=== PATIENT | male | born 1970 | race Caucasian/White ===

== ENCOUNTER 2019-10-26 16:39 | Emergency (ER) | payer MEDICARE, MEDICAID, SELFPAY ==
--- NOTE | ~2019-10-26 | CT_ITS ---
EXAMINATION: CT abdomen pelvis w con EXAM DATE: 10/26/2019 20:28 INDICATION: Abdominal pain, urinary tract infection. TECHNIQUE: Spiral CT of the abdomen and pelvis was performed following intravenous injection of 100 m L Omnipaque 350. Axial, coronal and sagittal images were reviewed. The dose-length product (DLP) fo r this examination was 497.51 mGy-cm. The exposure was tailored according to patient size (auto mA e xposure control), and iterative reconstruction (ASIR) was used as additional dose reduction technique . Comparison is made to prior examination from 03/03/2019. FINDINGS: The liver, spleen, adrenal glands and pancreas are unremarkable. There are cholecystectomy clips. Portal and splenic veins are patent. Kidneys enhance symmetrically. There is no hydronephr osis. The prostate is unremarkable. There is suprapubic catheter within a collapsed bladder. Ther e is no retroperitoneal or pelvic lymphadenopathy. The appendix is large in caliber but does not appear obstructed and there is no adjacent inflammation . There is small to moderate-sized gastroesophageal hiatal hernia. Probably some edema of the distal esophagus, could be esophagitis. There is PEG, gastrojejunostomy tube. There is expected amount of colonic stool. No free intraperitoneal gas. Borderline heart size. No pleural or pericardial effu sions. The lung bases are unremarkable. There are no osteoblastic or osteolytic lesions identified. IMPRESSION: 1. No acute intra-abdominal findings. 2. Distal esophageal edema, probably esophagitis. 3. Gastrojejunostomy tube, suprapubic catheter in position. 4. Small to moderate gastroesophageal hiatal hernia. Reviewed, dictated and finalized at location A. CTOR OF PSYCHIATRY
--- NOTE | ~2019-10-26 | XR_ITS ---
EXAMINATION: XR chest 2V EXAM DATE: 10/26/2019 17:53 INDICATION: Cough and fever. TECHNIQUE: Frontal and lateral projections of the chest obtained and reviewed. Comparison is made to prior examination from 03/03/2019. FINDINGS: The lungs are clear. There are no pleural effusions. The cardiomediastinal silhouette is within normal limits. There is no pneumothorax suspected. Moderate lower thoracic dextroscoliosis. Bones appear osteopenic for age. IMPRESSION: 1. No acute cardiopulmonary findings. 2. Osteopenic-appearing bones for age. Reviewed, dictated and finalized at location A. OTYPE TECHNICIAN
[2019-10-26 16:46] VITALS: BP 108/73; PULSE 96; RESP 23; TEMP 36.4; O2SAT 97
[2019-10-26 17:09] VITALS: PULSE 98
[2019-10-26 18:28] LABS: Basophils Absolute Auto 0.1 K/mm3 (0.0-0.1); Basophils Percent Auto 0.9 % (0.2-1.2); Eosinophils Absolute Auto 0.4 K/mm3 (0-0.3); Eosinophils Percent Auto 5.7 % (0-4.4); Hematocrit 36.9 % (42.0-52.0); Hemoglobin 11.6 g/dL (14.0-18.0); Immature Granulocyte Absolute 0.09 K/mm3 (0.00-0.031); Immature Granulocyte Percent A 1.2 % (0-0.5); Lymphocytes Absolute Auto 2.21 K/mm3 (0.9-3.2); Lymphocytes Percent Auto 29.9 % (18.3-44.2); Mean Corpuscular HGB Conc 31.4 g/dl (32-36); Mean Corpuscular Hemoglobin 26.3 pg (26-34); Mean Corpuscular Volume 83.7 fl (80-100); Mean Platelet Volume 10.5 fl (7.4-10.4); Monocytes Absolute Auto 0.8 K/mm3 (0.1-0.6); Monocytes Percent Auto 10.8 % (2.6-8.5); Neutrophils Absolute Auto 3.8 K/mm3 (1.3-6.7); Neutrophils Percent Auto 51.5 % (45.5-73.1); Platelet Count Result 336 k/mm3 (150-375); Red Blood Count 4.41 M/mm3 (4.6-6.20); Red Cell Distribution Width 15.1 % (11.5-14.5); White Blood Count 7.4 K/mm3 (4.5-10.0)
--- NOTE | 2019-10-26 18:34 | ED.GENADULT ---
HPI - General Adult General Chief complaint: Unspecified <Rachael Morales PA-C - Last Filed: 10/26/19 21:07> Stated complaint: cough, fever <Rachael Morales PA-C - Last Filed: 10/26/19 21:07> Time Seen by Provider: 10/26/19 17:01 <Rachael Morales PA-C - Last Filed: 10/26/19 21:07> Source: patient and family <Rachael Morales PA-C - Last Filed: 10/26/19 21:07> Mode of arrival: ambulatory <Rachael Morales PA-C - Last Filed: 10/26/19 21:07> Limitations: other (patient with history of mental disability) <Rachael Morales PA-C - Last Filed: 10/26/19 21:07> History of Present Illness HPI narrative: This is a 49 year old male that presents to the ER for cold symptoms x 1 week. Patient with history of mental disability, unable to give history. History given by mother. Mother reports he has had cough, congestion and fever for the last week. Also reports he had some vomiting last night. Reports she saw some sediment in his urine from his suprapubic catheter and that he was acting more agitated today which prompted her to bring him in. <Rachael Morales PA-C - Last Filed: 10/26/19 21:07> Related Data Allergies/adverse reactions: Allergies Allergy/AdvReac Type Severity Reaction Status Date / Time adhesive tape Allergy Unknown SKIN Verified 10/26/19 17:02 BLISTERS <Rachael Morales PA-C - Last Filed: 10/26/19 21:07> Review of Systems Review of Systems: ROS unobtainable: unobtainable due to mental condition <Rachael Morales PA-C - Last Filed: 10/26/19 21:07> [facility] Past Medical History Medical History: Medical History (Updated 10/26/19 @ 21:04 by Rachael Morales PA-C) History of gastroesophageal reflux (GERD) History of gastrostomy tube placement History of Austin de la Tourette's syndrome History of hypertension History of neurogenic bladder <Rachael Morales PA-C - Last Filed: 10/26/19 21:07> Surgical History Surgical History: Surgical History (Updated 10/26/19 @ 20:57 by Rachael Morales PA-C) History of cholecystectomy <Rachael Morales PA-C - Last Filed: 10/26/19 21:07> Family History Family History: Family History (Updated 06/19/14 @ 07:13 by DOCTOR UNKNOWN) Mother Family history of thyroid disease Hypertension Other Family history of arthritis <Rachael Morales PA-C - Last Filed: 10/26/19 21:07> Social History Social History: Social History Smoking status: Never smoker Alcohol intake: never <Rachael Morales PA-C - Last Filed: 10/26/19 21:07> Exam Narrative: Exam Narrative: GENERAL: Well-appearing, well-nourished, and in no acute distress. HEAD: Normocephalic, atraumatic. EYES: EOMI. ENT: Nares clear, no rhinorrhea or epistaxis. Mucous membranes moist. Oropharynx without tonsillar hypertrophy exudate or other lesions. Bilateral TMs pearly beverly non-bulging NECK: Supple. No adenopathy or masses. CHEST: Clear to auscultation. No respiratory distress. No wheezes rales or rhonchi HEART: Regular rate and rhythm. No murmur heard. Normal peripheral pulses. ABDOMEN: Soft, nondistended, normal active bowel sounds. Mild tenderness to palpation of the upper abdomen, without guarding. No CVA tenderness EXTREMITIES: Normal range of motion. No edema. SKIN: Warm, dry, no rash. NEURO: No focal deficits. Alert and oriented x2. PSYCH: Normal mood and affect <Rachael Morales PA-C - Last Filed: 10/26/19 21:07> Course Vital Signs Vital signs: Vital Signs Temperature 36.4 C 10/26/19 16:46 Pulse Rate 96 10/26/19 16:46 Respiratory Rate 23 H 10/26/19 16:46 Blood Pressure 108/73 10/26/19 16:46 Pulse Oximetry 97 10/26/19 16:46 Temperature 36.4 C 10/26/19 16:46 Pulse Rate 88 10/26/19 21:25 Respiratory Rate 18 10/26/19 21:25 Blood Pressure 138/72 10/26/19 21:25 Pulse Oximetry 97 10/26/19 21:25 <Rachael Morales PA-C - Last Filed: 10/26/19 21:07> Vital Signs Temperature 36.4 C
[2019-10-26 18:40] LABS: Lactic Acid Reflex 0.6 mmol/L (0.7-2.1)
[2019-10-26 18:41] LABS: Alanine Aminotransferase 15 U/L (4-50); Albumin Level 4.2 g/dL (3.5-5.1); Alkaline Phosphatase 102 U/L (38-126); Aspartate Amino Transferase 32 U/L (17-59); Bilirubin,Total 0.2 mg/dL (0.2-1.3); Blood Urea Nitrogen 12 mg/dL (9-20); Calcium 9.2 mg/dL (8.4-10.2); Carbon Dioxide 28 mmol/L (22-30); Chloride 98 mmol/L (98-107); Estimated CRCL calculation 106 ml/min; Estimated Glomerular Filt Rate > 60; Glucose 130 mg/dL (75-110); Lipase 49 U/L (23-300); Potassium 3.5 mmol/L (3.4-5.0); Sodium 138 mmol/L (137-145)
[2019-10-26 19:20] LABS: Add Urine Microscopic? YES; Appearance Urine Cloudy (Clear); Bacteria Urine 3+ /hpf; Bilirubin Urine Negative (Negative); Budding Yeast Urine Present /hpf; Color Urine Yellow (Yellow); Glucose Urine UA Negative (Negative); Ketones Urine Negative (Negative); Leukocyte Esterase Ur 3+ LEU/UL (Negative); Mucus Urine Heavy /lpf; Nitrate Urine Positive (Negative); Protein Urine Negative (Negative); RBC Urine 21-50 /hpf (0-2); Specific Grav Ur 1.008 (1.001-1.035); Urobilinogen Urine Negative mg/dL (<2.0); WBC Urine >75 /hpf
[2019-10-26 19:22] LABS: Blood Urine Negative (Negative)
[2019-10-26 21:25] VITALS: BP 138/72; PULSE 88; RESP 18; O2SAT 97
--- NOTE | 2019-11-24 06:08 | PC.NURSE ---
LATE ENTRY This note is being entered to document information to the patient's record. The following information was omitted on [10/25/19], by [fiona]. Antibiotics complete, 50ml infused.
== END 2019-10-26 21:40 | disposition home or self-care (01) ==
PROVIDERS: Physician Assistant; Emergency Provider Emergency Medicine
DX: N30.01 Acute cystitis with hematuria (principal); F79 Unspecified intellectual disabilities; K21.9 Gastro-esophageal reflux disease without esophagitis; I10 Essential (primary) hypertension; N31.9 Neuromuscular dysfunction of bladder, unspecified; F95.2 Tourette's disorder; K46.9 Unspecified abdominal hernia without obstruction or gangrene; Z93.1 Gastrostomy status
CPT/HCPCS: 36415; 71046; 74177; 80053; 81001; 83605; 83690; 85025; 87077; 87086; 87088; 87186; 96360; 99284; J0696; Q9967

== ENCOUNTER 2019-12-03 13:39 | Inpatient (IN) | payer MEDICARE, MEDICAID, SELFPAY ==
[2019-12-03] VITALS (11 sets, daily range): BP systolic 99–125; BP diastolic 57–88; PULSE 85–117; RESP 16–29; TEMP 36.2–36.8; O2SAT 94–96; BMI 24.7
--- NOTE | ~2019-12-03 | XR_ITS ---
EXAMINATION: XR chest 2V EXAM DATE: 12/03/2019 15:27 INDICATION shortness of breath and weakness. Fever. Symptoms 1-2 days. TECHNIQUE: Frontal and lateral projections of the chest obtained and reviewed. Comparison is made to prior examination from 11/11. FINDINGS: There are scattered right upper lobe reticulonodular airspace disease, possible bronchopneu monia. The lungs are otherwise clear. There are no pleural effusions. The cardiomediastinal silhoue tte is within normal limits. There is no pneumothorax suspected. The bones and soft tissues are unr emarkable. Gastrostomy tube. IMPRESSION: Probable nonconfluent scattered right upper lobe airspace disease, could be pneumonia. Reviewed, dictated and finalized at location B. NER INTERN
--- NOTE | 2019-12-03 13:59 | ED.GENADULT ---
HPI - General Adult General Chief complaint: Unspecified Stated complaint: Fever Time Seen by Provider: 12/03/19 13:45 Source: patient and family Mode of arrival: ambulatory Limitations: other (Mental capacity) History of Present Illness HPI narrative: A 49 y/o male presents to the ED with c/o fever. Per patient's family, the patient suddenly had a fever yesterday that was 102.5 degrees Fahrenheit. The family notes that he has been around someone in their family with Influenza. The family reports dark odorous urine with sediment, cough, and N/V. The family adds that the urine symptoms started last week and the patients home health nurse took a sample of the urine, but they have not heard about the results yet. The patient did not vomit today. He has a PMHx of autism and metal disability and currently has a feeding tube and gastric tube placed. A complete HPI is limited due to the patient's mental capacity. complaint: Fever Onset (ago): day(s) (1) Associated symptoms: cough, nausea/vomiting and other (Dark odorous urine with sediment) Treatments prior to arrival: none Related Data Home Medications Medication Instructions Recorded Confirmed Sudafed 1 tablet PO BID 11/26/19 12/03/19 carvedilol [Coreg] 3.125 mg PO DAILY 11/26/19 12/03/19 ergocalciferol (vitamin D2) 50,000 unit PO [id number] 11/26/19 12/03/19 [Vitamin D2] lamotrigine 75 mg PO BID 11/26/19 12/03/19 omeprazole 40 mg PO DAILY 11/26/19 12/03/19 Allergies Allergy/AdvReac Type Severity Reaction Status Date / Time adhesive tape Allergy Unknown SKIN Verified 11/26/19 10:06 BLISTERS Review of Systems Review of Systems: Narrative: A complete ROS is limited due to the patient's mental capacity. All systems reviewed & are unremarkable except as noted in HPI and below Constitutional: Constitutional: Reports fever(s) Respiratory: Respiratory: Reports cough Gastrointestinal: Gastrointestinal: Reports nausea and Reports vomiting Genitourinary: Genitourinary: Reports other (Dark odorous urine with sediment) [facility] Past Medical History Medical History (Updated 12/03/19 @ 19:21 by Ghassan Le MD) Autism Feeding by G-tube Gastrostomy tube in place History of gastroesophageal reflux (GERD) History of gastrostomy tube placement History of Austin de la Tourette's syndrome History of hypertension History of neurogenic bladder Mental disability Suprapubic catheter Surgical History Surgical History History of cholecystectomy Family History Family History Mother Family history of thyroid disease Hypertension Other Family history of arthritis Social History Social History Smoking status: Never smoker Alcohol intake: never Substance use: never Gender identity (if verbalized by the patient): Male Spiritual care concerns: No Agree to blood products: Yes Exam Narrative: Exam Narrative: GENERAL: Chronically ill-appearing, thin, and in no acute distress. HEAD: Normocephalic, atraumatic. ENT: Mucous membranes moist. NECK: Supple. CHEST: Mild rales left upper lung zone posteriorly.. No respiratory distress. HEART: Tachycardic and regular. Normal peripheral pulses. ABDOMEN: Soft, nontender, nondistended. G-tube and suprapubic tube. EXTREMITIES: Normal range of motion. No edema. SKIN: Warm, dry, no rash. NEURO: Awake and alert, follows commands well. Course Course Emergency Course: Admit to hospitalist service. Zosyn ordered. Tamiflu per G-tube. We will continue hydration. Vital Signs Vital signs: Vital Signs Temperature 98.3 F 12/03/19 13:49 Pulse Rate 116 H 12/03/19 13:49 Respiratory Rate 24 H 12/03/19 13:49 Blood Pressure 125/57 L 12/03/19 13:49 Pulse Oximetry 95 12/03/19 13:49 Temperature 98.3 F 12/03/19 13:49 Pulse Rate 117 H 12/03/19 17:00 Respirat
[2019-12-03] MEDS: SODIUM CHLORIDE 0.9% IV 1,000 ML 999 ML IV CONT (14:16)
[2019-12-03 14:17] LABS: Basophils Percent Auto 0.8 % (0.2-1.2); Eosinophils Absolute Auto 0.1 K/mm3 (0-0.3); Eosinophils Percent Auto 2.7 % (0-4.4); Hematocrit 34.6 % (42.0-52.0); Immature Granulocyte Absolute 0.04 K/mm3 (0.00-0.031); Immature Granulocyte Percent A 0.8 % (0-0.5); Lymphocytes Percent Auto 14.6 % (18.3-44.2); Mean Corpuscular HGB Conc 31.8 g/dl (32-36); Mean Corpuscular Hemoglobin 26.6 pg (26-34); Mean Corpuscular Volume 83.6 fl (80-100); Mean Platelet Volume 8.9 fl (7.4-10.4); Monocytes Absolute Auto 0.6 K/mm3 (0.1-0.6); Monocytes Percent Auto 13.1 % (2.6-8.5); Neutrophils Absolute Auto 3.3 K/mm3 (1.3-6.7); Platelet Count Result 258 k/mm3 (150-375); Red Blood Count 4.14 M/mm3 (4.6-6.20); Red Cell Distribution Width 15.5 % (11.5-14.5); White Blood Count 4.8 K/mm3 (4.5-10.0)
--- NOTE | 2019-12-03 14:20 | PC.NURSE ---
Pt and visitors informed of positive flu result. Attempt to place mask on patient, pt begins to become stressed, states no mask, no mask . Visitors informed and given masks for their protection.
[2019-12-03 14:27] LABS: Add Urine Microscopic? YES; Appearance Urine Cloudy (Clear); Bacteria Urine 2+ /hpf; Bilirubin Urine Negative (Negative); Blood Urine 1+ (Negative); Color Urine Yellow (Yellow); Glucose Urine UA Negative (Negative); Ketones Urine Trace mg/dL (Negative); Leukocyte Esterase Ur 2+ LEU/UL (Negative); Mucus Urine Rare /lpf; Nitrate Urine Negative (Negative); Protein Urine 2+ mg/dL (Negative); RBC Urine 21-50 /hpf (0-2); Specific Grav Ur 1.015 (1.001-1.035); Squamous Epithelial Cell Urine Rare /hpf (Few); Urobilinogen Urine Negative mg/dL (<2.0); WBC Urine 21-30 /hpf
[2019-12-03 14:28] LABS: Alanine Aminotransferase 22 U/L (4-50); Albumin Level 4.1 g/dL (3.5-5.1); Alkaline Phosphatase 107 U/L (38-126); Aspartate Amino Transferase 54 U/L (17-59); Bilirubin,Total 0.2 mg/dL (0.2-1.3); Blood Urea Nitrogen 12 mg/dL (9-20); Calcium 8.6 mg/dL (8.4-10.2); Carbon Dioxide 24 mmol/L (22-30); Chloride 101 mmol/L (98-107); Estimated CRCL calculation 92 ml/min; Estimated Glomerular Filt Rate > 60; Glucose 108 mg/dL (75-110); Potassium 3.7 mmol/L (3.4-5.0); Sodium 136 mmol/L (137-145)
[2019-12-03 14:28] LABS: Lactic Acid 0.9 mmol/L (0.7-2.1)
[2019-12-03] MEDS: ALBUTEROL SULFATE NEB 2.5 MG/0.5 ML INH 5 MG INHALATION ×2 (14:38→20:01)
[2019-12-03] MEDS: IPRATROPIUM BR 0.02% INH SOLN 0.5 MG/2.5 ML VIAL INHALATION ×2 (14:39→20:01)
[2019-12-03] MEDS: SODIUM CHLORIDE 0.9% IV 1,000 ML 125 ML IV CONT (16:14)
--- NOTE | 2019-12-03 17:12 | PC.NURSE ---
This patient, Trace Bowser, was admitted to 3 [facility] Surg Room 302-01. Patient/family oriented to hospital policies and general routines including ID bracelet, bed and alarms, visiting hours, pain management, procedures, bathroom and other care routines, personal items, smoking policy, room service/diet, and visiting hours. Valuables list has been completed. Information on how to activate the Rapid Response Team has been discussed. Patient/Family are encouraged to report perceived risks to care and to ask questions if they do not understand what they are told or what they should do.
[2019-12-03] MEDS: OSELTAMIVIR PHOSPHATE ORAL SUSP 75 MG/12.5 ML SYRINGE FEED TUBE (19:07)
[2019-12-03] MEDS: ONDANSETRON INJ 4 MG/2 ML VIAL IV PUSH (21:35)
[2019-12-04] VITALS (12 sets, daily range): BP systolic 86–99; BP diastolic 53–59; PULSE 71–85; RESP 16–20; TEMP 36.6–37.4; O2SAT 94–99; BMI 24.7
[2019-12-04] MEDS: SODIUM CHLORIDE 0.9% IV 1,000 ML 125 ML IV CONT ×2 (01:10→09:59)
[2019-12-04] MEDS: ALBUTEROL SULFATE NEB 2.5 MG/0.5 ML INH 5 MG INHALATION ×4 (02:13→20:11)
[2019-12-04] MEDS: IPRATROPIUM BR 0.02% INH SOLN 0.5 MG/2.5 ML VIAL INHALATION ×4 (02:13→20:11)
--- NOTE | 2019-12-04 02:59 | PM.IMHP ---
H&P: HPI History of Present Illness Chief complaint: influenza A/pneumonia/uti Narrative: Trace Bowser is a 49 year old male who is mentally challenged patient who resides with his mother. According to the ED note the patient's family stated that he started having a fever yesterday of 102.5 the also noted that he had been around someone in the family with influenza. Also has a suprapubic catheter and has had frequent urinary tract infections. The patient had a urine sample taken in about a week ago. Patient had a urine culture from October which shows E coli and Enterococcus species. But I did not see 1 from a week ago. Patient was given Zosyn in the emergency room. He was started on Tamiflu for influenza A. Date of service 12/04/2019 Review of Systems Review of Systems: Narrative: Patient is mentally challenged most information was obtained from old records. Patient stated that he has fever and chills. He also has body aches. All systems reviewed & are unremarkable except as noted in HPI and below Constitutional: Constitutional: Reports as per HPI and Reports no additional constitutional complaints Eyes: Eyes: Reports as per HPI and Reports no additional eye complaints ENT: Reports system reviewed and no additional complaints, except as documented and Reports Normal hearing present Cardiovascular: Cardiovascular: Reports no additional cardiovascular complaints Respiratory: Respiratory: Reports no additional respiratory complaints and Reports no additional respiratory complaints Gastrointestinal: Gastrointestinal: Reports as per HPI and Reports no additional gastrointestinal complaints Musculoskeletal: Musculoskeletal: Reports no additional musculoskeletal complaints Integumentary/Breasts: Skin/Breast: Reports system reviewed and no additional complaints, except as docu and Reports as per HPI Neurologic: Reports system reviewed and no additional complaints, except as documented, Reports as per HPI and Reports Normal hearing present Psychiatric: Psychiatric: Reports no additional psychiatric complaints and Reports as per HPI Endocrine: Endocrine: Reports no additional endocrine complaints Hematologic/Lymphatic: Hematologic/Lymphatic: Reports no additional hematologic/lymphatic complaints Allergic/Immunologic: Allergic/Immunologic: Reports no additional allergic/immunologic complaints [facility] Past Medical History Medical History (Updated 12/04/19 @ 03:06 by Bella Castro NP) Autism Barretts esophagus Chronic ear infection Feeding by G-tube Gastrostomy tube in place History of gastroesophageal reflux (GERD) History of gastrostomy tube placement History of Austin de la Tourette's syndrome History of hypertension History of neurogenic bladder Hypertension Mental disability Seizure disorder Suprapubic catheter Tourette syndrome Surgical History Surgical History (Updated 12/04/19 @ 03:06 by Bella Castro NP) History of cholecystectomy History of ear surgery 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 History of surgical removal of skin lesion Benign lesion to the neck Family History Family History (Updated 12/04/19 @ 03:07 by Bella Castro NP) Mother Family history of thyroid disease Hypertension COPD (chronic obstructive pulmonary disease) HTN (hypertension) with goal to be determined Father Congestive heart failure Other Family history of arthritis Social History Social History Smoking status: Never smoker Alcohol intake: never Substance use: never Gender identity (if verbalized by the patient): Male Spiritual care concerns: No Agree to blood products: Yes Meds Home Medications and Allergies Home Medications Medication Instructions Recorded Confirmed Type Sudafed 1 tablet PO BID 11/26/19 12/03/19 History carvedilol [Coreg] 3.125 mg PO DAILY 11/26/19 12/03/19 History ergocalciferol (kelsie
[2019-12-04] MEDS: OSELTAMIVIR PHOSPHATE ORAL SUSP 75 MG/12.5 ML SYRINGE FEED TUBE ×2 (05:53→18:35)
[2019-12-04 06:34] LABS: Basophils Percent Auto 0.5 % (0.2-1.2); Eosinophils Percent Auto 0.9 % (0-4.4); Hematocrit 32.1 % (42.0-52.0); Immature Granulocyte Absolute 0.03 K/mm3 (0.00-0.031); Immature Granulocyte Percent A 0.7 % (0-0.5); Lymphocytes Absolute Auto 1.12 K/mm3 (0.9-3.2); Lymphocytes Percent Auto 26.4 % (18.3-44.2); Mean Corpuscular HGB Conc 31.2 g/dl (32-36); Mean Corpuscular Hemoglobin 26.9 pg (26-34); Mean Corpuscular Volume 86.3 fl (80-100); Mean Platelet Volume 8.9 fl (7.4-10.4); Monocytes Absolute Auto 0.7 K/mm3 (0.1-0.6); Monocytes Percent Auto 16.5 % (2.6-8.5); Neutrophils Absolute Auto 2.3 K/mm3 (1.3-6.7); Platelet Count Result 219 k/mm3 (150-375); Red Blood Count 3.72 M/mm3 (4.6-6.20); Red Cell Distribution Width 15.8 % (11.5-14.5); White Blood Count 4.3 K/mm3 (4.5-10.0)
[2019-12-04 06:55] LABS: Alanine Aminotransferase 21 U/L (4-50); Albumin Level 3.4 g/dL (3.5-5.1); Alkaline Phosphatase 116 U/L (38-126); Aspartate Amino Transferase 46 U/L (17-59); Bilirubin,Total < 0.1 mg/dL (0.2-1.3); Blood Urea Nitrogen 11 mg/dL (9-20); Calcium 7.8 mg/dL (8.4-10.2); Carbon Dioxide 26 mmol/L (22-30); Chloride 110 mmol/L (98-107); Estimated CRCL calculation 81 ml/min; Estimated Glomerular Filt Rate > 60; Glucose 94 mg/dL (75-110); Magnesium 2.1 mg/dL (1.6-2.3); Potassium 3.6 mmol/L (3.4-5.0); Sodium 146 mmol/L (137-145)
--- NOTE | 2019-12-04 09:12 | PM.IMPN ---
Progress Note: A&P Assessment and Plan (1) Influenza A: Code(s): J10.1 - Influenza due to other identified influenza virus with other respiratory manifestations Status: Acute Assessment and Plan: Continue Tamiflu via G-tube for 5 days. Will complete on 12/08/2019 Supportive care as needed (2) Acute UTI: Code(s): N39.0 - Urinary tract infection, site not specified Status: Acute Assessment and Plan: Patient has had E coli and Enterococcus in the past. Patient may have colonized bacteria in his suprapubic catheter. Suprapubic catheter in place. Continue IV Zosyn - Zosyn was started on 12/03/2019 in ED Cultures pending - will await results. (3) Pneumonia: Qualifiers: Laterality: right Lung location: upper lobe of lung Pneumonia type: due to influenza A virus Qualified Code(s): J11.00 - Influenza due to unidentified influenza virus with unspecified type of pneumonia Code(s): J18.9 - Pneumonia, unspecified organism Status: Acute Assessment and Plan: CXR Radiology report: Probable nonconfluent scattered right upper lobe airspace disease, could be pneumonia. Most likely is viral. He is on Zosyn for UTI. Supportive care as needed. (4) Dehydration: Code(s): E86.0 - Dehydration Status: Acute Assessment and Plan: Reduce IV Normal Saline to 100 ml/hr Continue to monitor sodium - currently at 146 If sodium continues to rise, consider switching to D5W (5) Hypertension: Code(s): I10 - Essential (primary) hypertension Status: Chronic Assessment and Plan: Blood pressure evaluated and low from baseline at 86/59 Hold home Coreg today. Continue IV fluids to boost pressure. Continue to monitor pressures. (6) Seizure disorder: Code(s): G40.909 - Epilepsy, unspecified, not intractable, without status epilepticus Status: Chronic Assessment and Plan: Currently stable Continue with Lamictal. (7) Autism: Code(s): F84.0 - Autistic disorder Status: Chronic Assessment and Plan: Continue with patient's home tube feedings. (8) Tourette syndrome: Code(s): F95.2 - Tourette's disorder Status: Chronic Assessment and Plan: Currently stable Subjective Date/time seen: 12/04/19 09:12 Interval history: Date of service: 12/04/2019 Mr. Bowser is a 49 year old male with a history of autism, HTN, and Tourette syndrome who was admitted to the hospital on 12/04/2019 for urinary tract infection and Influenza. He has had several urinary tract infections in the past. Recent culture from October grew E. coli and Enterococcus. He currently has a suprapubic catheter in place. He is currently on Zosyn. He also has a G-tube in place.He is receiving Tamiflu through his G-tube. Mr. Bowser is well-appearing and appears stable. He is examined alone today. It is difficult to obtain information from the patient. He reports no pain. He states he is sleeping well. Review of Systems Review of Systems: Narrative: It is difficult to obtain information from the patient due to his mental state. All systems reviewed & are unremarkable except as noted in HPI and below Constitutional: Constitutional: Denies chills, Denies difficulty sleeping and Denies weakness ENT: Denies nasal congestion, Denies nasal discharge and Denies sore throat Cardiovascular: Cardiovascular: Denies chest pain Respiratory: Respiratory: Denies cough Gastrointestinal: Gastrointestinal: Denies nausea and Denies vomiting Genitourinary: Genitourinary: Denies flank pain Musculoskeletal: Musculoskeletal: Reports no additional musculoskeletal complaints Integumentary/Breasts: Skin/Breast: Reports system reviewed and no additional complaints, except as docu Neurologic: Reports system reviewed and no additional complaints, except as documented Psychiatric: Psychiatric: Reports no additional psychiatric complaints Exam Narrative:
[2019-12-04] MEDS: carvediloL 3.125 MG TABLET PO (09:48)
[2019-12-04] MEDS: lamoTRIgine 25 MG TABLET 75 MG PO ×2 (09:48→17:40)
[2019-12-04] MEDS: PANTOPRAZOLE 40 MG TABLET PO ×2 (09:48→17:40)
--- NOTE | 2019-12-04 12:13 | PCNSR ---
On 12/04/19, the student, Bre De Santiago, provided care and completed [facility] documentation on this patient. I have reviewed the student's documentation and agree with the findings.
[2019-12-04] MEDS: SODIUM CHLORIDE 0.9% IV 1,000 ML 100 ML IV CONT (21:32)
[2019-12-05] VITALS (8 sets, daily range): BP systolic 104; BP diastolic 56; PULSE 67–84; RESP 16–20; TEMP 36.8; O2SAT 94
[2019-12-05] MEDS: ALBUTEROL SULFATE NEB 2.5 MG/0.5 ML INH 5 MG INHALATION ×3 (04:10→15:40)
[2019-12-05] MEDS: IPRATROPIUM BR 0.02% INH SOLN 0.5 MG/2.5 ML VIAL INHALATION ×3 (04:10→15:40)
[2019-12-05] MEDS: OSELTAMIVIR PHOSPHATE ORAL SUSP 75 MG/12.5 ML SYRINGE FEED TUBE ×2 (05:32→18:24)
[2019-12-05 06:43] LABS: Hematocrit 30.9 % (42.0-52.0); Hemoglobin 9.6 g/dL (14.0-18.0); Mean Corpuscular HGB Conc 31.1 g/dl (32-36); Mean Corpuscular Hemoglobin 26.2 pg (26-34); Mean Corpuscular Volume 84.2 fl (80-100); Mean Platelet Volume 8.5 fl (7.4-10.4); Platelet Count Result 212 k/mm3 (150-375); Red Blood Count 3.67 M/mm3 (4.6-6.20); Red Cell Distribution Width 15.6 % (11.5-14.5); White Blood Count 3.4 K/mm3 (4.5-10.0)
[2019-12-05 07:03] LABS: Blood Urea Nitrogen 9 mg/dL (9-20); Carbon Dioxide 24 mmol/L (22-30); Chloride 109 mmol/L (98-107); Estimated CRCL calculation 106 ml/min; Estimated Glomerular Filt Rate > 60; Glucose 104 mg/dL (75-110); Potassium 3.6 mmol/L (3.4-5.0); Sodium 142 mmol/L (137-145)
[2019-12-05] MEDS: SODIUM CHLORIDE 0.9% IV 1,000 ML 100 ML IV CONT (08:35)
[2019-12-05] MEDS: lamoTRIgine 25 MG TABLET 75 MG PO (08:35)
[2019-12-05] MEDS: PANTOPRAZOLE 40 MG TABLET PO (08:35)
--- NOTE | 2019-12-05 12:42 | PM.IMPN ---
Progress Note: A&P Assessment and Plan (1) Influenza A: Code(s): J10.1 - Influenza due to other identified influenza virus with other respiratory manifestations Status: Acute Assessment and Plan: Continue Tamiflu via G-tube for 5 days. Will complete on 12/08/2019 Supportive care as needed (2) Acute UTI: Code(s): N39.0 - Urinary tract infection, site not specified Status: Acute Assessment and Plan: Patient has had E coli and Enterococcus in the past. Patient may have colonized bacteria in his suprapubic catheter. Patient is afebrile and stable. Final urine culture reports Proteus Mirabilis with susceptibility to Zosyn. Suprapubic catheter in place - urine in catheter bag appears significantly more clear today. Continue IV Zosyn - Zosyn was started on 12/03/2019 in ED Patient is stable and able to take oral antibiotics at home - Begin Cefdinir at discharge for 7 days (3) Pneumonia: Qualifiers: Laterality: right Lung location: upper lobe of lung Pneumonia type: due to influenza A virus Qualified Code(s): J11.00 - Influenza due to unidentified influenza virus with unspecified type of pneumonia Code(s): J18.9 - Pneumonia, unspecified organism Status: Acute Assessment and Plan: CXR Radiology report: Probable nonconfluent scattered right upper lobe airspace disease, could be pneumonia. Most likely is viral. He is on Zosyn for UTI. Supportive care as needed. (4) Dehydration: Code(s): E86.0 - Dehydration Status: Acute Assessment and Plan: Reduce IV Normal Saline to 100 ml/hr Continue to monitor sodium - currently stable at 142 If sodium continues to rise, consider switching to D5W (5) Hypertension: Qualifiers: Hypertension type: essential hypertension Qualified Code(s): I10 - Essential (primary) hypertension Code(s): I10 - Essential (primary) hypertension Status: Chronic Assessment and Plan: Blood pressure evaluated and stable at 104/56. Continue to hold home Coreg today due to previous pressures lower than baseline. Continue to monitor pressures. (6) Seizure disorder: Code(s): G40.909 - Epilepsy, unspecified, not intractable, without status epilepticus Status: Chronic Assessment and Plan: Currently stable Continue with Lamictal. (7) Autism: Code(s): F84.0 - Autistic disorder Status: Chronic Assessment and Plan: Continue with patient's home tube feedings. (8) Tourette syndrome: Code(s): F95.2 - Tourette's disorder Status: Chronic Assessment and Plan: Currently stable Time Spent With Patient Time with patient: 25 - 35 minutes Subjective Date/time seen: 12/05/19 12:42 Interval history: Date of service: 12/05/2019 Mr. Bowser is doing well today. He is lying in bed and eating breakfast. Discussion is limited due to mental state, but he is able to answer questions with yes or no. He reports he is feeling well. He denies any pain. He reports he is sleeping well. He also reports good appetite. Review of Systems Review of Systems: All systems reviewed & are unremarkable except as noted in HPI and below Constitutional: Constitutional: Reports as per HPI, Reports no additional constitutional complaints, Denies chills, Denies difficulty sleeping and Denies weakness Eyes: Eyes: Reports as per HPI and Reports no additional eye complaints ENT: Reports system reviewed and no additional complaints, except as documented, Reports Normal hearing present, Denies nasal congestion, Denies nasal discharge and Denies sore throat Cardiovascular: Cardiovascular: Reports no additional cardiovascular complaints and Denies chest pain Respiratory: Respiratory: Reports no additional respiratory complaints, Reports no additional respiratory complaints and Denies cough Gastrointestinal: Gastrointestinal: Reports as per HPI, Reports no additional gastrointe
--- NOTE | 2019-12-05 16:11 | PM.DS ---
DS: Diagnosis Discharge Diagnosis (1) Influenza A: Code(s): J10.1 - Influenza due to other identified influenza virus with other respiratory manifestations Status: Acute (2) Acute UTI: Code(s): N39.0 - Urinary tract infection, site not specified Status: Acute (3) Pneumonia: Qualifiers: Laterality: right Lung location: upper lobe of lung Pneumonia type: due to influenza A virus Qualified Code(s): J11.00 - Influenza due to unidentified influenza virus with unspecified type of pneumonia Code(s): J18.9 - Pneumonia, unspecified organism Status: Acute (4) Dehydration: Code(s): E86.0 - Dehydration Status: Acute (5) Hypertension: Qualifiers: Hypertension type: essential hypertension Qualified Code(s): I10 - Essential (primary) hypertension Code(s): I10 - Essential (primary) hypertension Status: Chronic (6) Autism: Code(s): F84.0 - Autistic disorder Status: Chronic (7) Seizure disorder: Code(s): G40.909 - Epilepsy, unspecified, not intractable, without status epilepticus Status: Chronic (8) Tourette syndrome: Code(s): F95.2 - Tourette's disorder Status: Chronic DS: Summary Hospital Course Reason for hospitalization: Urinary Tract Infection Influenza Pneumonia Hospital Course: Date of service of admission: 12/03/2019 Date of service at discharge: 12/05/2019 Mr. Bowser is a 49 year old male with a history of autism, seizure disorder, and hypertension who was admitted to the hospital for a urinary tract infection, influenza A, and pneumonia. He was seen in the ED following self reported fever after having contact with someone who also had influenza. Mr. Bowser has decreased mental state and is cared for at home by his mother. He receives a mixed diet of feedings through an intact G tube and oral food intake. He has a patent suprapubic catheter in place, and has a history of UTIs with prior E. coli and Enterococcus infections in the past. He was started on IV Zosyn in the ED and continued to received IV Zosyn on day 1 and 2 in the hospital. He was given IV normal saline. His urine culture grew Proteus Mirabilis with susceptibility to Zosyn. He will continue oral Cefdinir for 7 days following discharge. He was also found to have influenza A while in the ED for which he was treated with Tamiflu via his intact G-tube. He will continue 7 doses of Tamiflu via G-tube upon discharge. His chest X-ray showed pneumonia. This is likely viral in origin and no further treatment was required. He remained asymptomatic. His blood pressure became decreased at 86/59 on day 1 of hospitalization, therefore his home dose of Coreg was held during hospitalization. Blood pressure stable at discharge. During his stay, he continued his tube feedings as a caregiver brought his home tube feeding supplies. In addition, he received a regular diet and ate foods orally. He continued his home lamotrigine for seizure disorder. The patient is to be discharged home with a caregiver, as his mother whom he lives with and is his typical caregiver, is currently hospitalized as well. Mother is aware. Just before discharge, the patient vomited after eating Jello. According to caregiver who arrived to take Mr. Bowser home, it is normal for him to have episodes of vomiting after coughing or eating. They discussed with his mother. He is eager for discharge and it was determined that he is still appropriate for discharge. Mr. Bowser was discharged on the evening of 12/05/2019 in stable condition. Status at Discharge Cognitive/behavioral status at discharge: Back to baseline decreased mental capability Overall status at discharge: patient is back to baseline Time Spent with Patient Time attestation: Total time spent providing and/or coordinating discharge services:45 minutes Time spent: Greater than 30 minutes Exam Narrative: Exam Narrative: The patient is
== END 2019-12-05 18:30 | disposition home health service (06) | DRG 194 ==
LOC: ANHED 13:57 → ANH3MEDSUR 16:49
PROVIDERS: Nurse Practitioner; Admitting Provider Hospitalist; Emergency Provider Emergency Medicine; Visit Provider Physician Assistant
DX: J10.01 Influenza due to other identified influenza virus with the same other identified influenza virus pneumonia (principal); F84.0 Autistic disorder; N39.0 Urinary tract infection, site not specified; T83.510A Infection and inflammatory reaction due to cystostomy catheter, initial encounter; Z93.1 Gastrostomy status; F95.2 Tourette's disorder; I10 Essential (primary) hypertension; N31.9 Neuromuscular dysfunction of bladder, unspecified; Z90.49 Acquired absence of other specified parts of digestive tract; G40.909 Epilepsy, unspecified, not intractable, without status epilepticus; E86.0 Dehydration; B96.4 Proteus (mirabilis) (morganii) as the cause of diseases classified elsewhere
CPT/HCPCS: 36415; 71046; 80048; 80053; 81001; 83605; 83735; 85025; 85027; 87077; 87086; 87088; 87186; 87804; 94640; 96361; 96365; 99285; A9270; J2405; J2543; J7030

== ENCOUNTER 2020-03-30 13:29 | Inpatient (IN) | payer MEDICARE, MEDICAID, SELFPAY ==
--- NOTE | ~2020-03-30 | XR_ITS ---
XR chest 2V 03/30/2020 14:27 Indication: Shortness of breath Procedure: 2 view chest Comparison: Comparison to multiple prior studies sequentially, with oldest reviewed study dated 03/03. Findings: Borderline heart size. Extensive airspace disease of the right mid and lower lung, compatib le with pneumonia. No pleural effusion or pneumothorax. There is scoliosis. There is atherosclerosis. No acute osseous abnormality. Impression: 1: Extensive airspace disease right mid and lower lung, consistent with pneumonia. Reviewed, dictated and finalized at location A. Impression: 1: Extensive airspace disease right mid and lower lung, consistent with pneumon ia.
--- NOTE | ~2020-03-30 | XR_ITS ---
EXAMINATION: XR chest 1V portable DATE: 04/02/2020 06:01 INDICATION: Pneumonia TECHNIQUE: frontal view of the chest was obtained. COMPARISON: Chest radiograph dated 03/30/2020 FINDINGS: Persistent opacities in the right lower lung zone. Tiny bilateral pleural effusions with blunting at the costophrenic and cardiophrenic angles. No pneumothorax. Borderline heart size accounting for AP t echnique. Thoracic dextroscoliosis. Cholecystectomy clips in right upper quadrant. Partially visualiz ed gastrojejunostomy tube projects over the upper abdomen. IMPRESSION: 1. Persistent opacities in the right lower lung consistent with pneumonia. Reviewed, dictated and finalized at location A.
--- NOTE | ~2020-03-30 | XR_ITS ---
EXAMINATION: XR chest 1V portable INDICATION: Pneumonia and shortness of breath TECHNIQUE: Portable AP chest at 0557 hours COMPARISON: 04/02/2020 FINDINGS: Right basilar airspace opacities persist with slight improvement. Tiny pleural effusions ar e unchanged. There is no pneumothorax. The cardiomediastinal silhouette is stable. A gastrojejunostom y projects over the upper abdomen. IMPRESSION: 1. Right basilar airspace opacity with slight improvement, consistent with pneumonia. Reviewed, dictated and finalized at location A. IMPRESSION: 1. Right basilar airspace opacity with slight improvement, consistent with pneu monia.
--- NOTE | 2020-03-30 13:32 | ECG_ITS ---
Measurements Intervals [place] Rate: 145 P: 42 MO: 129 QRS: -40 QRSD: 100 T: 50 QT: 280 QTc: 436 Interpretive Statements SINUS TACHYCARDIA LEFT AXIS DEVIATION RIGHT ATRIAL ENLARGEMENT INCOMPLETE RIGHT BUNDLE BRANCH BLOCK VOLTAGE CRITERIA FOR LVH ABNORMAL ECG Electronically Signed On 03-30-2020 14:05:06 CDT by Ken Clements D.O.
[2020-03-30 13:56] VITALS: BP 136/87; PULSE 140; RESP 18; TEMP 36.9; O2SAT 98
[2020-03-30 13:59] VITALS: PULSE 129
--- NOTE | 2020-03-30 14:16 | ED.GENADULT ---
HPI - General Adult General Chief complaint: Shortness of Breath/Dyspnea Stated complaint: COUGHING, N/V Time Seen by Provider: 03/30/20 13:48 Source: patient and family History of Present Illness HPI narrative: Patient is a 49 y/o male complaining of moderate cough, SOB and N/V for about 3 days. There is no alleviating or exacerbating factor. Patient has slurred speech and is difficult to understand. Mother provided most of history. She states that he has no fever. There is no alleviating or exacerbating factor. Related Data Home Medications Medication Instructions Recorded Confirmed carvedilol [Coreg] 3.125 mg PO DAILY 11/26/19 01/03/20 ergocalciferol (vitamin D2) 50,000 unit PO [id number] 11/26/19 01/03/20 [Vitamin D2] lamotrigine 75 mg PO BID 11/26/19 01/03/20 omeprazole 40 mg PO DAILY 11/26/19 01/03/20 Allergies Allergy/AdvReac Type Severity Reaction Status Date / Time adhesive tape Allergy Unknown SKIN Verified 01/03/20 10:01 BLISTERS Review of Systems Constitutional: Constitutional: Denies chills, Denies fever(s), Denies headache(s) and Denies weakness Eyes: Eyes: Denies blurry vision ENT: Denies headache(s) and Denies neck pain Cardiovascular: Cardiovascular: Denies chest pain and Reports dyspnea Respiratory: Respiratory: Reports cough and Reports dyspnea Gastrointestinal: Gastrointestinal: Denies abdominal pain, Denies diarrhea, Denies nausea and Reports vomiting Genitourinary: Genitourinary: Denies hematuria and Denies dysuria Musculoskeletal: Musculoskeletal: Denies back pain and Denies neck pain Neurologic: Denies headache(s) and Denies weakness FORMERLY [facility], 1928–1983 Past Medical History Medical History Autism Barretts esophagus Chronic ear infection Feeding by G-tube Gastrostomy tube in place History of gastroesophageal reflux (GERD) History of gastrostomy tube placement History of Austin de la Tourette's syndrome History of hypertension History of neurogenic bladder Hypertension Mental disability Seizure disorder Suprapubic catheter Tourette syndrome Surgical History Surgical History History of cholecystectomy History of ear surgery 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 History of surgical removal of skin lesion Benign lesion to the neck Family History Family History Mother Family history of thyroid disease Hypertension COPD (chronic obstructive pulmonary disease) HTN (hypertension) with goal to be determined Father Congestive heart failure Other Family history of arthritis Social History Social History Smoking status: Never smoker Alcohol intake: never Substance use: never Gender identity (if verbalized by the patient): Male Spiritual care concerns: No Agree to blood products: Yes Exam Const: General: no acute distress and well developed Orientation/consciousness: oriented to person and oriented to place HENMT: Head: normocephalic Ears: external ears normal General nose exam: Normal external nose present Eyes: General: appearance normal, both eyes and all related structures Conjunctivae: conjunctivae normal Neck: Neck: normal visual inspection and full ROM Chest: Chest palpation & inspection: normal inspection of the chest and no tenderness Resp: Effort & Inspection: tachypneic Auscultation: clear to auscultation bilaterally Cardio: Rate: tachycardic Rhythm: regular rhythm GI: Inspection: other (feeding tube and suprapubic tube in place) GI Palp: No abdominal tenderness and Yes Soft to palpation Skin: General skin exam: normal color and turgor normal Neuro: General: oriented to person and oriented to place Cognition (Neuro): normal cognition Speech: dysarthria (likely chronic) Extrem: General: normal to ins
[2020-03-30 15:21] VITALS: BP 125/88; PULSE 129; RESP 34; O2SAT 100
[2020-03-30 15:28] LABS: Basophils Absolute Auto 0.1 K/mm3 (0.0-0.1); Basophils Percent Auto 0.4 % (0.2-1.2); Eosinophils Absolute Auto 0.3 K/mm3 (0-0.3); Eosinophils Percent Auto 2.3 % (0-4.4); Hematocrit 37.9 % (42.0-52.0); Hemoglobin 12.2 g/dL (14.0-18.0); Immature Granulocyte Absolute 0.05 K/mm3 (0.00-0.031); Immature Granulocyte Percent A 0.4 % (0-0.5); Lymphocytes Absolute Auto 1.39 K/mm3 (0.9-3.2); Lymphocytes Percent Auto 11.7 % (18.3-44.2); Mean Corpuscular HGB Conc 32.2 g/dl (32-36); Mean Corpuscular Hemoglobin 27.3 pg (26-34); Mean Corpuscular Volume 84.8 fl (80-100); Mean Platelet Volume 8.5 fl (7.4-10.4); Monocytes Absolute Auto 0.8 K/mm3 (0.1-0.6); Monocytes Percent Auto 6.3 % (2.6-8.5); Neutrophils Absolute Auto 9.3 K/mm3 (1.3-6.7); Neutrophils Percent Auto 78.9 % (45.5-73.1); Platelet Count Result 302 k/mm3 (150-375); Red Blood Count 4.47 M/mm3 (4.6-6.20); Red Cell Distribution Width 14.7 % (11.5-14.5); White Blood Count 11.9 K/mm3 (4.5-10.0)
[2020-03-30 15:35] LABS: Add Urine Microscopic? YES; Appearance Urine Cloudy (Clear); Bacteria Urine 2+ /hpf; Bilirubin Urine Negative (Negative); Color Urine Yellow (Yellow); Glucose Urine UA Negative (Negative); Ketones Urine Negative (Negative); Leukocyte Esterase Ur 3+ LEU/UL (Negative); Mucus Urine Rare /lpf; Nitrate Urine Negative (Negative); Protein Urine 1+ mg/dL (Negative); Specific Grav Ur 1.015 (1.001-1.035); Squamous Epithelial Cell Urine Rare /hpf (Few); Urobilinogen Urine Negative mg/dL (<2.0); WBC Clumps Urine Present /HPF; WBC Urine >75 /hpf
[2020-03-30 15:38] LABS: Blood Urine Negative (Negative)
[2020-03-30 15:40] LABS: Alanine Aminotransferase 18 U/L (4-50); Albumin Level 4.4 g/dL (3.5-5.1); Alkaline Phosphatase 98 U/L (38-126); Aspartate Amino Transferase 35 U/L (17-59); Bilirubin,Total 0.2 mg/dL (0.2-1.3); Blood Urea Nitrogen 15 mg/dL (9-20); Calcium 9.3 mg/dL (8.4-10.2); Carbon Dioxide 28 mmol/L (22-30); Chloride 103 mmol/L (98-107); Estimated CRCL calculation 65 ml/min; Estimated Glomerular Filt Rate > 60; Glucose 107 mg/dL (75-110); Potassium 3.8 mmol/L (3.4-5.0); Sodium 140 mmol/L (137-145)
[2020-03-30 15:51] LABS: Troponin I < 0.012 ng/mL (0.000-0.034)
--- NOTE | 2020-03-30 16:00 | PC.NURSE ---
Pt needs to be admitted. Pt mother states he will be unable to be admitted if she can't go with him. Pt has MR and mother is primary caregiver and pt doesn't do well without his mother. This RN speaking with charge nurse about making an expection to allow mother to go with patient.
--- NOTE | 2020-03-30 16:40 | PC.NURSE ---
Charge nurse states she spoke with [employer] house operator and they are going to allow mother to go with patient
[2020-03-30 17:01] VITALS: BP 104/81; PULSE 108; RESP 28; O2SAT 97
[2020-03-30 19:00] VITALS: BMI 30.2
[2020-03-30] MEDS: SODIUM CHLORIDE 0.9% IV 1,000 ML 125 ML IV CONT (19:37)
[2020-03-30 20:00] VITALS: BP 101/65; PULSE 87; PULSE 90; RESP 25; TEMP 36.6; O2SAT 96
[2020-03-30 22:00] VITALS: PULSE 76
[2020-03-31] VITALS (14 sets, daily range): BP systolic 90–123; BP diastolic 49–94; PULSE 66–99; RESP 18–25; TEMP 36.3–36.6; O2SAT 94–98
[2020-03-31] MEDS: SODIUM CHLORIDE 0.9% IV 1,000 ML 125 ML IV CONT ×2 (03:53→15:00)
--- NOTE | 2020-03-31 04:03 | PM.IMHP ---
H&P: HPI History of Present Illness Chief complaint: sepsis/pneumonia Narrative: This is a 49 year old mentally challenged male with Tourette syndrome who is known to have had multiple bouts of pneumonia in the past as well as recent influenza in November of this year who presented to the hospital with his mother who is his caregiver with three days of cough, shortness of breath, nausea and vomiting. The patient himself cannot reliably contribute to his history given his mentation. His mother hasn't noticed any other significant symptoms. She also denies that he has had any fever, chills, or abdominal pain. The patient has a chronic suprapubic urinary catheter and receives his nutrition via a G tube. He was evaluated in the ER yesterday and found to have an abnormal urinalysis, tachycardia, and tachypnea. CXR demonstrated extensive airspace disease right mid and lower lung. The patient has not required any supplemental oxygen. He was started on IV antibiotics and swabbed for COVID-19 virus. He has been admitted to the hospital for further care. 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 History of surgical removal of skin lesion Benign lesion to the neck Family History Family History Mother Family history of thyroid disease Hypertension COPD (chronic obstructive pulmonary disease) HTN (hypertension) with goal to be determined Father Congestive heart failure Other Family history of arthritis Social History Social History Smoking status: Never smoker Alcohol intake: never Substance use: never Gender identity (if verbalized by the patient): Male Spiritual care concerns: No Agree to blood products: Yes Meds Home Medications and Allergies Home Medications Medication Instructions Recorded Confirmed Type carvedilol [Coreg] 3.125 mg PO DAILY 11/26/19 03/30/20 History ergocalciferol (vitamin D2) 50,000 unit PO [id number] 11/26/19 03/30/20 History [Vitamin D2] lamotrigine 75 mg PO BID 11/26/19 03/30/20 History omeprazole 40 mg PO DAILY 11/26/19 03/30/20 History ferrous gluconate 324 mg PO BID 03/30/20 03/30/20 History mometasone 1 applic TOPICAL BID 03/30/20 03/30/20 History polyethylene glycol 3350 [Miralax] 17 g PO EVERY OTHER DAY 03/30/20 03/30/20 History sucralfate 1 g PO BID 03/30/20 03/30/20 History Allergies Allergy/AdvReac Type Severity Reaction Status Date / Time adhesive tape Allergy Unknown SKIN Verified 01/03/20 10:01 BLISTERS Vital Signs Vital Signs - 24 hr 03/30/20 13:56 03/30/20 13:59 03/30/20 15:21 Temperature 36.9 C Pulse Rate 140 H 129 H 129 H Respiratory Rate 18 34 H Blood Pressure 136/87 125/88 Pulse Oximetry 98 100 03/30/20 17:01 03/30/20 20:00 03/30/20 22:00 Temperature 36.6 C Pulse Rate 108 H 87 76 Respiratory Rate 28 H 25 H Blood Pressure 104/81 101/65 Pulse Oximetry 97 96 03/31/20 00:00 03/31/20 01:55 Temperature 36.3 C L Pulse Rate 91 72 Respiratory Rate 25 H Blood Pressure 117/87 Pulse Oximetry 95 Exam Const: General: cooperative, alert, awake and other (coughing during encounter++ ) Nutritional Appearance: well n
[2020-03-31 06:56] LABS: Basophils Percent Auto 0.6 % (0.2-1.2); Eosinophils Absolute Auto 0.3 K/mm3 (0-0.3); Eosinophils Percent Auto 5.2 % (0-4.4); Hematocrit 33.2 % (42.0-52.0); Hemoglobin 10.5 g/dL (14.0-18.0); Immature Granulocyte Absolute 0.04 K/mm3 (0.00-0.031); Immature Granulocyte Percent A 0.6 % (0-0.5); Lymphocytes Absolute Auto 1.93 K/mm3 (0.9-3.2); Lymphocytes Percent Auto 29.2 % (18.3-44.2); Mean Corpuscular HGB Conc 31.6 g/dl (32-36); Mean Corpuscular Volume 85.3 fl (80-100); Mean Platelet Volume 9.5 fl (7.4-10.4); Monocytes Absolute Auto 0.7 K/mm3 (0.1-0.6); Monocytes Percent Auto 10.8 % (2.6-8.5); Neutrophils Absolute Auto 3.5 K/mm3 (1.3-6.7); Neutrophils Percent Auto 53.6 % (45.5-73.1); Platelet Count Result 260 k/mm3 (150-375); Red Blood Count 3.89 M/mm3 (4.6-6.20); White Blood Count 6.6 K/mm3 (4.5-10.0)
[2020-03-31 07:02] LABS: Blood Urea Nitrogen 11 mg/dL (9-20); Calcium 8.6 mg/dL (8.4-10.2); Carbon Dioxide 25 mmol/L (22-30); Chloride 111 mmol/L (98-107); Estimated CRCL calculation 103 ml/min; Estimated Glomerular Filt Rate > 60; Glucose 104 mg/dL (75-110); Potassium 3.7 mmol/L (3.4-5.0); Sodium 141 mmol/L (137-145)
--- NOTE | 2020-03-31 08:56 | PCRCNOTE ---
Mother refused/Pt asleep
[2020-03-31] MEDS: carvediloL 3.125 MG TABLET PO (09:49)
[2020-03-31] MEDS: lamoTRIgine 25 MG TABLET 75 MG PO ×2 (09:49→17:37)
[2020-03-31] MEDS: TRIAMCINOLONE ACET 0.1% CREAM 15 GM TUBE 1 APPLIC TOPICAL ×2 (09:49→17:39)
[2020-03-31] MEDS: ALBUTEROL SULFATE (*SP) AEROSOL 1 PUFF 2 PUFF INHALATION ×3 (11:22→20:03)
[2020-03-31 14:41] LABS: SARS-CoV-2 RNA PCR Negative
--- NOTE | 2020-03-31 17:28 | PC.NURSE ---
Pt transferred to room 241 @ 1515 on 03-31-20. Pt belongings verified and went with pt to room 241. Mother bedside. Report called to
--- NOTE | 2020-03-31 17:30 | PC.NURSE ---
This patient, Trace Bowser, was received from ICU on 03/31/20 at 1730. Personal belongings list checked and signed. Patient/family oriented to unit policies and routines
--- NOTE | 2020-03-31 18:11 | PM.IMPN ---
Progress Note: A&P Assessment and Plan (1) Pneumonia: Qualifiers: Laterality: right Lung location: unspecified part of lung Pneumonia type: due to unspecified organism Qualified Code(s): J18.9 - Pneumonia, unspecified organism Code(s): J18.9 - Pneumonia, unspecified organism Status: Acute Assessment and Plan: Extensive right lower lung disease which may be secondary to aspiration pneumonia. Continue IV antibiotics. Sputum cultures. 03/31/20 18:11 Patient is a 49-year-old male mentally challenged he has history of recurrent pneumonia patient was brought to the emergency department with a complaint of cough shortness of breath his COVID-19 test is negative, patient has G-tube however his mother feeds him by mouth on and off and I suspect the patient may aspirate and may have developed aspiration pneumonia all stop the Rocephin start the patient on Zosyn will continue azithromycin will continue to monitor and further recommendation to follow, fortunately patient is unable to provide any review of symptoms his mother is present in the room states he is doing much better compared to when he arrived. (2) Abnormal urinalysis: Code(s): R82.90 - Unspecified abnormal findings in urine Status: Acute Assessment and Plan: r/o UTI - Continue IV ceftriaxone. Urine culture pending. Now on Zosyn (3) Sepsis: Qualifiers: Sepsis acute organ dysfunction status: unspecified Sepsis type: sepsis due to unspecified organism Qualified Code(s): A41.9 - Sepsis, unspecified organism Code(s): A41.9 - Sepsis, unspecified organism Status: Acute Assessment and Plan: with tachycardia and tachypnea. Source of sepsis appears to be pulmonary. Continue IV antibiotics. sputum culture and blood cultures pending. pneumococcal urine antigen. (4) Suspected 2019 novel coronavirus infection: Code(s): Z20.828 - Contact with and (suspected) exposure to other viral communicable diseases Status: Acute Assessment and Plan: r/o Covid-19 virus. Continue droplet isolation. Continue supportive care. It is negative (5) Tourette syndrome: Code(s): F95.2 - Tourette's disorder Status: Chronic Assessment and Plan: stable. (6) Hypertension: Qualifiers: Hypertension type: essential hypertension Qualified Code(s): I10 - Essential (primary) hypertension Code(s): I10 - Essential (primary) hypertension Status: Chronic Assessment and Plan: stable. Monitor blood pressure. Continue coreg PO. (7) Seizure disorder: Code(s): G40.909 - Epilepsy, unspecified, not intractable, without status epilepticus Status: Chronic Assessment and Plan: Continue lamotrigine. (8) Mental disability: Code(s): F79 - Unspecified intellectual disabilities Status: Chronic Assessment and Plan: Stable. Subjective Date/time seen: 03/31/20 18:11 Patient is a 49-year-old male mentally challenged he has history of recurrent pneumonia patient was brought to the emergency department with a complaint of cough shortness of breath his COVID-19 test is negative, patient has G-tube however his mother feeds him by mouth on and off and I suspect the patient may aspirate and may have developed aspiration pneumonia all stop the Rocephin start the patient on Zosyn will continue azithromycin will continue to monitor and further recommendation to follow, fortunately patient is unable to provide any review of symptoms his mother is present in the room states he is doing much better compared to when he arrived. Review of Systems Review of Systems: ROS unobtainable: Yes unobtainable due to medical condition Exam Const: General: no acute distress HENMT: General nose exam: Normal nares present Mouth: Yes moist mucous membranes Neck: Neck: supple Resp: Other: Bilateral poor air entry with rhonchi Cardio: Rate: regular rate Rhythm: reg
[2020-04-01] VITALS (10 sets, daily range): BP systolic 102–111; BP diastolic 65–70; PULSE 65–90; RESP 16; TEMP 36.2–36.6; O2SAT 97
[2020-04-01] MEDS: SODIUM CHLORIDE 0.9% IV 1,000 ML 125 ML IV CONT ×3 (01:33→19:40)
[2020-04-01 06:02] LABS: Alanine Aminotransferase 19 U/L (4-50); Albumin Level 3.5 g/dL (3.5-5.1); Alkaline Phosphatase 85 U/L (38-126); Aspartate Amino Transferase 40 U/L (17-59); Bilirubin,Total < 0.1 mg/dL (0.2-1.3); Blood Urea Nitrogen 13 mg/dL (9-20); CRP 4.3 mg/dL (<1.0); Calcium 8.6 mg/dL (8.4-10.2); Carbon Dioxide 25 mmol/L (22-30); Chloride 111 mmol/L (98-107); Estimated CRCL calculation 103 ml/min; Estimated Glomerular Filt Rate > 60; Glucose 104 mg/dL (75-110); Sodium 142 mmol/L (137-145)
[2020-04-01 06:03] LABS: Hematocrit 33.2 % (42.0-52.0); Hemoglobin 10.5 g/dL (14.0-18.0); Mean Corpuscular HGB Conc 31.6 g/dl (32-36); Mean Corpuscular Hemoglobin 27.4 pg (26-34); Mean Corpuscular Volume 86.7 fl (80-100); Mean Platelet Volume 8.6 fl (7.4-10.4); Platelet Count Result 266 k/mm3 (150-375); Red Blood Count 3.83 M/mm3 (4.6-6.20); White Blood Count 6.3 K/mm3 (4.5-10.0)
[2020-04-01] MEDS: ALBUTEROL SULFATE (*SP) AEROSOL 1 PUFF 2 PUFF INHALATION ×4 (08:25→20:30)
[2020-04-01] MEDS: carvediloL 3.125 MG TABLET PO (09:35)
[2020-04-01] MEDS: lamoTRIgine 25 MG TABLET 75 MG PO (09:35)
[2020-04-01] MEDS: TRIAMCINOLONE ACET 0.1% CREAM 15 GM TUBE 1 APPLIC TOPICAL ×2 (09:36→16:50)
--- NOTE | 2020-04-01 14:51 | PM.IMPN ---
Progress Note: A&P Assessment and Plan (1) Pneumonia: Qualifiers: Laterality: right Lung location: unspecified part of lung Pneumonia type: due to unspecified organism Qualified Code(s): J18.9 - Pneumonia, unspecified organism Code(s): J18.9 - Pneumonia, unspecified organism Status: Acute Assessment and Plan: Extensive right lower lung disease which may be secondary to aspiration pneumonia. Continue IV antibiotics. Sputum cultures. 04/01/20 14:51 Patient is a 49-year-old male mentally challenged he has history of recurrent pneumonia patient was brought to the emergency department with a complaint of cough shortness of breath his COVID-19 test is negative, patient has G-tube however his mother feeds him by mouth on and off and I suspect the patient may aspirate and may have developed aspiration pneumonia, will stop the Rocephin start the patient on Zosyn will continue azithromycin will continue to monitor and further recommendation to follow, fortunately patient is unable to provide any review of symptoms his mother is present in the room states he is doing much better compared to when he arrived. will chest x-ray tomorrow to further evaluate, again with patient nothing by mouth except some ice chips if mouth gets too dry. (2) Abnormal urinalysis: Code(s): R82.90 - Unspecified abnormal findings in urine Status: Acute Assessment and Plan: r/o UTI -urine culture is growing Klebsiella pneumonia sensitive to Zosyn will continue (3) Sepsis: Qualifiers: Sepsis acute organ dysfunction status: unspecified Sepsis type: sepsis due to unspecified organism Qualified Code(s): A41.9 - Sepsis, unspecified organism Code(s): A41.9 - Sepsis, unspecified organism Status: Acute Assessment and Plan: with tachycardia and tachypnea. Source of sepsis appears to be pulmonary. Continue IV antibiotics. sputum culture and blood cultures pending. pneumococcal urine antigen. (4) Suspected 2019 novel coronavirus infection: Code(s): Z20.828 - Contact with and (suspected) exposure to other viral communicable diseases Status: Acute Assessment and Plan: r/o Covid-19 virus. Continue droplet isolation. Continue supportive care. It is negative (5) Tourette syndrome: Code(s): F95.2 - Tourette's disorder Status: Chronic Assessment and Plan: stable. (6) Hypertension: Qualifiers: Hypertension type: essential hypertension Qualified Code(s): I10 - Essential (primary) hypertension Code(s): I10 - Essential (primary) hypertension Status: Chronic Assessment and Plan: stable. Monitor blood pressure. Continue coreg PO. (7) Seizure disorder: Code(s): G40.909 - Epilepsy, unspecified, not intractable, without status epilepticus Status: Chronic Assessment and Plan: Continue lamotrigine. (8) Mental disability: Code(s): F79 - Unspecified intellectual disabilities Status: Chronic Assessment and Plan: Stable. Subjective Date/time seen: 04/01/20 14:51 Patient is a 49-year-old male mentally challenged he has history of recurrent pneumonia patient was brought to the emergency department with a complaint of cough shortness of breath his COVID-19 test is negative, patient has G-tube however his mother feeds him by mouth on and off and I suspect the patient may aspirate and may have developed aspiration pneumonia, will stop the Rocephin start the patient on Zosyn will continue azithromycin will continue to monitor and further recommendation to follow, fortunately patient is unable to provide any review of symptoms his mother is present in the room states he is doing much better compared to when he arrived. will chest x-ray tomorrow to further evaluate, again with patient nothing by mouth except some ice chips if mouth gets too dry. Review of Systems Review of Systems: ROS unobtainable: Yes un
[2020-04-01] MEDS: lamoTRIgine 25 MG TABLET 75 MG FEED TUBE (16:50)
[2020-04-02] VITALS (10 sets, daily range): BP systolic 107–117; BP diastolic 68–78; PULSE 73–97; RESP 12–22; TEMP 36.6–37.1; O2SAT 95–97
[2020-04-02] MEDS: SODIUM CHLORIDE 0.9% IV 1,000 ML 125 ML IV CONT ×2 (05:10→17:17)
[2020-04-02 05:16] LABS: Hematocrit 33.1 % (42.0-52.0); Hemoglobin 10.4 g/dL (14.0-18.0); Mean Corpuscular HGB Conc 31.4 g/dl (32-36); Mean Corpuscular Hemoglobin 27.2 pg (26-34); Mean Corpuscular Volume 86.6 fl (80-100); Mean Platelet Volume 8.9 fl (7.4-10.4); Platelet Count Result 287 k/mm3 (150-375); Red Blood Count 3.82 M/mm3 (4.6-6.20); Red Cell Distribution Width 15.2 % (11.5-14.5); White Blood Count 6.3 K/mm3 (4.5-10.0)
[2020-04-02 05:32] LABS: Alanine Aminotransferase 46 U/L (4-50); Albumin Level 3.6 g/dL (3.5-5.1); Alkaline Phosphatase 90 U/L (38-126); Aspartate Amino Transferase 90 U/L (17-59); Bilirubin,Total 0.3 mg/dL (0.2-1.3); Blood Urea Nitrogen 13 mg/dL (9-20); Calcium 8.6 mg/dL (8.4-10.2); Carbon Dioxide 25 mmol/L (22-30); Chloride 111 mmol/L (98-107); Estimated CRCL calculation 103 ml/min; Estimated Glomerular Filt Rate > 60; Glucose 106 mg/dL (75-110); Sodium 141 mmol/L (137-145)
[2020-04-02] MEDS: carvediloL 3.125 MG TABLET FEED TUBE (08:20)
[2020-04-02] MEDS: lamoTRIgine 25 MG TABLET 75 MG FEED TUBE ×2 (08:20→17:13)
[2020-04-02] MEDS: TRIAMCINOLONE ACET 0.1% CREAM 15 GM TUBE 1 APPLIC TOPICAL ×2 (08:20→17:18)
[2020-04-02] MEDS: ALBUTEROL SULFATE (*SP) AEROSOL 1 PUFF 2 PUFF INHALATION ×4 (08:36→20:02)
--- NOTE | 2020-04-02 09:20 | WPDCDIQUERY2 ---
CDI Query Clarification Request -UTI due to urinary indwelling catheter -You have documented, r/o UTI- urine culture growing Klebsiella pneumonia sensitive to Zosyn will continue. Please clarify if UTI was ruled in or ruled out. If ruled in, also please clarify if UTI was due to indwelling urinary catheter, not due to indwelling urinary catheter or unable to determine. <Maite Rivera RN - Last Filed: 04/02/20 09:23>
[2020-04-02 13:43] LABS: Pneumococcal Antigen Urine Not Detected (Not Detected)
--- NOTE | 2020-04-02 15:56 | PM.IMPN ---
Progress Note: A&P Assessment and Plan (1) Pneumonia: Qualifiers: Laterality: right Lung location: unspecified part of lung Pneumonia type: due to unspecified organism Qualified Code(s): J18.9 - Pneumonia, unspecified organism Code(s): J18.9 - Pneumonia, unspecified organism Status: Acute Assessment and Plan: 04/02/20 15:56 Extensive right lower lung disease which may be secondary to aspiration pneumonia. Continue IV antibiotics. Sputum cultures. Patient is a 49-year-old male mentally challenged he has history of recurrent pneumonia patient was brought to the emergency department with a complaint of cough shortness of breath his COVID-19 test is negative, patient has G-tube however his mother feeds him by mouth on and off and I suspect the patient may aspirate and may have developed aspiration pneumonia, will stop the Rocephin start the patient on Zosyn will continue azithromycin will continue to monitor and further recommendation to follow, fortunately patient is unable to provide any review of symptoms his mother is present in the room states he is doing much better compared to when he arrived. Repeat chest x-ray today shows persistent pneumonia will continue the present managed repeat x-ray in 2 days, again with patient nothing by mouth except some ice chips if mouth gets too dry. (2) Abnormal urinalysis: Code(s): R82.90 - Unspecified abnormal findings in urine Status: Acute Assessment and Plan: r/o UTI -urine culture is growing Klebsiella pneumonia sensitive to Zosyn will continue, patient with history of recurrent UTI with indwelling catheter most likely secondary to indwelling catheter. (3) Sepsis: Qualifiers: Sepsis acute organ dysfunction status: unspecified Sepsis type: sepsis due to unspecified organism Qualified Code(s): A41.9 - Sepsis, unspecified organism Code(s): A41.9 - Sepsis, unspecified organism Status: Acute Assessment and Plan: with tachycardia and tachypnea. Source of sepsis appears to be pulmonary. Continue IV antibiotics. sputum culture and blood cultures pending. pneumococcal urine antigen. Urine pneumococcal antigen is negative there is no growth on blood culture so far (4) Suspected 2019 novel coronavirus infection: Code(s): Z20.828 - Contact with and (suspected) exposure to other viral communicable diseases Status: Acute Assessment and Plan: r/o Covid-19 virus. Continue droplet isolation. Continue supportive care. It is negative (5) Tourette syndrome: Code(s): F95.2 - Tourette's disorder Status: Chronic Assessment and Plan: stable. (6) Hypertension: Qualifiers: Hypertension type: essential hypertension Qualified Code(s): I10 - Essential (primary) hypertension Code(s): I10 - Essential (primary) hypertension Status: Chronic Assessment and Plan: stable. Monitor blood pressure. Continue coreg PO. (7) Seizure disorder: Code(s): G40.909 - Epilepsy, unspecified, not intractable, without status epilepticus Status: Chronic Assessment and Plan: Continue lamotrigine. (8) Mental disability: Code(s): F79 - Unspecified intellectual disabilities Status: Chronic Assessment and Plan: Stable. Subjective Date/time seen: 04/02/20 15:56 Extensive right lower lung disease which may be secondary to aspiration pneumonia. Continue IV antibiotics. Sputum cultures. Patient is a 49-year-old male mentally challenged he has history of recurrent pneumonia patient was brought to the emergency department with a complaint of cough shortness of breath his COVID-19 test is negative, patient has G-tube however his mother feeds him by mouth on and off and I suspect the patient may aspirate and may have developed aspiration pneumonia, will stop the Rocephin start the patient on Zosyn will continue azithromycin will continue to monitor
[2020-04-03] VITALS (10 sets, daily range): BP systolic 108–135; BP diastolic 66–83; PULSE 59–113; RESP 18–20; TEMP 36.1–36.4; O2SAT 97–98; BMI 29.5
[2020-04-03] MEDS: SODIUM CHLORIDE 0.9% IV 1,000 ML 125 ML IV CONT ×2 (02:09→13:40)
[2020-04-03 05:01] LABS: Hematocrit 33.9 % (42.0-52.0); Hemoglobin 10.9 g/dL (14.0-18.0); Mean Corpuscular HGB Conc 32.2 g/dl (32-36); Mean Corpuscular Hemoglobin 27.5 pg (26-34); Mean Corpuscular Volume 85.6 fl (80-100); Mean Platelet Volume 8.5 fl (7.4-10.4); Platelet Count Result 289 k/mm3 (150-375); Red Blood Count 3.96 M/mm3 (4.6-6.20); Red Cell Distribution Width 14.8 % (11.5-14.5); White Blood Count 6.2 K/mm3 (4.5-10.0)
[2020-04-03 05:13] LABS: Alanine Aminotransferase 54 U/L (4-50); Albumin Level 3.7 g/dL (3.5-5.1); Alkaline Phosphatase 96 U/L (38-126); Aspartate Amino Transferase 76 U/L (17-59); Bilirubin,Total 0.3 mg/dL (0.2-1.3); Blood Urea Nitrogen 14 mg/dL (9-20); Calcium 8.9 mg/dL (8.4-10.2); Carbon Dioxide 27 mmol/L (22-30); Chloride 110 mmol/L (98-107); Estimated CRCL calculation 89 ml/min; Estimated Glomerular Filt Rate > 60; Glucose 114 mg/dL (75-110); Potassium 4.4 mmol/L (3.4-5.0); Sodium 143 mmol/L (137-145)
[2020-04-03] MEDS: ALBUTEROL SULFATE (*SP) AEROSOL 1 PUFF 2 PUFF INHALATION ×4 (08:11→19:49)
[2020-04-03] MEDS: lamoTRIgine 25 MG TABLET 75 MG FEED TUBE ×2 (09:11→15:56)
[2020-04-03] MEDS: carvediloL 3.125 MG TABLET FEED TUBE (09:11)
[2020-04-03] MEDS: TRIAMCINOLONE ACET 0.1% CREAM 15 GM TUBE 1 APPLIC TOPICAL ×2 (09:12→16:13)
--- NOTE | 2020-04-03 12:44 | PM.IMPN ---
Progress Note: A&P Assessment and Plan (1) Pneumonia: Qualifiers: Laterality: right Lung location: unspecified part of lung Pneumonia type: due to unspecified organism Qualified Code(s): J18.9 - Pneumonia, unspecified organism Code(s): J18.9 - Pneumonia, unspecified organism Status: Acute Assessment and Plan: 04/03/20 12:44 Extensive right lower lung disease which may be secondary to aspiration pneumonia. Continue IV antibiotics. Sputum cultures. Patient is a 49-year-old male mentally challenged he has history of recurrent pneumonia patient was brought to the emergency department with a complaint of cough shortness of breath his COVID-19 test is negative, patient has G-tube however his mother feeds him by mouth on and off and I suspect the patient may aspirate and may have developed aspiration pneumonia, will stop the Rocephin start the patient on Zosyn will continue azithromycin will continue to monitor and further recommendation to follow, fortunately patient is unable to provide any review of symptoms his mother is present in the room states he is doing much better compared to when he arrived. Repeat chest x-ray on 04/02 showed persistent pneumonia will continue the present managed repeat x-ray tomorrow, his mother is present and answer all her questiosn, again with patient nothing by mouth except some ice chips if mouth gets too dry. (2) Abnormal urinalysis: Code(s): R82.90 - Unspecified abnormal findings in urine Status: Acute Assessment and Plan: r/o UTI -urine culture is growing Klebsiella pneumonia sensitive to Zosyn will continue, patient with history of recurrent UTI with indwelling catheter most likely secondary to indwelling catheter. (3) Sepsis: Qualifiers: Sepsis acute organ dysfunction status: unspecified Sepsis type: sepsis due to unspecified organism Qualified Code(s): A41.9 - Sepsis, unspecified organism Code(s): A41.9 - Sepsis, unspecified organism Status: Acute Assessment and Plan: with tachycardia and tachypnea. Source of sepsis appears to be pulmonary. Continue IV antibiotics. sputum culture and blood cultures pending. pneumococcal urine antigen. Urine pneumococcal antigen is negative there is no growth on blood culture so far (4) Suspected 2019 novel coronavirus infection: Code(s): Z20.828 - Contact with and (suspected) exposure to other viral communicable diseases Status: Acute Assessment and Plan: r/o Covid-19 virus. Continue droplet isolation. Continue supportive care. It is negative (5) Tourette syndrome: Code(s): F95.2 - Tourette's disorder Status: Chronic Assessment and Plan: stable. (6) Hypertension: Qualifiers: Hypertension type: essential hypertension Qualified Code(s): I10 - Essential (primary) hypertension Code(s): I10 - Essential (primary) hypertension Status: Chronic Assessment and Plan: stable. Monitor blood pressure. Continue coreg PO. (7) Seizure disorder: Code(s): G40.909 - Epilepsy, unspecified, not intractable, without status epilepticus Status: Chronic Assessment and Plan: Continue lamotrigine. (8) Mental disability: Code(s): F79 - Unspecified intellectual disabilities Status: Chronic Assessment and Plan: Stable. Subjective Date/time seen: 04/03/20 12:44 Extensive right lower lung disease which may be secondary to aspiration pneumonia. Continue IV antibiotics. Sputum cultures. Patient is a 49-year-old male mentally challenged he has history of recurrent pneumonia patient was brought to the emergency department with a complaint of cough shortness of breath his COVID-19 test is negative, patient has G-tube however his mother feeds him by mouth on and off and I suspect the patient may aspirate and may have developed aspiration pneumonia, will stop the Rocephin start the patient on Zos
[2020-04-04] VITALS (7 sets, daily range): BP systolic 96–129; BP diastolic 56–81; PULSE 66–89; RESP 12–18; TEMP 36.1–36.8; O2SAT 97–99
[2020-04-04] MEDS: SODIUM CHLORIDE 0.9% IV 1,000 ML 125 ML IV CONT ×2 (01:37→21:09)
[2020-04-04 06:07] LABS: Hematocrit 34.1 % (42.0-52.0); Hemoglobin 11.1 g/dL (14.0-18.0); Mean Corpuscular HGB Conc 32.6 g/dl (32-36); Mean Corpuscular Volume 86.1 fl (80-100); Mean Platelet Volume 8.6 fl (7.4-10.4); Platelet Count Result 285 k/mm3 (150-375); Red Blood Count 3.96 M/mm3 (4.6-6.20); Red Cell Distribution Width 14.8 % (11.5-14.5); White Blood Count 5.6 K/mm3 (4.5-10.0)
[2020-04-04 06:20] LABS: Alanine Aminotransferase 47 U/L (4-50); Albumin Level 3.7 g/dL (3.5-5.1); Alkaline Phosphatase 97 U/L (38-126); Aspartate Amino Transferase 57 U/L (17-59); Bilirubin,Total 0.2 mg/dL (0.2-1.3); Blood Urea Nitrogen 13 mg/dL (9-20); Calcium 8.9 mg/dL (8.4-10.2); Carbon Dioxide 25 mmol/L (22-30); Chloride 109 mmol/L (98-107); Estimated CRCL calculation 103 ml/min; Estimated Glomerular Filt Rate > 60; Glucose 102 mg/dL (75-110); Potassium 3.8 mmol/L (3.4-5.0); Sodium 138 mmol/L (137-145)
[2020-04-04] MEDS: carvediloL 3.125 MG TABLET FEED TUBE (08:26)
[2020-04-04] MEDS: lamoTRIgine 25 MG TABLET 75 MG FEED TUBE ×2 (08:26→16:46)
[2020-04-04] MEDS: TRIAMCINOLONE ACET 0.1% CREAM 15 GM TUBE 1 APPLIC TOPICAL ×2 (08:28→16:46)
[2020-04-04] MEDS: ALBUTEROL SULFATE (*SP) AEROSOL 1 PUFF 2 PUFF INHALATION ×4 (09:16→21:09)
--- NOTE | 2020-04-04 13:13 | PM.IMPN ---
Progress Note: A&P Assessment and Plan (1) Pneumonia: Qualifiers: Laterality: right Lung location: unspecified part of lung Pneumonia type: due to unspecified organism Qualified Code(s): J18.9 - Pneumonia, unspecified organism Code(s): J18.9 - Pneumonia, unspecified organism Status: Acute Assessment and Plan: 04/04/20 13:13 Extensive right lower lung disease which may be secondary to aspiration pneumonia. Continue IV antibiotics. Sputum cultures. Patient is a 49-year-old male mentally challenged he has history of recurrent pneumonia patient was brought to the emergency department with a complaint of cough shortness of breath his COVID-19 test is negative, patient has G-tube however his mother feeds him by mouth on and off and I suspect the patient may aspirate and may have developed aspiration pneumonia, will stop the Rocephin start the patient on Zosyn will continue azithromycin will continue to monitor and further recommendation to follow, fortunately patient is unable to provide any review of symptoms his mother is present in the room states he is doing much better compared to when he arrived. Repeat chest x-ray on 04/02 showed persistent pneumonia continued the present managed, on 04/04 repeat x-ray today shows improvement in pneumonia however patient still coughing but no fever or chills, will continue IV antibiotics for 2 more days and discharge the patient on Monday, his mother is present and answer all her questions, again with patient nothing by mouth except some ice chips if mouth gets too dry. (2) Abnormal urinalysis: Code(s): R82.90 - Unspecified abnormal findings in urine Status: Acute Assessment and Plan: r/o UTI -urine culture is growing Klebsiella pneumonia sensitive to Zosyn will continue, patient with history of recurrent UTI with indwelling catheter most likely secondary to indwelling catheter. (3) Sepsis: Qualifiers: Sepsis acute organ dysfunction status: unspecified Sepsis type: sepsis due to unspecified organism Qualified Code(s): A41.9 - Sepsis, unspecified organism Code(s): A41.9 - Sepsis, unspecified organism Status: Acute Assessment and Plan: with tachycardia and tachypnea. Source of sepsis appears to be pulmonary. Continue IV antibiotics. sputum culture and blood cultures pending. pneumococcal urine antigen. Urine pneumococcal antigen is negative there is no growth on blood culture so far (4) Suspected 2019 novel coronavirus infection: Code(s): Z20.828 - Contact with and (suspected) exposure to other viral communicable diseases Status: Acute Assessment and Plan: r/o Covid-19 virus. Continue droplet isolation. Continue supportive care. It is negative (5) Tourette syndrome: Code(s): F95.2 - Tourette's disorder Status: Chronic Assessment and Plan: stable. (6) Hypertension: Qualifiers: Hypertension type: essential hypertension Qualified Code(s): I10 - Essential (primary) hypertension Code(s): I10 - Essential (primary) hypertension Status: Chronic Assessment and Plan: stable. Monitor blood pressure. Continue coreg PO. (7) Seizure disorder: Code(s): G40.909 - Epilepsy, unspecified, not intractable, without status epilepticus Status: Chronic Assessment and Plan: Continue lamotrigine. (8) Mental disability: Code(s): F79 - Unspecified intellectual disabilities Status: Chronic Assessment and Plan: Stable. Subjective Date/time seen: 04/04/20 13:13 Extensive right lower lung disease which may be secondary to aspiration pneumonia. Continue IV antibiotics. Sputum cultures. Patient is a 49-year-old male mentally challenged he has history of recurrent pneumonia patient was brought to the emergency department with a complaint of cough shortness of breath his COVID-19 test is negative, patient has G-tube however
[2020-04-05 06:00] VITALS: BP 102/57; PULSE 76; RESP 12; TEMP 36.7; O2SAT 97
[2020-04-05] MEDS: SODIUM CHLORIDE 0.9% IV 1,000 ML 125 ML IV CONT ×2 (06:22→19:09)
[2020-04-05 06:52] LABS: Hematocrit 34.7 % (42.0-52.0); Mean Corpuscular HGB Conc 31.7 g/dl (32-36); Mean Corpuscular Hemoglobin 27.6 pg (26-34); Mean Corpuscular Volume 87.2 fl (80-100); Mean Platelet Volume 8.8 fl (7.4-10.4); Platelet Count Result 294 k/mm3 (150-375); Red Blood Count 3.98 M/mm3 (4.6-6.20); Red Cell Distribution Width 14.8 % (11.5-14.5); White Blood Count 5.6 K/mm3 (4.5-10.0)
[2020-04-05 07:03] LABS: Alanine Aminotransferase 38 U/L (4-50); Albumin Level 3.7 g/dL (3.5-5.1); Alkaline Phosphatase 95 U/L (38-126); Aspartate Amino Transferase 48 U/L (17-59); Bilirubin,Total 0.3 mg/dL (0.2-1.3); Blood Urea Nitrogen 13 mg/dL (9-20); Calcium 8.6 mg/dL (8.4-10.2); Carbon Dioxide 25 mmol/L (22-30); Chloride 110 mmol/L (98-107); Estimated CRCL calculation 89 ml/min; Estimated Glomerular Filt Rate > 60; Glucose 106 mg/dL (75-110); Potassium 3.9 mmol/L (3.4-5.0); Sodium 142 mmol/L (137-145)
[2020-04-05 08:39] VITALS: PULSE 68; PULSE 71; RESP 20
[2020-04-05] MEDS: lamoTRIgine 25 MG TABLET 75 MG FEED TUBE ×2 (08:39→16:57)
[2020-04-05] MEDS: carvediloL 3.125 MG TABLET FEED TUBE (08:39)
[2020-04-05] MEDS: ALBUTEROL SULFATE (*SP) AEROSOL 1 PUFF 2 PUFF INHALATION ×4 (08:39→18:54)
[2020-04-05] MEDS: TRIAMCINOLONE ACET 0.1% CREAM 15 GM TUBE 1 APPLIC TOPICAL ×2 (08:40→16:57)
--- NOTE | 2020-04-05 12:52 | PM.IMPN ---
Progress Note: A&P Assessment and Plan (1) Pneumonia: Qualifiers: Laterality: right Lung location: unspecified part of lung Pneumonia type: due to unspecified organism Qualified Code(s): J18.9 - Pneumonia, unspecified organism Code(s): J18.9 - Pneumonia, unspecified organism Status: Acute Assessment and Plan: 04/05/20 12:52 Extensive right lower lung disease which may be secondary to aspiration pneumonia. Continue IV antibiotics. Sputum cultures. Patient is a 49-year-old male mentally challenged he has history of recurrent pneumonia patient was brought to the emergency department with a complaint of cough shortness of breath his COVID-19 test is negative, patient has G-tube however his mother feeds him by mouth on and off and I suspect the patient may aspirate and may have developed aspiration pneumonia, will stop the Rocephin start the patient on Zosyn will continue azithromycin will continue to monitor and further recommendation to follow, fortunately patient is unable to provide any review of symptoms his mother is present in the room states he is doing much better compared to when he arrived. Repeat chest x-ray on 04/02 showed persistent pneumonia continued the present managed, on 04/04 repeat x-ray today shows improvement in pneumonia however patient still coughing but no fever or chills, will continue IV antibiotics for 1 more days and discharge the patient tomorrow, his mother is present room and answer all her questions, again with patient nothing by mouth except some ice chips if mouth gets too dry. (2) Abnormal urinalysis: Code(s): R82.90 - Unspecified abnormal findings in urine Status: Acute Assessment and Plan: r/o UTI -urine culture is growing Klebsiella pneumonia sensitive to Zosyn will continue, patient with history of recurrent UTI with indwelling catheter most likely secondary to indwelling catheter. (3) Sepsis: Qualifiers: Sepsis acute organ dysfunction status: unspecified Sepsis type: sepsis due to unspecified organism Qualified Code(s): A41.9 - Sepsis, unspecified organism Code(s): A41.9 - Sepsis, unspecified organism Status: Acute Assessment and Plan: with tachycardia and tachypnea. Source of sepsis appears to be pulmonary. Continue IV antibiotics. sputum culture and blood cultures pending. pneumococcal urine antigen. Urine pneumococcal antigen is negative there is no growth on blood culture so far (4) Suspected 2019 novel coronavirus infection: Code(s): Z20.828 - Contact with and (suspected) exposure to other viral communicable diseases Status: Acute Assessment and Plan: r/o Covid-19 virus. Continue droplet isolation. Continue supportive care. It is negative (5) Tourette syndrome: Code(s): F95.2 - Tourette's disorder Status: Chronic Assessment and Plan: stable. (6) Hypertension: Qualifiers: Hypertension type: essential hypertension Qualified Code(s): I10 - Essential (primary) hypertension Code(s): I10 - Essential (primary) hypertension Status: Chronic Assessment and Plan: stable. Monitor blood pressure. Continue coreg PO. (7) Seizure disorder: Code(s): G40.909 - Epilepsy, unspecified, not intractable, without status epilepticus Status: Chronic Assessment and Plan: Continue lamotrigine. (8) Mental disability: Code(s): F79 - Unspecified intellectual disabilities Status: Chronic Assessment and Plan: Stable. Subjective Date/time seen: 04/05/20 12:52 Extensive right lower lung disease which may be secondary to aspiration pneumonia. Continue IV antibiotics. Sputum cultures. Patient is a 49-year-old male mentally challenged he has history of recurrent pneumonia patient was brought to the emergency department with a complaint of cough shortness of breath his COVID-19 test is negative, patient has G-tube however
[2020-04-05 14:00] VITALS: BP 115/70; PULSE 78; RESP 18; TEMP 36.1; O2SAT 100
[2020-04-05 21:32] VITALS: BP 105/67; PULSE 77; RESP 20; TEMP 36.1; O2SAT 100
[2020-04-06] MEDS: SODIUM CHLORIDE 0.9% IV 1,000 ML 125 ML IV CONT (04:18)
[2020-04-06 05:24] VITALS: BP 139/69; PULSE 77; RESP 20; TEMP 36.4; O2SAT 100
[2020-04-06 06:19] LABS: Hematocrit 33.7 % (42.0-52.0); Hemoglobin 10.7 g/dL (14.0-18.0); Mean Corpuscular HGB Conc 31.8 g/dl (32-36); Mean Corpuscular Hemoglobin 27.4 pg (26-34); Mean Corpuscular Volume 86.2 fl (80-100); Mean Platelet Volume 8.7 fl (7.4-10.4); Platelet Count Result 292 k/mm3 (150-375); Red Blood Count 3.91 M/mm3 (4.6-6.20); Red Cell Distribution Width 14.7 % (11.5-14.5); White Blood Count 4.8 K/mm3 (4.5-10.0)
[2020-04-06] MEDS: ALBUTEROL SULFATE (*SP) AEROSOL 1 PUFF 2 PUFF INHALATION (06:23)
[2020-04-06 07:10] LABS: Alanine Aminotransferase 35 U/L (4-50); Albumin Level 3.7 g/dL (3.5-5.1); Alkaline Phosphatase 97 U/L (38-126); Aspartate Amino Transferase 44 U/L (17-59); Bilirubin,Total 0.2 mg/dL (0.2-1.3); Blood Urea Nitrogen 14 mg/dL (9-20); Calcium 8.5 mg/dL (8.4-10.2); Carbon Dioxide 25 mmol/L (22-30); Chloride 109 mmol/L (98-107); Estimated CRCL calculation 103 ml/min; Estimated Glomerular Filt Rate > 60; Glucose 113 mg/dL (75-110); Potassium 3.9 mmol/L (3.4-5.0); Sodium 140 mmol/L (137-145)
[2020-04-06 07:51] VITALS: PULSE 70
[2020-04-06] MEDS: lamoTRIgine 25 MG TABLET 75 MG FEED TUBE (07:51)
[2020-04-06] MEDS: carvediloL 3.125 MG TABLET FEED TUBE (07:51)
[2020-04-06] MEDS: TRIAMCINOLONE ACET 0.1% CREAM 15 GM TUBE 1 APPLIC TOPICAL (07:52)
--- NOTE | 2020-04-06 11:31 | PM.DS ---
DS: Admitting Diagnosis Admitting Diagnosis Admitting Diagnosis: Sepsis, unspecified organism DS: Discharge Diagnosis Discharge Diagnosis (1) Pneumonia: Qualifiers: Laterality: right Lung location: unspecified part of lung Pneumonia type: due to unspecified organism Qualified Code(s): J18.9 - Pneumonia, unspecified organism Code(s): J18.9 - Pneumonia, unspecified organism Status: Acute Assessment and Plan: 04/05/20 12:52 Extensive right lower lung disease which may be secondary to aspiration pneumonia. Continue IV antibiotics. Sputum cultures. Patient is a 49-year-old male mentally challenged he has history of recurrent pneumonia patient was brought to the emergency department with a complaint of cough shortness of breath his COVID-19 test is negative, patient has G-tube however his mother feeds him by mouth on and off and I suspect the patient may aspirate and may have developed aspiration pneumonia, will stop the Rocephin start the patient on Zosyn will continue azithromycin will continue to monitor and further recommendation to follow, fortunately patient is unable to provide any review of symptoms his mother is present in the room states he is doing much better compared to when he arrived. Repeat chest x-ray on 04/02 showed persistent pneumonia continued the present managed, on 04/04 repeat x-ray today shows improvement in pneumonia however patient still coughing but no fever or chills, will continue IV antibiotics for 1 more days and discharge the patient tomorrow, his mother is present room and answer all her questions, again with patient nothing by mouth except some ice chips if mouth gets too dry. (2) Abnormal urinalysis: Code(s): R82.90 - Unspecified abnormal findings in urine Status: Acute Assessment and Plan: r/o UTI -urine culture is growing Klebsiella pneumonia sensitive to Zosyn will continue, patient with history of recurrent UTI with indwelling catheter most likely secondary to indwelling catheter. (3) Sepsis: Qualifiers: Sepsis acute organ dysfunction status: unspecified Sepsis type: sepsis due to unspecified organism Qualified Code(s): A41.9 - Sepsis, unspecified organism Code(s): A41.9 - Sepsis, unspecified organism Status: Acute Assessment and Plan: with tachycardia and tachypnea. Source of sepsis appears to be pulmonary. Continue IV antibiotics. sputum culture and blood cultures pending. pneumococcal urine antigen. Urine pneumococcal antigen is negative there is no growth on blood culture so far (4) Suspected 2019 novel coronavirus infection: Code(s): Z20.828 - Contact with and (suspected) exposure to other viral communicable diseases Status: Acute Assessment and Plan: r/o Covid-19 virus. Continue droplet isolation. Continue supportive care. It is negative (5) Tourette syndrome: Code(s): F95.2 - Tourette's disorder Status: Chronic Assessment and Plan: stable. (6) Hypertension: Qualifiers: Hypertension type: essential hypertension Qualified Code(s): I10 - Essential (primary) hypertension Code(s): I10 - Essential (primary) hypertension Status: Chronic Assessment and Plan: stable. Monitor blood pressure. Continue coreg PO. (7) Seizure disorder: Code(s): G40.909 - Epilepsy, unspecified, not intractable, without status epilepticus Status: Chronic Assessment and Plan: Continue lamotrigine. (8) Mental disability: Code(s): F79 - Unspecified intellectual disabilities Status: Chronic Assessment and Plan: Stable. DS: Summary Hospital Course Reason for hospitalization: This is a 49 year old mentally challenged male with Tourette syndrome who is known to have had multiple bouts of pneumonia in the past as well as recent influenza in November of this year who presented to the hospital with his mother who is his care
--- NOTE | 2020-04-06 11:48 | PCCCNOTE ---
On 04/06/20, the student, Tatiana Mcdonnell, provided care and completed [facility] documentation on this patient. I have reviewed the student's documentation and agree with the findings.
== END 2020-04-06 13:26 | disposition home health service (06) | DRG 871 ==
LOC: ANHED 16:46 → ANHICU 17:19 → ANH2MED 03-31 21:17 → ANHICU 04-09 09:05
PROVIDERS: Family Medicine; Admitting Provider Internal Medicine; Emergency Provider Emergency Medicine; PCP Internal Medicine; Visit Provider Family Medicine
DX: A41.9 Sepsis, unspecified organism (principal); J69.0 Pneumonitis due to inhalation of food and vomit; T83.511A Infection and inflammatory reaction due to indwelling urethral catheter, initial encounter; N39.0 Urinary tract infection, site not specified; F84.0 Autistic disorder; B96.1 Klebsiella pneumoniae [K. pneumoniae] as the cause of diseases classified elsewhere; Z20.828 Contact with and (suspected) exposure to other viral communicable diseases; F79 Unspecified intellectual disabilities; F95.2 Tourette's disorder; G40.909 Epilepsy, unspecified, not intractable, without status epilepticus; I10 Essential (primary) hypertension; K21.9 Gastro-esophageal reflux disease without esophagitis; Z90.49 Acquired absence of other specified parts of digestive tract; Z93.1 Gastrostomy status
CPT/HCPCS: 36415; 71045; 71046; 80048; 80053; 81001; 83605; 84484; 85025; 85027; 86140; 87040; 87077; 87086; 87088; 87186; 87635; 87899; 93005; 94640; 96365; 96367; 97110; 97116; 97161; 99285; A9270; C9803; J0456; J0696; J2543; J7030; U0003

== ENCOUNTER 2020-07-02 13:44 | Outpatient (CLI) | payer MEDICARE, MEDICAID, SELFPAY | END 2020-07-02 13:45 | disposition home or self-care (01) | PROVIDERS: PCP Internal Medicine; Visit Provider Internal Medicine Infectious Disease | DX: N39.0 Urinary tract infection, site not specified (principal) | CPT/HCPCS: 87077; 87086; 87088; 87186 ==

== ENCOUNTER 2020-07-06 12:06 | Emergency (ER) | payer MEDICARE, MEDICAID, SELFPAY ==
[2020-07-06 12:09] VITALS: BP 117/77; PULSE 105; RESP 20; TEMP 36.2; O2SAT 99
[2020-07-06 12:31] LABS: Add Urine Microscopic? YES; Appearance Urine Turbid (Clear); Bacteria Urine 4+ /hpf; Bilirubin Urine Negative (Negative); Blood Urine Negative (Negative); Calcium Oxalate Crystals Urine Present /hpf; Color Urine Yellow (Yellow); Glucose Urine UA Negative (Negative); Hyaline Casts Urine 15-19 /lpf; Ketones Urine Negative (Negative); Leukocyte Esterase Ur 3+ LEU/UL (Negative); Mucus Urine Rare /lpf; Nitrate Urine Negative (Negative); Protein Urine 2+ mg/dL (Negative); RBC Urine 21-50 /hpf (0-2); Specific Grav Ur 1.014 (1.001-1.035); Squamous Epithelial Cell Urine Occasional /hpf (Few); Urobilinogen Urine Negative mg/dL (<2.0); WBC Clumps Urine Present /HPF; WBC Urine >75 /hpf
--- NOTE | 2020-07-06 14:12 | ED.GENADULT ---
HPI - General Adult General Chief complaint: Urogenital-Male Stated complaint: uti symptoms, issues with suprapubic cath Time Seen by Provider: 07/06/20 13:52 Source: patient and family History of Present Illness HPI narrative: Patient is a 49 y/o male brought to ED for suprapubic catheter change. Mother states that his catheter get changed every 2 weeks. However, visiting nurse was not able to change the catheter today because it was stuck. Patient has history of mental disability and has had suprapubic catheter for over 20 years. Patient also has feeding tube. There is no fever, chills or vomiting. Related Data Home Medications Medication Instructions Recorded Confirmed carvedilol [Coreg] 3.125 mg PO DAILY 11/26/19 03/30/20 ergocalciferol (vitamin D2) 50,000 unit PO [id number] 11/26/19 03/30/20 [Vitamin D2] lamotrigine 75 mg PO BID 11/26/19 03/30/20 omeprazole 40 mg PO DAILY 11/26/19 03/30/20 ferrous gluconate 324 mg PO BID 03/30/20 03/30/20 mometasone 1 applic TOPICAL BID 03/30/20 03/30/20 polyethylene glycol 3350 [Miralax] 17 g PO EVERY OTHER DAY 03/30/20 03/30/20 sucralfate 1 g PO BID 03/30/20 03/30/20 Allergies Allergy/AdvReac Type Severity Reaction Status Date / Time adhesive tape Allergy Unknown SKIN Verified 01/03/20 10:01 BLISTERS 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 History of surgical removal of skin lesion Benign lesion to the neck Family History Family History Mother Family history of thyroid disease Hypertension COPD (chronic obstructive pulmonary disease) HTN (hypertension) with goal to be determined Father Congestive heart failure Other Family history of arthritis Social History Social History Smoking status: Never smoker Alcohol intake: never Substance use: never Gender identity (if verbalized by the patient): Male Spiritual care concerns: No Agree to blood products: Yes Exam Const: General: no acute distress and well developed Orientation/consciousness: oriented to person, oriented to place, oriented to time and patient oriented x3 HENMT: Head: normocephalic Ears: external ears normal General nose exam: Normal external nose present Eyes: General: appearance normal, both eyes and all related structures Conjunctivae: conjunctivae normal Neck: Neck: normal visual inspection and full ROM Chest: Chest palpation & inspection: normal inspection of the chest and no tenderness Resp: Effort & Inspection: normal respiratory effort Auscultation: clear to auscultation bilaterally Cardio: Rate: regular rate Rhythm: regular rhythm GI: GI Palp: No abdominal tenderness and Yes Soft to palpation Other: suprapubic catheter in place Skin: General skin exam: normal color and turgor normal Neuro: Speech: dysarthria Extrem: General: normal to inspection, full ROM and no pedal edema Psych: Appearance: grossly normal Mental Status: mental status grossly normal Affect: normal affect Course Reevaluation(s) Reevaluation #1: Suprapubic catheter is removed and replaced in ED. Mother takes care of patient at home. He will be discharged home. Date: 07/06/20 Time:
--- NOTE | 2020-07-06 14:25 | PC.NURSE ---
pts old almaguer removed with some resistance. urine erupting from stoma. 20 fr almaguer suprapubic cath placed without difficulty with 1000cc cloudy urine with sediment returned. pt stated instant relief.
[2020-07-06 15:00] VITALS: BP 114/78; PULSE 82; RESP 18
== END 2020-07-06 15:00 | disposition home or self-care (01) ==
PROVIDERS: General Practice; Emergency Provider Emergency Medicine; PCP Internal Medicine
DX: Z43.5 Encounter for attention to cystostomy (principal); F84.0 Autistic disorder; K22.70 Barrett's esophagus without dysplasia; Z93.1 Gastrostomy status; K21.9 Gastro-esophageal reflux disease without esophagitis; F95.2 Tourette's disorder; I10 Essential (primary) hypertension; G40.909 Epilepsy, unspecified, not intractable, without status epilepticus; F79 Unspecified intellectual disabilities
CPT/HCPCS: 51702; 81001; 87086; 87088; 99283

== ENCOUNTER 2020-12-15 13:54 | Emergency (ER) | payer MEDICARE, MEDICAID, SELFPAY ==
[2020-12-15 14:01] VITALS: BP 124/70; PULSE 127; RESP 16; TEMP 35.6; O2SAT 98
[2020-12-15 14:24] LABS: Add Urine Microscopic? YES; Appearance Urine Turbid (Clear); Bacteria Urine Trace /hpf; Bilirubin Urine Negative (Negative); Blood Urine Negative (Negative); Calcium Oxalate Crystals Urine Many /hpf; Color Urine Yellow (Yellow); Glucose Urine UA Negative (Negative); Ketones Urine Negative (Negative); Leukocyte Esterase Ur 3+ LEU/UL (Negative); Mucus Urine Rare /lpf; Nitrate Urine Negative (Negative); Protein Urine 3+ mg/dL (Negative); Specific Grav Ur 1.015 (1.001-1.035); Squamous Epithelial Cell Urine Rare /hpf (Few); Urobilinogen Urine Negative mg/dL (<2.0); WBC Urine 21-30 /hpf
--- NOTE | 2020-12-15 16:43 | ED.MALEGU ---
HPI - Male Genitourinary General Chief complaint: Urogenital-Male Stated complaint: ? uti Time Seen by Provider: 12/15/20 16:22 Source: family Mode of arrival: ambulatory Limitations: clinical condition History of Present Illness HPI Narrative: Patient brought to the hospital by his mom complaining of decreased urine output and dark urine. Chronic suprapubic catheter. Which should be changed once weekly. Last time was 6 days ago. Patient's mother denied that the patient had any fever, chills, nausea, vomiting, change of mental status or acting funny. History of mental retardation Related Data Home Medications Medication Instructions Recorded Confirmed carvedilol [Coreg] 3.125 mg PO DAILY 11/26/19 03/30/20 ergocalciferol (vitamin D2) 50,000 unit PO [id number] 11/26/19 03/30/20 [Vitamin D2] lamotrigine 75 mg PO BID 11/26/19 03/30/20 omeprazole 40 mg PO DAILY 11/26/19 03/30/20 ferrous gluconate 324 mg PO BID 03/30/20 03/30/20 mometasone 1 applic TOPICAL BID 03/30/20 03/30/20 polyethylene glycol 3350 [Miralax] 17 g PO EVERY OTHER DAY 03/30/20 03/30/20 sucralfate 1 g PO BID 03/30/20 03/30/20 Allergies Allergy/AdvReac Type Severity Reaction Status Date / Time adhesive tape Allergy Unknown SKIN Verified 12/15/20 15:58 BLISTERS Review of Systems Review of Systems: Narrative: CONSTITUTIONAL: Denies fever, chills, or sweats. EYES: Denies visual changes, redness, or discharge. ENT: Denies rhinorrhea, congestion, sore throat, or otalgia. CARDIOVASCULAR: Denies chest pain, palpitations, or edema. RESPIRATORY: Denies cough or dyspnea. GASTROINTESTINAL: Denies abdominal pain, nausea, vomiting, or diarrhea. GENITOURINARY: Denies dysuria or hematuria. SKIN: Denies rash or itching. MUSCULOSKELETAL: Denies back pain, joint pain, or myalgia. NEUROLOGIC: Denies headache, numbness, or weakness. PSYCHIATRIC: Denies anxiety or depression. 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 History of surgical removal of skin lesion Benign lesion to the neck Family History Family History Mother Family history of thyroid disease Hypertension COPD (chronic obstructive pulmonary disease) HTN (hypertension) with goal to be determined Father Congestive heart failure Other Family history of arthritis Social History Social History Smoking status: Never smoker Alcohol intake: never Substance use: never Gender identity (if verbalized by the patient): Male Spiritual care concerns: No Agree to blood products: Yes Exam Narrative: Exam Narrative: General appearance: Well-developed, well-nourished Skin: Normal color Head: Normocephalic, nontraumatic Eyes: Clear conjunctiva ENT: Oropharynx normal, ears normal, nose normal Neck: Supple, nontender Chest and respiratory: Airway patent, no respiratory distress, no accessory muscle use Heart: Regular rate/rhythm Abdomen: Soft, nontender, no organomegaly, quiet bowel sounds, suprapubic catheter in place Vascular: Normal peripheral pulses, normal capillary refill. Musculoskeletal: Normal range of motion, nontender back Neurologic: Alert
[2020-12-15 17:29] LABS: Basophils Absolute Auto 0.1 K/mm3 (0.0-0.1); Basophils Percent Auto 0.7 % (0.2-1.2); Eosinophils Absolute Auto 0.3 K/mm3 (0-0.3); Eosinophils Percent Auto 3.4 % (0-4.4); Hematocrit 41.9 % (42.0-52.0); Hemoglobin 14.1 g/dL (14.0-18.0); Immature Granulocyte Absolute 0.03 K/mm3 (0.00-0.031); Immature Granulocyte Percent A 0.4 % (0-0.5); Lymphocytes Absolute Auto 1.87 K/mm3 (0.9-3.2); Lymphocytes Percent Auto 23.3 % (18.3-44.2); Mean Corpuscular HGB Conc 33.7 g/dl (32-36); Mean Corpuscular Hemoglobin 30.1 pg (26-34); Mean Corpuscular Volume 89.5 fl (80-100); Mean Platelet Volume 8.8 fl (7.4-10.4); Monocytes Absolute Auto 0.7 K/mm3 (0.1-0.6); Monocytes Percent Auto 8.3 % (2.6-8.5); Neutrophils Absolute Auto 5.1 K/mm3 (1.3-6.7); Neutrophils Percent Auto 63.9 % (45.5-73.1); Platelet Count Result 266 k/mm3 (150-375); Red Blood Count 4.68 M/mm3 (4.6-6.20); Red Cell Distribution Width 13.6 % (11.5-14.5)
[2020-12-15] MEDS: SODIUM CHLORIDE 0.9% IV 1,000 ML 999 ML IV CONT (17:32)
[2020-12-15 17:43] LABS: Alanine Aminotransferase 18 U/L (4-50); Albumin Level 4.6 g/dL (3.5-5.1); Alkaline Phosphatase 81 U/L (38-126); Anion Gap 9 mmol/L (8-16); Aspartate Amino Transferase 40 U/L (17-59); Bilirubin,Total 0.3 mg/dL (0.2-1.3); Blood Urea Nitrogen 21 mg/dL (9-20); Calcium 9.6 mg/dL (8.4-10.2); Carbon Dioxide 27 mmol/L (22-30); Chloride 105 mmol/L (98-107); Estimated CRCL calculation 68 ml/min; Estimated Glomerular Filt Rate > 60; Glucose 121 mg/dL (75-110); Potassium 3.9 mmol/L (3.4-5.0); Sodium 141 mmol/L (137-145)
== END 2020-12-15 18:54 | disposition home or self-care (01) ==
PROVIDERS: Emergency Medicine; Emergency Provider Emergency Medicine; PCP Internal Medicine
DX: T83.091A Other mechanical complication of indwelling urethral catheter, initial encounter (principal); N39.0 Urinary tract infection, site not specified; F84.0 Autistic disorder; K22.70 Barrett's esophagus without dysplasia; Z93.1 Gastrostomy status; K21.9 Gastro-esophageal reflux disease without esophagitis; F95.2 Tourette's disorder; I10 Essential (primary) hypertension; N31.9 Neuromuscular dysfunction of bladder, unspecified; G40.909 Epilepsy, unspecified, not intractable, without status epilepticus
CPT/HCPCS: 36415; 51702; 80053; 81001; 85025; 87077; 87086; 87088; 87186; 96361; 96365; 99284; J0696; J7030

== ENCOUNTER → 2021-01-26 04:16 | Outpatient (CLI) | payer MEDICARE, MEDICAID, SELFPAY ==
[2021-01-26 19:03] LABS: SARS-CoV-2 RNA PCR Negative
== END ==
PROVIDERS: PCP Internal Medicine; Visit Provider Urology
DX: Z01.812 Encounter for preprocedural laboratory examination (principal); Z20.822 Contact with and (suspected) exposure to COVID-19
CPT/HCPCS: C9803; U0003; U0005

== ENCOUNTER 2021-01-26 09:32 | Outpatient (CLI) | payer MEDICARE, MEDICAID, SELFPAY ==
--- NOTE | 2021-01-26 10:00 | ECG_ITS ---
Measurements Intervals [place] Rate: 103 P: 48 NC: 134 QRS: -34 QRSD: 106 T: 48 QT: 332 QTc: 435 Interpretive Statements SINUS TACHYCARDIA VENTRICULAR PREMATURE COMPLEX LEFT ATRIAL ENLARGEMENT LEFT AXIS DEVIATION INCOMPLETE RIGHT BUNDLE BRANCH BLOCK VOLTAGE CRITERIA FOR LVH BASELINE ARTIFACT- I, II, III, AVR, AVL, AVF, V2-V3 BORDERLINE ECG Electronically Signed On 01-26-2021 10:01:36 CDT by Ken Clements D.O.
== END 2021-01-26 09:33 | disposition home or self-care (01) ==
PROVIDERS: PCP Internal Medicine; Visit Provider Urology
DX: Z01.810 Encounter for preprocedural cardiovascular examination (principal); I45.10 Unspecified right bundle-branch block; I10 Essential (primary) hypertension; R00.0 Tachycardia, unspecified
CPT/HCPCS: 93005; C9803; U0003; U0005

== ENCOUNTER 2021-01-29 01:53 | Day surgery (SDC) | payer MEDICARE, MEDICAID, SELFPAY ==
--- NOTE | 2021-01-23 11:27 | PM.IMHP ---
H&P: HPI History of Present Illness Date/Time: 01/23/21 11:27 a 15-year-old man with neurogenic bladder. He has had a suprapubic tube for many years. He is here today for surveillance cystoscopy with biopsy Chief Complaint: flaccid neurogenic bladder Review of Systems Review of Systems: All systems reviewed & are unremarkable except as noted in HPI and below PMFSH Past Medical History Medical History (Updated 01/23/21 @ 11:28 by Burke Alves MD) Autism Barretts esophagus Chronic ear infection Constipation Dysphagia Feeding by G-tube Gastrostomy tube in place History of gastroesophageal reflux (GERD) History of gastrostomy tube placement History of Austin de la Tourette's syndrome History of hypertension History of neurogenic bladder Hypertension Mental disability Seizure disorder Suprapubic catheter Tourette syndrome Surgical History Surgical History History of cholecystectomy History of ear surgery 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 History of surgical removal of skin lesion Benign lesion to the neck Family History Family History Mother Family history of thyroid disease Hypertension COPD (chronic obstructive pulmonary disease) HTN (hypertension) with goal to be determined Father Congestive heart failure Other Family history of arthritis Social History Social History Smoking status: Never smoker Alcohol intake: never Substance use: never Gender identity (if verbalized by the patient): Male Spiritual care concerns: No Agree to blood products: Yes Meds Home Medications and Allergies Home Medications Medication Instructions Recorded Confirmed Type carvedilol [Coreg] 3.125 mg PO DAILY 11/26/19 03/30/20 History ergocalciferol (vitamin D2) 50,000 unit PO [id number] 11/26/19 03/30/20 History [Vitamin D2] lamotrigine 75 mg PO BID 11/26/19 03/30/20 History omeprazole 40 mg PO DAILY 11/26/19 03/30/20 History ferrous gluconate 324 mg PO BID 03/30/20 03/30/20 History mometasone 1 applic TOPICAL BID 03/30/20 03/30/20 History polyethylene glycol 3350 [Miralax] 17 g PO EVERY OTHER DAY 03/30/20 03/30/20 History sucralfate 1 g PO BID 03/30/20 03/30/20 History polyethylene glycol 3350 [Miralax] 17 g PO QAM PRN #30 ea 04/06/20 Rx ciprofloxacin HCl [Cipro] 500 mg PO Q12H #14 tablet 12/15/20 Rx Allergies Allergy/AdvReac Type Severity Reaction Status Date / Time adhesive tape Allergy Unknown SKIN Verified 12/16/20 14:45 BLISTERS Exam Const: General: cooperative and healthy appearing HENMT: Face and sinus: normal facial exam Eyes: General: appearance normal, both eyes and all related structures Resp: Effort & Inspection: normal respiratory effort and able to speak in complete sentences GI: Inspection: normal to inspection Urinary Catheter: Urinary Catheter: urine clear Skin: General skin exam: normal color Neuro: General: oriented to person Assessment and Plan Assessment and plan (1) 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, not elsewhere classified Status: Acute Assessment and Plan: cystoscopy with bladder biopsy
[2021-01-25 09:49] VITALS: BMI 24.0
[2021-01-29 10:00] VITALS: BP 125/80; PULSE 100; RESP 12; TEMP 36; O2SAT 96
[2021-01-29] MEDS: LACTATED RINGERS 1,000 ML 30 ML IV CONT (10:00)
--- NOTE | 2021-01-29 10:01 | WPDANESEPPF ---
Anes - Initial Pre Proc Eval Procedure: Operation Date: 01/29/21 11:30 Proposed Procedures p Cystoscopy, Bladder Biopsy - Burke Alves MD Date/Time: 01/29/21 10:01 Surgeon: Burke Alves MD Pre Op Diagnosis: flaccid neuropathic bladder Patient Data Age: 50 Gender: M Height: 5 ft 4 in Weight: 63.6 kg Allergies Allergy/AdvReac Type Severity Reaction Status Date / Time adhesive tape Allergy Unknown SKIN Verified 01/25/21 09:18 BLISTERS Home Medications Medication Instructions Recorded Confirmed Type carvedilol [Coreg] 3.125 mg PO DAILY 11/26/19 01/25/21 History ergocalciferol (vitamin D2) 50,000 unit PO [id number] 11/26/19 01/25/21 History [Vitamin D2] lamotrigine 75 mg PO BID 11/26/19 01/25/21 History omeprazole 40 mg PO DAILY 11/26/19 01/25/21 History ferrous gluconate 324 mg PO DAILY 03/30/20 01/25/21 History mometasone 1 applic TOPICAL BID 03/30/20 01/25/21 History polyethylene glycol 3350 [Miralax] 17 g PO EVERY OTHER DAY 03/30/20 01/25/21 History sucralfate 1 g PO BID 03/30/20 01/25/21 History ciprofloxacin HCl 500 mg PO HS 01/25/21 01/25/21 History Patient hx anesthesia problems: none Family hx anesthesia problems: none PMFSH Past Medical History Medical History Autism Barretts esophagus Chronic ear infection Constipation Dysphagia Feeding by G-tube Gastrostomy tube in place History of gastroesophageal reflux (GERD) History of gastrostomy tube placement History of Austin de la Tourette's syndrome History of hypertension History of neurogenic bladder Hypertension Mental disability Seizure disorder Suprapubic catheter Tourette syndrome Surgical History Surgical History History of cholecystectomy History of ear surgery 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 History of surgical removal of skin lesion Benign lesion to the neck Family History Family History Mother Family history of thyroid disease Hypertension COPD (chronic obstructive pulmonary disease) HTN (hypertension) with goal to be determined Father Congestive heart failure Other Family history of arthritis Social History Social History Smoking status: Never smoker Alcohol intake: never Substance use: never Living arrangements: with family Gender identity (if verbalized by the patient): Male Spiritual care concerns: No Agree to blood products: Yes Anes - Eval Final PreProcedure Day of Procedure 01/29/21 10:01 Patient weight: normal Heart: regular rate and rhythm Lungs: clear to auscultation Airway: Mallampati scale class 1 Neurological: alert and oriented (x 1) Last oral intake: >/= 8 hours ASA classification: III Emergent: no Anesthetic plan: proceed Anesthesia type and monitoring: general GIVS and standard monitoring Informed Consent: The patient's anesthetic plan and its attendant risks and benefits were discussed with the patient/family/POA. Questions were solicited and answers provided to the satisfaction of the patient/family/POA.
--- NOTE | 2021-01-29 10:25 | WPDHPUPDATE1 ---
History and Physical Update Update Date/Time: 01/29/21 10:25 History and Physical has been reviewed, including an updated exam of the patient. There are NO changes in the patient's condition. Risks, benefits, and alternatives have been discussed and questions answered. Patient agrees to proceed with procedure.
[2021-01-29] MEDS: ceFAZolin 2 GM/D5W 50 ML 2 GM/50 ML BAG IVPB (11:21)
[2021-01-29] MEDS: ERTAPENEM 1 GM/NS 50 ML 1 GM/50 ML BAG IVPB (11:21)
--- NOTE | 2021-01-29 11:41 | PM.PROC ---
Procedure Note - Detailed Date of procedure: 01/29/21 Pre-op diagnosis: flaccid neuropathic bladder Post-op diagnosis: same Procedure performed: Cystoscopy with bladder biopsy Description of procedure: He was given Invanz for preop antibiotics. His suprapubic tube was removed. A time-out performed. I performed cystoscopy through the suprapubic tube tract. He had a normal-appearing bladder. There was some redness in catheter related edema. There was no real signs of infection. There is no tumors or foreign bodies. There is nothing concerning for cancer. I did a random bladder biopsy with a small cold cup grasper. There is no bleeding from the biopsy site. Suprapubic tube was replaced. He was awakened and transferred the PACU in stable condition. Anesthesia: MAC Surgeon: Burke Alves MD Estimated blood loss (mL): 0 Drains: Yes (Suprapubic tube) Packing: No Pathology: yes (Bladder biopsy) Complications: No immediate complications Condition: stable
[2021-01-29 11:42] VITALS: BP 121/82; PULSE 72; RESP 12; O2SAT 95
[2021-01-29 12:12] VITALS: BP 111/74; PULSE 66; RESP 16; O2SAT 95
[2021-01-29 12:35] VITALS: BP 112/75; PULSE 75; RESP 16
== END 2021-01-29 12:50 | disposition home or self-care (01) ==
PROVIDERS: PCP Internal Medicine; Visit Provider Urology
PROC: 0TBB8ZX Excision of Bladder, Via Natural or Artificial Opening Endoscopic, Diagnostic (ICD-10-PCS; CPT 52204; principal; 2021-01-29 11:30)
DX: N31.2 Flaccid neuropathic bladder, not elsewhere classified (principal); N30.20 Other chronic cystitis without hematuria; F84.0 Autistic disorder; K22.70 Barrett's esophagus without dysplasia; R13.10 Dysphagia, unspecified; I10 Essential (primary) hypertension; G40.909 Epilepsy, unspecified, not intractable, without status epilepticus; F95.2 Tourette's disorder
CPT/HCPCS: 52204; 88305; A9270; J0690; J1335; J2250; J2704; J3010; J7030; J7120

== ENCOUNTER 2021-04-12 10:15 | Outpatient (CLI) | payer MEDICARE, MEDICAID, SELFPAY ==
[2021-04-12 10:54] LABS: Basophils Absolute Auto 0.1 K/mm3 (0.0-0.1); Basophils Percent Auto 1.1 % (0.2-1.2); Eosinophils Absolute Auto 0.3 K/mm3 (0-0.3); Eosinophils Percent Auto 6.2 % (0-4.4); Hematocrit 37.3 % (42.0-52.0); Hemoglobin 12.2 g/dL (14.0-18.0); Immature Granulocyte Absolute 0.11 K/mm3 (0.00-0.031); Immature Granulocyte Percent A 2.1 % (0-0.5); Lymphocytes Absolute Auto 1.47 K/mm3 (0.9-3.2); Lymphocytes Percent Auto 27.7 % (18.3-44.2); Mean Corpuscular HGB Conc 32.7 g/dl (32-36); Mean Corpuscular Hemoglobin 29.4 pg (26-34); Mean Corpuscular Volume 89.9 fl (80-100); Mean Platelet Volume 8.7 fl (7.4-10.4); Monocytes Absolute Auto 0.7 K/mm3 (0.1-0.6); Monocytes Percent Auto 12.2 % (2.6-8.5); Neutrophils Absolute Auto 2.7 K/mm3 (1.3-6.7); Neutrophils Percent Auto 50.7 % (45.5-73.1); Platelet Count Result 267 k/mm3 (150-375); Red Blood Count 4.15 M/mm3 (4.6-6.20); Red Cell Distribution Width 13.6 % (11.5-14.5); White Blood Count 5.3 K/mm3 (4.5-10.0)
[2021-04-12 10:55] LABS: Alanine Aminotransferase 20 U/L (4-50); Albumin Level 4.4 g/dL (3.5-5.1); Alkaline Phosphatase 126 U/L (38-126); Anion Gap 14 mmol/L (8-16); Aspartate Amino Transferase 35 U/L (17-59); Bilirubin,Total 0.3 mg/dL (0.2-1.3); Blood Urea Nitrogen 11 mg/dL (9-20); Calcium 9.5 mg/dL (8.4-10.2); Carbon Dioxide 25 mmol/L (22-30); Chloride 103 mmol/L (98-107); Cholesterol 199 mg/dL (0-200); Estimated Glomerular Filt Rate > 60; Glucose 117 mg/dL (75-110); HDL Direct 52 mg/dL; Sodium 142 mmol/L (137-145); Triglycerides 48 mg/dL (<150); Uric Acid 2.6 mg/dL (3.5-8.5)
[2021-04-12 11:05] LABS: LDL Cholesterol Direct 96 mg/dL
[2021-04-12 11:10] LABS: Add Urine Microscopic? YES; Appearance Urine Clear (Clear); Bacteria Urine Trace /hpf; Bilirubin Urine Negative (Negative); Blood Urine Negative (Negative); Budding Yeast Urine Present /hpf; Color Urine Yellow (Yellow); Glucose Urine UA Negative (Negative); Ketones Urine Negative (Negative); Leukocyte Esterase Ur Trace LEU/UL (NEGATIVE); Mucus Urine Rare /lpf; Nitrate Urine Negative (Negative); Protein Urine 1+ mg/dL (Negative); Specific Grav Ur 1.012 (1.001-1.035); Squamous Epithelial Cell Urine Rare /hpf (Few); Urobilinogen Urine Negative mg/dL (<2.0); WBC Urine 0-3 /hpf (0-3)
[2021-04-12 11:26] LABS: Prostate Specific Antigen 0.3 ng/mL (< OR = 4.0)
[2021-04-12 11:30] LABS: Vitamin D 25 Hydroxy 33.1 ng/mL
== END 2021-04-12 10:16 | disposition home or self-care (01) ==
PROVIDERS: PCP Internal Medicine; Visit Provider Internal Medicine
DX: E78.2 Mixed hyperlipidemia (principal); I10 Essential (primary) hypertension; E55.9 Vitamin D deficiency, unspecified; D51.9 Vitamin B12 deficiency anemia, unspecified; Z12.5 Encounter for screening for malignant neoplasm of prostate
CPT/HCPCS: 36415; 80053; 80061; 81001; 82306; 82607; 84153; 84443; 84550; 85025; G0103

== ENCOUNTER → 2021-06-08 04:07 | Outpatient (CLI) | payer MEDICARE, MEDICAID, SELFPAY ==
[2021-06-08 21:10] LABS: SARS-CoV-2 RNA PCR Positive
== END ==
PROVIDERS: PCP Internal Medicine; Visit Provider Internal Medicine
DX: U07.1 COVID-19 (principal)
CPT/HCPCS: C9803; U0003; U0005

== ENCOUNTER 2021-06-10 11:57 | Inpatient (IN) | payer MEDICARE, MEDICAID, SELFPAY ==
--- NOTE | ~2021-06-10 | XR_ITS ---
XR chest 1V portable DATE: 06/12/2021 01:11 INDICATION: Covid-positive. Fever. TECHNIQUE: Portable AP chest on 06/12/2021 at 0106 hours COMPARISON: 06/10/2021 portable AP chest at 1704 hours 03/03/2019 CT chest abdomen pelvis FINDINGS: This is a limited rotated portable single view AP chest. Cardiomegaly. There is patchy infiltrate scattered throughout the right lung, particularly the right mid and lower lung zones. There is left lower lobe infiltrate and/or atelectasis. Possible 6 mm lateral left upper lobe lung nodule. No pleural effusion. No pulmonary vascular congestion or pneumothorax. Diffuse osteopenia. IMPRESSION: Increased bilateral pulmonary infiltrates, right greater than left, suggesting bilateral pneumonia Cannot exclude 6 mm left upper lobe mass Reviewed, dictated and finalized at location A.
--- NOTE | ~2021-06-10 | XR_ITS ---
XR chest 1V portable DATE: 06/10/2021 17:10 INDICATION: Active cough. Covid-positive. TECHNIQUE: Portable upright AP chest on 06/10/2021 at 1704 hours COMPARISON: 04/04/2020 portable AP chest FINDINGS: There is patchy infiltrate in the right mid and lower lung zones. The remaining lung rios appear essentially clear. No pleural effusion or pulmonary vascular congestion or pneumothorax. Cardiac megaly. Aortic arch calcification. Prominent diffuse osteopenia. Prominent dextroscoliosis of the thoracic spine and prominent levoscoliosis of the lumbar spine. IMPRESSION: Patchy right mid and lower lung infiltrate; differential diagnosis includes pneumonia, le ss likely aspiration pneumonitis Cardiomegaly, aortic atherosclerosis Reviewed, dictated and finalized at location A. IMPRESSION: Patchy right mid and lower lung infiltrate; differential diagnosis includes pneumonia, less likely aspiration pneumonitis Cardiomegaly, aortic atherosclerosis
[2021-06-10 13:05] VITALS: BP 125/98; PULSE 117; RESP 20; TEMP 36.4; O2SAT 100
--- NOTE | 2021-06-10 15:28 | ED.GENADULT ---
HPI - General Adult General Chief complaint: Unspecified Stated complaint: COVID +, weakness Time Seen by Provider: 06/10/21 15:27 Related Data Home Medications Medication Instructions Recorded Confirmed carvedilol [Coreg] 3.125 mg PO DAILY 11/26/19 04/06/21 ergocalciferol (vitamin D2) 50,000 unit PO [id number] 11/26/19 04/06/21 [Vitamin D2] lamotrigine 75 mg PO BID 11/26/19 04/06/21 omeprazole 40 mg PO DAILY 11/26/19 04/06/21 ferrous gluconate 324 mg PO DAILY 03/30/20 04/06/21 mometasone 1 applic TOPICAL BID 03/30/20 04/06/21 polyethylene glycol 3350 [Miralax] 17 g PO EVERY OTHER DAY 03/30/20 04/06/21 sucralfate 1 g PO BID 03/30/20 04/06/21 ciprofloxacin HCl 500 mg PO HS 01/25/21 04/06/21 Allergies Allergy/AdvReac Type Severity Reaction Status Date / Time adhesive tape Allergy Unknown SKIN Verified 06/10/21 15:21 BLISTERS PMFSH Past Medical History Medical History Autism Barretts esophagus Chronic ear infection Constipation Dysphagia Feeding by G-tube Gastrostomy tube in place History of gastroesophageal reflux (GERD) History of gastrostomy tube placement History of Austin de la Tourette's syndrome History of hypertension History of neurogenic bladder Hypertension Mental disability Seizure disorder Suprapubic catheter Tourette syndrome Surgical History Surgical History History of cholecystectomy History of ear surgery 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 History of surgical removal of skin lesion Benign lesion to the neck Family History Family History Mother Family history of thyroid disease Hypertension COPD (chronic obstructive pulmonary disease) HTN (hypertension) with goal to be determined Father Congestive heart failure Other Family history of arthritis Social History Social History Smoking status: Never smoker Alcohol intake: never Substance use: never Gender identity (if verbalized by the patient): Male Spiritual care concerns: No Agree to blood products: Yes Course Vital Signs Vital signs: Vital Signs Temperature 36.4 C 06/10/21 13:05 Pulse Rate 117 H 06/10/21 13:05 Respiratory Rate 06/10/21 13:05 Blood Pressure 125/98 H 06/10/21 13:05 Pulse Oximetry 100 06/10/21 13:05 Temperature 36.4 C 06/10/21 13:05 Pulse Rate 117 H 06/10/21 13:05 Respiratory Rate 06/10/21 13:05 Blood Pressure 125/98 H 06/10/21 13:05 Pulse Oximetry 100 06/10/21 13:05 Medical Decision Making Vital Signs Vital Signs: Vital Signs Temperature 36.4 C 06/10/21 13:05 Pulse Rate 117 H 06/10/21 13:05 Respiratory Rate 06/10/21 13:05 Blood Pressure 125/98 H 06/10/21 13:05 Pulse Oximetry 100 06/10/21 13:05 Temperature 36.4 C 06/10/21 13:05 Pulse Rate 117 H 06/10/21 13:05 Respiratory Rate 06/10/21 13:05 Blood Pressure 125/98 H 06/10/21 13:05 Pulse Oximetry 100 06/10/21 13:05 Discharge Plan Discharge Prescriptions: No Action omeprazole 40 mg capsule,delayed release(DR/EC) 40 mg PO DAILY RF: 0 carvedilol [Coreg] 3.125 mg Tablet 3.125 mg PO DAILY RF: 0 lamotrigine 25 mg tablet 75 mg PO BID RF: 0 ergocalciferol (vitamin D2) [Vitamin D2] 1,250 mcg (50,000 unit) Capsule 50,000 unit PO [id number] RF: 0 polyethylene glycol 3350 [Miralax] 17 gram Powder In Packet 17 g PO EVERY OTHER DAY RF: 0 sucralfate 1 gram Tablet 1 g PO BID RF: 0 mometasone 0.1 % Cream 1 applic TOPICAL BID RF: 0 ferrous gluconate 324 mg (37.5 mg iron) Tablet 324 mg PO DAILY RF: 0 ciprofloxacin HCl 500 mg tablet 500 mg PO HS RF: 0 ciprofloxacin HCl [Cipro] 500 mg tablet 500 mg PO Q12H Qty: 6 RF: 0
--- NOTE | 2021-06-10 16:54 | ECG_ITS ---
Measurements Intervals [place] Rate: 92 P: 55 NC: 116 QRS: -22 QRSD: 106 T: 54 QT: 370 QTc: 458 Interpretive Statements SINUS RHYTHM WITH SHORT NC INTERVAL LEFT ATRIAL ENLARGEMENT INCOMPLETE RIGHT BUNDLE BRANCH BLOCK POSSIBLE LEFT VENTRICULAR HYPERTROPHY BASELINE ARTIFACT- I, II, III, AVR, AVL, AVF, V1-V2 ABNORMAL ECG Electronically Signed On 06-11-2021 5:58:44 CDT by Ken Clements D.O.
--- NOTE | 2021-06-10 17:09 | ED.GENADULT ---
HPI - General Adult General Chief complaint: Unspecified Stated complaint: COVID +, weakness Time Seen by Provider: 06/10/21 15:27 Source: family Mode of arrival: wheelchair Limitations: physical limitation History of Present Illness HPI narrative: This is a 50 year old male with cognitive disabilities, suprapubic catheter, g-tube who presents with his mother for evaluation of COVID symptoms. His mother states they both developed symptoms of covid on Monday. He developed nausea, vomiting and cough on Monday. She spoke to patient's PCP who order test for covid and placed patient on antibiotics for possible UTI. She also states patient is also not as friendly today as he normally Patient is unable to give history Related Data Home Medications Medication Instructions Recorded Confirmed carvedilol [Coreg] 3.125 mg PO DAILY 11/26/19 06/10/21 ergocalciferol (vitamin D2) 50,000 unit PO [id number] 11/26/19 06/10/21 [Vitamin D2] lamotrigine 75 mg PO BID 11/26/19 06/10/21 omeprazole 40 mg PO DAILY 11/26/19 06/10/21 ferrous gluconate 324 mg PO DAILY 03/30/20 06/10/21 mometasone 1 applic TOPICAL BID 03/30/20 06/10/21 polyethylene glycol 3350 [Miralax] 17 g PO WEEKLY 03/30/20 06/10/21 sucralfate 1 g PO BID 03/30/20 06/10/21 Allergies Allergy/AdvReac Type Severity Reaction Status Date / Time adhesive tape Allergy Unknown SKIN Verified 06/10/21 15:21 BLISTERS Review of Systems Review of Systems: ROS unobtainable: Yes unobtainable due to medical condition PMFSH Past Medical History Medical History Autism Barretts esophagus Chronic ear infection Constipation Dysphagia Feeding by G-tube Gastrostomy tube in place History of gastroesophageal reflux (GERD) History of gastrostomy tube placement History of Austin de la Tourette's syndrome History of hypertension History of neurogenic bladder Hypertension Mental disability Seizure disorder Suprapubic catheter Tourette syndrome Surgical History Surgical History History of cholecystectomy History of ear surgery 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 History of surgical removal of skin lesion Benign lesion to the neck Family History Family History Mother Family history of thyroid disease Hypertension COPD (chronic obstructive pulmonary disease) HTN (hypertension) with goal to be determined Father Congestive heart failure Other Family history of arthritis Social History Social History Smoking status: Never smoker Alcohol intake: never Substance use: never Gender identity (if verbalized by the patient): Male Spiritual care concerns: No Agree to blood products: Yes Exam Const: General: cooperative, no acute distress, alert, awake and Physically active; No diaphoretic Limitations: physical limitations HENMT: Head: normocephalic and atraumatic Resp: Effort & Inspection: normal respiratory effort, no audible wheezes and symmetric chest movement Auscultation: clear to auscultation bilaterally and no wheezes GI: GI Palp: Yes Soft to palpation and No Tenderness to palpation present (GI) Auscultation: abnormal bowel sounds Other: g tube in place mid abdomen, suprapubic catheter in place draining clear urine Urinary Catheter: Urinary Catheter: patent and draining and urine clear Skin: General skin exam: normal color Course Reevaluation(s) Reevaluation #1: I Discussed with Katalina campo who accept to hospitalist service. He has covid with pneunomia. Although he is not hypoxic he does have UTI with indwelling almaguer catheter. Mother states behavior has changed due to infection. He is otherwise stable at this time Date: 06/10/21 Time: 18:45 Vital Signs Vital signs: Vital Signs Tem
[2021-06-10 17:19] VITALS: BP 113/78; PULSE 102; RESP 22; O2SAT 98
[2021-06-10 17:35] LABS: Basophils Percent Auto 0.8 % (0.2-1.2); Eosinophils Percent Auto 0.3 % (0-4.4); Hematocrit 42.1 % (42.0-52.0); Hemoglobin 13.4 g/dL (14.0-18.0); Immature Granulocyte Absolute 0.07 K/mm3 (0.00-0.031); Immature Granulocyte Percent A 1.8 % (0-0.5); Lymphocytes Absolute Auto 1.66 K/mm3 (0.9-3.2); Lymphocytes Percent Auto 42.8 % (18.3-44.2); Mean Corpuscular HGB Conc 31.8 g/dl (32-36); Mean Corpuscular Hemoglobin 29.5 pg (26-34); Mean Corpuscular Volume 92.7 fl (80-100); Mean Platelet Volume 8.8 fl (7.4-10.4); Monocytes Absolute Auto 0.4 K/mm3 (0.1-0.6); Monocytes Percent Auto 10.1 % (2.6-8.5); Neutrophils Absolute Auto 1.7 K/mm3 (1.3-6.7); Neutrophils Percent Auto 44.2 % (45.5-73.1); Platelet Count Result 207 k/mm3 (150-375); Red Blood Count 4.54 M/mm3 (4.6-6.20); Red Cell Distribution Width 13.7 % (11.5-14.5); White Blood Count 3.9 K/mm3 (4.5-10.0)
[2021-06-10 17:45] LABS: Alanine Aminotransferase 25 U/L (4-50); Albumin Level 4.3 g/dL (3.5-5.1); Alkaline Phosphatase 133 U/L (38-126); Anion Gap 10 mmol/L (8-16); Aspartate Amino Transferase 60 U/L (17-59); Bilirubin,Total 0.3 mg/dL (0.2-1.3); Blood Urea Nitrogen 17 mg/dL (9-20); Calcium 8.7 mg/dL (8.4-10.2); Carbon Dioxide 26 mmol/L (22-30); Chloride 109 mmol/L (98-107); Estimated CRCL calculation 81 ml/min; Estimated Glomerular Filt Rate > 60; Glucose 87 mg/dL (65-110); INR 0.9; Magnesium 2.2 mg/dL (1.6-2.3); Potassium 3.8 mmol/L (3.4-5.0); Prothrombin Time 12.1 Seconds (11.1-14.7); Sodium 145 mmol/L (137-145)
[2021-06-10 17:46] LABS: Partial Thromboplastin Time 26.9 SECONDS (22.3-36.8)
[2021-06-10] MEDS: ONDANSETRON INJ 4 MG/2 ML VIAL IV PUSH (17:49)
[2021-06-10] MEDS: LACTATED RINGERS 1,000 ML 999 ML IV CONT (17:49)
[2021-06-10 18:07] LABS: Add Urine Microscopic? YES; Appearance Urine Cloudy (Clear); Bacteria Urine Trace /hpf; Bilirubin Urine Negative (Negative); Budding Yeast Urine Present /hpf; Calcium Oxalate Crystals Urine Present /hpf; Color Urine Yellow (Yellow); Glucose Urine UA Negative (Negative); Ketones Urine Trace mg/dL (Negative); Leukocyte Esterase Ur 3+ LEU/UL (Negative); Nitrate Urine Negative (Negative); Protein Urine 1+ mg/dL (Negative); Specific Grav Ur 1.016 (1.001-1.035); Urobilinogen Urine Negative mg/dL (<2.0); WBC Urine >75 /hpf
[2021-06-10 18:10] LABS: Blood Urine Negative (Negative)
[2021-06-10 19:26] VITALS: O2SAT 96
[2021-06-10 19:30] VITALS: O2SAT 95
[2021-06-10 20:05] VITALS: BP 132/76; PULSE 92; RESP 20; O2SAT 96
[2021-06-10 20:27] LABS: Lactic Acid Reflex 0.9 mmol/L (0.7-2.1)
[2021-06-10 20:39] LABS: Troponin I < 0.012 ng/mL (0.000-0.034)
--- NOTE | 2021-06-10 20:41 | PM.IMHP ---
H&P: HPI History of Present Illness Date/Time: 06/10/21 20:41 Chief Complaint: Nausea and vomiting Narrative: This is a 50-year-old male severely disabled with past medical history significant for GERD, dysphagia status post G-tube placement, chronic indwelling suprapubic catheter, chronic constipation. His primary caregiver is his elderly mother whole is here in the hospital with COVID both of them tested positive for COVID last Monday. According to the mother who is laying at bedside in a gurney states that he has been having nausea vomiting and fever. Preliminary workup has been essentially nonrevealing. Review of Systems Review of Systems: ROS unobtainable: Yes unobtainable due to medical condition (Severely disabled mentally and physically) PMF Past Medical History Medical History Autism Barretts esophagus Chronic ear infection Constipation Dysphagia Feeding by G-tube Gastrostomy tube in place History of gastroesophageal reflux (GERD) History of gastrostomy tube placement History of Austin de la Tourette's syndrome History of hypertension History of neurogenic bladder Hypertension Mental disability Seizure disorder Suprapubic catheter Tourette syndrome Surgical History Surgical History History of cholecystectomy History of ear surgery 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 History of surgical removal of skin lesion Benign lesion to the neck Family History Family History Mother Family history of thyroid disease Hypertension COPD (chronic obstructive pulmonary disease) HTN (hypertension) with goal to be determined Father Congestive heart failure Other Family history of arthritis Social History Social History Smoking status: Never smoker Alcohol intake: never Substance use: never Gender identity (if verbalized by the patient): Male Spiritual care concerns: No Agree to blood products: Yes Meds Home Medications and Allergies Home Medications Medication Instructions Recorded Confirmed Type carvedilol [Coreg] 3.125 mg PO DAILY 11/26/19 06/10/21 History ergocalciferol (vitamin D2) 50,000 unit PO [id number] 11/26/19 06/10/21 History [Vitamin D2] lamotrigine 75 mg PO BID 11/26/19 06/10/21 History omeprazole 40 mg PO DAILY 11/26/19 06/10/21 History ferrous gluconate 324 mg PO DAILY 03/30/20 06/10/21 History mometasone 1 applic TOPICAL BID 03/30/20 06/10/21 History polyethylene glycol 3350 [Miralax] 17 g PO WEEKLY 03/30/20 06/10/21 History sucralfate 1 g PO BID 03/30/20 06/10/21 History Allergies Allergy/AdvReac Type Severity Reaction Status Date / Time adhesive tape Allergy Unknown SKIN Verified 06/10/21 15:21 BLISTERS Vital Signs Vital Signs - 24 hr 06/10/21 13:05 06/10/21 17:19 06/10/21 19:26 Temperature 97.6 F Pulse Rate 117 H 102 H Respiratory Rate 20 22 H Blood Pressure 125/98 H 113/78 Pulse Oximetry 100 98 96 06/10/21 19:30 06/10/21 20:05 Temperature Pulse Rate 92 Respiratory Rate 20 Blood Pressure 132/76 Pulse Oximetry 95 96 Exam Narrative: [facility] in [facility] [place] Const: General: comfortable, no acute distress, well developed, alert and awake Nutritional Appearance: average body habitus Orientation/consciousness: oriented to person HENMT: Head: normal to inspection, normocephalic and atraumatic Ears: hearing grossly normal bilaterally General nose exam: Normal external nose present Face and sinus: normal facial exam Mouth: Yes Normal oral and palatal mucosa present Eyes: Alignment and Position: alignment normal Sclera: sclerae normal Pupils: Equal, round and reactive pupils present EOM: EOMs intact bilaterally Other: Enophthalmos Neck: Neck: normal visual inspection, full ROM, no lymph
[2021-06-10 22:40] VITALS: BP 104/67; PULSE 79; RESP 18; TEMP 36.9; O2SAT 96
--- NOTE | 2021-06-10 22:57 | ADMGEN ---
This patient, Trace Bowser, was admitted to [facility] Surg Room 322-01. Patient/family oriented to hospital policies and general routines including ID bracelet, bed and alarms, visiting hours, pain management, procedures, bathroom and other care routines, personal items, smoking policy, room service/diet, and visiting hours. Information on how to activate the Rapid Response Team has been discussed. Patient/Family are encouraged to report perceived risks to care and to ask questions if they do not understand what they are told or what they should do.
[2021-06-10 23:12] VITALS: BMI 23.9
[2021-06-10 23:39] VITALS: BMI 23.9
[2021-06-11] MEDS: SODIUM CHLORIDE 0.9% IV 1,000 ML 125 ML IV CONT ×2 (00:58→12:19)
[2021-06-11 05:48] VITALS: BP 94/52; PULSE 80; RESP 18; TEMP 37.1; O2SAT 95
[2021-06-11 07:35] LABS: Basophils Percent Auto 0.6 % (0.2-1.2); Hematocrit 33.1 % (42.0-52.0); Hemoglobin 10.6 g/dL (14.0-18.0); Immature Granulocyte Absolute 0.07 K/mm3 (0.00-0.031); Immature Granulocyte Percent A 2.2 % (0-0.5); Lymphocytes Absolute Auto 1.42 K/mm3 (0.9-3.2); Lymphocytes Percent Auto 45.5 % (18.3-44.2); Mean Corpuscular Hemoglobin 29.3 pg (26-34); Mean Corpuscular Volume 91.4 fl (80-100); Mean Platelet Volume 8.6 fl (7.4-10.4); Monocytes Absolute Auto 0.4 K/mm3 (0.1-0.6); Monocytes Percent Auto 11.9 % (2.6-8.5); Neutrophils Absolute Auto 1.2 K/mm3 (1.3-6.7); Neutrophils Percent Auto 38.8 % (45.5-73.1); Platelet Count Result 175 k/mm3 (150-375); Red Blood Count 3.62 M/mm3 (4.6-6.20); Red Cell Distribution Width 13.6 % (11.5-14.5); White Blood Count 3.1 K/mm3 (4.5-10.0)
[2021-06-11 08:00] VITALS: O2SAT 94
[2021-06-11 08:44] LABS: Glucose Point of Care 95 mg/dl (65-105)
[2021-06-11] MEDS: TRIAMCINOLONE ACET 0.1% CREAM 15 GM TUBE 1 APPLIC TOPICAL ×2 (08:51→18:25)
[2021-06-11 09:19] VITALS: BP 91/54; PULSE 87; RESP 12; TEMP 36.6; O2SAT 94
[2021-06-11 09:45] LABS: Alanine Aminotransferase 24 U/L (4-50); Albumin Level 3.1 g/dL (3.5-5.1); Alkaline Phosphatase 101 U/L (38-126); Anion Gap 7 mmol/L (8-16); Aspartate Amino Transferase 60 U/L (17-59); Bilirubin,Total 0.2 mg/dL (0.2-1.3); Blood Urea Nitrogen 12 mg/dL (9-20); Carbon Dioxide 24 mmol/L (22-30); Chloride 112 mmol/L (98-107); Estimated CRCL calculation 91 ml/min; Estimated Glomerular Filt Rate > 60; Glucose 92 mg/dL (65-110); Potassium 3.7 mmol/L (3.4-5.0); Sodium 143 mmol/L (137-145)
[2021-06-11 12:20] VITALS: PULSE 78
[2021-06-11] MEDS: lamoTRIgine 25 MG TABLET 75 MG PO ×2 (12:20→18:19)
[2021-06-11] MEDS: FERROUS GLUCONATE 324 MG TABLET PO (12:20)
[2021-06-11] MEDS: carvediloL 6.25 MG TABLET PO (12:20)
[2021-06-11] MEDS: PANTOPRAZOLE 40 MG TABLET PO (12:21)
[2021-06-11 13:10] LABS: Glucose Point of Care 88 mg/dl (65-105)
--- NOTE | 2021-06-11 14:47 | PM.IMPN ---
Progress Note: A&P Assessment and Plan (1) COVID-19 determined by clinical diagnostic criteria: Code(s): U07.1 - COVID-19 Status: Acute Assessment and Plan: Patient is not requiring supplemental oxygen Chest x-ray is clear Breathing treatments Supportive care 06/11/21 14:47 Chief Complaint: Nausea and vomiting Narrative: This is a 50-year-old male severely disabled with past medical history significant for GERD, dysphagia status post G-tube placement, chronic indwelling suprapubic catheter, chronic constipation. His primary caregiver is his elderly mother whole is here in the hospital with COVID both of them tested positive for COVID last Monday. According to the mother who is laying at bedside in a gurney states that he has been having nausea vomiting and fever. Preliminary workup has been essentially nonrevealing. Patient is a 50-year-old male severely disabled unable to provide any review of symptoms or history, he was diagnosed with COVID-19 on 06/08 patient has been afebrile does not require any oxygen, his mother is also positive COVID-19 she is in same room and provide some history patient does not have a complaint of cough shortness, he presented with abdominal nausea or vomiting while in hospital he has not had any episode, patient is being fed by G-tube as well as oral intake, will continue to monitor if remains clinically stable, not requiring any oxygen, no fever nausea or vomiting we can discharge patient home. (2) Dysphagia: Code(s): R13.10 - Dysphagia, unspecified Status: Acute Assessment and Plan: NPO (3) Feeding by G-tube: Code(s): Z93.1 - Gastrostomy status Status: Acute Assessment and Plan: Resume G-tube feedings (4) Tourette syndrome: Code(s): F95.2 - Tourette's disorder Status: Chronic Assessment and Plan: Supportive care (5) Hypertension: Qualifiers: Hypertension type: essential hypertension Qualified Code(s): I10 - Essential (primary) hypertension Code(s): I10 - Essential (primary) hypertension Status: Chronic Assessment and Plan: Continue carvedilol (6) Seizure disorder: Code(s): G40.909 - Epilepsy, unspecified, not intractable, without status epilepticus Status: Chronic Assessment and Plan: Continue lamotrigine (7) Mental disability: Code(s): F79 - Unspecified intellectual disabilities Status: Chronic Assessment and Plan: Supportive care (8) Constipation: Code(s): K59.00 - Constipation, unspecified Status: Acute Assessment and Plan: Continue MiraLax (9) Chronic suprapubic catheter: Code(s): Z93.59 - Other cystostomy status Status: Acute Assessment and Plan: Continue catheter care (10) 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, not elsewhere classified Status: Acute Assessment and Plan: Status post suprapubic catheter placement (11) Abnormal urinalysis: Code(s): R82.90 - Unspecified abnormal findings in urine Status: Acute Assessment and Plan: Will treat with antibiotics however patient with chronic Richards catheter with likely colonization Await cultures Subjective Date/time seen: 06/11/21 14:47 Chief Complaint: Nausea and vomiting Narrative: This is a 50-year-old male severely disabled with past medical history significant for GERD, dysphagia status post G-tube placement, chronic indwelling suprapubic catheter, chronic constipation. His primary caregiver is his elderly mother whole is here in the hospital with COVID both of them tested positive for COVID last Monday. According to the mother who is laying at bedside in a gurney states that he has been having nausea vomiting and fever. Preliminary workup has been essentially nonrevealing. Patient is a 50-year-old male severely disabled unable to provide any review of symptoms or his
[2021-06-11 15:04] VITALS: BP 124/58; PULSE 96; RESP 14; TEMP 36.8; O2SAT 94
[2021-06-11 15:53] VITALS: BMI 23.9
[2021-06-11] MEDS: SUCRALFATE 1 GM TABLET PO (18:19)
[2021-06-11 20:45] VITALS: BP 98/59; PULSE 73; RESP 18; TEMP 37.6; O2SAT 94
[2021-06-11] MEDS: ONDANSETRON INJ 4 MG/2 ML VIAL IV PUSH (22:21)
[2021-06-11 23:09] LABS: Glucose Point of Care 149 mg/dl (65-105)
[2021-06-12] VITALS (7 sets, daily range): BP systolic 81–106; BP diastolic 47–67; PULSE 68–86; RESP 14–18; TEMP 36.5–37.9; O2SAT 95–97
[2021-06-12] MEDS: SODIUM CHLORIDE 0.9% IV 500 ML 999 ML IV CONT (01:15)
[2021-06-12] MEDS: SODIUM CHLORIDE 0.9% IV 1,000 ML 125 ML IV CONT ×3 (02:10→18:14)
[2021-06-12] MEDS: SUCRALFATE 1 GM TABLET PO ×2 (06:23→18:26)
[2021-06-12 06:59] LABS: Glucose Point of Care 92 mg/dl (65-105)
[2021-06-12] MEDS: TRIAMCINOLONE ACET 0.1% CREAM 15 GM TUBE 1 APPLIC TOPICAL ×2 (09:30→18:31)
[2021-06-12] MEDS: carvediloL 6.25 MG TABLET PO (09:32)
[2021-06-12] MEDS: lamoTRIgine 25 MG TABLET 75 MG PO ×2 (09:32→18:25)
[2021-06-12] MEDS: FERROUS GLUCONATE 324 MG TABLET PO (09:32)
[2021-06-12] MEDS: PANTOPRAZOLE 40 MG TABLET PO (09:33)
--- NOTE | 2021-06-12 17:17 | PM.IMPN ---
Progress Note: A&P Assessment and Plan (1) Abnormal urinalysis: Code(s): R82.90 - Unspecified abnormal findings in urine Status: Acute Assessment and Plan: Given symptoms, treat as UTI with ceftriaxone (2) COVID-19 determined by clinical diagnostic criteria: Code(s): U07.1 - COVID-19 Status: Acute Assessment and Plan: Doing well on R/A Ceftriaxone and azithromycin Supportive care (3) Dysphagia: Qualifiers: Dysphagia type: unspecified Qualified Code(s): R13.10 - Dysphagia, unspecified Code(s): R13.10 - Dysphagia, unspecified Status: Acute Assessment and Plan: NPO (4) Feeding by G-tube: Code(s): Z93.1 - Gastrostomy status Status: Acute Assessment and Plan: Continue home regimen (5) Tourette syndrome: Code(s): F95.2 - Tourette's disorder Status: Chronic Assessment and Plan: Supportive care (6) Hypertension: Qualifiers: Hypertension type: essential hypertension Qualified Code(s): I10 - Essential (primary) hypertension Code(s): I10 - Essential (primary) hypertension Status: Chronic Assessment and Plan: Continue carvedilol (7) Seizure disorder: Code(s): G40.909 - Epilepsy, unspecified, not intractable, without status epilepticus Status: Chronic Assessment and Plan: Continue lamotrigine (8) Mental disability: Code(s): F79 - Unspecified intellectual disabilities Status: Chronic Assessment and Plan: Supportive care (9) Constipation: Qualifiers: Constipation type: unspecified constipation type Qualified Code(s): K59.00 - Constipation, unspecified Code(s): K59.00 - Constipation, unspecified Status: Acute Assessment and Plan: Continue MiraLax (10) Chronic suprapubic catheter: Code(s): Z93.59 - Other cystostomy status Status: Acute Assessment and Plan: Continue catheter care (11) 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, not elsewhere classified Status: Acute Assessment and Plan: Status post suprapubic catheter placement Subjective Date/time seen: 06/12/21 17:17 Interval history: Admitted with n/v and found to have UTI and COVID-19. Tested POSITIVE for COVID-19 as outpatient 06/07/21. Unvaccinated. Mother, his caregiver, is also ill with COVID-19. Chronic TF. 06/12: Tolerating TF. Mother at bedside indicates that he is more restless and active today. No c/o otherwise. Patient unable to provide hx. Review of Systems Review of Systems: ROS unobtainable: Yes unobtainable due to medical condition Exam Narrative: HEENT: PERRL, sclerae nonicteric, pharyngeal mucosa pink and intact NECK: No JVD CHEST: Diffusely COARSE BS. Normal effort. HEART: NL S1/S2, regular, no murmur ABDOMEN: BS+, soft, nontender, no mass, no bruits. FT in LUQ EXTREMITIES: No cyanosis, edema, or clubbing NEUROLOGIC: CN intact and symmetric to inspection. Speech slurred with simple phrases. MUSCULOSKELETAL: Tone increased throughout PSYCH: Alert. Oriented to person. Objective Data Vital Signs Vital Signs: Vital Signs - 24 hr 06/11/21 20:45 06/12/21 01:05 06/12/21 02:15 Temperature 99.7 F H 100.3 F H 98.4 F Pulse Rate 73 86 81 Respiratory Rate 18 18 18 Blood Pressure 98/59 L 81/47 L 97/61 L Pulse Oximetry 94 95 95 06/12/21 06:00 06/12/21 09:32 06/12/21 14:00 Temperature 98.9 F 98.6 F Pulse Rate 70 72 82 Respiratory Rate 18 14 Blood Pressure 94/65 L 105/67 Pulse Oximetry 95 95 Intake/Output Intake/Output: Intake & Output 06/09/21 06/10/21 06/11/21 06/12/21 23:59 23:59 23:59 23:59 Intake Total 1050 3460 1220 Output Total 1800 2100 Balance 1050 1660 -880 Meds/Results Medications: Active Medications Generic Name Dose Route Start Last Admin Trade Name Freq PRN Reason Stop Dose Admin Carvedilol 6.25 mg
[2021-06-12 19:44] LABS: Glucose Point of Care 159 mg/dl (65-105)
[2021-06-12] MEDS: ENOXAPARIN 40 MG/0.4 ML SYRINGE SUB-Q (21:31)
[2021-06-13 04:00] VITALS: BP 104/60; PULSE 73; RESP 18; TEMP 36.7; O2SAT 93
[2021-06-13] MEDS: SUCRALFATE 1 GM TABLET PO ×2 (05:50→18:02)
[2021-06-13 08:00] VITALS: BP 118/69; PULSE 70; RESP 18; TEMP 36.9; O2SAT 95
[2021-06-13 08:33] LABS: Hemoglobin 10.9 g/dL (14.0-18.0); Mean Corpuscular HGB Conc 32.1 g/dl (32-36); Mean Corpuscular Hemoglobin 28.8 pg (26-34); Mean Corpuscular Volume 89.7 fl (80-100); Mean Platelet Volume 8.9 fl (7.4-10.4); Platelet Count Result 196 k/mm3 (150-375); Red Blood Count 3.79 M/mm3 (4.6-6.20); Red Cell Distribution Width 13.6 % (11.5-14.5); White Blood Count 3.9 K/mm3 (4.5-10.0)
[2021-06-13] MEDS: lamoTRIgine 25 MG TABLET 75 MG PO ×2 (09:08→18:02)
[2021-06-13] MEDS: FERROUS GLUCONATE 324 MG TABLET PO (09:08)
[2021-06-13] MEDS: TRIAMCINOLONE ACET 0.1% CREAM 15 GM TUBE 1 APPLIC TOPICAL ×2 (09:08→18:04)
[2021-06-13] MEDS: PANTOPRAZOLE 40 MG TABLET PO (09:09)
[2021-06-13] MEDS: SODIUM CHLORIDE 0.9% IV 1,000 ML 125 ML IV CONT (09:29)
[2021-06-13 09:30] LABS: CRP < 0.5 mg/dL (<1.0); Lactate Dehydrogenase 551 U/L (313-618)
[2021-06-13 09:31] LABS: Alanine Aminotransferase 35 U/L (4-50); Albumin Level 3.1 g/dL (3.5-5.1); Alkaline Phosphatase 106 U/L (38-126); Anion Gap 6 mmol/L (8-16); Aspartate Amino Transferase 74 U/L (17-59); Bilirubin,Total 0.1 mg/dL (0.2-1.3); Blood Urea Nitrogen 8 mg/dL (9-20); Calcium 8.3 mg/dL (8.4-10.2); Carbon Dioxide 24 mmol/L (22-30); Chloride 110 mmol/L (98-107); Estimated CRCL calculation 105 ml/min; Estimated Glomerular Filt Rate > 60; Glucose 98 mg/dL (65-110); Potassium 3.8 mmol/L (3.4-5.0); Sodium 140 mmol/L (137-145)
[2021-06-13 12:00] VITALS: BP 115/69; PULSE 76; RESP 18; TEMP 36.8; O2SAT 96
--- NOTE | 2021-06-13 13:47 | PM.IMPN ---
Progress Note: A&P Assessment and Plan (1) Abnormal urinalysis: Code(s): R82.90 - Unspecified abnormal findings in urine Status: Acute Assessment and Plan: Given symptoms, treat as UTI with ceftriaxone. Day 3. (2) COVID-19 determined by clinical diagnostic criteria: Code(s): U07.1 - COVID-19 Status: Acute Assessment and Plan: Doing well on R/A CRP normal Ceftriaxone and azithromycin Day 3 Supportive care (3) Dysphagia: Qualifiers: Dysphagia type: unspecified Qualified Code(s): R13.10 - Dysphagia, unspecified Code(s): R13.10 - Dysphagia, unspecified Status: Acute Assessment and Plan: Small amounts of soft foods (4) Feeding by G-tube: Code(s): Z93.1 - Gastrostomy status Status: Acute Assessment and Plan: 06/13 on hold d/t n/v 06/13 add low dose metoclopramide and resume TF in AM of 06/14 (5) Tourette syndrome: Code(s): F95.2 - Tourette's disorder Status: Chronic Assessment and Plan: Supportive care (6) Hypertension: Qualifiers: Hypertension type: essential hypertension Qualified Code(s): I10 - Essential (primary) hypertension Code(s): I10 - Essential (primary) hypertension Status: Chronic Assessment and Plan: Continue carvedilol (7) Seizure disorder: Code(s): G40.909 - Epilepsy, unspecified, not intractable, without status epilepticus Status: Chronic Assessment and Plan: Continue lamotrigine (8) Mental disability: Code(s): F79 - Unspecified intellectual disabilities Status: Chronic Assessment and Plan: Supportive care (9) Constipation: Qualifiers: Constipation type: unspecified constipation type Qualified Code(s): K59.00 - Constipation, unspecified Code(s): K59.00 - Constipation, unspecified Status: Acute Assessment and Plan: Continue MiraLax (10) Chronic suprapubic catheter: Code(s): Z93.59 - Other cystostomy status Status: Acute Assessment and Plan: Continue catheter care (11) 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 Tested POSITIVE for COVID-19 as outpatient 06/07/21. Unvaccinated. Mother, his caregiver, is also ill with COVID-19. Chronic TF. 06/12: N/v with TF overnight. Stopped and receiving IVF and soft foods. Mother at bedside indicates that he is more restless and active today. No c/o otherwise. Patient unable to provide hx. Review of Systems Review of Systems: ROS unobtainable: Yes unobtainable due to medical condition Exam Narrative: HEENT: PERRL, sclerae nonicteric, pharyngeal mucosa pink and intact NECK: No JVD CHEST: Diffusely COARSE BS. Normal effort. HEART: NL S1/S2, regular, no murmur ABDOMEN: BS+, soft, nontender, no mass, no bruits. FT in LUQ EXTREMITIES: No cyanosis, edema, or clubbing NEUROLOGIC: CN intact and symmetric to inspection. Speech slurred with simple phrases. MUSCULOSKELETAL: Tone increased throughout PSYCH: Alert. Oriented to person. Objective Data Vital Signs Vital Signs: Vital Signs - 24 hr 06/12/21 14:00 06/12/21 20:00 06/12/21 23:45 Temperature 98.6 F 97.7 F 97.7 F Pulse Rate 82 68 73 Respiratory Rate 14 18 18 Blood Pressure 105/67 103/67 106/62 Pulse Oximetry 95 97 96 06/13/21 04:00 06/13/21 08:00 06/13/21 12:00 Temperature 98.0 F 98.5 F 98.3 F Pulse Rate 73 70 76 Respiratory Rate 18 18 18 Blood Pressure 104/60 118/69 115/69 Pulse Oximetry 93 95 96 Intake/Output Intake/Output: Intake & Output 06/10/21 06/11/21 06/12/21 06/13/21 23:59 23:59 23:59 23:59 Intake Total 1050 3460 4120 1100 Output Total 1800 4050 1850 Balance 1050 16
[2021-06-13 15:34] VITALS: PULSE 70
[2021-06-13] MEDS: carvediloL 6.25 MG TABLET PO (15:34)
[2021-06-13 16:00] VITALS: BP 116/81; PULSE 74; RESP 18; TEMP 36.7; O2SAT 98
[2021-06-13] MEDS: METOCLOPRAMIDE HCL INJ 10 MG/2 ML VIAL 5 MG IV PUSH ×2 (18:02→23:26)
[2021-06-13] MEDS: SODIUM CHLORIDE 0.9% IV 1,000 ML 75 ML IV CONT (18:02)
--- NOTE | 2021-06-13 19:24 | PC.NURSE ---
Pt feedings were stopped through the night due to pt emetic episodes x 2. Informed , who said to keep his feedings held. He then ordered reglan 5 IVP Q 6H LANCE and hopes to resume his feedings in the morning. Given this info, I did not give his 100 ml flushes at 1200 and 1800.
[2021-06-13 20:00] VITALS: BP 105/54; PULSE 81; RESP 18; TEMP 36.4; O2SAT 94
[2021-06-13] MEDS: ENOXAPARIN 40 MG/0.4 ML SYRINGE SUB-Q (20:40)
[2021-06-14] VITALS (7 sets, daily range): BP systolic 72–115; BP diastolic 45–86; PULSE 62–96; RESP 16–18; TEMP 36.8–37.3; O2SAT 95–96
[2021-06-14] MEDS: SODIUM CHLORIDE 0.9% IV 500 ML 999 ML IV CONT (01:38)
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
[2021-06-14] MEDS: SODIUM CHLORIDE 0.9% IV 1,000 ML 75 ML IV CONT (02:30)
[2021-06-14] MEDS: METOCLOPRAMIDE HCL INJ 10 MG/2 ML VIAL 5 MG IV PUSH ×3 (05:15→19:51)
[2021-06-14] MEDS: SUCRALFATE 1 GM TABLET PO ×2 (05:16→17:44)
[2021-06-14 07:11] LABS: Hematocrit 34.4 % (42.0-52.0); Hemoglobin 11.4 g/dL (14.0-18.0); Mean Corpuscular HGB Conc 33.1 g/dl (32-36); Mean Corpuscular Hemoglobin 29.4 pg (26-34); Mean Corpuscular Volume 88.7 fl (80-100); Mean Platelet Volume 8.9 fl (7.4-10.4); Platelet Count Result 217 k/mm3 (150-375); Red Blood Count 3.88 M/mm3 (4.6-6.20); Red Cell Distribution Width 13.6 % (11.5-14.5); White Blood Count 3.7 K/mm3 (4.5-10.0)
[2021-06-14 07:25] LABS: CRP < 0.5 mg/dL (<1.0); Lactate Dehydrogenase 564 U/L (313-618)
[2021-06-14 07:30] LABS: Alanine Aminotransferase 46 U/L (4-50); Albumin Level 3.2 g/dL (3.5-5.1); Alkaline Phosphatase 123 U/L (38-126); Anion Gap 8 mmol/L (8-16); Aspartate Amino Transferase 89 U/L (17-59); Bilirubin,Total 0.3 mg/dL (0.2-1.3); Blood Urea Nitrogen 6 mg/dL (9-20); Calcium 8.3 mg/dL (8.4-10.2); Carbon Dioxide 21 mmol/L (22-30); Chloride 111 mmol/L (98-107); Estimated CRCL calculation 105 ml/min; Estimated Glomerular Filt Rate > 60; Glucose 94 mg/dL (65-110); Potassium 3.5 mmol/L (3.4-5.0); Sodium 140 mmol/L (137-145)
[2021-06-14 07:37] LABS: D Dimer 0.46 ug/mL (<0.48)
--- NOTE | 2021-06-14 08:20 | PC.NURSE ---
Called on pt's low BP at 0107 to Jaclyn HITCHCOCK. She gave a telephone order for a 500 ml bolus and BP went up to 108/64. He was lethargic and intermittently nauseous with dry heaves x2.
[2021-06-14] MEDS: lamoTRIgine 25 MG TABLET 75 MG PO ×2 (09:36→17:45)
[2021-06-14] MEDS: FERROUS GLUCONATE 324 MG TABLET PO (09:36)
[2021-06-14] MEDS: polyethylene glycoL 3350 17 GM POWD.PACK PO (09:37)
[2021-06-14] MEDS: PANTOPRAZOLE 40 MG TABLET PO (09:37)
[2021-06-14] MEDS: TRIAMCINOLONE ACET 0.1% CREAM 15 GM TUBE 1 APPLIC TOPICAL ×2 (09:52→17:46)
[2021-06-14] MEDS: carvediloL 6.25 MG TABLET PO (11:02)
--- NOTE | 2021-06-14 11:12 | PCNFU ---
Nutrition Follow-Up Complete: Inadequate oral intake related to increased energy expenditure and limited intake due to multiple medical issues as evidenced by need for supplemental tube feedings. Goal: Patient to meet estimated nutritional needs. Patient is progressing towards goal. We will continue current goal. Pt current nutrition is Soft and Bite Sized, Level 6 with Home tube feedings of Peptamen 1.5 at 60 ml/hr. Last recorded weight is 63.3 kg, no new weight to report. Bowel Motility:No BM reported. Labs Reviewed:Cr 0.6,Alb 3.2 Meds Noted:Carafate,Reglan,Protonix,Miralax,Coreg,Rocephin,NS at 75 ml/hr. Additional Notes: Nutrition follow up. Spoke with nursing today due to COVID 19 precautions. Patient using home tube feeding of Peptamen 1.5.Tube feeding had been on hold overnight due to nausea and vomiting. Nursing received orders to resume tube feedings at 60 ml/hr over 22 hours, providing 1980 kcals/90 gm protein/1019 ml water. Free water flush 100 ml q 6 hours. Oral Intake has been poor. Discussed with nursing option of diet supplement like Ensure for oral use. Agree with diet orders at this time. Monitoring: Follow up every Monday and Monday.
--- NOTE | 2021-06-14 13:32 | PM.IMPN ---
Progress Note: A&P Assessment and Plan (1) Abnormal urinalysis: Code(s): R82.90 - Unspecified abnormal findings in urine Status: Acute Assessment and Plan: U/a was ABNL but not reflexed (yast noted) Given symptoms, treat as UTI with ceftriaxone. Day 4/5. (2) COVID-19 determined by clinical diagnostic criteria: Code(s): U07.1 - COVID-19 Status: Acute Assessment and Plan: Doing well on R/A CRP normal Ceftriaxone and azithromycin Day 3 Supportive care (3) Dysphagia: Qualifiers: Dysphagia type: unspecified Qualified Code(s): R13.10 - Dysphagia, unspecified Code(s): R13.10 - Dysphagia, unspecified Status: Acute Assessment and Plan: Small amounts of soft foods (4) Feeding by G-tube: Code(s): Z93.1 - Gastrostomy status Status: Acute Assessment and Plan: 06/13 on hold d/t n/v 06/13 add low dose metoclopramide and resume TF in AM of 06/14 06/14 TF resumed and laxative ordered (5) Tourette syndrome: Code(s): F95.2 - Tourette's disorder Status: Chronic Assessment and Plan: Supportive care (6) Hypertension: Qualifiers: Hypertension type: essential hypertension Qualified Code(s): I10 - Essential (primary) hypertension Code(s): I10 - Essential (primary) hypertension Status: Chronic Assessment and Plan: BP to 70s PM of 06/13 06/14 Stop carvedilol. (7) Seizure disorder: Code(s): G40.909 - Epilepsy, unspecified, not intractable, without status epilepticus Status: Chronic Assessment and Plan: Continue lamotrigine (8) Mental disability: Code(s): F79 - Unspecified intellectual disabilities Status: Chronic Assessment and Plan: Supportive care (9) Constipation: Qualifiers: Constipation type: unspecified constipation type Qualified Code(s): K59.00 - Constipation, unspecified Code(s): K59.00 - Constipation, unspecified Status: Acute Assessment and Plan: Continue MiraLax (10) Chronic suprapubic catheter: Code(s): Z93.59 - Other cystostomy status Status: Acute Assessment and Plan: Continue catheter care (11) 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, not elsewhere classified Status: Acute Assessment and Plan: Status post suprapubic catheter placement Subjective Date/time seen: 06/14/21 13:32 Interval history: Admitted with n/v and found to have UTI and COVID-19. Tested POSITIVE for COVID-19 as outpatient 06/07/21. Unvaccinated. Mother, his caregiver, is also ill with COVID-19. Chronic TF and urinary catheter. 06/14: No BM since admission. No further n/v. Mother at bedside indicates that he did not sleep well last PM. No c/o otherwise. Patient unable to provide hx. Review of Systems Review of Systems: ROS unobtainable: Yes unobtainable due to medical condition Exam Narrative: HEENT: PERRL, sclerae nonicteric, pharyngeal mucosa pink and intact NECK: No JVD CHEST: Diffusely COARSE BS. Normal effort. HEART: NL S1/S2, regular, no murmur ABDOMEN: BS+, soft, nontender, no mass, no bruits. FT in LUQ EXTREMITIES: No cyanosis, edema, or clubbing NEUROLOGIC: CN intact and symmetric to inspection. Speech slurred with simple phrases. MUSCULOSKELETAL: Tone increased throughout PSYCH: Alert. Oriented to person. Objective Data Vital Signs Vital Signs: Vital Signs - 24 hr 06/13/21 15:34 06/13/21 16:00 06/13/21 20:00 Temperature 98.1 F 97.6 F Pulse Rate 70 74 81 Respiratory Rate 18 18 Blood Pressure 116/81 105/54 L Pulse Oximetry 98 94 06/14/21 00:00 06/14/21 01:00 06/14/21 04:00 Temperature 98.9 F 99.0 F Pulse Rate 62 67 Respiratory Rate 18 18 Blood Pressure 75/45 L 72/48 L 98/56 L Pulse Oximetry 96 95 06/14/21 08:00 06/14/21 11:02 Temperature 98.2 F Pulse Rate 73 96 Respiratory Rate 16 Blood Pressure 115/68 Pu
[2021-06-14] MEDS: ENOXAPARIN 40 MG/0.4 ML SYRINGE SUB-Q (20:38)
[2021-06-14] MEDS: SENNOSIDES 8.8 MG/5 ML SYRUP FEED TUBE (20:39)
[2021-06-15] VITALS: BP 116/78; PULSE 95; RESP 20; TEMP 36.4; O2SAT 93
[2021-06-15] MEDS: METOCLOPRAMIDE HCL INJ 10 MG/2 ML VIAL 5 MG IV PUSH ×2 (00:45→06:15)
[2021-06-15 04:00] VITALS: BP 113/62; PULSE 97; RESP 20; TEMP 36.7; O2SAT 97
[2021-06-15] MEDS: SUCRALFATE 1 GM TABLET PO (06:19)
[2021-06-15 07:30] LABS: Hematocrit 37.3 % (42.0-52.0); Hemoglobin 12.3 g/dL (14.0-18.0); Mean Platelet Volume 9.1 fl (7.4-10.4); Platelet Count Result 308 k/mm3 (150-375); Red Blood Count 4.24 M/mm3 (4.6-6.20); Red Cell Distribution Width 13.5 % (11.5-14.5); White Blood Count 5.5 K/mm3 (4.5-10.0)
[2021-06-15 07:44] LABS: Alanine Aminotransferase 37 U/L (4-50); Albumin Level 3.7 g/dL (3.5-5.1); Alkaline Phosphatase 138 U/L (38-126); Anion Gap 8 mmol/L (8-16); Aspartate Amino Transferase 56 U/L (17-59); Bilirubin,Total 0.5 mg/dL (0.2-1.3); Blood Urea Nitrogen 12 mg/dL (9-20); Calcium 8.6 mg/dL (8.4-10.2); Carbon Dioxide 21 mmol/L (22-30); Chloride 113 mmol/L (98-107); Estimated CRCL calculation 91 ml/min; Estimated Glomerular Filt Rate > 60; Glucose 115 mg/dL (65-110); Potassium 3.9 mmol/L (3.4-5.0); Sodium 142 mmol/L (137-145)
[2021-06-15 08:00] VITALS: BP 113/68; PULSE 87; RESP 16; TEMP 36.6; O2SAT 96
[2021-06-15] MEDS: lamoTRIgine 25 MG TABLET 75 MG PO (09:08)
[2021-06-15] MEDS: FERROUS GLUCONATE 324 MG TABLET PO (09:08)
[2021-06-15] MEDS: TRIAMCINOLONE ACET 0.1% CREAM 15 GM TUBE 1 APPLIC TOPICAL (09:08)
[2021-06-15] MEDS: PANTOPRAZOLE 40 MG TABLET PO (09:08)
--- NOTE | 2021-06-15 09:43 | PM.DS ---
DS: Admitting Diagnosis Admitting Diagnosis COVID-19 with nausea vomiting DS: Discharge Diagnosis Discharge Diagnosis (1) Abnormal urinalysis: Code(s): R82.90 - Unspecified abnormal findings in urine Status: Acute Assessment and Plan: U/a was ABNL but not reflexed (yast noted) Given symptoms, treat as UTI with ceftriaxone. Day 02/24. (2) COVID-19 determined by clinical diagnostic criteria: Code(s): U07.1 - COVID-19 Status: Acute Assessment and Plan: Doing well on R/A CRP normal Ceftriaxone and azithromycin Day 5 Supportive care (3) Dysphagia: Qualifiers: Dysphagia type: unspecified Qualified Code(s): R13.10 - Dysphagia, unspecified Code(s): R13.10 - Dysphagia, unspecified Status: Acute Assessment and Plan: Small amounts of soft foods (4) Feeding by G-tube: Code(s): Z93.1 - Gastrostomy status Status: Acute Assessment and Plan: 06/13 on hold d/t n/v 06/13 add low dose metoclopramide and resume TF in AM of 06/14 06/14 TF resumed and laxative ordered 06/15 tolerating TF (5) Tourette syndrome: Code(s): F95.2 - Tourette's disorder Status: Chronic Assessment and Plan: Supportive care (6) Hypertension: Qualifiers: Hypertension type: essential hypertension Qualified Code(s): I10 - Essential (primary) hypertension Code(s): I10 - Essential (primary) hypertension Status: Chronic Assessment and Plan: BP to 70s PM of 06/13 06/14 Stop carvedilol. (7) Seizure disorder: Code(s): G40.909 - Epilepsy, unspecified, not intractable, without status epilepticus Status: Chronic Assessment and Plan: Continue lamotrigine (8) Mental disability: Code(s): F79 - Unspecified intellectual disabilities Status: Chronic Assessment and Plan: Supportive care (9) Constipation: Qualifiers: Constipation type: unspecified constipation type Qualified Code(s): K59.00 - Constipation, unspecified Code(s): K59.00 - Constipation, unspecified Status: Acute Assessment and Plan: Continue MiraLax (10) Chronic suprapubic catheter: Code(s): Z93.59 - Other cystostomy status Status: Acute Assessment and Plan: Continue catheter care (11) 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, not elsewhere classified Status: Acute Assessment and Plan: Status post suprapubic catheter placement DS: Summary Hospital Course Reason for hospitalization: COVID-19 with nausea vomiting Hospital Course: Chronically disabled middle-age male was admitted with nausea vomiting. He was diagnosed with COVID-19 prior to admission. His chest x-ray was clear. He had no oxygen requirements. He did not require treatment for the COVID-19 with antibiotics or steroids. His nausea vomiting was treated symptomatically. During hospitalization metoclopramide was added and he tolerated his tube feeding well. He did have signs of urinary tract infection with yeast in the urine as well as pyuria and microscopic hematuria. He did receive 5 days of azithromycin and ceftriaxone. Unfortunately urine was not reflexed for culture. Status at Discharge Functional status at discharge: bed bound Overall status at discharge: patient is back to baseline Time Spent with Patient Time attestation: Total time spent providing and/or coordinating discharge services: Time spent: Greater than 30 minutes Exam Narrative: HEENT: PERRL, sclerae nonicteric, pharyngeal mucosa pink and intact NECK: No JVD CHEST: Diffusely COARSE BS. Normal effort. HEART: NL S1/S2, regular, no murmur ABDOMEN: BS+, soft, nontender, no mass, no bruits. FT in LUQ EXTREMITIES: No cyanosis, edema, or clubbing NEUROLOGIC: CN intact and symmetric to inspection. Speech slurred with simple phrases. MUSCULOSKELETAL: Tone increased throughout PSYCH: Alert. Oriented
[2021-06-15 12:00] VITALS: BP 105/79; PULSE 88; RESP 16; TEMP 36.7; O2SAT 96
[2021-06-15] MEDS: CEFDINIR 250 MG/5 ML ORAL SUSPENSION 300 MG FEED TUBE (12:41)
== END 2021-06-15 13:13 | disposition home health service (06) | DRG 177 ==
LOC: ANHED 16:36 → ANH3MEDSUR 21:58
PROVIDERS: Admitting Provider Internal Medicine Critical Care Medicine; Emergency Provider General Practice; PCP Internal Medicine; Visit Provider Internal Medicine
DX: U07.1 COVID-19 (principal); J12.82 Pneumonia due to coronavirus disease 2019; T83.510A Infection and inflammatory reaction due to cystostomy catheter, initial encounter; N39.0 Urinary tract infection, site not specified; N13.2 Hydronephrosis with renal and ureteral calculous obstruction; F84.0 Autistic disorder; R13.10 Dysphagia, unspecified; F95.2 Tourette's disorder; I10 Essential (primary) hypertension; G40.909 Epilepsy, unspecified, not intractable, without status epilepticus; K59.00 Constipation, unspecified; F79 Unspecified intellectual disabilities; K21.9 Gastro-esophageal reflux disease without esophagitis; E86.0 Dehydration; Z93.1 Gastrostomy status; Z90.49 Acquired absence of other specified parts of digestive tract
CPT/HCPCS: 36415; 71045; 80053; 81001; 82728; 82948; 83605; 83615; 83735; 84484; 85025; 85027; 85380; 85610; 85730; 86140; 87086; 87088; 93005; 96361; 96365; 96367; 96375; 96376; 99285; A9270; C9803; G0378; J0456; J0696; J1650; J2405; J2765; J7030; J7040; J7120; U0003; U0005

== ENCOUNTER 2021-06-16 19:44 | Emergency (ER) | payer MEDICARE, MEDICAID, SELFPAY ==
[2021-06-16 20:32] VITALS: BP 123/81; PULSE 116; RESP 18; TEMP 36.6; O2SAT 97
[2021-06-16 20:46] LABS: Hematocrit 38.7 % (42.0-52.0); Hemoglobin 12.9 g/dL (14.0-18.0); Mean Corpuscular HGB Conc 33.3 g/dl (32-36); Mean Corpuscular Hemoglobin 29.1 pg (26-34); Mean Corpuscular Volume 87.4 fl (80-100); Mean Platelet Volume 8.9 fl (7.4-10.4); Platelet Count Result 365 k/mm3 (150-375); Red Blood Count 4.43 M/mm3 (4.6-6.20); Red Cell Distribution Width 13.5 % (11.5-14.5)
[2021-06-16 21:01] LABS: Alanine Aminotransferase 49 U/L (4-50); Albumin Level 4.1 g/dL (3.5-5.1); Alkaline Phosphatase 145 U/L (38-126); Anion Gap 10 mmol/L (8-16); Aspartate Amino Transferase 92 U/L (17-59); Bilirubin,Total 0.4 mg/dL (0.2-1.3); Blood Urea Nitrogen 16 mg/dL (9-20); Calcium 9.1 mg/dL (8.4-10.2); Carbon Dioxide 21 mmol/L (22-30); Chloride 106 mmol/L (98-107); Estimated Glomerular Filt Rate > 60; Glucose 133 mg/dL (65-110); Lipase 99 U/L (23-300); Potassium 4.1 mmol/L (3.4-5.0); Sodium 137 mmol/L (137-145)
[2021-06-16 21:34] LABS: Eosinophils Absolute Manual 0.15 K/mm3 (0.02-0.5); Eosinophils Percent Manual 3 % (0-4); Monocytes Percent Manual 6 % (3-9); Neutrophils Percent Manual 53 % (46-73); Platelet Estimate Adequate (Adequate); Total Cells Counted 100
[2021-06-17 00:08] VITALS: BP 106/84; PULSE 105; TEMP 36.3; O2SAT 98
[2021-06-17 00:33] VITALS: BP 134/119; PULSE 104; RESP 23; TEMP 35.9; O2SAT 90
[2021-06-17 00:47] VITALS: BP 137/88; PULSE 105; RESP 24; O2SAT 96
[2021-06-17] MEDS: SODIUM CHLORIDE 0.9% IV 1,000 ML 999 ML IV CONT (00:59)
[2021-06-17] MEDS: ONDANSETRON INJ 4 MG/2 ML VIAL IV PUSH (00:59)
[2021-06-17 01:22] LABS: Appearance Urine Clear (Clear); Blood Urine Trace-Intact (Negative); Color Urine Dark Yellow (Yellow); Glucose Urine UA Negative (Negative); Ketones Urine 1+ mg/dL (Negative); Nitrate Urine Negative (Negative); Protein Urine 2+ mg/dL (Negative)
[2021-06-17 01:23] LABS: Add Urine Microscopic? YES; Bacteria Urine 3+ /hpf; Bilirubin Urine Negative (Negative); Leukocyte Esterase Ur 3+ LEU/UL (Negative); Squamous Epithelial Cell Urine Few /hpf (Few); Urobilinogen Urine 0.2 mg/dL (<2.0); WBC Clumps Urine Present /HPF; WBC Urine >75 /hpf
[2021-06-17 01:28] VITALS: BP 114/81; PULSE 92; RESP 22; O2SAT 97
--- NOTE | 2021-06-17 01:29 | ED.NAVMDI ---
HPI - Nausea/Vomiting/Diarrhea General Chief complaint: Nausea/Vomiting/Diarrhea Stated complaint: n/v/d , covid + Time Seen by Provider: 06/17/21 00:28 Source: family History of Present Illness HPI Narrative: Patient presents for nausea vomiting and diarrhea. Patient was discharged today from the hospital he was admitted for nausea vomiting diarrhea with Covid. And reported initially doing well but then had recurrence this evening they talk to their provider and was referred to the ER for evaluation. Family reports he appears to be comfortable but they were concerned given the volume and the provider told they need IV fluids. Patient denies any abdominal pain or chest pain. Related Data Home Medications Medication Instructions Recorded Confirmed ergocalciferol (vitamin D2) 50,000 unit PO [id number] 11/26/19 06/10/21 [Vitamin D2] lamotrigine 75 mg PO BID 11/26/19 06/10/21 omeprazole 40 mg PO DAILY 11/26/19 06/10/21 ferrous gluconate 324 mg PO DAILY 03/30/20 06/10/21 mometasone 1 applic TOPICAL BID 03/30/20 06/10/21 polyethylene glycol 3350 [Miralax] 17 g PO WEEKLY 03/30/20 06/10/21 sucralfate 1 g PO BID 03/30/20 06/10/21 Allergies Allergy/AdvReac Type Severity Reaction Status Date / Time adhesive tape Allergy Unknown SKIN Verified 06/10/21 15:21 BLISTERS Review of Systems Review of Systems: CONSTITUTIONAL: Denies fever, chills, or sweats. EYES: Denies visual changes, redness, or discharge. ENT: Denies rhinorrhea, congestion, sore throat, or otalgia. CARDIOVASCULAR: Denies chest pain, palpitations, or edema. RESPIRATORY: Denies cough or dyspnea. GASTROINTESTINAL: Denies abdominal pain, nausea, vomiting, or diarrhea. GENITOURINARY: Denies dysuria or hematuria. SKIN: Denies rash or itching. MUSCULOSKELETAL: Denies back pain, joint pain, or myalgia. NEUROLOGIC: Denies headache, numbness, dizziness, or weakness. PSYCHIATRIC: Denies anxiety or depression. 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 History of surgical removal of skin lesion Benign lesion to the neck Family History Family History Mother Family history of thyroid disease Hypertension COPD (chronic obstructive pulmonary disease) HTN (hypertension) with goal to be determined Father Congestive heart failure Other Family history of arthritis Social History Social History Smoking status: Never smoker Alcohol intake: never Substance use: never Gender identity (if verbalized by the patient): Male Spiritual care concerns: No Agree to blood products: Yes Exam Narrative: GENERAL: Well-appearing, well-nourished, and in no acute distress. HEAD: Normocephalic, atraumatic. EYES: PERRLA and EOMI. ENT: Nares clear, no rhinorrhea or epistaxis. Mucous membranes moist. NECK: Supple. No masses. No JVD ABDOMEN: Soft, nontender, nondistended, normal active bowel sounds. EXTREMITIES: Normal range of motion. No edema. SKIN: Warm, dry, no rash. NEURO: No focal deficits. Alert and oriented x3. PSYCH: Normal mood and affect. Course Reevaluation(s) Reevaluation #1: Patient is resting comfortably family is anxious to go h
[2021-06-17 02:28] VITALS: BP 106/72; PULSE 83; RESP 16; O2SAT 97
== END 2021-06-17 02:32 | disposition home or self-care (01) ==
PROVIDERS: Emergency Medicine; Emergency Provider Emergency Medicine; PCP Internal Medicine
DX: N39.0 Urinary tract infection, site not specified (principal); R11.2 Nausea with vomiting, unspecified; R19.7 Diarrhea, unspecified; I10 Essential (primary) hypertension
CPT/HCPCS: 36415; 80053; 81001; 83690; 85025; 87086; 87088; 87106; 96361; 96374; 99284; J2405; J7030

== ENCOUNTER 2022-01-28 14:48 | Outpatient (CLI) | payer MEDICARE, MEDICAID, SELFPAY ==
--- NOTE | ~2022-01-28 | XR_ITS ---
EXAMINATION: XR thoracic spine 2V, XR lumbar spine min 4V DATE: 01/28/2022 15:21 INDICATION: Dorsalgia TECHNIQUE: 1. One AP, lateral and lateral swimmer's views of the thoracic spine were obtained. 2. AP, lateral, coned-down lateral lumbosacral and left and right oblique views of the lumbar spine w ere obtained. COMPARISON: CT abdomen and pelvis dated 10/26/2019 FINDINGS: Thoracic kyphosis. 30 degrees dextroscoliosis measured between T7 and L1 with mild rotational compone nt. 20 degrees levoscoliosis between L1 and L5. Vertebral body heights are normal. Multilevel disc he ight loss, mild in the upper thoracic, severe in the mid thoracic and moderate in the lower thoracic spine. Mild to moderate right-sided predominant disc height loss at L3-L4 and L4-L5. Mild to moderate lumbar facet osteoarthritis visualized portions of the lungs are clear. Cardiomegaly. Cholecystectom y clips in right upper quadrant. Percutaneous gastrostomy tube bulb in the body the stomach. No pars interarticularis defects. IMPRESSION: 1. Thoracic kyphosis and moderate S-shaped thoracolumbar scoliosis. 2. Moderate to severe thoracic and mild to moderate lumbar spondylosis. Reviewed, dictated and finalized at location B. IMPRESSION: 1. Thoracic kyphosis and moderate S-shaped thoracolumbar scoliosis. 2. Moderate to severe thoracic and mild to moderate lumbar spondylosis.
== END 2022-01-28 14:49 | disposition home or self-care (01) ==
LOC: ANHIMG 14:51
PROVIDERS: PCP Internal Medicine; Visit Provider Orthopaedic Surgery
DX: M41.9 Scoliosis, unspecified (principal); M47.815 Spondylosis without myelopathy or radiculopathy, thoracolumbar region
CPT/HCPCS: 72070; 72110

== ENCOUNTER 2022-02-18 13:00 | Emergency (ER) | payer MEDICARE, MEDICAID, SELFPAY ==
[2022-02-18] VITALS (47 sets, daily range): BP systolic 122–151; BP diastolic 83–110; PULSE 112; RESP 20; TEMP 36.2; O2SAT 94–100
--- NOTE | ~2022-02-18 | XR_ITS ---
EXAMINATION: XR chest 2V DATE: 02/18/2022 14:07 INDICATION: Cough and congestion TECHNIQUE: Cough COMPARISON: 06/12/2021 FINDINGS: The lungs are free of acute opacities. There is no pleural effusion or pneumothorax. The ca rdiomediastinal silhouette is normal. There is a small sliding hiatal hernia. A gastrojejunostomy pro jects over the upper abdomen. IMPRESSION: 1. No acute cardiopulmonary abnormality. Reviewed, dictated and finalized at location B.
--- NOTE | 2022-02-18 13:46 | PC.NURSE ---
spoke with Danielle at [facility] group and she is going to fax results of urine culture for further treatment
[2022-02-18 14:20] LABS: Add Urine Microscopic? YES; Appearance Urine Clear (Clear); Bilirubin Urine Negative (Negative); Blood Urine Negative (Negative); Color Urine Yellow (Yellow); Glucose Urine UA Negative (Negative); Ketones Urine Negative (Negative); Leukocyte Esterase Ur Negative LEU/UL (Negative); Nitrate Urine Negative (Negative); Protein Urine Negative (Negative); RBC Urine 0-2 /hpf (0-2); Specific Grav Ur 1.012 (1.001-1.035); Urobilinogen Urine Negative mg/dL (<2.0); WBC Urine 0-3 /hpf
--- NOTE | 2022-02-18 14:30 | ED.GENADULT ---
HPI - General Adult General Chief complaint: Recheck/Abnormal Lab/Rx <Jennifer Moore MD - Last Filed: 02/18/22 21:54> Stated complaint: CRE in urine per health dept <Jennifer Moore MD - Last Filed: 02/18/22 21:54> Time Seen by Provider: 02/18/22 13:09 <Jennifer Moore MD - Last Filed: 02/18/22 21:54> Source: family and RN notes reviewed <Jennifer Moore MD - Last Filed: 02/18/22 21:54> Limitations: altered mental status <Jennifer Moore MD - Last Filed: 02/18/22 21:54> History of Present Illness HPI narrative: Patient is 51 years old white male, mentally handicapped, came to the emergency room with his mother who is caregiver, mother stated that 1 week ago patient was complaining of lower back pain and offensive odor of the urine from suprapubic catheter. Richards catheter was changed at that time, patient was running fever up to 101.5. Patient was a started on Rocephin IM daily by his family physician, currently patient is asymptomatic. Mother received a phone call from the [facility] telling her that urine culture showed CRP and needs to go to the emergency room. Urine sample collected on February 08, received on February 09, faxed on February 13. 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 <Jennifer Moore MD - Last Filed: 02/18/22 21:54> Related Data Home medications: Home Medications Medication Instructions Recorded Confirmed ergocalciferol (vitamin D2) 50,000 unit PO [id number] 11/26/19 01/26/22 [Vitamin D2] lamotrigine 75 mg PO BID 11/26/19 01/26/22 omeprazole 40 mg PO DAILY 11/26/19 01/26/22 polyethylene glycol 3350 [Miralax] 17 g PO WEEKLY 03/30/20 01/26/22 sucralfate 1 g PO BID 03/30/20 01/26/22 <Jennifer Moore MD - Last Filed: 02/18/22 21:54> Allergies/adverse reactions: Allergies Allergy/AdvReac Type Severity Reaction Status Date / Time adhesive tape Allergy Unknown SKIN Verified 02/18/22 13:25 BLISTERS <Jennifer Moore MD - Last Filed: 02/18/22 21:54> Review of Systems Review of Systems: ROS unobtainable: Yes unobtainable due to mental status <Jennifer Moore MD - Last Filed: 02/18/22 21:54> [facility] Past Medical History Medical History: Medical History Autism Barretts esophagus Chronic ear infection Constipation Dysphagia Feeding by G-tube Gastrostomy tube in place History of gastroesophageal reflux (GERD) History of gastrostomy tube placement History of Austin de la Tourette's syndrome History of hypertension History of neurogenic bladder Hypertension Mental disability Scoliosis Seizure disorder Suprapubic catheter Tourette syndrome <Jennifer Moore MD - Last Filed: 02/18/22 21:54> Surgical History Surgical History: Surgical History History of cholecystectomy History of ear surgery 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 History of surgical removal of skin lesion Benign lesion to the neck <Jennifer Moore MD - Last Filed: 02/18/22 21:54> Family History Family History: Family History Mother Family history of thyroid disease Hypertension COPD (chronic obstructive pulmonary disease) HTN (hypertension) with goal to be determined Father Congestive heart failure Other Family history of arthritis <Jennifer Moore MD - Last Filed: 02/18/22 21:54> Social History Social History: Social History Smoking status: Never smoker Alcohol intake: never Substance use: never Gender identity (if verbalized by the patient): Male Spiritual care concerns: No Agree to blood products: Yes <Jennifer Moore MD - Last Filed: 02/18/22 21:54>
[2022-02-18 14:44] LABS: Basophils Absolute Auto 0.1 K/mm3 (0.0-0.1); Basophils Percent Auto 1.1 % (0.2-1.2); Eosinophils Absolute Auto 0.2 K/mm3 (0-0.3); Eosinophils Percent Auto 2.8 % (0-4.4); Hematocrit 36.5 % (42.0-52.0); Hemoglobin 12.7 g/dL (14.0-18.0); Immature Granulocyte Absolute 0.11 K/mm3 (0.00-0.031); Immature Granulocyte Percent A 1.4 % (0-0.5); Lymphocytes Absolute Auto 1.87 K/mm3 (0.9-3.2); Lymphocytes Percent Auto 24.6 % (18.3-44.2); Mean Corpuscular HGB Conc 34.8 g/dl (32-36); Mean Corpuscular Hemoglobin 31.7 pg (26-34); Mean Platelet Volume 8.6 fl (7.4-10.4); Monocytes Absolute Auto 0.7 K/mm3 (0.1-0.6); Monocytes Percent Auto 9.5 % (2.6-8.5); Neutrophils Absolute Auto 4.6 K/mm3 (1.3-6.7); Neutrophils Percent Auto 60.6 % (45.5-73.1); Platelet Count Result 311 k/mm3 (150-375); Red Blood Count 4.01 M/mm3 (4.6-6.20); Red Cell Distribution Width 12.5 % (11.5-14.5); White Blood Count 7.6 K/mm3 (4.5-10.0)
[2022-02-18 15:00] LABS: Alanine Aminotransferase 15 U/L (4-50); Albumin Level 4.4 g/dL (3.5-5.1); Alkaline Phosphatase 94 U/L (38-126); Anion Gap 10 mmol/L (8-16); Aspartate Amino Transferase 30 U/L (17-59); Bilirubin,Total < 0.1 mg/dL (0.2-1.3); Blood Urea Nitrogen 12 mg/dL (9-20); Calcium 8.9 mg/dL (8.4-10.2); Carbon Dioxide 22 mmol/L (22-30); Chloride 106 mmol/L (98-107); Estimated Glomerular Filt Rate > 60; Glucose 138 mg/dL (65-110); Potassium 3.4 mmol/L (3.4-5.0); Sodium 138 mmol/L (137-145)
--- NOTE | 2022-02-18 16:54 | PC.NURSE ---
Dr Moore and pattern chart writer discussed transfer to [facility] for ID with mother. she is upset and states that she is unable to drive in [place]. States she does not have any help at home for transport. requesting a few minutes to think about if she would like patient transferred or not.
[2022-02-19] VITALS (41 sets, daily range): BP systolic 102–137; BP diastolic 69–93; PULSE 66–77; RESP 16–20; TEMP 36.1; O2SAT 96–100
--- NOTE | 2022-02-19 01:39 | PC.NURSE ---
PT MOVED TO HOSPITAL BED NO ETA FOR BED AT THIS TIME.
[2022-02-19] MEDS: CIPROFLOXACIN 400 MG/D5W 200ML 200 ML 200 MG IVPB (03:37)
--- NOTE | 2022-02-19 07:07 | PC.NURSE ---
Report given to Falguni RINCON
--- NOTE | 2022-02-19 07:41 | PC.NURSE ---
Pt resting in bed at this time, mother at bedside resting in recliner. Pt is to be transferred to [facility] for infectious disease. No ETA at this time.
--- NOTE | 2022-02-19 08:05 | PC.NURSE ---
Per access line at [facility] they are waiting on discharges. No ETA on time
--- NOTE | 2022-02-19 08:29 | PC.NURSE ---
Spoke with patient and patients mother regarding status. Made aware that transfer to [facility] may take several hours and there is no ETA. Pt is laying on a hospital bed, offered breakfast but declines at this time. Mother voices concerns over pt riding in ambulance to [facility] without her.
--- NOTE | 2022-02-19 10:45 | PC.NURSE ---
Mother has gone home at this time to shower. Pt is laying on hospital bed in no distress. Still awaiting bed assignment at [facility]
--- NOTE | 2022-02-19 11:14 | PC.NURSE ---
[facility] access line called this RN for a clinical update, states to this sheet writer it might be several days . BUTCH fuentes and supervisor pig machine Dillan Rollins made aware. ERP will attempt to place pt at this facility pending transfer.
--- NOTE | 2022-02-19 13:21 | PC.NURSE ---
Pt resting with no requests at this time.
--- NOTE | 2022-02-19 14:07 | PC.NURSE ---
Pt mother called. Will come to ER to speak with dr fuentes.
--- NOTE | 2022-02-19 16:21 | PC.NURSE ---
Mother at bedside. She is agreeable to d/c home with PO antibiotics and f/u with PCP. Understands need to take medications.
== END 2022-02-19 16:23 | disposition home or self-care (01) ==
PROVIDERS: Emergency Medicine; Emergency Provider Emergency Medicine; PCP Internal Medicine
DX: N39.0 Urinary tract infection, site not specified (principal); Z16.19 Resistance to other specified beta lactam antibiotics; F84.0 Autistic disorder; G40.909 Epilepsy, unspecified, not intractable, without status epilepticus; F95.2 Tourette's disorder; K22.70 Barrett's esophagus without dysplasia; I10 Essential (primary) hypertension; K21.9 Gastro-esophageal reflux disease without esophagitis; N31.9 Neuromuscular dysfunction of bladder, unspecified; Z93.1 Gastrostomy status
CPT/HCPCS: 36415; 71046; 80053; 81001; 85025; 87040; 96365; 99284; J0744

== ENCOUNTER 2022-04-05 10:57 | Outpatient (CLI) | payer MEDICARE, MEDICAID, SELFPAY ==
--- NOTE | ~2022-04-05 | XR_ITS ---
EXAM: XR abdomen/kub 1V DATE: 04/05/2022 11:27 HISTORY: R14.0 - Abdominal distension (gaseous) . COMPARISON: None available. FINDINGS: Gastrojejunostomy tube, in stable and good position. An additional portion of tubing overli es the right abdomen, may reflect external tubing or less likely other drainage catheter. Minimal str eaky bibasilar atelectasis. Normal bowel gas pattern. The rectum is dilated to 6.3 cm by formed stool . No organomegaly. No abnormal abdominal calcification. Degenerative lumbar change. IMPRESSION: No radiographic evidence of obstruction or ileus. Possible fecal impaction. Reviewed, dictated and finalized at location K. IMPRESSION: No radiographic evidence of obstruction or ileus. Possible fecal im paction.
== END 2022-04-05 10:58 | disposition home or self-care (01) ==
PROVIDERS: PCP Internal Medicine; Visit Provider Internal Medicine Gastroenterology
DX: R14.0 Abdominal distension (gaseous) (principal); M47.816 Spondylosis without myelopathy or radiculopathy, lumbar region
CPT/HCPCS: 74018

== ENCOUNTER 2022-04-23 13:07 | Emergency (ER) | payer MEDICARE, MEDICAID, SELFPAY ==
[2022-04-23 13:19] VITALS: BP 139/80; PULSE 114; RESP 18; TEMP 36.6; O2SAT 100
--- NOTE | 2022-04-23 13:51 | ED.MALEGU ---
HPI - Male Genitourinary General Chief complaint: Urogenital-Male <TEDDY Barnhart Last Filed: 04/23/22 16:29> Stated complaint: subrapubic almaguer fell out <TEDDY Barnhart Last Filed: 04/23/22 16:29> Time Seen by Provider: 04/23/22 13:28 <TEDDY Barnhart Last Filed: 04/23/22 16:29> History of Present Illness HPI Narrative: Patient is a 51-year-old male with a history of developmental delay, G-tube placement, suprapubic catheter, here with his mother who is his division order analyst for evaluation of a displaced suprapubic catheter. Patient's mother states that patient was changing clothes this morning when the suprapubic catheter was accidentally removed. She attempted to replace it, but had difficulty and was unable to get it back in. She came straight to the emergency department. <TEDDY Barnhart Last Filed: 04/23/22 16:29> Related Data Home medications: Home Medications Medication Instructions Recorded Confirmed ergocalciferol (vitamin D2) 1,250 50,000 unit PO [id number] 11/26/19 04/05/22 mcg (50,000 unit) capsule (Vitamin D2) lamotrigine 25 mg tablet 75 mg PO BID 11/26/19 04/05/22 omeprazole 40 mg capsule,delayed 40 mg PO DAILY 11/26/19 04/05/22 release polyethylene glycol 3350 17 gram 17 g PO WEEKLY 03/30/20 04/05/22 oral powder packet (Miralax) sucralfate 1 gram tablet 1 g PO BID 03/30/20 04/05/22 <TEDDY Barnhart Last Filed: 04/23/22 16:29> Allergies/Adverse reactions: Allergies Allergy/AdvReac Type Severity Reaction Status Date / Time adhesive tape Allergy Unknown SKIN Verified 04/05/22 10:13 BLISTERS <TEDDY Barnhart Last Filed: 04/23/22 16:29> Review of Systems Review of Systems: ROS unobtainable: Yes unobtainable due to mental status <Rachael Saez PA-C - Last Filed: 04/23/22 16:29> [facility] Past Medical History Medical History: Medical History Autism Barretts esophagus Chronic ear infection Constipation Dysphagia Feeding by G-tube Gastrostomy tube in place History of gastroesophageal reflux (GERD) History of gastrostomy tube placement History of Austin de la Tourette's syndrome History of hypertension History of neurogenic bladder Hypertension Mental disability Scoliosis Seizure disorder Suprapubic catheter Tourette syndrome <Rachael Saez PA-C - Last Filed: 04/23/22 16:29> Surgical History Surgical History: Surgical History History of cholecystectomy History of ear surgery 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 History of surgical removal of skin lesion Benign lesion to the neck <Rachael Saez PA-C - Last Filed: 04/23/22 16:29> Family History Family History: Family History Mother Family history of thyroid disease Hypertension COPD (chronic obstructive pulmonary disease) HTN (hypertension) with goal to be determined Father Congestive heart failure Other Family history of arthritis <Rachael Saez PA-C - Last Filed: 04/23/22 16:29> Social History Social History: Social History Smoking status: Never smoker Alcohol intake: never Substance use: never Gender identity (if verbalized by the patient): Male Spiritual care concerns: No Agree to blood products: Yes <Rachael Saez PA-C - Last Filed: 04/23/22 16:29> Exam Narrative: APPEARANCE: Well appearing, no pain in distress, well-nourished. Head: Normocephalic and atraumatic. EYES: PERRLA/EOMI, conjunctivae clear NOSE: No nasal drainage EARS: External ear normal in appearance THROAT: Oropharynx is clear. Mucous membranes are moist. NECK: Supple. No adenopathy, no masses
== END 2022-04-23 14:55 | disposition home or self-care (01) ==
PROVIDERS: Emergency Provider Emergency Medicine; PCP Internal Medicine
DX: Z43.5 Encounter for attention to cystostomy (principal); G40.909 Epilepsy, unspecified, not intractable, without status epilepticus; I10 Essential (primary) hypertension; F84.0 Autistic disorder; F95.2 Tourette's disorder; R62.50 Unspecified lack of expected normal physiological development in childhood; N31.9 Neuromuscular dysfunction of bladder, unspecified; K22.70 Barrett's esophagus without dysplasia; K21.9 Gastro-esophageal reflux disease without esophagitis; Z93.1 Gastrostomy status
CPT/HCPCS: 51705; 99282

== ENCOUNTER 2022-08-05 16:02 | Emergency (ER) | payer MEDICARE, MEDICAID, SELFPAY ==
[2022-08-05 16:04] VITALS: BP 150/86; PULSE 124; RESP 16; TEMP 36.2; O2SAT 98
--- NOTE | 2022-08-05 17:06 | ED.GENADULT ---
HPI - General Adult General Chief complaint: Urogenital-Male Stated complaint: suprapubic stuck Time Seen by Provider: 08/05/22 16:35 History of Present Illness HPI narrative: 61-year-old male with a suprapubic catheter that was unable be changed today presents to the emergency department for changing of his suprapubic catheter. Patient normally has a changed every week but the primary care physician switch to a every 2-week scheduling pattern. Mother states that when the Richards catheter goes 2 weeks without being exchanged that it often has difficulty in the exchange. Related Data Home Medications Medication Instructions Recorded Confirmed ergocalciferol (vitamin D2) 1,250 50,000 unit PO [id number] 11/26/19 04/05/22 mcg (50,000 unit) capsule (Vitamin D2) lamotrigine 25 mg tablet 75 mg PO BID 11/26/19 04/05/22 omeprazole 40 mg capsule,delayed 40 mg PO DAILY 11/26/19 04/05/22 release polyethylene glycol 3350 17 gram 17 g PO WEEKLY 03/30/20 04/05/22 oral powder packet (Miralax) sucralfate 1 gram tablet 1 g PO BID 03/30/20 04/05/22 Allergies Allergy/AdvReac Type Severity Reaction Status Date / Time adhesive tape Allergy Unknown SKIN Verified 04/05/22 10:13 BLISTERS Review of Systems Review of Systems: ROS unobtainable: Yes unobtainable due to mental status PMFSH Past Medical History Medical History Autism Barretts esophagus Chronic ear infection Constipation Dysphagia Feeding by G-tube Gastrostomy tube in place History of gastroesophageal reflux (GERD) History of gastrostomy tube placement History of Austin de la Tourette's syndrome History of hypertension History of neurogenic bladder Hypertension Mental disability Scoliosis Seizure disorder Suprapubic catheter Tourette syndrome Surgical History Surgical History History of cholecystectomy History of ear surgery 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 History of surgical removal of skin lesion Benign lesion to the neck Family History Family History Mother Family history of thyroid disease Hypertension COPD (chronic obstructive pulmonary disease) HTN (hypertension) with goal to be determined Father Congestive heart failure Other Family history of arthritis Social History Social History Smoking status: Never smoker Alcohol intake: never Substance use: never Gender identity (if verbalized by the patient): Male Spiritual care concerns: No Agree to blood products: Yes Exam Narrative: APPEARANCE: Well appearing, no pain, no distress, well-nourished. HEAD: normocephalic, atraumatic. EYES: PERRLA/EOMI, conjunctivae clear. NOSE: Normal no drainage NECK: Supple. No adenopathy, no masses. RESPIRATORY: Airway patent, respirations nonlabored. Clear to auscultation bilaterally, no rales, rhonchi, wheezing. CARDIOVASCULAR: Regular rate and rhythm without murmurs rubs or gallops. ABDOMINAL: Soft, nontender, nondistended, normal bowel sounds. Well-appearing G-tube and suprapubic Richards catheter sites. MUSCULOSKELETAL: Moves all extremities. Strength/ROM intact, No edema, No calf tenderness. NEURO: Alert. Cranial nerves II through XII intact. Grossly intact SKIN: Warm, dry. Normal Color Course Course Emergency Course: Suprapubic Richards catheter was exchanged without issue. Patient was started on Keflex for suspected urine tract infection. Vital Signs Vital signs: Vital Signs Temperature 97.2 F L 08/05/22 16:04 Pulse Rate 124 H 08/05/22 16:04 Respiratory Rate 16 08/05/22 16:04 Blood Pressure 150/86 H 08/05/22 16:04 Pulse Oximetry 98 08/05/22 16:04 Oxygen Delivery Room Air 08/05/22 16:04 Temperature 97.2 F L 08/05/22 16:04 Pulse Rate 124 H 10
--- NOTE | 2022-08-05 17:28 | PC.NURSE ---
Pt chief complaint was that the home nurse was not able to remove his suprapubic catheter. Dr. Lay at bedside was able to remove it and place new catheter.
[2022-08-05 17:56] LABS: Add Urine Microscopic? YES; Appearance Urine Cloudy (Clear); Bacteria Urine Trace /hpf; Bilirubin Urine Negative (Negative); Blood Urine 3+ (Negative); Calcium Oxalate Crystals Urine Present /hpf; Color Urine Yellow (Yellow); Glucose Urine UA Negative (Negative); Ketones Urine Trace mg/dL (Negative); Leukocyte Esterase Ur 3+ LEU/UL (Negative); Nitrate Urine Negative (Negative); Protein Urine 1+ mg/dL (Negative); RBC Urine >75 /hpf (0-2); Urobilinogen Urine Negative mg/dL (<2.0); WBC Urine 51-75 /hpf
[2022-08-05 17:57] LABS: Specific Grav Ur 1.004 (1.001-1.035)
[2022-08-05] MEDS: CEPHALEXIN 250 MG CAPSULE PO (19:13)
== END 2022-08-05 19:00 | disposition home or self-care (01) ==
PROVIDERS: Emergency Provider Emergency Medicine; PCP Internal Medicine
DX: T83.090A Other mechanical complication of cystostomy catheter, initial encounter (principal); N39.0 Urinary tract infection, site not specified; I10 Essential (primary) hypertension; F84.0 Autistic disorder; F95.2 Tourette's disorder; F79 Unspecified intellectual disabilities; G40.909 Epilepsy, unspecified, not intractable, without status epilepticus; K22.70 Barrett's esophagus without dysplasia; H70.11 Chronic mastoiditis, right ear; K21.9 Gastro-esophageal reflux disease without esophagitis; H66.90 Otitis media, unspecified, unspecified ear; Z93.1 Gastrostomy status; Y84.6 Urinary catheterization as the cause of abnormal reaction of the patient, or of later complication, without mention of misadventure at the time of the procedure
CPT/HCPCS: 51705; 81001; 87086; 87088; 99283; A9270

== ENCOUNTER 2022-09-08 15:18 | Emergency (ER) | payer MEDICARE, MEDICAID, SELFPAY ==
--- NOTE | ~2022-09-08 | XR_ITS ---
XR chest 2V 09/08/2022 16:19 Indication: Shortness of breath. Cough. History of pneumonia. Procedure: 2 view chest Comparison: 04/04/2020 Findings: Cardiomegaly. Chronic bibasilar airspace disease may represent atelectasis/scarring and/or atypical pneumonia. Cardiomegaly. There is dextroscoliosis. Impression: 1: Chronic bibasilar airspace disease, right greater than left. Differential diagnosis includes atele ctasis/scarring versus atypical pneumonia. 2: Cardiomegaly. Reviewed, dictated and finalized at location A. ICAL RESEARCH MANAGER Impression: 1: Chronic bibasilar airspace disease, right greater than left. Differential di agnosis includes atelectasis/scarring versus atypical pneumonia. 2: Cardiomegaly.
--- NOTE | 2022-09-08 15:41 | ECG_ITS ---
Measurements Intervals [place] Rate: 134 P: 48 OK: 123 QRS: -40 QRSD: 98 T: 48 QT: 277 QTc: 414 Interpretive Statements SINUS TACHYCARDIA LEFT AXIS DEVIATION DELAYED PRECORDIAL R/S TRANSITION VOLTAGE CRITERIA FOR LVH BORDERLINE ST-T WAVE ABNORMALITY- ANTERIOR LEADS BASELINE ARTIFACT- I, II, III, AVR, AVL, AVF ABNORMAL ECG COMPARED TO ECG 06/10/2021 18:19:11 SINUS TACHYCARDIA NOW PRESENT LEFT-AXIS DEVIATION NOW PRESENT Electronically Signed On 09-08-2022 15:53:15 DECK MOLDER by Ken Clements D.O.
[2022-09-08 15:45] VITALS: BP 105/70; PULSE 144; RESP 20; TEMP 36.7; O2SAT 96
--- NOTE | 2022-09-08 16:06 | ED.GENADULT ---
HPI - General Adult General Chief complaint: Nausea/Vomiting/Diarrhea Stated complaint: N/V COUGH Time Seen by Provider: 09/08/22 16:05 Source: family Limitations: altered mental status and clinical condition History of Present Illness HPI narrative: 51 years old white male, history of mental retardation brought to the emergency room by his mom because of productive cough of green sputum over the last few days associated with nasal congestion and possible postnasal discharge. Intermittent tickle in the throat and vomiting with coughing.. She denies any fever, chills. Related Data Home Medications Medication Instructions Recorded Confirmed ergocalciferol (vitamin D2) 1,250 50,000 unit PO [id number] 11/26/19 04/05/22 mcg (50,000 unit) capsule (Vitamin D2) lamotrigine 25 mg tablet 75 mg PO BID 11/26/19 04/05/22 omeprazole 40 mg capsule,delayed 40 mg PO DAILY 11/26/19 04/05/22 release polyethylene glycol 3350 17 gram 17 g PO WEEKLY 03/30/20 04/05/22 oral powder packet (Miralax) sucralfate 1 gram tablet 1 g PO BID 03/30/20 04/05/22 Allergies Allergy/AdvReac Type Severity Reaction Status Date / Time adhesive tape Allergy Unknown SKIN Verified 09/08/22 16:39 BLISTERS Review of Systems Review of Systems: ROS unobtainable: Yes unobtainable due to medical condition PMFSH Past Medical History Medical History Autism Barretts esophagus Chronic ear infection Constipation Dysphagia Feeding by G-tube Gastrostomy tube in place History of gastroesophageal reflux (GERD) History of gastrostomy tube placement History of Austin de la Tourette's syndrome History of hypertension History of neurogenic bladder Hypertension Mental disability Scoliosis Seizure disorder Suprapubic catheter Tourette syndrome Surgical History Surgical History History of cholecystectomy History of ear surgery 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 History of surgical removal of skin lesion Benign lesion to the neck Family History Family History Mother Family history of thyroid disease Hypertension COPD (chronic obstructive pulmonary disease) HTN (hypertension) with goal to be determined Father Congestive heart failure Other Family history of arthritis Social History Social History Smoking status: Never smoker Alcohol intake: never Substance use: never Gender identity (if verbalized by the patient): Male Spiritual care concerns: No Agree to blood products: Yes Exam Narrative: General appearance: Well-developed, well-nourished, does not look in pain or distress Skin: Normal color Head: Normocephalic, nontraumatic ENT: Oropharynx normal, ears normal, nose normal Neck: Supple, nontender Chest and respiratory: Airway patent, no respiratory distress, no accessory muscle use, basal rales bilaterally Heart: Regular rate/rhythm Abdomen: Soft, nontender, no organomegaly, quiet bowel sounds Vascular: Normal peripheral pulses, normal capillary refill. Course Vital Signs Vital signs: Vital Signs Temperature 36.7 C 09/08/22 15:45 Pulse Rate 144 H 09/08/22 15:45 Respiratory Rate 20 09/08/22 15:45 Blood Pressure 105/70 09/08/22 15:45 Pulse Oximetry 96 09/08/22 15:45 Oxygen Delivery Room Air 09/08/22 15:45 Temperature 36.7 C 09/08/22 15:45 Pulse Rate 112 H 09/08/22 18:06 Respiratory Rate 29 H 09/08/22 18:06 Blood Pressure 109/69 09/08/22 18:06 Pulse Oximetry 95 1
[2022-09-08 16:41] LABS: Hematocrit 38.3 % (42.0-52.0); Hemoglobin 12.8 g/dL (14.0-18.0); Mean Corpuscular HGB Conc 33.4 g/dl (32-36); Mean Corpuscular Hemoglobin 30.7 pg (26-34); Mean Corpuscular Volume 91.8 fl (80-100); Mean Platelet Volume 8.6 fl (7.4-10.4); Platelet Count Result 278 k/mm3 (150-375); Red Blood Count 4.17 M/mm3 (4.6-6.20); Red Cell Distribution Width 13.3 % (11.5-14.5); White Blood Count 9.9 K/mm3 (4.5-10.0)
[2022-09-08] MEDS: SODIUM CHLORIDE 0.9% IV 1,000 ML 999 ML IV CONT (16:44)
[2022-09-08] MEDS: ONDANSETRON INJ 4 MG/2 ML VIAL IV PUSH (16:44)
[2022-09-08 16:51] LABS: Alanine Aminotransferase 52 U/L (6-50); Albumin Level 4.3 g/dL (3.5-5.1); Alkaline Phosphatase 189 U/L (38-126); Anion Gap 14 mmol/L (8-16); Aspartate Amino Transferase 79 U/L (17-59); Bilirubin,Total 0.6 mg/dL (0.2-1.3); Blood Urea Nitrogen 12 mg/dL (9-20); Calcium 9.1 mg/dL (8.4-10.2); Carbon Dioxide 25 mmol/L (22-30); Chloride 104 mmol/L (98-107); Estimated CRCL calculation 90 ml/min; Estimated Glomerular Filt Rate > 60; Glucose 139 mg/dL (65-110); Potassium 3.6 mmol/L (3.4-5.0); Sodium 143 mmol/L (137-145)
[2022-09-08 17:09] LABS: Influenza A QL RT-PCR Positive (Negative); Influenza B QL RT-PCR Negative (Negative); RSV RNA, RT-PCR Negative (Negative); SARS-CoV-2 RNA PCR Negative
[2022-09-08 17:28] LABS: Eosinophils Absolute Manual 0.09 K/mm3 (0.02-0.5); Eosinophils Percent Manual 1 % (0-4); Lymphocytes Absolute Manual 2.67 K/mm3 (1.1-4.5); Monocytes Absolute Manual 0.89 K/mm3 (0.1-0.90); Monocytes Percent Manual 9 % (3-9); Neutrophils Percent Manual 63 % (46-73); Platelet Estimate Adequate (Adequate); Schistocytes None Seen (NORMAL); Total Cells Counted 100
[2022-09-08 18:06] VITALS: BP 109/69; PULSE 112; RESP 29; O2SAT 95
[2022-09-08 18:45] LABS: Appearance Urine Clear (Clear); Bilirubin Urine Negative (Negative); Blood Urine Trace-intact (Negative); Color Urine Yellow (Yellow); Glucose Urine UA Negative (Negative); Ketones Urine Trace mg/dL (Negative); Leukocyte Esterase Ur 1+ LEU/UL (Negative); Nitrate Urine Negative (Negative); Protein Urine 1+ mg/dL (Negative); Specific Grav Ur 1.015 (1.001-1.035); Urobilinogen Urine 0.2 mg/dL (<2.0)
[2022-09-08 18:51] LABS: Add Urine Microscopic? YES; Bacteria Urine Trace /hpf; Mucus Urine Rare /lpf; Squamous Epithelial Cell Urine Rare /hpf (Few)
[2022-09-08 19:09] VITALS: BP 120/75; PULSE 106; O2SAT 98
== END 2022-09-08 19:29 | disposition home or self-care (01) ==
PROVIDERS: Emergency Provider Emergency Medicine; PCP Internal Medicine
DX: J20.9 Acute bronchitis, unspecified (principal); Z20.822 Contact with and (suspected) exposure to COVID-19; F84.0 Autistic disorder; G40.909 Epilepsy, unspecified, not intractable, without status epilepticus; I10 Essential (primary) hypertension; K21.9 Gastro-esophageal reflux disease without esophagitis; R82.998 Other abnormal findings in urine
CPT/HCPCS: 36415; 71046; 80053; 81001; 85025; 87077; 87086; 87088; 87637; 93005; 96361; 96374; 99284; J2405; J7030

== ENCOUNTER 2023-02-10 00:35 | Day surgery (SDC) | payer MEDICARE, MEDICAID, SELFPAY ==
[2023-02-03 09:08] VITALS: BMI 27.1
--- NOTE | 2023-02-03 09:17 | PC.NURSE ---
Report to the Outpatient Waiting Room, entrance under the green pavilion located off [facility], at time 0915 on date 02/10/23. Planned Procedure Time: 1115. Time changes happen often and if your time is changed the preop area will call you the afternoon before. - You and your visitor will be asked to self-screen and do not enter if you have any COVID symptoms. - A mask is optional within the hospital at this time. Patients may have clear liquids (water, carbonated beverages, clear teas, apple juice) until 3 hours prior to surgery with a maximum of 20 ounces. - No food from midnight until time of surgery Take the following medications with a SIP of water the morning of surgery: LAMOTRIGINE DO NOT STOP ANY OF YOUR OTHER PRESCRIPTION MEDICATIONS PRIOR TO SURGERY EXCEPT THE FOLLOWING Medications to discontinue per physician: VITAMIN Date to take last dose: 02/06/23 Please no make-up, nail azeri, hairspray, perfume, deodorant, or body powder the day of surgery. No jewelry (including any body piercings) or valuables the day of surgery, leave them at home. Please take a shower or bath the night before, or the morning of, surgery with an antibacterial soap. Wear comfortable, loose fitting clothing. - Jewelry must be removed prior to entering the operating room. Rings and piercings that are not removed may be cut off. - The hospital will not accept responsibility for valuables. - Please leave all valuables, including medications, at home the day of surgery. If you are going home after surgery, a licensed warehouse associate driver must drive you home. - NO public transportation without another adult if you receive anesthesia. - We recommend that an adult stay with you for 24 hours following discharge. - We also recommend that you do not drive, make important decision, drink alcoholic beverages, or take any drugs that were not prescribed by your health care provider for at least 24 hours after your discharge time. For Pediatric surgeries, we recommend two adults accompany the child home. Follow any additional instructions given to you from your surgeon. If you or anyone in your household have experienced Covid symptoms in the past week, please notify your surgeon or the nurse liaison at the phone number below for possible testing. Telephone instructions given to MOM - DEE ROMO and asked if any additional questions and then verbalized understanding. Patient advised to call surgeon office or pre surgery nurse liaison [phone] if any additional questions.
--- NOTE | 2023-02-06 12:46 | PM.IMHP ---
H&P: HPI History of Present Illness Date/Time: 02/06/23 12:46 Chief Complaint: Neurogenic bladder Narrative: He has a long-term suprapubic tube for neurogenic bladder. He needs a yearly cystoscopy under anesthesia Review of Systems Review of Systems: ROS unobtainable: Yes unobtainable due to medical condition PMFSH Past Medical History Medical History Autism Barretts esophagus Chronic ear infection Constipation Dysphagia Feeding by G-tube Gastrostomy tube in place History of gastroesophageal reflux (GERD) History of gastrostomy tube placement History of [place] de la Tourette's syndrome History of hypertension History of neurogenic bladder Hypertension Mental disability Scoliosis Seizure disorder Suprapubic catheter Tourette syndrome Surgical History Surgical History History of cholecystectomy History of ear surgery 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 History of surgical removal of skin lesion Benign lesion to the neck Family History Family History Mother Family history of thyroid disease Hypertension COPD (chronic obstructive pulmonary disease) HTN (hypertension) with goal to be determined Father Congestive heart failure Other Family history of arthritis Social History Social History Smoking status: Never smoker Alcohol intake: never Substance use: never Substance use type: does not use Living arrangements: with family Gender identity (if verbalized by the patient): Male Spiritual care concerns: No Agree to blood products: Yes Meds Home Medications and Allergies Home Medications Medication Instructions Recorded Confirmed Type ergocalciferol (vitamin D2) 1,250 50,000 unit PO [id number] 11/26/19 02/03/23 History mcg (50,000 unit) capsule (Vitamin D2) lamotrigine 25 mg tablet 75 mg PO BID 11/26/19 02/03/23 History omeprazole 40 mg capsule,delayed 40 mg PO DAILY 11/26/19 02/03/23 History release polyethylene glycol 3350 17 gram 17 g PO WEEKLY 03/30/20 02/03/23 History oral powder packet (Miralax) sucralfate 1 gram tablet 1 g PO BID 03/30/20 02/03/23 History sennosides 8.8 mg/5 mL oral syrup 8.8 mg (5 mL) feeding tube HS #240 06/15/21 02/03/23 Rx (senna) mL Allergies Allergy/AdvReac Type Severity Reaction Status Date / Time adhesive tape Allergy Unknown SKIN Verified 02/03/23 09:06 BLISTERS Exam Narrative: Mother is usually with him No acute distress Suprapubic tube in place Assessment and Plan Assessment and plan (1) Neurogenic bladder: Code(s): N31.9 - Neuromuscular dysfunction of bladder, unspecified Status: Acute Assessment and Plan: Cystoscopy done under sedation. Biopsy versus treatment if abnormality found
--- NOTE | 2023-02-10 05:06 | WPDHPUPDATE1 ---
History and Physical Update Update Date/Time: 02/10/23 05:06 History and Physical has been reviewed, including an updated exam of the patient. There are NO changes in the patient's condition. Risks, benefits, and alternatives have been discussed and questions answered. Patient agrees to proceed with procedure.
[2023-02-10 10:12] VITALS: BP 133/77; PULSE 90; RESP 20; TEMP 37.4; O2SAT 99
--- NOTE | 2023-02-10 10:36 | WPDANESEPPF ---
Anes - Initial Pre Proc Eval Procedure: Operation Date: 02/10/23 11:15 Proposed Procedures p Flexible Cystoscopy - Burke Alves MD Date/Time: 02/10/23 10:36 Surgeon: Burke Alves MD Pre Op Diagnosis: suprapubic cath, malodorous urine Patient Data Age: 52 Gender: M Height: 1.57 m Weight: 64.4 kg Last Vital Signs Temp 37.4 C 02/10/23 10:12 Pulse 90 02/10/23 10:12 Resp 20 02/10/23 10:12 BP 133/77 02/10/23 10:12 Pulse Ox 99 02/10/23 10:12 O2 Del Method Room Air 02/10/23 10:12 Allergies Allergy/AdvReac Type Severity Reaction Status Date / Time adhesive tape Allergy Unknown SKIN Verified 02/10/23 10:29 BLISTERS Home Medications Medication Instructions Recorded Confirmed Type ergocalciferol (vitamin D2) 1,250 50,000 unit PO [id number] 11/26/19 02/10/23 History mcg (50,000 unit) capsule (Vitamin D2) lamotrigine 25 mg tablet 75 mg PO BID 11/26/19 02/10/23 History omeprazole 40 mg capsule,delayed 40 mg PO DAILY 11/26/19 02/10/23 History release polyethylene glycol 3350 17 gram 17 g PO WEEKLY 03/30/20 02/10/23 History oral powder packet (Miralax) sucralfate 1 gram tablet 1 g PO BID 03/30/20 02/10/23 History sennosides 8.8 mg/5 mL oral syrup 8.8 mg (5 mL) feeding tube HS #240 06/15/21 02/10/23 Rx (senna) mL Patient hx anesthesia problems: none Family hx anesthesia problems: none Results Review: All pre-operative results and documents have been reviewed as part of the pre-operative evaluation. 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 History of surgical removal of skin lesion Benign lesion to the neck Family History Family History Mother Family history of thyroid disease Hypertension COPD (chronic obstructive pulmonary disease) HTN (hypertension) with goal to be determined Father Congestive heart failure Other Family history of arthritis Social History Social History Smoking status: Never smoker Alcohol intake: never Substance use: never Substance use type: does not use Living arrangements: with family Gender identity (if verbalized by the patient): Male Spiritual care concerns: No Agree to blood products: Yes Anes - Eval Final PreProcedure Day of Procedure 02/10/23 10:36 Patient weight: normal Heart: regular rate and rhythm Lungs: clear to auscultation Neurological: alert and oriented (x1) ASA classification: III Emergent: no Anesthetic plan: proceed Anesthesia type and monitoring: general GIVS and standard monitoring Results Review: All pre-operative results and documents have been reviewed as part of the pre-operative evaluation. Informed Consent: The patient's anesthetic plan and its attendant risks and benefits were discussed with the patient/family/POA. Questions were solicited and answers provided to the satisfaction of the patient/family/POA.
[2023-02-10] MEDS: LACTATED RINGERS 1,000 ML 30 ML IV CONT (10:37)
[2023-02-10 11:29] VITALS: BP 119/65; PULSE 69; RESP 16; O2SAT 98
--- NOTE | 2023-02-10 11:42 | P.OP_ITS ---
Procedure Note - Detailed Date of Procedure 02/10/23 Pre-op Diagnosis suprapubic cath, urinary retention Post-op Diagnosis Same Procedure Performed flexible cystoscopy, exchange of suprapubic tube Surgeon Burke Alves MD Anesthesia MAC Indications this is a gentleman with a chronic indwelling suprapubic tube for several years. He presents for surveillance cystoscopy Findings no bladder tumors Description of Procedure he has correctly identified. Informed consent obtained. From the operating room. He was given MAC anesthesia. He was prepped in a sterile fashion. Time- out performed. He was given appropriate perioperative antibiotics. His suprapubic tube was removed. I performed flexible cystoscopy through the suprapubic tract. He has a low capacity bladder. strict macular lesions were noted. He had some edema and erythema secondary to the catheter. There was nothing that was suspicious for cancerous changes in his bladder. I left his bladder full. I replaced a 20 [place] suprapubic tube. He was awakened transferred to PACU in stable condition Estimated Blood Loss 0 Complications No immediate complications Condition Stable
[2023-02-10 11:59] VITALS: BP 119/65; PULSE 69; RESP 16; O2SAT 98
== END 2023-02-10 12:20 | disposition home or self-care (01) ==
PROVIDERS: PCP Internal Medicine; Visit Provider Urology
PROC: 0TJB8ZZ Inspection of Bladder, Via Natural or Artificial Opening Endoscopic (ICD-10-PCS; CPT 52000; principal; 2023-02-10 11:15)
DX: N31.9 Neuromuscular dysfunction of bladder, unspecified (principal); R33.8 Other retention of urine; F84.0 Autistic disorder; G40.909 Epilepsy, unspecified, not intractable, without status epilepticus; K59.00 Constipation, unspecified; K21.9 Gastro-esophageal reflux disease without esophagitis; Z93.1 Gastrostomy status; F95.2 Tourette's disorder
CPT/HCPCS: 51705; J2704; J3010; J7120

== ENCOUNTER 2023-03-17 11:20 | Outpatient (CLI) | payer MEDICARE, MEDICAID, SELFPAY ==
--- NOTE | ~2023-03-17 | XR_ITS ---
XR chest 2V 03/17/2023 11:58 Indication: Cough Procedure: 2 view chest Comparison: Comparison to multiple prior studies sequentially, with oldest reviewed study dated 06/10. Findings: There are stable chronic infiltrates of the lower lungs, right greater than left. Stable ca rdiomediastinal silhouette. There is scoliosis. There is a G-tube present. No edema or pneumothorax. Impression: 1: Stable chronic bibasilar infiltrates, right greater than left. Differential diagnosis includes sca rring/fibrosis, atelectasis and/or atypical pneumonia. Consider aspiration in the appropriate clinica l setting. Reviewed, dictated and finalized at location B. Impression: 1: Stable chronic bibasilar infiltrates, right greater than left. Differential diagnosis includes scarring/fibrosis, atelectasis and/or atypical pneumonia. Co nsider aspiration in the appropriate clinical setting.
== END 2023-03-17 11:21 | disposition home or self-care (01) ==
PROVIDERS: PCP Internal Medicine; Visit Provider Internal Medicine
DX: R05.9 Cough, unspecified (principal); R91.8 Other nonspecific abnormal finding of lung field
CPT/HCPCS: 71046

== ENCOUNTER 2023-04-23 12:20 | Emergency (ER) | payer MEDICARE, MEDICAID, SELFPAY ==
[2023-04-23 12:26] VITALS: BP 130/94; PULSE 82; RESP 18; TEMP 36.6; O2SAT 97
--- NOTE | 2023-04-23 13:34 | ED.GENADULT ---
HPI - General Adult General Chief complaint: Unspecified Stated complaint: accidently took 2 meds that are not prescribed to Time Seen by Provider: 04/23/23 12:40 Source: family and RN notes reviewed Mode of arrival: ambulatory Limitations: physical limitation History of Present Illness HPI narrative: This is a 52 year old male with history of autism and other medical problems who presents with his guardian for evaluation of accidental medication ingestion. Patient was accidentally given a dose of 2 of his mother's medications this morning at 830 am. He takes carvedilol 3.125 mg normally but today he was given his mother's 12.5 mg dose. HE was also given his mother's entresto accidentally Related Data Home Medications Medication Instructions Recorded Confirmed ergocalciferol (vitamin D2) 1,250 50,000 unit PO [id number] 11/26/19 02/10/23 mcg (50,000 unit) capsule (Vitamin D2) lamotrigine 25 mg tablet 75 mg PO BID 11/26/19 02/10/23 omeprazole 40 mg capsule,delayed 40 mg PO DAILY 11/26/19 02/10/23 release polyethylene glycol 3350 17 gram 17 g PO WEEKLY 03/30/20 02/10/23 oral powder packet (Miralax) sucralfate 1 gram tablet 1 g PO BID 03/30/20 02/10/23 Allergies Allergy/AdvReac Type Severity Reaction Status Date / Time adhesive tape Allergy Unknown SKIN Verified 02/10/23 10:29 BLISTERS Review of Systems Review of Systems: ROS unobtainable: Yes unobtainable due to medical condition PMFSH Past Medical History Medical History Autism Barretts esophagus Chronic ear infection Constipation Dysphagia Feeding by G-tube Gastrostomy tube in place History of gastroesophageal reflux (GERD) History of gastrostomy tube placement History of Austin de la Tourette's syndrome History of hypertension History of neurogenic bladder Hypertension Mental disability Scoliosis Seizure disorder Suprapubic catheter Tourette syndrome Surgical History Surgical History History of cholecystectomy History of ear surgery 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 History of surgical removal of skin lesion Benign lesion to the neck Family History Family History Mother Family history of thyroid disease Hypertension COPD (chronic obstructive pulmonary disease) HTN (hypertension) with goal to be determined Father Congestive heart failure Other Family history of arthritis Social History Social History Smoking status: Never smoker Alcohol intake: never Substance use: never Substance use type: does not use Living arrangements: with family Gender identity (if verbalized by the patient): Male Spiritual care concerns: No Agree to blood products: Yes Exam Const: General: cooperative, alert, awake and Physically active Nutritional Appearance: average body habitus HENMT: Head: normal to inspection Resp: Effort & Inspection: normal respiratory effort Auscultation: clear to auscultation bilaterally Cardio: Rate: regular rate Rhythm: regular rhythm GI: GI Palp: Yes Soft to palpation, No Tenderness to palpation present (GI) and No Guarding due to palpation present (GI) Other: mid abdomen g tube in place, suprapubic catheter in place Skin: General skin exam: normal color Neuro: General: other (at his baseline) Psych: Appearance: grossly normal and well kempt Course Reevaluation(s) Reevaluation #1: PAtient is asymptomatic at 6 hours so will be discharged home. Date: 04/23/23 Time: 14:37 Vital Signs Vital signs: Vital Signs Temperature 97.8 F 04/23/23 12:26 Pulse Rate 82 04/23/23 12:26 Respiratory Rate 18 04/23/23 12:26 Blood Pressure 130/94 H 04/23/23 12:26 Pulse Oximetry 97 04/23/23 12:26 Temperature 97.8 F
[2023-04-23 13:38] VITALS: BP 122/86; PULSE 88; RESP 20; O2SAT 98
--- NOTE | 2023-04-23 13:46 | PC.NURSE ---
Spoke with Margarita from poison control, it is recommended to monitor pt until 6 hours from ingestion at 0830. They state if pt is asymptomatic, pt can be discharged to home.
--- NOTE | 2023-04-23 13:47 | PC.NURSE ---
Poison control case # [id number]
[2023-04-23 14:26] VITALS: BP 111/76; PULSE 85; RESP 18; O2SAT 98
== END 2023-04-23 14:53 | disposition home or self-care (01) ==
PROVIDERS: Emergency Provider General Practice; PCP Internal Medicine
DX: T44.7X1A Poisoning by beta-adrenoreceptor antagonists, accidental (unintentional), initial encounter (principal); T46.5X1A Poisoning by other antihypertensive drugs, accidental (unintentional), initial encounter; F84.0 Autistic disorder; G40.909 Epilepsy, unspecified, not intractable, without status epilepticus; K22.70 Barrett's esophagus without dysplasia; I10 Essential (primary) hypertension; N31.9 Neuromuscular dysfunction of bladder, unspecified; F95.2 Tourette's disorder; Z93.1 Gastrostomy status; Z90.49 Acquired absence of other specified parts of digestive tract
CPT/HCPCS: 99281

== ENCOUNTER 2023-08-31 11:39 | Outpatient (CLI) | payer MEDICARE, MEDICAID, SELFPAY ==
[2023-08-31 12:33] LABS: Basophils Percent Auto 0.9 % (0.2-1.2); Eosinophils Absolute Auto 0.2 K/mm3 (0-0.3); Eosinophils Percent Auto 5.3 % (0-4.4); Hematocrit 39.5 % (42.0-52.0); Immature Granulocyte Absolute 0.03 K/mm3 (0.00-0.031); Immature Granulocyte Percent A 0.7 % (0-0.5); Lymphocytes Absolute Auto 2.05 K/mm3 (0.9-3.2); Lymphocytes Percent Auto 45.3 % (18.3-44.2); Mean Corpuscular HGB Conc 32.9 g/dl (32-36); Mean Corpuscular Hemoglobin 31.5 pg (26-34); Mean Corpuscular Volume 95.6 fl (80-100); Monocytes Absolute Auto 0.5 K/mm3 (0.1-0.6); Monocytes Percent Auto 11.9 % (2.6-8.5); Neutrophils Absolute Auto 1.6 K/mm3 (1.3-6.7); Neutrophils Percent Auto 35.9 % (45.5-73.1); Platelet Count Result 210 k/mm3 (150-375); Red Blood Count 4.13 M/mm3 (4.6-6.20); Red Cell Distribution Width 12.9 % (11.5-14.5); White Blood Count 4.5 K/mm3 (4.5-10.0)
[2023-08-31 13:07] LABS: Appearance Urine Clear (Clear); Bacteria Urine 1+ /hpf; Bilirubin Urine Negative (Negative); Blood Urine Negative (Negative); Color Urine Yellow (Yellow); Glucose Urine UA Negative (Negative); Ketones Urine Negative (Negative); Leukocyte Esterase Ur 3+ LEU/UL (NEGATIVE); Need Manual Microscopic Reviewed; Nitrate Urine Positive (Negative); Protein Urine 1+ mg/dL (Negative); RBC Urine 0-2 /hpf (0-2); Specific Grav Ur 1.009 (1.001-1.035); Squamous Epithelial Cell Urine None seen /hpf (Few); Urobilinogen Urine 0.2 mg/dL (<2.0); WBC Clumps Urine Present /HPF; WBC Urine 51-100 /hpf (0-3)
[2023-08-31 13:15] LABS: Alanine Aminotransferase 10 U/L (6-50); Albumin Level 4.3 g/dL (3.5-5.1); Alkaline Phosphatase 72 U/L (38-126); Anion Gap 7 mmol/L (8-16); Aspartate Amino Transferase 25 U/L (17-59); Bilirubin,Total 0.4 mg/dL (0.2-1.3); Blood Urea Nitrogen 14 mg/dL (9-20); Carbon Dioxide 30 mmol/L (22-30); Chloride 101 mmol/L (98-107); Cholesterol 205 mg/dL (0-200); Estimated Glomerular Filt Rate > 60; Glucose 77 mg/dL (65-110); HDL Direct 53 mg/dL; Potassium 4.1 mmol/L (3.4-5.0); Sodium 138 mmol/L (137-145); Triglycerides 40 mg/dL (<150); Uric Acid 2.9 mg/dL (3.5-8.5)
[2023-08-31 13:18] LABS: Add Urine Microscopic? YES
[2023-08-31 13:23] LABS: LDL Cholesterol Direct 108 mg/dL
[2023-08-31 13:39] LABS: Prostate Specific Antigen 0.2 ng/mL (< OR = 4.0)
== END 2023-08-31 11:40 | disposition home or self-care (01) ==
PROVIDERS: PCP Internal Medicine; Visit Provider Internal Medicine
DX: E78.2 Mixed hyperlipidemia (principal); Z12.5 Encounter for screening for malignant neoplasm of prostate; I10 Essential (primary) hypertension
CPT/HCPCS: 36415; 80053; 80061; 81001; 82607; 84153; 84443; 84550; 85025; G0103

== ENCOUNTER 2023-12-13 11:39 | Outpatient (CLI) | payer MEDICARE, MEDICAID, SELFPAY ==
--- NOTE | ~2023-12-13 | XR_ITS ---
EXAMINATION: XR chest 2V DATE: 12/13/2023 12:15 INDICATION: Acute cough TECHNIQUE: PA and lateral views of the chest are obtained. COMPARISON: 03/17/2023 FINDINGS: There is a small right pleural effusion. There are minimal right basilar airspace opacities . No pneumothorax is identified. The cardiomediastinal silhouette is normal. A gastrostomy is noted. There is mild thoracic spondylosis. Thoracolumbar dextroscoliosis is unchanged. IMPRESSION: 1. Small right pleural effusion with minimal right basilar airspace opacities, consistent with atelec tasis versus pneumonia. Reviewed, dictated and finalized at location B. ER IMPRESSION: 1. Small right pleural effusion with minimal right basilar airspace opacities, consistent with atelectasis versus pneumonia.
== END 2023-12-13 11:40 | disposition home or self-care (01) ==
PROVIDERS: PCP Internal Medicine; Visit Provider Internal Medicine
DX: R91.8 Other nonspecific abnormal finding of lung field (principal); J90 Pleural effusion, not elsewhere classified
CPT/HCPCS: 71046

== ENCOUNTER 2024-04-05 12:11 | Outpatient (CLI) | payer MEDICARE, MEDICAID, SELFPAY ==
--- NOTE | ~2024-04-05 | XR_ITS ---
XR chest 2V 04/05/2024 12:27 Indication: Cough Procedure: 2 view chest Comparison: Comparison to multiple prior studies sequentially, with oldest reviewed study dated 08/23. Findings: There are chronic reticulonodular densities of the right lung unchanged from prior studies. There is right thoracic volume loss. No significant effusion. Cardiomegaly. No pneumothorax. No acut e osseous abnormality. There is scoliosis. Impression: 1: Stable chronic reticulonodular densities of the right lung, possibly chronic interstitial lung dis ease. Consider correlation with CT chest. Reviewed, dictated and finalized at location B. Impression: 1: Stable chronic reticulonodular densities of the right lung, possibly chronic interstitial lung disease. Consider correlation with CT chest.
== END 2024-04-05 12:12 | disposition home or self-care (01) ==
LOC: ANHIMG 12:13
PROVIDERS: PCP Internal Medicine; Visit Provider Internal Medicine
DX: J98.4 Other disorders of lung (principal)
CPT/HCPCS: 71046

== ENCOUNTER 2024-04-22 13:19 | Outpatient (CLI) | payer MEDICARE, MEDICAID, SELFPAY ==
--- NOTE | ~2024-04-22 | CT_ITS ---
EXAMINATION:CT diagnostic chest wo con DATE: 04/22/2024 13:58 INDICATION: Acute cough. TECHNIQUE: Computed tomography (CT) of the chest was performed without intravenous contrast. Automate d exposure control and iterative reconstruction technique were employed. The dose-length product (DLP ) was 143.11 mGy-cm. COMPARISON: Chest CT 03/03/2019 FINDINGS: There are chronic groundglass opacities and septal thickening and volume loss involving the right upper lobe, right middle lobe, right lower lobe, and left upper lobe. No honeycombing. Calcifi ed right lung nodules are consistent with old granulomatous disease. No pleural effusion. The heart s ize is normal. No pericardial effusion. There is ectasia of ascending aorta measuring 4.3 cm. There i s a small sliding hiatal hernia. There is a gastrojejunostomy tube in expected position. Gynecomastia is noted. There is thoracic kyphosis and thoracolumbar dextroscoliosis. There are bridging endplate osteophytes at multiple levels in the spine, consistent with diffuse idiopathic skeletal hyperostosis (DISH). There is severe thoracic spondylosis. IMPRESSION: 1. Chronic lung disease with improvement in right lower lobe when compared to 03/03/2019. Reviewed, dictated and finalized at location A. IMPRESSION: 1. Chronic lung disease with improvement in right lower lobe when compared to .
== END 2024-04-22 13:20 | disposition home or self-care (01) ==
PROVIDERS: PCP Internal Medicine; Visit Provider Internal Medicine
DX: R91.8 Other nonspecific abnormal finding of lung field (principal); R05.1 Acute cough
CPT/HCPCS: 71250

== ENCOUNTER 2024-06-03 02:35 | Day surgery (SDC) | payer MEDICARE, MEDICAID, SELFPAY ==
[2024-04-11 14:00] VITALS: BMI 27.7
--- NOTE | 2024-04-11 14:01 | PC.NURSE ---
Report to the Outpatient Waiting Room, entrance under the green pavilion located off [facility], at time _0900_ on date _[id number]_. Planned Procedure Time: _1100_. Time changes happen often and if your time is changed the preop area will call you the afternoon before. - You and your visitor will be asked to self-screen and do not enter if you have any COVID symptoms. - A mask is optional within the hospital at this time. Patients may have clear liquids (water, carbonated beverages, clear teas, apple juice) until 3 hours prior to surgery with a maximum of 20 ounces. - No food from midnight until time of surgery. Stop tube feeding at midnight. Take the following medications with a SIP of water the morning of surgery: __Lamotrigine and Carvedilol DO NOT STOP ANY OF YOUR OTHER PRESCRIPTION MEDICATIONS PRIOR TO SURGERY ?EXCEPT THE FOLLOWING Medications to discontinue per physician Vitamin d2 Date to take last tleu___[id number] Please no make-up, nail djiboutian, hairspray, perfume, deodorant, or body powder the day of surgery. No jewelry (including any body piercings) or valuables the day of surgery, leave them at home. Please take a shower or bath the night before, or the morning of, surgery with an antibacterial soap. Wear comfortable, loose fitting clothing. - Jewelry must be removed prior to entering the operating room. Rings and piercings that are not removed may be cut off. - The hospital will not accept responsibility for valuables. - Please leave all valuables, including medications, at home the day of surgery. If you are going home after surgery, a licensed log truck driver must drive you home. - NO public transportation without another adult if you receive anesthesia. - We recommend that an adult stay with you for 24 hours following discharge. - We also recommend that you do not drive, make important decision, drink alcoholic beverages, or take any drugs that were not prescribed by your health care provider for at least 24 hours after your discharge time. Follow any additional instructions given to you from your surgeon. If you or anyone in your household have experienced Covid symptoms in the past week, please notify your surgeon or the nurse liaison at the phone number below for possible testing. Telephone instructions given to __Latisha/mother___and asked if any additional questions and then verbalized understanding. Patient advised to call surgeon office or pre surgery nurse liaison [phone] if any additional questions.
--- NOTE | 2024-04-14 18:08 | PM.IMHP ---
H&P: HPI History of Present Illness Date/Time: 04/14/24 18:08 Chief Complaint: neurogenic bladder Narrative: presents for surveillance cystoscopy. Has a chronic indwelling suprapubic tube for several years Review of Systems Review of Systems: All systems reviewed & are unremarkable except as noted in HPI and below PMFSH Past Medical History Medical History Autism Barretts esophagus Chronic ear infection Constipation Dysphagia Feeding by G-tube Gastrostomy tube in place History of gastroesophageal reflux (GERD) History of gastrostomy tube placement History of [place] de la Tourette's syndrome History of hypertension History of neurogenic bladder Hypertension Mental disability Scoliosis Seizure disorder Suprapubic catheter Tourette syndrome Surgical History Surgical History History of cholecystectomy History of ear surgery 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 History of surgical removal of skin lesion Benign lesion to the neck Family History Family History Mother Family history of thyroid disease Hypertension COPD (chronic obstructive pulmonary disease) HTN (hypertension) with goal to be determined Father Congestive heart failure Other Family history of arthritis Social History Social History Smoking status: Never smoker Alcohol intake: never Substance use: never Substance use type: does not use Living arrangements: with family Gender identity (if verbalized by the patient): Male Spiritual care concerns: No Agree to blood products: Yes Meds Home Medications and Allergies Home Medications Medication Instructions Recorded Confirmed Type ergocalciferol (vitamin D2) 1,250 50,000 unit PO [id number] 11/26/19 04/11/24 History mcg (50,000 unit) capsule (Vitamin D2) lamotrigine 25 mg tablet 75 mg PO BID 11/26/19 04/11/24 History omeprazole 40 mg capsule,delayed 40 mg PO DAILY 11/26/19 04/11/24 History release polyethylene glycol 3350 17 gram 17 g PO WEEKLY 03/30/20 04/11/24 History oral powder packet (Miralax) sucralfate 1 gram tablet 1 g PO BID 03/30/20 04/11/24 History sennosides 8.8 mg/5 mL oral syrup 8.8 mg (5 mL) feeding tube HS #240 06/15/21 04/11/24 Rx (senna) mL carvedilol 3.125 mg tablet 3.125 mg PO Q12H 02/29/24 04/11/24 History linaclotide 72 mcg capsule 72 mcg PO QAM #30 caps 02/29/24 04/11/24 Rx (Linzess) Allergies Allergy/AdvReac Type Severity Reaction Status Date / Time adhesive tape Allergy Unknown SKIN Verified 04/11/24 13:52 BLISTERS Exam Narrative: non communicative no acute distress suprapubic tube implant Assessment and Plan Assessment and plan (1) Neurogenic bladder: Code(s): N31.9 - Neuromuscular dysfunction of bladder, unspecified Status: Acute Assessment and Plan: surveillance cystoscopy
--- NOTE | 2024-05-29 14:03 | PC.NURSE ---
Report to the Outpatient Waiting Room, entrance under the green pavilion located off [facility], at time _1230_ on date _[id number]_. Planned Procedure Time: _230pm_. Time changes happen often and if your time is changed the preop area will call you the afternoon before. - You and your visitor will be asked to self-screen and do not enter if you have any COVID symptoms. - A mask is optional within the hospital at this time. Patients may have clear liquids (water, carbonated beverages, clear teas, apple juice) until 3 hours prior to surgery with a maximum of 20 ounces. - No food from midnight until time of surgery. Stop tube feeding at midnight. Take the following medications with a SIP of water the morning of surgery: ____Lamotrigine and Carvedilol___ DO NOT STOP ANY OF YOUR OTHER PRESCRIPTION MEDICATIONS PRIOR TO SURGERY ?EXCEPT THE FOLLOWING Medications to discontinue per physician Vitamin D2 Date to take last jfxa___[id number] Please no make-up, nail nicaraguan, hairspray, perfume, deodorant, or body powder the day of surgery. No jewelry (including any body piercings) or valuables the day of surgery, leave them at home. Please take a shower or bath the night before, or the morning of, surgery with an antibacterial soap. Wear comfortable, loose fitting clothing. - Jewelry must be removed prior to entering the operating room. Rings and piercings that are not removed may be cut off. - The hospital will not accept responsibility for valuables. - Please leave all valuables, including medications, at home the day of surgery. If you are going home after surgery, a licensed taxi driver supervisor must drive you home. - NO public transportation without another adult if you receive anesthesia. - We recommend that an adult stay with you for 24 hours following discharge. - We also recommend that you do not drive, make important decision, drink alcoholic beverages, or take any drugs that were not prescribed by your health care provider for at least 24 hours after your discharge time. Follow any additional instructions given to you from your surgeon. If you or anyone in your household have experienced Covid symptoms in the past week, please notify your surgeon or the nurse liaison at the phone number below for possible testing. Telephone instructions given to __Latisha/Mother__and asked if any additional questions and then verbalized understanding. Patient advised to call surgeon office or pre surgery nurse liaison [phone] if any additional questions.
--- NOTE | 2024-06-01 13:34 | PM.IMHP ---
H&P: HPI History of Present Illness Date/Time: 06/01/24 13:34 Chief Complaint: cystoscopy Narrative: present for survalence cystoscopy Review of Systems Review of Systems: All systems reviewed & are unremarkable except as noted in HPI and below [facility] Past Medical History Medical History Autism Barretts esophagus Chronic ear infection Constipation Dysphagia Feeding by G-tube Gastrostomy tube in place History of gastroesophageal reflux (GERD) History of gastrostomy tube placement History of Austin de la Tourette's syndrome History of hypertension History of neurogenic bladder Hypertension Mental disability Right hip pain Scoliosis Seizure disorder Suprapubic catheter Tourette syndrome Surgical History Surgical History History of cholecystectomy History of ear surgery 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 History of surgical removal of skin lesion Benign lesion to the neck Family History Family History Mother Family history of thyroid disease Hypertension COPD (chronic obstructive pulmonary disease) HTN (hypertension) with goal to be determined Father Congestive heart failure Other Family history of arthritis Social History Social History Smoking status: Never smoker Alcohol intake: never Substance use: never Substance use type: does not use Living arrangements: with family Gender identity (if verbalized by the patient): Male Spiritual care concerns: No Agree to blood products: Yes Meds Home Medications and Allergies Home Medications Medication Instructions Recorded Confirmed Type ergocalciferol (vitamin D2) 1,250 50,000 unit PO [id number] 11/26/19 05/29/24 History mcg (50,000 unit) capsule (Vitamin D2) lamotrigine 25 mg tablet 75 mg PO BID 11/26/19 05/29/24 History omeprazole 40 mg capsule,delayed 40 mg PO DAILY 11/26/19 05/29/24 History release polyethylene glycol 3350 17 gram 17 g PO WEEKLY 03/30/20 05/29/24 History oral powder packet (Miralax) sucralfate 1 gram tablet 1 g PO BID 03/30/20 05/29/24 History sennosides 8.8 mg/5 mL oral syrup 8.8 mg (5 mL) feeding tube HS #240 06/15/21 05/29/24 Rx (senna) mL carvedilol 3.125 mg tablet 3.125 mg PO Q12H 02/29/24 05/29/24 History linaclotide 72 mcg capsule 72 mcg PO QAM #30 caps 02/29/24 05/29/24 Rx (Linzess) Allergies Allergy/AdvReac Type Severity Reaction Status Date / Time adhesive tape Allergy Unknown SKIN Verified 05/29/24 14:02 BLISTERS Exam Narrative: SP tube Assessment and Plan Assessment and plan (1) Neurogenic bladder: Code(s): N31.9 - Neuromuscular dysfunction of bladder, unspecified Status: Acute Assessment and Plan: cystosocpy
--- NOTE | 2024-06-03 04:35 | WPDHPUPDATE1 ---
History and Physical Update Update Date/Time: 06/03/24 04:35 History and Physical has been reviewed, including an updated exam of the patient. There are NO changes in the patient's condition. Risks, benefits, and alternatives have been discussed and questions answered. Patient agrees to proceed with procedure.
[2024-06-03 13:28] VITALS: BP 136/96; PULSE 71; RESP 16; TEMP 36.7; O2SAT 99
[2024-06-03] MEDS: LACTATED RINGERS 1,000 ML 30 ML IV CONT (13:30)
[2024-06-03 14:26] VITALS: BP 100/66; PULSE 70; RESP 18; O2SAT 99
--- NOTE | 2024-06-03 14:28 | P.OP_ITS ---
Procedure Note - Detailed Date of Procedure 06/03/24 Pre-op Diagnosis flaccid neuropathic bladder Post-op Diagnosis Same Procedure Performed Cystoscopy Exchange of suprapubic catheter Surgeon Burke Alves MD Anesthesia MAC Indications He has a chronic indwelling suprapubic catheter. He has been in place for many years for unknown reasons. He presents for surveillance cystoscopy Findings Normal appearing bladder Description of Procedure He was readily identified. Informed consent obtained from his guardian. He was brought to the procedure room. He was given a light anesthetic. I removed the suprapubic tube. I performed cystoscopy. The bladder is examined. Small capacity bladder. There was no evidence of tumors. Unable to identify ureteral orifices. Some mild redness consistent with chronic catheter. Nothing concerning his bladder. A 20 Wallisian suprapubic tube was replaced. It was placed to gravity drainage. He was then taken to the recovery room in stable condition Estimated Blood Loss 0 Drains Yes (Suprapubic tube) Packing No Pathology None sent Complications No immediate complications Condition Stable Disposition PACU
--- NOTE | 2024-06-03 14:36 | WPDANESEPPF ---
Anes - Initial Pre Proc Eval Procedure: Operation Date: 06/03/24 14:30 Proposed Procedures p Cystoscopy - Burke Alves MD Date/Time: 06/03/24 14:36 Surgeon: Burke Alves MD Pre Op Diagnosis: flaccid neuropathic bladder Patient Data Age: 53 Gender: M Height: 1.52 m Weight: 58.9 kg Last Vital Signs Temp 98.1 F 06/03/24 13:28 Pulse 71 06/03/24 13:28 Resp 16 06/03/24 13:28 BP 136/96 H 06/03/24 13:28 Pulse Ox 99 06/03/24 13:28 O2 Del Method Room Air 06/03/24 13:28 Allergies Allergy/AdvReac Type Severity Reaction Status Date / Time adhesive tape Allergy Unknown SKIN Verified 06/03/24 13:27 BLISTERS Home Medications Medication Instructions Recorded Confirmed Type ergocalciferol (vitamin D2) 1,250 50,000 unit PO [id number] 11/26/19 05/29/24 History mcg (50,000 unit) capsule (Vitamin D2) lamotrigine 25 mg tablet 75 mg PO BID 11/26/19 06/03/24 History omeprazole 40 mg capsule,delayed 40 mg PO DAILY 11/26/19 05/29/24 History release polyethylene glycol 3350 17 gram 17 g PO WEEKLY 03/30/20 05/29/24 History oral powder packet (Miralax) sucralfate 1 gram tablet 1 g PO BID 03/30/20 05/29/24 History sennosides 8.8 mg/5 mL oral syrup 8.8 mg (5 mL) feeding tube HS #240 06/15/21 05/29/24 Rx (senna) mL carvedilol 3.125 mg tablet 3.125 mg PO Q12H 02/29/24 06/03/24 History linaclotide 72 mcg capsule 72 mcg PO QAM #30 caps 02/29/24 05/29/24 Rx (Linzess) Patient hx anesthesia problems: none Family hx anesthesia problems: none Results Review: All pre-operative results and documents have been reviewed as part of the pre-operative evaluation. 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 History of surgical removal of skin lesion Benign lesion to the neck Family History Family History Mother Family history of thyroid disease Hypertension COPD (chronic obstructive pulmonary disease) HTN (hypertension) with goal to be determined Father Congestive heart failure Other Family history of arthritis Social History Social History Smoking status: Never smoker Alcohol intake: never Substance use: never Substance use type: does not use Living arrangements: with family Gender identity (if verbalized by the patient): Male Spiritual care concerns: No Agree to blood products: Yes Anes - Eval Final PreProcedure Day of Procedure 06/03/24 14:36 Patient weight: normal Heart: regular rate and rhythm Lungs: clear to auscultation Neurological: alert and oriented and other (mentally challenged) Last oral intake: >/= 8 hours Emergent: no Anesthetic plan: proceed Anesthesia type and monitoring: general GIVS and standard monitoring Results Review: All pre-operative results and documents have been reviewed as part of the pre-operative evaluation. Informed Consent: The patient's anesthetic plan and its attendant risks and benefits were discussed with the patient/family/POA. Questions were solicited and answers provided to the satisfaction of the patient/family/POA.
[2024-06-03 14:55] VITALS: BP 101/67; PULSE 70; RESP 16
[2024-06-03 15:25] VITALS: BP 110/74; PULSE 72
[2024-06-03 15:30] VITALS: BP 117/72; PULSE 69; RESP 20
--- NOTE | 2024-06-03 15:37 | SUR.PHASEII ---
VSS. Patient disconnected from monitors at this time and assisted with dressing. Patient dressed and waiting for ride at this time.
== END 2024-06-03 16:00 | disposition home or self-care (01) ==
PROVIDERS: PCP Internal Medicine; Visit Provider Urology
PROC: 0TBB8ZX Excision of Bladder, Via Natural or Artificial Opening Endoscopic, Diagnostic (ICD-10-PCS; CPT 52204; principal; 2024-06-03 14:30)
DX: Z43.5 Encounter for attention to cystostomy (principal); I10 Essential (primary) hypertension; F84.0 Autistic disorder; K22.70 Barrett's esophagus without dysplasia; H66.91 Otitis media, unspecified, right ear; K21.9 Gastro-esophageal reflux disease without esophagitis; F95.2 Tourette's disorder; Z98.890 Other specified postprocedural states; Z90.49 Acquired absence of other specified parts of digestive tract; Z82.49 Family history of ischemic heart disease and other diseases of the circulatory system
CPT/HCPCS: 51705; J2704; J3010; J7120

== ENCOUNTER 2024-07-10 09:48 | Outpatient (CLI) | payer MEDICARE, MEDICAID, SELFPAY ==
--- NOTE | ~2024-07-10 | XR_ITS ---
EXAMINATION: XR barium swallow modified DATE: 07/10/2024 10:35 INDICATION: Chronic cough and pneumonia. TECHNIQUE: The patient was given barium-containing material of multiple consistencies to swallow by t carla speech pathologist while I performed fluoroscopy. Fluoroscopy exposure time was 0.4 minutes. The n umber of fluoroscopy images saved to the PACS was 1. Dose-area product was 0.298 Gy-cm^2. FINDINGS: The oral stage, pharyngeal stage, and cervical/esophageal stage of the swallow are normal. IMPRESSION: 1. Normal modified barium swallow. 2. Please refer to the speech therapy report for recommendations. Reviewed, dictated and finalized at location A.
--- NOTE | 2024-07-10 10:12 | ECHO_ITS ---
Patient Info Name: Trace Bowser Age: 53 years : 1970 Gender: Male Ht: 62 in Wt: 138 lbs BSA: 1.67 m2 Heart Rhythm: Sinus Rhythm Technical Quality: Good Exam Date: 07/10/2024 10:34 AM Exam Location: Echo Lab Patient Status: Outpatient Admit Date: 07/10/2024 Staff Ordering Physician: Db Gaitan MD Gwot Ia/[employer] Support: Margoth Redmond RDCS Attending Provider: Db Gaitan MD Referring Physician: Kandy RAVI; Exam Type: CA echo doppler color flow Study Info Indications - question elevated pulmonary artery systolic pressure Complete two-dimensional, color flow and Doppler transthoracic echocardiogram is performed. Summary 1. Complete two-dimensional, color flow and Doppler transthoracic echocardiogram is performed. 2. Left ventricular chamber dimension is normal. 3. Left ventricular systolic function is normal, estimated at 55-60%. 4. The left ventricular diastolic function is normal. 5. E/e' 8 is minimally elevated. 6. There is mild tricuspid valve regurgitation. 7. No pulmonary hypertension, estimated pulmonary arterial systolic pressure is 35 mmHg. 8. There is trace pulmonic regurgitation. Left Ventricle E/e' 8 is minimally elevated. Left ventricular chamber dimension is normal. Left ventricular systolic function is normal, estimated at 55-60%. The left ventricular diastolic function is normal. Right Ventricle Right ventricular systolic function is normal and with normal TAPSE 2.5 cm. Right ventricular chamber dimension is normal. Left Atria Left atrial chamber dimension is normal. Right Atria Right atrial chamber dimension is normal. Aortic Valve The aortic valve is trileaflet. There is no aortic valve stenosis. There is no aortic valve regurgitation. Pulmonic Valve There is trace pulmonic regurgitation. Mitral Valve There is no mitral valve stenosis. There is no mitral valve regurgitation. Tricuspid Valve There is mild tricuspid valve regurgitation. No pulmonary hypertension, estimated pulmonary arterial systolic pressure is 35 mmHg. Pericardium/Pleural There is no pericardial effusion. Inferior Vena Cava Normal inferior vena cava with >50% collapse upon inspiration consistent with normal right atrial pressure, 5 mmHg. Aorta The aortic root size at the sinus of Valsalva is normal. Left Ventricular Outflow Tract Name Value Normal LVOT 2D LVOT Diameter 1.9 cm LVOT Doppler LVOT Peak Gradient 2 mmHg LVOT Mean Gradient 1 mmHg LVOT VTI 13 cm LVOT VTI/AV VTI Ratio 0.7 LVOT Stroke Volume 36 ml LVOT CO 2.1 l/min LVOT CI 1.3 l/min/m2 Mitral Valve Name Value Normal MV Doppler MV Decel Hemphill 284 cm/s2 MV PHT 72 ms MV Area (PHT)
--- NOTE | 2024-07-10 11:19 | REHSTMBS ---
Assessment and note entered by Nel Neri, MANAGER INVESTMENT Modified Barium Swallow Evaluation Feeding Type Recommended Oral Food Consistency Regular, Level 7 Liquid Consistency Thin (0) ST Clinical Summary MODIFIED BARIUM SWALLOW STUDY This patient was seen for a Modified Barium Swallow study. His mother, who accompanied him to this evaluation, reported that patient has had lung issues and his physician is concerned that he may be aspirating when swallowing. She did mention he is on g-tube feedings and has a history of acid reflux. Patient was viewed in the lateral position to the level of C5/C6. Patient refused both liquid and pudding from therapist. Mother entered the room and was able to talk patient into drinking the thin liquid contrast medium after pretending to take a sip, herself, saying it was yummy, and then telling him it was a new kind of Mountain Dew. Then patient gave himself a very large sip, and took three swallows to clear the material from the oral space. No penetration or aspiration was noted throughout this evaluation and testing was terminated as mother reported patient will refuse the pudding consistency (which he had already refused for us). Results suggest this patient's swallowing for thin liquids is most likely within normal limits. Safe swallowing strategies can still be applied including small bites and sips, allow patient time to swallow in between presentations. Thank you for this referral.
== END 2024-07-10 09:49 | disposition home or self-care (01) ==
LOC: ANHIMG 09:49
PROVIDERS: PCP Internal Medicine; Visit Provider Internal Medicine Pulmonary Disease
DX: R05.3 Chronic cough (principal); M41.9 Scoliosis, unspecified; I10 Essential (primary) hypertension; I36.1 Nonrheumatic tricuspid (valve) insufficiency
CPT/HCPCS: 92611; 93306

== ENCOUNTER 2024-11-18 12:45 | Outpatient (CLI) | payer MEDICARE, MEDICAID, SELFPAY ==
--- OUTSIDE RECORDS SUMMARY | 2024-11-18 13:16 | XMS_ITS | Encounter Summary ---
Author Organization [facility] Healthcare Address [address] [place] [address] Care Team Providers Care Jamb Cutter Name Role Phone Minerva Wallis MD Primary Care Provider [phone] Param Webb MD Unavailable [phone] Encounter Details Date Type Department Care Team (Late st Contact Info) Description 10/20/2022 Telephone [facility] Imaging [address] [facility] [place] [address] Marivel Toth RN Social History Tobacco Use Types Packs/Day Years Used Date Smoking Tobacco: Never Smokeless Tobacco: Never Sex and Gender Information Value Date Recorded Sex Assigned at Not on file 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
--- OUTSIDE RECORDS SUMMARY | 2024-11-18 13:16 | XMS_ITS | CONTINUITY OF CARE DOCUMENT ---
Author Name feroz redman Address Unknown Organization [facility] Address [address] [place] [address] Phone [phone] Care Team Providers Care Star Route Mail Driver Name Role Phone Nito Yeboah MD Unavailable ALEX NEELY Unavailable [phone] SHELIA SALCEDO MD Unavailable PROBLEMS Condition Status Date Provider Notes CONSTIPATION, CHRONIC active Angie [place] GERD active Angie [place] MENTAL RETARDATION active Angie [place] DISORDER, TOURETTE active Angie Tyler EDEMA-5/08 NADEGE DOP NEG active ? Royal Navarrete RN ENCOUNTERS Date Type Provider Location Encounter Diagnosis - In-person encounter Office Visit Nito Yeboah MD [place] [facility] - In-person encounter Office Visit Nito Yeboah MD [place] [facility] EDEMA-508 NADEGE DOP NEG VITAL SIGNS Date Observation Value Provider blood pressure, diastolic 76 mm[Hg] Mendoza Navarrete RN blood pressure, systolic 114 mm[Hg] Royal Navarrete RN pulse rate 96 /min Royal Navarrete RN oxygen saturation, oximetry 98 % Royal Navarrete RN respiratory rate E&M 16 /min Royal courtney RN weight E&M 136 [lb_av] Royal Navarrete RN blood pressure, diastolic, left arm 92 mm [Hg] Danis Cesar blood pressure, systolic, left arm 134 mm [Hg] Danis Cesar blood pressure, diastolic, right arm 88 m m[Hg] Danis Arsenio blood pressure, systolic, right arm 134 m m[Hg] Danis Arsenio pulse rate 102 /min Danis Scalesd oxygen saturation, oximetry 100 % Danis Scalesd respiratory rate E&M 18 /min Danis rose weight E&M 130 [lb_av] Danis Arsenio ALLERGIES No Known Drug Allergies HISTORY OF MEDICATION USE Medication Status Instructions Dates Provider Indications Com ments PRAVACHOL 40 MG ORAL TABLET active ONE TAB. DAILY Royal Navarrete RN VITAMIN B12 TABLET active daily Royal Navarrete RN SULFAMETHOXAZOL E-TRIMETHOPRIM 800-160 MG ORAL TABLET active 1/2 tab at bedtime Royal Navarrete RN PRAVACHOL 40 MG ORAL TABLET completed ONE TAB. DAILY - Danis Cesar TESSALON PERLES 100 MG ORAL CAPSULE completed QD - Danis Cesar COREG 6.25 MG ORAL TABLET active ONE TAB. TWICE DAILY Angie Tyler IRON SUPPLEMENT TABLET active QD Angie Tyler NEXIUM CAPSULE DELAYED RELEASE active 30 MG QD Angie [place] REGLAN 10 MG ORAL TABLET completed ONE TAB. DAILY - Danis Cesar FOLIC ACID CAPS active 1 MG QD Angie Tyler SOCIAL HISTORY Date Observation Value Provider social history E&M Marital Statu s: Single L lane with family/friends E thnicity: Royal Navarrete RN social history reviewed E&M reviewed Royal Navarrete RN social history reviewed E&M reviewed Nito Yeboah MD physical exercise, f requency, days per week yes [employer] caffeine use, averag e drinks per day no [employer] alcohol use, average drinks per day none [employer] smoking status Non-smoker [employer] MENTAL STATUS Date Observation Value Provider assessment of judgme nt and insight E&M Alert and oriented to time, place and person. Mood and affect are normal. Royal Navarrete RN assessment of judgme nt and insight E&M Alert and oriented to time, place and person. Mood and affect are normal. Nito Yeboah MD INSURANCE PROVIDERS Payer name Policy type / Coverage type Beerket red republican ID [facility] Medicaid 0 [id number] [place] [employer] Medicare [id number] TREATMENT PLAN Date Name Performer : H is updated medication list for this problem includes: Coreg 6.25 Mg Tabs (Carvedilol) ..... One tab. twice daily Pravachol 40 Mg Tabs (Pravastatin sodium) ..... One tab. daily & #13;BP today: 114/76 Prior BP: / () Orders: C omplete Echo ([id number]) Nito Yeboah MD Nito Yeboah MD Nito Yeboah MD : H is updated medication list for this problem includes: Coreg 6.25 Mg Tabs (Carvedilol) ..... One tab. twice daily BP today: 114/76 Prior BP: / () H olter Monitor Comments: SR with a amx HR of 115bpm and a min HR of 53bpm. Occasional PVCs. [facility] (10/17/2007) E chocardiogram: LV EF 52%. MIld LV diastolic dysfunction. Mild eliza-septal wall hypokinesis compatible with ischemia or infarction. Trace MR. Mild TR. Trace TR. RVSP 33mmHg. [facility] (10/02/2007) Nito Yeboah MD : O rders: E KG ([id number]) Nito Yeboah MD leg swollen: H is updated medication list for this problem includes: Coreg 6.25 Mg Tabs (Carvedilol) ..... One tab. twice daily d iff to assess Nito Yeboah MD leg swollen:check venous doppler . r/o dvt. Nito Yeboah MD leg swollen Nito Yeobah MD leg swollen: T he following medications were removed from the medication list: Pravachol 40 Mg Tabs (Pravastatin sodium) ..... One tab. daily His updated medication list for this problem includes: Coreg 6.25 Mg Tabs (Carvedilol) ..... One tab. twice daily Nito Yeboah MD Date Name Complete Echo Venous Doppler Bilat eral UE HISTORY OF PROCEDURES Procedure Date Procedure Name Provider Procedure Notes S tatus EKG Nito Yeboah MD completed
--- OUTSIDE RECORDS SUMMARY | 2024-11-18 13:16 | XMS_ITS | Patient Health Summary ---
Author Organization [facility] Address [address] [place] [address] Care Team Providers Care Naval Science Teacher Name Role Phone Minerva Wallis MD Primary Care Provider Note from Formerly named [facility],non-owned Affiliates and Associated Physician Practices is amultiple site organization consisting of ambulatory clinics and hospital sitesin [place], [place], [place] and [place]. This disclosure is being madepursuant to the Care Everywhere program and may not contain all information available regarding this patient. Last updated 18.[facility] Active Problems Problem Noted Date Diagnosed Date Complicated UTI (urinary tract infection) 2021 Social History Tobacco Use Types Packs/Day Years Used Date Smoking Tobacco: Never Smokeless Tobacco: Never Alcohol Use Standard Drinks/Week Comments No 0 (1 standard drink = 0.6 oz pur e alcohol) Sex and Gender Information Value Date Recorded Sex Assigned at Not on file Gender Identity Not on file Sexual Orientation Not on file Procedures * LAB HISTORICAL RESULTS-ONBASE(Performed 09/25/2013) * BASIC METABOLIC PANEL (CALCIUM TOTAL)(Performed 05/30/2012) * CBC W AUTO DIFFERENTIAL(Performed 05/30/2012) * CULTURE URINE(Performed 03/20/2012) * LAB HISTORICAL RESULTS-ONBASE(Performed 02/24/2012) Results * LAB HISTORICAL RESULTS-ONBASE (09/25/2013) Only the most recent of2 resultswithin the time period is included. 09/25/2013 Narrative [facility] - 10/07/2013 3:17 PM MANAGER PRACTICE Historical Provider LAB - CHEMISTRY O RDERABLES [facility] [address] * (ABNORMAL) CBC W AUTO DIFFERENTIAL (05/30/2012 2:17 PM CDT) WBC 7.7 3.5 - 10.5 10^3/uL [facility] RBC 4.43 4.30 - 5.70 10^6/uL [facility] Hemoglobin 14.0 13.5 - 17.5 g/dL [facility] Hematocrit 40.0 39.0 - 50.0 % [facility] MCV 90.3 81.0 - 97.0 FL [facility] MCH 31.6 28.0 - 34.0 PG [facility] MCHC 35.0 32.0 - 36.0 G/DL [facility] Platelet 277 150 - 400 10^3/uL [facility] RDW 13.1 11.2 - 14.8 % [facility] RDW-SD 43.0 36 - 50 FL [facility] MPV 8.6(L) 9.3 - 12.8 FL [facility] Neutrophils % 67.2 35.0 - 70.0 % [facility] Lymphocytes % 18.8(L) 19.7 - 55.1 % [facility] Monocytes % 10.3 3 - 15 % [facility] Eosinophils % 3.0 0.0 - 6.0 % [facility] Basophils % 0.7 0.0 - 1.5 % [facility] Neutrophils Absolute 5.2 1.7 - 7.0 10^3/uL [facility] Lymphocyte Absolute 1.4 0.8 - 2.9 10^3/uL [facility] Monocytes Absolute 0.8(H) 0.14 - 0.66 10^3/uL [facility] Eosinophils Absolute 0.23(H) 0.00 - 0.22 10^3/uL [facility] Basophils Absolute 0.05 0.02 - 0.06 10^3/uL [facility] Differential Type REVIEWED [facility] Comment:AUTO DIFFERENTIAL RIVERA S BEEN CONFIRMED BY MANUAL REVIEW. Neutrophils Absolute Manual GUIDE DOG TRAINER 1.7 - 7.0 10^3/uL [facility] Comment:(BANDS AND SEGS) X W BC = NEUT # (ANC) Venous blood specimen (specimen) 05/30/2012 2:17 PM CDT 05/30/2012 2:21 PM CDT Historical Provider LAB - HEMATOLOGY ORDERABLES Performing Organization Address [facility] Co de Phone Number [address] [phone] * BASIC METABOLIC PANEL (CALCIUM TOTAL) (05/30/2012 2:17 PM CDT) BUN 11 7 - 26 mg/dL [facility] Creatinine 0.7 0.6 - 1.2 mg/dL [facility] eGFR by MDRD > 60 ML/MIN [facility] Comment: Chronic kidney disease: ??<60 ml/min Kidney failure: ?<15 ml/min Based on BSA of 1.73m2. Sodium 142 136 - 145 mmol/L [facility] Potassium 3.8 3.5 - 4.5 mmol/L [facility] Chloride 107 98 - 107 mmol/L [facility] CO2 25 22 - 29 mmol/L [facility] Glucose 107 70 - 115 mg/dL [facility] Calcium 8.8 8.4 - 10.2 mg/dL [facility] Anion Gap 14 8 - 18 [facility] BUN/Creatinine Ratio 15 7 - 23 [facility] Osmolality Calculation 277 270 - 300 mOsm/kg [facility] Venous blood specimen (specimen) 05/30/2012 2:17 PM CDT 05/30/2012 2:21 PM CDT Historical Provider LAB - CHEMISTRY O RDERABLES Performing Organization Address [facility]/ZIP Co de Phone Number [address] [phone] * CULTURE URINE (03/20/2012 2:49 PM CDT) Culture Urine NO GROWTH OF >100 CFU/ML AFTER 24 HOURS. AFTER 48 HOURS, 10,000 CFU/ML YEAST BEING IDENTIFIED. YEAST IDENTIFIED [SERA ALBICANS]. [facility] Culture Results [facility] Organism ID SERA ALBICANS [facility] Urine specimen (specimen) 03/20/2012 2:49 PM CDT 03/20/2012 3:08 PM CDT Hunter Roca MD LAB - MICROBIOLOGY ORDERABLES [facility] [address] [place] [address] Care Teams [employer] Teacher Relationship Specialty Start Date End Date Minerva Wallis MD PCP - General 10/18/16
--- OUTSIDE RECORDS SUMMARY | 2024-11-18 13:16 | XMS_ITS | Clinical Summary ---
Author Organization [facility] Address [address] [place] [address] Care Team Providers Care Consumer Affairs Specialist Name Role Phone Minerva Wallis MD Primary Care Provider [phone] Source Comments [facility],non-owned Affiliates and Associated Physician Practices is amultiple site organization consisting of ambulatory clinics and hospital sitesin [place], [place], [place] and [place]. This disclosure is being madepursuant to the Care Everywhere program and may not contain all information available regarding this patient. Last updated 18.[facility] Keep Me Certified Active Problems Problem Noted Date Diagnosed Date [...] on file Sexual Orientation Not on file Plan of Treatment Health Maintenance Due Date Last Done Comments COLOGUARD (AGES 45-75) - COL ON CA SCREENING 1970 COLON MONITORING 1970 COLONOSCOPY - COLON CA SCREENING 1970 CT COLONOGRAPHY - COLON CA SCREENING 1970 Colorectal Cancer Screening 1970 FIT - COLON CA SCREENING 1970 FLEX SIG - COLON CA SCREENING 1970 LIPID TESTING 1970 MEDICARE AWV ? 12 MONTHS 1970 HIV SCREENING 1985 HEPATITIS C SCREENING 09/18/1988 DTAP/TDAP/TD VACCINES (1 - Tdap) 1989 HEPATITIS B VACCINE (1 of 3 - 19+ 3-dose series) 1989 PNEUMOCOCCAL VACCINE 50+ (1 of 1 - PCV) 2020 ZOSTER VACCINE (1 of 2) 2020 COVID-19 VACCINE (1 2023-2 5 season) 2024 INFLUENZA VACCINE (#1) 2024 DEPRESSION SCREENING 10/23/2024 HIB VACCINE Aged Out No longer eligi ble based on patient's age to complete this topic HPV VACCINE Aged Out No longer eligi ble based on patient's age to complete this topic MENINGOCOCCAL (Group B) VACCINE Aged Out No longer eligible based on patient's age to complete this topic MENINGOCOCCAL VACCINE Aged Out No harmony helen eligible based on patient's age to complete this topic PNEUMOCOCCAL VACCINE Aged Out No long er eligible based on patient's age to complete this topic Care Teams Consumer Affairs Specialist Relationship Specialty Start Date End Date Minerva Wallis MD PCP - General 10/18/16
--- OUTSIDE RECORDS SUMMARY | 2024-11-18 13:16 | XMS_ITS | Clinical Summary ---
Author Organization [facility] Address [address] [place] [address] Care Team Providers Care Hand Packager Name Role Phone Minerva Wallis MD Primary Care Provider [phone] Param Webb MD Unavailable [phone] Allergies Active Allergy Reactions Criticality Noted Date Comments Adhesive Other (See comments) Low Reaction: Latex Blisters,Rash High 07/30/2019 Latex breaks skin out and blisters Rash Medications lamoTRIgine (LaMICtal) 25 mg tablet Take 3 tablets (75 mg total) by mouth 2 (two) times a day 03/26/20 18 Active omeprazole (PriLOSEC) 40 mg capsule Take 1 capsule (40 mg total) by mouth daily 04/04/20 18 Active polyethylene glycol (MIRALAX) 17 gram/dose powder Take 17 g by mouth continuously as needed Active ferrous gluconate 324 mg (37.5 mg of elemental iron) tablet Take 1 tablet (324 mg total) by mouth every 14 (fourteen) days Active sucralfate (CARAFATE) 1 gram tablet Take 1 tablet (1 g total) by mouth 2 (two) times a day 10/08/20 19 Active ergocalciferol (VITAMIN D) 50,000 unit capsule Take 1 capsule (50,000 Units total) by mouth once a week 11/22/19 24 Active loratadine (CLARITIN) 10 mg tablet Take 1 tablet (10 mg total) by mouth daily 11/29/[address] (PROTONIX) 40 mg EC tablet Take 1 tablet (40 mg total) by mouth daily 11/27/19 24 Active cyanocobalamin (vitamin B-12) 100 mcg tablet Take 1 tablet (100 mcg total) by mouth every [address] (NexIUM) 20 mg capsule Take 1 capsule (20 mg total) by mouth daily before breakfast Active Linzess 72 mcg capsule Take 1 capsule (72 mcg total) by mouth daily 02/29/20 24 Active promethazine (PHENERGAN) 1.25 mg/mL syrup Take 5 mL (6.25 mg total) by mouth 2 (two) times a day as needed for nausea or vomiting 03/29/20 24 Active carvediloL (COREG) 3.125 mg tablet TAKE 1 TABLET BY MOUTH TWICE DAILY WITH MEALS 180 tablet 08/16/20 24 Active Additional Information Patient taking differently:3.125 mg oral2 times daily with meals (bkfst, dinner), Reported on 11/15/2024 cephalexin (KEFLEX) 500 mg capsule Take 1 capsule (500 mg total) by mouth 3 (three) times a day 04/05/20 18 025 Discontinu ed(Duplica te order) levoFLOXacin (LEVAQUIN) 500 mg tablet Take 1 tablet (500 mg total) by mouth daily 05/20/20 24 025 Discontinu ed(Therapy completed) cephalexin (KEFLEX) 500 mg capsule Take 1 capsule (500 mg total) by mouth 3 (three) times a day for 14 days 42 capsule 10/14/20 24 025 Active Problems Problem Noted Date Diagnosed Date Gastrojejunostomy tube dislodgement 10/23/2024 Assessment & Plan (10/24/2024 12:19 PM REPRESENTATIVE GOVERNMENT RELATIONS): Tube dislodged at home -gauze placed over opening, no tract insertion -IR today for G-J tube replacement this afternoon Assessment & Plan (10/24/2024 2:00 AM REPRESENTATIVE GOVERNMENT RELATIONS): -IR consult for G-J tube replacement in AM -if not amenable to IR replacement, may need surgical consult vs. 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/20/2019 Developmental delay 08/20/2019 Tourette's disorder 02/05/2008 Intellectual disability 02/05/2008 Assessment & Plan (10/24/2024 12:22 PM REPRESENTATIVE GOVERNMENT RELATIONS): Patient's Mother in the room to help communicate Gastroesophageal reflux disease 02/05/2008 Constipation, chronic 02/05/2008 Assessment & Plan (10/24/2024 12:22 PM REPRESENTATIVE GOVERNMENT RELATIONS): Cont Linzess Resolved Problems Problem Noted Date Diagnosed Date Resolved Date Otorrhea of right ear 07/29/20192020 Encounters Date Type Department Care Team Description 11/15/2024 12:37 PM REPRESENTATIVE GOVERNMENT RELATIONS - 11/15/2024 11:59 PM REPRESENTATIVE GOVERNMENT RELATIONS Hospital Encounter [facility] Radiology [facility] [place] [address] [place] [address] Dysphagia, unspecified type Discharge Disposition: Discharge to home or self care 10/23/2024 7:19 PM REPRESENTATIVE GOVERNMENT RELATIONS - 10/24/2024 5:00 PM REPRESENTATIVE GOVERNMENT RELATIONS Emergency [facility] [id number] [place] [address] [address] Rufus Rivera MD Freer, Eric Brambila MD Gastrojejunostomy tube dislodgement (Primary Dx) Discharge Disposition: Discharge to home or self care 10/15/2024 11:00 AM REPRESENTATIVE GOVERNMENT RELATIONS - 10/15/2024 11:59 PM REPRESENTATIVE GOVERNMENT RELATIONS Hospital Encounter [facility] Radiology [address] [address] Developmental non-verbal disorder Discharge Disposition: Discharge to home or self care 10/14/2024 12:00 PM REPRESENTATIVE GOVERNMENT RELATIONS - 10/14/2024 11:59 PM REPRESENTATIVE GOVERNMENT RELATIONS Hospital Encounter [facility] Imaging [id number] [place] [address] [address] Gastrostomy tube dependent (CMS/HCC) (HCC) Discharge Disposition: Discharge to home or self care 2024 Telephone [facility] Otolaryngology [address] [place] [address] Xochilt Travis Infection from Last 3 Months Immunizations Name Administration Dates Next Due Influenza, Quadrivalent, Veena l Culture-based MDCK, Preservative Free, Antibiotic Free, Intramuscular 08/18/2021 Surgical History Surgery Date Site/Laterality Comments GJ-TUBE EXCHANGE 05/13/2016 N/A GJ-TUBE EXCHANGE 01/12/2016 N/A GJ-TUBE EXCHANGE 06/12/2015 N/A GJ-TUBE EXCHANGE 03/05/2015 N/A GJ-TUBE EXCHANGE 10/09/2014 N/A GJ-TUBE EXCHANGE 05/14/2014 N/A GJ-TUBE EXCHANGE 01/16/2014 N/A GJ-TUBE EXCHANGE 09/20/2013 N/A GJ-TUBE EXCHANGE 05/30/2013 N/A GJ-TUBE EXCHANGE 03/11/2013 N/A GJ-TUBE EXCHANGE 02/05/2013 N/A ENTERIC TUBE INJECTION 01/04/2013 N/A GJ-TUBE EXCHANGE 12/05/2016 N/A GJ-TUBE EXCHANGE 07/25/2016 N/A GJ-TUBE EXCHANGE 04/16/2018 N/A GJ-TUBE EXCHANGE 08/24/2018 N/A GJ-TUBE EXCHANGE 11/09/2018 N/A GJ-TUBE EXCHANGE 01/28/2019 N/A GJ-TUBE EXCHANGE 05/09/2019 N/A EAR SURGERY GJ-TUBE EXCHANGE 07/30/2019 N/A GJ-TUBE EXCHANGE 11/22/2019 N/A GJ-TUBE EXCHANGE 02/11/2020 N/A GJ-TUBE EXCHANGE 03/12/2020 N/A GJ-TUBE EXCHANGE 06/16/2020 N/A GJ-TUBE EXCHANGE 09/30/2020 N/A GJ-TUBE EXCHANGE 11/23/2020 N/A GJ-TUBE EXCHANGE 02/08/2021 N/A GJ-TUBE EXCHANGE 04/12/2021 N/A GJ-TUBE EXCHANGE 06/21/2021 N/A GJ-TUBE EXCHANGE 08/23/2021 N/A GJ-TUBE EXCHANGE 10/28/2021 N/A GJ-TUBE EXCHANGE 01/10/2022 N/A GJ-TUBE EXCHANGE 03/22/2022 N/A GJ-TUBE EXCHANGE 05/13/2022 N/A GJ-TUBE EXCHANGE 07/11/2022 N/A GJ-TUBE EXCHANGE 09/19/2022 N/A GJ-TUBE EXCHANGE 11/14/2022 N/A GJ-TUBE EXCHANGE 01/11/2023 N/A ENTERIC TUBE INJECTION 01/27/2023 N/A GJ-TUBE EXCHANGE 02/06/2023 N/A GJ-TUBE EXCHANGE 03/24/2023 N/A GJ-TUBE EXCHANGE 05/04/2023 N/A GJ-TUBE EXCHANGE 06/15/2023 N/A GJ-TUBE EXCHANGE 07/26/2023 N/A GJ-TUBE EXCHANGE 09/06/2023 N/A GJ-TUBE EXCHANGE 10/25/2023 N/A GJ-TUBE EXCHANGE 12/05/2023 N/A GJ-TUBE EXCHANGE 01/22/2024 N/A GJ-TUBE EXCHANGE 03/19/2024 N/A GJ-TUBE EXCHANGE 04/03/2024 N/A GJ-TUBE EXCHANGE 07/26/2024 N/A GJ-TUBE EXCHANGE 10/14/2024 N/A GJ-TUBE EXCHANGE 10/24/2024 N/A GJ-TUBE EXCHANGE 11/15/2024 N/A Medical History Medical History Date Comments GERD (gastroesophageal reflux disease) UTI (urinary tract infection) Seizure (HCC) Acid reflux disease Sinus infection Mental disorder Ear problems HL (hearing loss) Tourette disorder Family History Medical History Relation Name Comments Heart disease Mother Relation Name Status Comments Mother Social History Tobacco Use Types Packs/Day Years Used Date Smoking Tobacco: Never Smokeless Tobacco: Never Tobacco Cessation:Counseling Given: Not Answered Personal Safety Answer Date Recorded Have you ever been in or are you currently in a harmful physical or emotional relationship or is someone making you feel afraid or unsafe? Denies 11/15/2024 Sex and Gender Information Value Date Recorded Sex Assigned at Not on file Legal Sex Male 4:02 AM REPRESENTATIVE GOVERNMENT RELATIONS Gender Identity Not on file Sexual Orientation Not on file Obstetrics History Last Filed Vital Signs Vital Sign Reading Time Taken Comments Blood Pressure 116/80 11/15/2024 2:40 PM REPRESENTATIVE GOVERNMENT RELATIONS Pulse 67 11/15/2024 2:40 PM REPRESENTATIVE GOVERNMENT RELATIONS Temperature 36 ??C (96.8 ??F) 11/15/2024 2:40 PM REPRESENTATIVE GOVERNMENT RELATIONS Respiratory Rate 23 11/15/2024 2:40 PM REPRESENTATIVE GOVERNMENT RELATIONS Oxygen Saturation 95% 11/15/2024 2:40 PM REPRESENTATIVE GOVERNMENT RELATIONS Inhaled Oxygen Concentration - - Weight 56.7 kg (125 lb) 11/15/2024 1:06 PM REPRESENTATIVE GOVERNMENT RELATIONS Height 162.6 cm (5' 4 ) 10/23/2024 5:40 PM REPRESENTATIVE GOVERNMENT RELATIONS Body Mass Index 21.46 10/23/2024 5:40 PM REPRESENTATIVE GOVERNMENT RELATIONS Plan of Treatment Health Maintenance Due Date Last Done Comments Colon Cancer Screening-Colonoscopy 1970 Depression Screening 1970 Hepatitis C Screening 1970 Prostate Cancer Screening-PSA 1970 DTaP/Tdap/Td Vaccine (1 - Tdap) 1981 Hepatitis B Screening 1988 Regular Well Visit/Exam 18-64 1988 Zoster Vaccine (1 of 2) 2020 Influenza Vaccine (#1) 2024 08/18/2021 Pneumococcal vaccine <65 Aged Out No longer eligible based on patient's age to complete this topic Procedures Procedure Name Priority Date/Time Associated Diagnosis Comments GJ-TUBE EXCHANGE Schedule Routine, Read Routine (OP Routine) 11/15/2024 2:40 PM REPRESENTATIVE GOVERNMENT RELATIONS Dysphagia, unspecified type GJ-TUBE EXCHANGE IP Routine 10/24/2024 3:21 PM REPRESENTATIVE GOVERNMENT RELATIONS LIPID PANEL Add-On 10/23/2024 8:17 PM REPRESENTATIVE GOVERNMENT RELATIONS EGFR STAT 10/23/2024 8:17 PM REPRESENTATIVE GOVERNMENT RELATIONS DIFFERENTIAL AUTO STAT 10/23/2024 8:1 7 PM REPRESENTATIVE GOVERNMENT RELATIONS APTT STAT 10/23/2024 8:17 PM REPRESENTATIVE GOVERNMENT RELATIONS PROTIME-INR STAT 10/23/2024 8:17 PM REPRESENTATIVE GOVERNMENT RELATIONS COMPREHENSIVE METABOLIC PANEL STAT 10/23/2024 8:17 PM REPRESENTATIVE GOVERNMENT RELATIONS CBC WITH AUTO DIFFERENTIAL STAT 10/23/2024 8:17 PM REPRESENTATIVE GOVERNMENT RELATIONS IR FOLLOW UP OUTPATIENT Schedule Routine, Read Routine (OP Routine) 10/15/2024 2:48 PM REPRESENTATIVE GOVERNMENT RELATIONS Developmental non-verbal disorder GJ-TUBE EXCHANGE Schedule Routine, Read Routine (OP Routine) 10/14/2024 2:05 PM REPRESENTATIVE GOVERNMENT RELATIONS Gastrostomy tube dependent (CMS/HCC) (HCC) from Last 3 Months Results * IR GJ-Tube Exchange (11/15/2024 2:40 PM REPRESENTATIVE GOVERNMENT RELATIONS) Anatomical Region Laterality Modality Body N/A X-Ray Angiograph y 11/15/2024 5:45 PM REPRESENTATIVE GOVERNMENT RELATIONS Impressions 11/15/2024 5:45 PM REPRESENTATIVE GOVERNMENT RELATIONS Successful percutaneous gastrojejunostomy catheter exchange. PLAN: The catheter is ready for immediate feeding through the jejunal port. Please flush the catheter with 20 cc of water after every feed and every 8 hours. Do not use crushed pills through the jejunal lumen. ?? Electronically signed by: Eric Julio M.D. Narrative 11/15/2024 5:45 PM REPRESENTATIVE GOVERNMENT RELATIONS EXAMINATION: ??GASTROJEJUNOSTOMY TUBE EXCHANGE HISTORY/INDICATION: ??Feeding difficulties managed with 22Fr dual lumen GJ tube, 45cm. ??Tube has pulled back ATTENDING PRESENCE: Eric Julio M.D., the attending radiologist was present from the beginning to the end of the procedure. ?? SEDATION: ??Patient did not require sedation for this procedure TECHNIQUE: Prior to beginning the procedure, [place] Protocol was performed to confirm the patient's identity and the planned procedure. ??For procedures that utilize fluoroscopy, the fluoroscopy time has been recorded in the electronic medical record. The skin over the stomach and the existing catheter was prepped and draped. ?? Using fluoroscopic guidance, a guidewire was passed through the existing catheter and placed in the proximal jejunum. The existing catheter was then removed over the wire. A 22Fr, 45cm long gastrojejunostomy tube was placed with its tip in the proximal jejunum. Contrast injection confirmed appropriate positioning of the catheter. It was secured to the skin and a dressing applied. ESTIMATED BLOOD LOSS: Minimal. CONDITION: Stable DISCHARGED TO: Home FINDINGS: ??Fluoroscopic spot image demonstrates the gastrojejunostomy catheter with its tip in the proximal jejunum. ??No complications are seen. Procedure Note Eric Julio MD PhD - 11/15/2024 EXAMINATION: GASTROJEJUNOSTOMY TUBE EXCHANGE HISTORY/INDICATION: Feeding difficulties managed with 22Fr dual lumen GJ tube, 45cm. Tube has pulled back ATTENDING PRESENCE: Eric Julio M.D., the attending radiologist was present from the beginning to the end of the procedure. SEDATION: Patient did not require sedation for this procedure TECHNIQUE: Prior to beginning the procedure, [place] Protocol was performed to confirm the patient's identity and the planned procedure. For procedures that utilize fluoroscopy, the fluoroscopy time has been recorded in the electronic medical record. The skin over the stomach and the existing catheter was prepped and draped. Using fluoroscopic guidance, a guidewire was passed through the existing catheter and placed in the proximal jejunum. The existing catheter was then removed over the wire. A 22Fr, 45cm long gastrojejunostomy tube was placed with its tip in the proximal jejunum. Contrast injection confirmed appropriate positioning of the catheter. It was secured to the skin and a dressing applied. ESTIMATED BLOOD LOSS: Minimal. CONDITION: Stable DISCHARGED TO: Home FINDINGS: Fluoroscopic spot image demonstrates the gastrojejunostomy catheter with its tip in the proximal jejunum. No complications are seen. IMPRESSION: Successful percutaneous gastrojejunostomy catheter exchange. PLAN: The catheter is ready for immediate feeding through the jejunal port. Please flush the catheter with 20 cc of water after every feed and every 8 hours. Do not use crushed pills through the jejunal lumen. Electronically signed by: Eric Julio M.D. Ernie Hui MD [facility] [place] PROCEDURES Final Re sult * IR GJ-Tube Exchange (10/24/2024 3:21 PM REPRESENTATIVE GOVERNMENT RELATIONS) Anatomical Region Laterality Modality Body N/A Ultrasound 10/24/2024 3:28 PM REPRESENTATIVE GOVERNMENT RELATIONS Impressions 10/24/2024 3:29 PM REPRESENTATIVE GOVERNMENT RELATIONS Successful percutaneous 22-Estonian 45 cm balloon retention gastrojejunostomy catheter exchange. PLAN: The catheter is ready for immediate feeding through the jejunal port. Please flush the catheter with 20 cc of water after every feed and every 8 hours. Do not use crushed pills through the jejunal lumen. ??Patient would require antibiotics and site care to ensure site heals appropriately. Dictated by: Frantz Dang M.D. The radiology attending physician has personally reviewed this study, and had reviewed and/or edited this written report and agrees with it. Electronically signed by: Dg Martinez M.D. Narrative 10/24/2024 3:29 PM REPRESENTATIVE GOVERNMENT RELATIONS EXAMINATION: ??GASTROJEJUNOSTOMY TUBE EXCHANGE HISTORY/INDICATION: ??54-year-old male with dislodged gastrojejunostomy catheter presenting for replacement. Catheter was last replaced (10/14/2024). Significant irritation/inflammation is seen surrounding the stoma. PROVIDER PRESENCE: Dg Martinez M.D. was present from the beginning to the end of the procedure. ?? SEDATION: ??None. TECHNIQUE: ??The risks, benefits and alternatives were discussed and informed consent was obtained. Prior to beginning the procedure, [place] Protocol was performed to confirm the patient's identity and the planned procedure. ??For procedures that utilize fluoroscopy, the fluoroscopy time has been recorded in the electronic medical record. Maximum sterile barriers including cap, mask, hand hygiene, sterile gloves, sterile gown, large sterile drape and pyodine for cutaneous antisepsis were used. The skin over the stomach and the existing catheter was sterilely prepped, draped. Using fluoroscopic guidance, a Kumpe and guidewire was passed through the existing catheter and placed in the proximal jejunum. The existing catheter was then removed over the wire. A 22-Estonian 45 cm gastrojejunostomy tube was placed with its tip in the proximal jejunum. Contrast injection confirmed appropriate positioning of the catheter. It was secured to the skin and a dressing applied. ESTIMATED BLOOD LOSS: Minimal. CONDITION: Stable DISCHARGED TO: Home. FINDINGS: ??Fluoroscopic spot image demonstrates the gastrojejunostomy catheter with its tip in the proximal jejunum. ??No complications are seen. Procedure Note Dg Martinez MD - 10/24/2024 EXAMINATION: GASTROJEJUNOSTOMY TUBE EXCHANGE HISTORY/INDICATION: 54-year-old male with dislodged gastrojejunostomy catheter presenting for replacement. Catheter was last replaced (10/14/2024). Significant irritation/inflammation is seen surrounding the stoma. PROVIDER PRESENCE: Dg Martinez M.D. was present from the beginning to the end of the procedure. SEDATION: None. TECHNIQUE: The risks, benefits and alternatives were discussed and informed consent was obtained. Prior to beginning the procedure, [place] Protocol was performed to confirm the patient's identity and the planned procedure. For procedures that utilize fluoroscopy, the fluoroscopy time has been recorded in the electronic medical record. Maximum sterile barriers including cap, mask, hand hygiene, sterile gloves, sterile gown, large sterile drape and pyodine for cutaneous antisepsis were used. The skin over the stomach and the existing catheter was sterilely prepped, draped. Using fluoroscopic guidance, a Kumpe and guidewire was passed through the existing catheter and placed in the proximal jejunum. The existing catheter was then removed over the wire. A 22-Estonian 45 cm gastrojejunostomy tube was placed with its tip in the proximal jejunum. Contrast injection confirmed appropriate positioning of the catheter. It was secured to the skin and a dressing applied. ESTIMATED BLOOD LOSS: Minimal. CONDITION: Stable DISCHARGED TO: Home. FINDINGS: Fluoroscopic spot image demonstrates the gastrojejunostomy catheter with its tip in the proximal jejunum. No complications are seen. IMPRESSION: Successful percutaneous 22-Estonian 45 cm balloon retention gastrojejunostomy catheter exchange. PLAN: The catheter is ready for immediate feeding through the jejunal port. Please flush the catheter with 20 cc of water after every feed and every 8 hours. Do not use crushed pills through the jejunal lumen. Patient would require antibiotics and site care to ensure site heals appropriately. Dictated by: Frantz Dang M.D. The radiology attending physician has personally reviewed this study, and had reviewed and/or edited this written report and agrees with it. Electronically signed by: Dg Martinez M.D. Rufus Rivera MD [facility] IR PROCEDURES Final Res ult * eGFR (10/23/2024 8:17 PM REPRESENTATIVE GOVERNMENT RELATIONS) eGFR >90 >=60 mL/min/1. 73 m2 Comment: Interpretive Data Reference Interval Normal ?>/= 90 mL/min/1.73m2 Mildly decreased* ? 60 - 89 mL/min/1.73m2 Mildly to moderately decreased ?45 - 59 mL/min/1.73m2 Moderately to severely decreased ??30 - 44 mL/min/1.73m2 Severely decreased ?15 - 29 mL/min/1.73m2 Kidney Failure ?< 15 ??mL/min/1.73m2 *Relative to young adult level Estimated glomerular filtration rate is determined by the 2020 CKD-EPI equation recommended by the National Kidney Foundation (A Unifying Approach to GFR Estimation: Recommendations of the NKF-ASK Task Force on Reassessing the Inclusion of Race in Diagnosing Kidney Disease, JASN 2020). The CKD-EPI equation should not be used for patients with unstable renal function and has not been validated in children and those over 70. Current interpretive data was last reviewed 2021. Blood 10/23/2024 8:17 PM REPRESENTATIVE GOVERNMENT RELATIONS 10/23/2024 8:19 PM REPRESENTATIVE GOVERNMENT RELATIONS us Shavon Lira [facility] LAB BLOOD ORDERABLES Lisa bourgeois Result [facility] [address] [facility]. Department [place] [address] * Differential, auto (10/23/2024 8:17 PM REPRESENTATIVE GOVERNMENT RELATIONS) Neutrophil abs 4.3 1.5 - 6.5 K/cumm Imm gran abs 0.1 0.0 - 0.1 K/cumm [facility] Lymphocyte abs 1.5 0.8 - 3.3 K/cumm [facility] Monocyte abs 0.5 0.2 - 0.8 K/cumm [facility] Eosinophil abs 0.2 0.0 - 0.5 K/cumm [facility] Basophil abs 0.1 0.0 - 0.1 K/cumm [facility] Neutrophil pct 63.8 % [facility] Comment: Interpretive Data Percent cell count reference ranges are not reported, since discordance with absolute values may lead to misinterpretation of CBC data. Current Interpretive Data was last revised on 2018. Imm gran pct 1.5 % [facility] Comment: Interpretive Data Percent cell count reference ranges are not reported, since discordance with absolute values may lead to misinterpretation of CBC data. Current Interpretive Data was last revised on 2018. Lymphocyte pct 23.1 % [facility] Comment: Interpretive Data Percent cell count reference ranges are not reported, since discordance with absolute values may lead to misinterpretation of CBC data. Current Interpretive Data was last revised on 2018. Monocyte pct 7.8 % [facility] Comment: Interpretive Data Percent cell count reference ranges are not reported, since discordance with absolute values may lead to misinterpretation of CBC data. Current Interpretive Data was last revised on 2018. Eosinophil pct 3.0 % [facility] Comment: Interpretive Data Percent cell count reference ranges are not reported, since discordance with absolute values may lead to misinterpretation of CBC data. Current Interpretive Data was last revised on 2018. Basophil pct 0.8 % [facility] Comment: Interpretive Data Percent cell count reference ranges are not reported, since discordance with absolute values may lead to misinterpretation of CBC data. Current Interpretive Data was last revised on 2018. Blood 10/23/2024 8:17 PM REPRESENTATIVE GOVERNMENT RELATIONS 10/23/2024 8:19 PM REPRESENTATIVE GOVERNMENT RELATIONS Shavon Lira [facility] LAB BLOOD ORDERABLES Lisa l Result [facility] [address] [facility]. Department [place] [address] * (ABNORMAL) CBC with auto differential (10/23/2024 8:17 PM REPRESENTATIVE GOVERNMENT RELATIONS) WBC 6.7 3.8 - 9.9 K/cumm Hgb 13.1 13.0 - 17.5 g/dL [facility] Hct 38.2(L) 38.9 - 50.3 % [facility] Plt 241 150 - 400 K/cumm [facility] MPV 9.7 9.1 - 12.3 fL [facility] RBC 4.09(L) 4.30 - 5.80 M/cumm [facility] MCV 93.4 81.3 - 96.4 fL [facility] MCH 32.0 27.1 - 33.3 pg [facility] MCHC 34.3 32.3 - 35.7 g/dL [facility] RDW CV 12.3 11.1 - 14.9 % [facility] RDW SD 41.7 35.7 - 48.1 fL [facility] NRBC abs 0.00 0.00 - 0.01 K/cumm [facility] Blood 10/23/2024 8:17 PM REPRESENTATIVE GOVERNMENT RELATIONS 10/23/2024 8:19 PM REPRESENTATIVE GOVERNMENT RELATIONS Shavon Lira [facility] LAB BLOOD ORDERABLES Lisa l Result Performing Organization Address [facility] de Phone Number [facility] [address] [facility] [employer] [place], [place] [id number] * (ABNORMAL) aPTT (10/23/2024 8:17 PM REPRESENTATIVE GOVERNMENT RELATIONS) Pathologist [facility] aPTT 26(L) 28 - 38 sec Comment: Interpretive Data Heparin therapeutic range: 66.0 - 100.0 seconds. Range based on correlation with therapeutic heparin activity range of 0.3 - 0.7 Units/mL. Current interpretive data was last revised on 2023. Blood 10/23/2024 8:17 PM REPRESENTATIVE GOVERNMENT RELATIONS 10/23/2024 8:19 PM REPRESENTATIVE GOVERNMENT RELATIONS Shavon Lira [facility] LAB BLOOD ORDERABLES Lisa l Result Performing Organization Address [facility] [facility] Co de Phone Number [facility] [id number] [address] [facility] [place], [place] [id number] * Protime-INR (10/23/2024 8:17 PM REPRESENTATIVE GOVERNMENT RELATIONS) Pathologist [facility] PT 11.8 9.7 - 13.0 sec INR 1.09 0.90 - 1.20 [facility] Comment: Interpretive data Oral anticoagulant therapeutic ranges: Venous thromboembolism prophylaxis or treatment: 2.0-3.0 CARDIOLOGY Standard range: 2.0-3.0 High-intensity range: 2.5-3.5 Refer to indication-specific guidelines for appropriate target ranges for prosthetic heart valve replacement. Current interpretive data was last revised on 2019. Blood 10/23/2024 8:17 PM REPRESENTATIVE GOVERNMENT RELATIONS 10/23/2024 8:19 PM REPRESENTATIVE GOVERNMENT RELATIONS us Shavon Lira [facility] LAB BLOOD ORDERABLES Lisa bourgeois Result [facility] [address] Department [place] [address] * (ABNORMAL) Lipid panel (10/23/2024 8:17 PM REPRESENTATIVE GOVERNMENT RELATIONS) Cholesterol 200(H) 30 - 199 mg/dL Comment: Interpretive Data Ages < or = 19 years ??Acceptable: ? <170 mg/dL ??Borderline high: ??170-199 mg/dL ??High: ? >or= 200 mg/dL Ages > or = 20 years ??Desirable: ?<200 mg/dL ??Borderline high: ??200-239 mg/dL ??High: ? >or= 240 mg/dL Literature References: 1. Expert Panel on Integrated Guidelines for Cardiovascular Health and Risk Reduction in Children and Adolescents. Pediatrics 2011;128:S213 2. NCEP Expert Panel. Circulation 2004;110:227 Current Interpretive Data was last revised on 2018. Triglycerides 46 <=149 mg/dL [facility] Comment: Interpretive Data Ages < or = 9 years ??Acceptable: ? <75 mg/dL ??Borderline high: ??75-99 mg/dL ??High: ? >or= 100 mg/dL Ages 10 to 20 years ??Acceptable: ? <90 mg/dL ??Borderline high: ??90-129 mg/dL ??High: ? >or= 130 mg/dL Ages > or = 20 years ??Desirable: ?<150 mg/dL ??Borderline high: ??150-199 mg/dL ??High: ? 200-499 mg/dL ?Very high: ?? >or= 499 mg/dL Literature References: 1. Expert Panel on Integrated Guidelines for Cardiovascular Health and Risk Reduction in Children and Adolescents. Pediatrics 2011;128:S213 2. NCEP Expert Panel. Circulation 2004;110:227 Current Interpretive Data was last revised on 2018. HDL 51 >=40 mg/dL [facility] Comment: Interpretive Data Ages < or = 19 years ??Acceptable: ? >45 mg/dL ??Borderline low: ?? 40-45 mg/dL ??Low: ? <40 mg/dL Ages > or = 20 years ??Desirable: ?>or= 60 mg/dL ??Low: ? <40 mg/dL Literature References: 1. Expert Panel on Integrated Guidelines for Cardiovascular Health and Risk Reduction in Children and Adolescents. Pediatrics 2011;128:S213 2. NCEP Expert Panel. Circulation 2004;110:227 Current Interpretive Data was last revised on 2018. LDL, calculated 141(H) <=129 mg/dL [facility] Comment: Interpretive Data Ages < or = 19 years ??Acceptable: ? <110 mg/dL ??Borderline high: ??110-129 mg/dL ??High: ?>or= 130 mg/dL Ages > or = 20 years ??Optimal: ? <100 mg/dL ??Near optimal: ?100-129 mg/dL ??Borderline high: ?? 130-159 mg/dL ??High: ?>160 mg/dL Calculated using the Stone LDL-C estimating equation. This equation was implemented on 2024. Prior to this date LDL-C was estimated using the Friedewald equation. Literature References: 1. Expert Panel on Integrated Guidelines for Cardiovascular Health and Risk Reduction in Children and Adolescents. Pediatrics 2011;128:S213 2. NCEP Expert Panel. Circulation 2004;110:227 3. Chase M et al. TD Cardiol. 2020 February 20;5(5):540-548. doi: [email or web address] Current Interpretive Data was last revised on 2024. Non-HDL Cholesterol 149 mg/dL [facility] Comment: Interpretive Data Ages < or = 19 years ??Acceptable: ?<120 mg/dL ??Borderline high: ??120-144 mg/dL ??High: ?>145 mg/dL Ages > or = 20 years ??When triglycerides are >200 mg/dL, Non-HDL cholesterol is a secondary target of ? therapy with treatment goals that are 30 mg/dL greater than the LDL cholesterol target. ? Literature References: 1. Expert Panel on Integrated Guidelines for Cardiovascular Health and Risk Reduction in Children and Adolescents. Pediatrics 2011;128:S213 2. NCEP Expert Panel. Circulation 2004;110:227 Current Interpretive Data was last revised on 2018. Chol/HDL ratio 4 [facility] Blood 10/23/2024 8:17 PM REPRESENTATIVE GOVERNMENT RELATIONS 10/23/2024 9:20 PM REPRESENTATIVE GOVERNMENT RELATIONS us Rufus Rivera MD LAB BLOOD ORDERABLES Final Result [facility] [address] [facility]. Department [place] [address] * (ABNORMAL) Comprehensive metabolic panel (10/23/2024 8:17 PM REPRESENTATIVE GOVERNMENT RELATIONS) Sodium 137 135 - 145 mmol/L Potassium, pl 4.1 3.3 - 4.9 mmol/L [facility] Chloride 104 97 - 110 mmol/L [facility] CO2 21(L) 22 - 32 mmol/L [facility] Anion gap 12 2 - 15 mmol/L [facility] BUN 9 6 - 25 mg/dL [facility] Creatinine 0.60(L) 0.80 - 1.30 mg/dL [facility] Glucose 119 70 - 199 mg/dL [facility] Comment: Interpretive Data Fasting glucose >/= 126 mg/dl is diagnostic for diabetes. ?? Fasting is defined as no caloric intake for at least 8 hours. Fasting glucose between 100 mg/dl to 125 mg/dl is diagnostic of prediabetes. In a patient with classic symptoms of hyperglycemia or hyperglycemic crisis, a random glucose >/= 200 mg/dl is diagnostic for diabetes. In the absence of unequivocal hyperglycemia, results should be confirmed by repeat testing. The classification and Diagnosis of Diabetes Diabetes Care 2021; 46: S19-S40. Current interpretive data was last revised 2022. Calcium 9.3 8.5 - 10.3 mg/dL [facility] Bilirubin, total 0.2 0.1 - 1.2 mg/dL [facility] Protein, pl 7.6 6.5 - 8.5 g/dL [facility] Albumin 3.8 3.5 - 5.0 g/dL [facility] Alk phos 154(H) 40 - 130 Units/L [facility] ALT 21 7 - 55 Units/L [facility] AST 33 10 - 50 Units/L [facility] Comment:Hemolyzed; result ma y be falsely elevated. Blood 10/23/2024 8:17 PM REPRESENTATIVE GOVERNMENT RELATIONS 10/23/2024 8:19 PM REPRESENTATIVE GOVERNMENT RELATIONS Shavon Lira [facility] LAB BLOOD ORDERABLES Lisa l Result [facility] [address] [facility]. Department [place] [address] * IR Follow Up Outpatient (10/15/2024 2:48 PM REPRESENTATIVE GOVERNMENT RELATIONS) Anatomical Region Laterality Modality X-Ray Angiograph y 10/15/2024 1:18 PM REPRESENTATIVE GOVERNMENT RELATIONS Impressions 10/15/2024 7:44 PM REPRESENTATIVE GOVERNMENT RELATIONS Gastro-jejunostomy catheter was secured in place and patient was instructed to use the gastrostomy tube for venting and jejunostomy tube for feeding. Dictated by: Frantz Dang M.D. I have seen and evaluated the patient. I agree with the plan of care as documented in the resident / fellow's note. Electronically signed by: Zackary Mcdaniels M.D. Narrative 10/15/2024 7:44 PM REPRESENTATIVE GOVERNMENT RELATIONS EXAMINATION: ??INTERVENTIONAL RADIOLOGY FOLLOW-UP VISIT REFERRAL: ??Dr. Suero has referred this patient. HISTORY: 54-year-old male with dislodged gastrojejunostomy catheter replaced (10/14/2024) replaced yesterday. ??Patient presenting for drainage around the gastrostomy tube. ?? PROCEDURE: Upon examination gastro-jejunostomy tube was in 10 cm in with bumper loose. There was leakage around of gastrojejunostomy catheter. Venting connector was attached to the jejunostomy port and patient was feeding the gastrostomy port. ??Venting connector was correctly placed on the gastrostomy port and gastrojejunostomy catheter bumper was tightened and is now 6 cm from skin surface. ??Patient was informed about ensuring the gastric jejunostomy catheter remains in place and instructed about using gastrostomy port for venting and jejunostomy port for feeding. Procedure Note Zackary Mcdaniels MD - 10/15/2024 EXAMINATION: INTERVENTIONAL RADIOLOGY FOLLOW-UP VISIT REFERRAL: Dr. Suero has referred this patient. HISTORY: 54-year-old male with dislodged gastrojejunostomy catheter replaced (10/14/2024) replaced yesterday. Patient presenting for drainage around the gastrostomy tube. PROCEDURE: Upon examination gastro-jejunostomy tube was in 10 cm in with bumper loose. There was leakage around of gastrojejunostomy catheter. Venting connector was attached to the jejunostomy port and patient was feeding the gastrostomy port. Venting connector was correctly placed on the gastrostomy port and gastrojejunostomy catheter bumper was tightened and is now 6 cm from skin surface. Patient was informed about ensuring the gastric jejunostomy catheter remains in place and instructed about using gastrostomy port for venting and jejunostomy port for feeding. IMPRESSION: Gastro-jejunostomy catheter was secured in place and patient was instructed to use the gastrostomy tube for venting and jejunostomy tube for feeding. Dictated by: Frantz Ralph Ali Dang, M.D. I have seen and evaluated the patient. I agree with the plan of care as documented in the resident / fellow's note. Electronically signed by: Zackary Mcdaniels M.D. Rush Suero MD IMG IR PROCEDURES Final Resul t * IR GJ-Tube Exchange (10/14/2024 2:05 PM REPRESENTATIVE GOVERNMENT RELATIONS) Anatomical Region Laterality Modality Body N/A X-Ray Angiograph y 10/14/2024 2:38 PM REPRESENTATIVE GOVERNMENT RELATIONS Impressions 10/14/2024 2:38 PM REPRESENTATIVE GOVERNMENT RELATIONS Successful percutaneous 22-Estonian 45 cm balloon retention gastrojejunostomy catheter exchange. PLAN: The catheter is ready for immediate feeding through the jejunal port. Please flush the catheter with 20 cc of water after every feed and every 8 hours. Do not use crushed pills through the jejunal lumen. ?? Mother instructed on care of stoma after dilation from balloon. Given Keflex 500mg TID x 14 days for worsening signs of infection. Instructed to reach out if inflammation does not improve within 48-72 hours. All questions answered to his mother's satisfaction. Electronically signed by: David Patel PA-C Narrative 10/14/2024 2:38 PM REPRESENTATIVE GOVERNMENT RELATIONS EXAMINATION: ??GASTROJEJUNOSTOMY TUBE EXCHANGE HISTORY/INDICATION: ??Dislodged gastrojejunostomy catheter. Mother states balloon has pulled through the skin. Upon exam, 1/2 of ballon is visible within the exterior stoma. Significant irritation/inflammation surrounding the stoma. Mother states there is leakage as well. This has happened in the past. PROVIDER PRESENCE: David Patel PA-C was present from the beginning to the end of the procedure. ?? SEDATION: ??None. TECHNIQUE: ??The risks, benefits and alternatives were discussed and informed consent was obtained. Prior to beginning the procedure, [place] Protocol was performed to confirm the patient's identity and the planned procedure. ??For procedures that utilize fluoroscopy, the fluoroscopy time has been recorded in the electronic medical record. Maximum sterile barriers including cap, mask, hand hygiene, sterile gloves, sterile gown, large sterile drape and 2% chlorhexidine for cutaneous antisepsis were used. The skin over the stomach and the existing catheter was sterilely prepped, draped and infiltrated with 1% lidocaine. Using fluoroscopic guidance, a guidewire was passed through the existing catheter and placed in the proximal jejunum. The existing catheter was then removed over the wire. A 22-Estonian 45 cm gastrojejunostomy tube was placed with its tip in the proximal jejunum. Contrast injection confirmed appropriate positioning of the catheter. It was secured to the skin and a dressing applied. ESTIMATED BLOOD LOSS: Minimal. CONDITION: Stable DISCHARGED TO: Home. FINDINGS: ??Fluoroscopic spot image demonstrates the gastrojejunostomy catheter with its tip in the proximal jejunum. ??No complications are seen. Procedure Note David Patel PA - 10/14/2024 EXAMINATION: GASTROJEJUNOSTOMY TUBE EXCHANGE HISTORY/INDICATION: Dislodged gastrojejunostomy catheter. Mother states balloon has pulled through the skin. Upon exam, 1/2 of ballon is visible within the exterior stoma. Significant irritation/inflammation surrounding the stoma. Mother states there is leakage as well. This has happened in the past. PROVIDER PRESENCE: David Patel PA-C was present from the beginning to the end of the procedure. SEDATION: None. TECHNIQUE: The risks, benefits and alternatives were discussed and informed consent was obtained. Prior to beginning the procedure, [place] Protocol was performed to confirm the patient's identity and the planned procedure. For procedures that utilize fluoroscopy, the fluoroscopy time has been recorded in the electronic medical record. Maximum sterile barriers including cap, mask, hand hygiene, sterile gloves, sterile gown, large sterile drape and 2% chlorhexidine for cutaneous antisepsis were used. The skin over the stomach and the existing catheter was sterilely prepped, draped and infiltrated with 1% lidocaine. Using fluoroscopic guidance, a guidewire was passed through the existing catheter and placed in the proximal jejunum. The existing catheter was then removed over the wire. A 22-Estonian 45 cm gastrojejunostomy tube was placed with its tip in the proximal jejunum. Contrast injection confirmed appropriate positioning of the catheter. It was secured to the skin and a dressing applied. ESTIMATED BLOOD LOSS: Minimal. CONDITION: Stable DISCHARGED TO: Home. FINDINGS: Fluoroscopic spot image demonstrates the gastrojejunostomy catheter with its tip in the proximal jejunum. No complications are seen. IMPRESSION: Successful percutaneous 22-Estonian 45 cm balloon retention gastrojejunostomy catheter exchange. PLAN: The catheter is ready for immediate feeding through the jejunal port. Please flush the catheter with 20 cc of water after every feed and every 8 hours. Do not use crushed pills through the jejunal lumen. Mother instructed on care of stoma after dilation from balloon. Given Keflex 500mg TID x 14 days for worsening signs of infection. Instructed to reach out if inflammation does not improve within 48-72 hours. All questions answered to his mother's satisfaction. 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 ADVANCE DIRECTIVE 12/11/2013 12:00 AM ALMA ROSA R OF [employer]/MEDICAL * Full Code (Latest Code Status on File) Date Activated Date Inactivated Comments 11/15/2024 1:00 PM 11/16/2024 5:10 AM * Full Code Date Activated Date Inactivated Comments 10/23/2024 9:18 PM 10/24/2024 9:46 PM * Full Code Date Activated Date Inactivated Comments 01/10/2022 10:19 AM 01/10/2022 3:48 PM Care Teams Hand Packager Relationship Specialty Start Date End Date Minerva Wallis MD [address] [facility] [place] [address] PCP - General Internal Medicine 07/13/17 Param Webb MD [address] [place] [address] Referring Physician Otolaryngology 07/24/19
--- OUTSIDE RECORDS SUMMARY | 2024-11-18 13:16 | XMS_ITS | Referral Summary ---
Author Organization [facility] Address [address] [address] Care Team Providers Care Lithographic Photographer Apprentice Name Role Phone Minerva Wallis MD Primary Care Provider [phone] Param Webb MD Unavailable [phone] Encounters Date Type Department Care Team Description 11/15/2024 12:[address] ENGINEER - 11/15/2024 11:[address] ENGINEER Hospital Encounter [facility] [address] [place] [address] Dysphagia, unspecified type Discharge Disposition: Discharge to home or self care 10/23/2024 7:[address] ENGINEER - 10/24/2024 5:[address] ENGINEER Emergency [facility] [address] [place] [address] Rufus Rivera MD Freer, James Matthew, MD Gastrojejunostomy tube dislodgement (Primary Dx) Discharge Disposition: Discharge to home or self care 10/15/2024 11:[address] ENGINEER - 10/15/2024 11:[address] ENGINEER Hospital Encounter [facility] Radiology [facility] [address] [place] [address] Developmental non-verbal disorder Discharge Disposition: Discharge to home or self care 10/14/2024 12:[address] ENGINEER - 10/14/2024 11:[address] ENGINEER Hospital Encounter [facility] Imaging [address] [place] [address] Gastrostomy tube dependent (CMS/HCC) (HCC) Discharge Disposition: Discharge to home or self care 2024 Telephone [facility] Otolaryngology [address] [place] [address] Xochilt Travis Infection from Last 3 Months Allergies Active Allergy Reactions Criticality Noted Date [...] TWICE DAILY WITH MEALS 180 tablet 08/16/20 Active Additional Information Patient taking differently:3.125 mg [...] day for 14 days 42 capsule 10/14/20 025 Active Problems Problem Noted Date Diagnosed Date Gastrojejunostomy tube dislodgement 10/23/2024 Assessment & Plan (10/24/2024 12:[address] ENGINEER): Tube dislodged at home -gauze placed over opening, no tract insertion -IR today for G-J tube replacement this afternoon Assessment & Plan (10/24/2024 2:[address] ENGINEER): -IR consult for G-J tube replacement in AM -if not amenable to IR replacement, may need surgical consult vs. 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/20/2019 Developmental delay 08/20/2019 Tourette's disorder 02/05/2008 Intellectual disability 02/05/2008 Assessment & Plan (10/24/2024 12:[address] ENGINEER): Patient's Mother in the room to help communicate Gastroesophageal reflux disease 02/05/2008 Constipation, chronic 02/05/2008 Assessment & Plan (10/24/2024 12:[address] ENGINEER): Cont Linzess Resolved Problems Problem Noted Date Diagnosed Date Resolved Date Otorrhea of right ear 07/29/2019 02/04/ 2021 Immunizations Name Administration Dates Next Due Influenza, Quadrivalent, Veena l Culture-based MDCK, Preservative Free, Antibiotic Free, Intramuscular 08/18/2021 Social History Tobacco Use Types Packs/Day Years [...] on file Legal Sex Male 4:[address] ENGINEER Gender Identity Not on file Sexual Orientation Not on file Last Filed Vital Signs Vital Sign Reading Time Taken Comments Blood Pressure 116/80 11/15/2024 2:[address] ENGINEER Pulse 67 11/15/2024 2:[address] ENGINEER Temperature 36 ??C (96.8 ??F) 11/15/2024 2:[address] ENGINEER Respiratory Rate 23 11/15/2024 2:[address] ENGINEER Oxygen Saturation 95% 11/15/2024 2:[address] ENGINEER Inhaled Oxygen Concentration - - Weight 56.7 kg (125 lb) 11/15/2024 1:[address] ENGINEER Height 162.6 cm (5' 4 ) 10/23/2024 5:[address] ENGINEER Body Mass Index 21.46 10/23/2024 5:[address] ENGINEER Plan of Treatment Not on file Procedures Procedure Name Priority Date/Time Associated Diagnosis Comments GJ-TUBE EXCHANGE Schedule Routine, Read Routine (OP Routine) 11/15/2024 2:[address] ENGINEER Dysphagia, unspecified type GJ-TUBE EXCHANGE IP Routine 10/24/2024 3:[address] ENGINEER LIPID PANEL Add-On 10/23/2024 8:[address] ENGINEER EGFR STAT 10/23/2024 8:[address] ENGINEER DIFFERENTIAL AUTO STAT 10/23/2024 8:[address] ENGINEER APTT STAT 10/23/2024 8:[address] ENGINEER PROTIME-INR STAT 10/23/2024 8:[address] ENGINEER COMPREHENSIVE METABOLIC PANEL STAT 10/23/2024 8:[address] ENGINEER CBC WITH AUTO DIFFERENTIAL STAT 10/23/2024 8:[address] ENGINEER IR FOLLOW UP OUTPATIENT Schedule Routine, Read Routine (OP Routine) 10/15/2024 2:[address] ENGINEER Developmental non-verbal disorder GJ-TUBE EXCHANGE Schedule Routine, Read Routine (OP Routine) 10/14/2024 2:[address] ENGINEER Gastrostomy tube dependent (CMS/HCC) (HCC) from Last 3 Months Results * IR GJ-Tube Exchange (11/15/2024 2:[address] ENGINEER) Anatomical Region Laterality Modality Body N/A X-Ray Angiograph y 11/15/2024 5:[address] ENGINEER Impressions 11/15/2024 5:[address] ENGINEER Successful percutaneous gastrojejunostomy catheter exchange. PLAN: The catheter is ready for immediate feeding through the jejunal port. Please flush the catheter with 20 cc of water after every feed and every 8 hours. Do not use crushed pills through the jejunal lumen. ?? Electronically signed by: Eric Julio M.D. Narrative 11/15/2024 5:[address] ENGINEER EXAMINATION: ??GASTROJEJUNOSTOMY TUBE EXCHANGE HISTORY/INDICATION: ??Feeding difficulties managed with 22Fr dual lumen GJ tube, 45cm. ??Tube has pulled back ATTENDING PRESENCE: Eric Julio M.D., the attending radiologist was present from the beginning to the end of the procedure. ?? SEDATION: ??Patient did not require sedation for this procedure TECHNIQUE: Prior to beginning the procedure, [place] Protocol was performed to confirm the patient's [...] procedure TECHNIQUE: Prior to beginning the procedure, [place] Protocol was performed to confirm the patient's [...] lumen. Electronically signed by: Eric Julio M.D. us Ernie Hui MD IMG IR PROCEDURES Final Re sult * IR GJ-Tube Exchange (10/24/2024 3:[address] ENGINEER) Anatomical Region Laterality Modality Body N/A Ultrasound 10/24/2024 3:[address] ENGINEER Impressions 10/24/2024 3:[address] ENGINEER Successful percutaneous 22-Samoan 45 cm balloon retention gastrojejunostomy catheter exchange. [...] Dg Martinez M.D. Narrative 10/24/2024 3:[address] ENGINEER EXAMINATION: ??GASTROJEJUNOSTOMY TUBE EXCHANGE HISTORY/INDICATION: ??54-year-old male with dislodged gastrojejunostomy catheter presenting for replacement. Catheter was last replaced (10/14/2024). Significant irritation/inflammation is seen surrounding the stoma. PROVIDER PRESENCE: Dg Martinez M.D. was present from the beginning to the end of the procedure. ?? SEDATION: ??None. TECHNIQUE: ??The risks, benefits and alternatives were discussed and informed consent was obtained. Prior to beginning the procedure, [place] Protocol was performed to confirm the patient's [...] was then removed over the wire. A 22-Samoan 45 cm gastrojejunostomy tube was placed with [...] was obtained. Prior to beginning the procedure, [place] Protocol was performed to confirm the patient's [...] was then removed over the wire. A 22-Samoan 45 cm gastrojejunostomy tube was placed with its tip in the proximal jejunum. Contrast injection confirmed appropriate positioning of the catheter. It was secured to the skin and a dressing applied. ESTIMATED BLOOD LOSS: Minimal. CONDITION: Stable DISCHARGED TO: Home. FINDINGS: Fluoroscopic spot image demonstrates the gastrojejunostomy catheter with its tip in the proximal jejunum. No complications are seen. IMPRESSION: Successful percutaneous 22-Samoan 45 cm balloon retention gastrojejunostomy catheter exchange. [...] Res ult * eGFR (10/23/2024 8:[address] ENGINEER) eGFR >90 >=60 mL/min/1. 73 m2 Comment: [...] last reviewed 2021. Blood 10/23/2024 8:[address] ENGINEER 10/23/2024 8:[address] ENGINEER us Shavon Lira [facility] LAB BLOOD ORDERABLES Lisa l Result [facility] [address] [place] [address] * Differential, auto (10/23/2024 8:[address] ENGINEER) Pathologist [facility] Neutrophil abs 4.3 1.5 - 6.5 K/cumm Imm gran abs 0.1 0.0 - 0.1 K/cumm [facility] Lymphocyte abs 1.5 0.8 - 3.3 K/cumm [facility] Monocyte abs 0.5 0.2 - 0.8 K/cumm [facility] Eosinophil abs 0.2 0.0 - 0.5 K/cumm [facility] Basophil abs 0.1 0.0 - 0.1 K/cumm [facility] Neutrophil pct 63.8 % [facility] Comment: Interpretive Data Percent cell count reference ranges are not reported, since discordance with absolute values may lead to misinterpretation of CBC data. Current Interpretive Data was last revised on 2018. Imm gran pct 1.5 % [facility] Comment: Interpretive Data Percent cell count reference ranges are not reported, since discordance with absolute values may lead to misinterpretation of CBC data. Current Interpretive Data was last revised on 2018. Lymphocyte pct 23.1 % [facility] Comment: Interpretive Data Percent cell count reference ranges are not reported, since discordance with absolute values may lead to misinterpretation of CBC data. Current Interpretive Data was last revised on 2018. Monocyte pct 7.8 % [facility] Comment: Interpretive Data Percent cell count reference ranges are not reported, since discordance with absolute values may lead to misinterpretation of CBC data. Current Interpretive Data was last revised on 2018. Eosinophil pct 3.0 % [facility] Comment: Interpretive Data Percent cell count reference ranges are not reported, since discordance with absolute values may lead to misinterpretation of CBC data. Current Interpretive Data was last revised on 2018. Basophil pct 0.8 % [facility] Comment: Interpretive Data Percent cell count reference ranges are not reported, since discordance with absolute values may lead to misinterpretation of CBC data. Current Interpretive Data was last revised on 2018. Blood 10/23/2024 8:[address] ENGINEER 10/23/2024 8:[address] ENGINEER us Shavon Lira [facility] LAB BLOOD ORDERABLES Lisa l Result [facility] [address] [address] * (ABNORMAL) CBC with auto differential (10/23/2024 8:[address] ENGINEER) Pathologist [facility] WBC 6.7 3.8 - 9.9 K/cumm Hgb 13.1 13.0 - 17.5 g/dL [facility] Hct 38.2(L) 38.9 - 50.3 % [facility] Plt 241 150 - 400 K/cumm [facility] MPV 9.7 9.1 - 12.3 fL [facility] RBC 4.09(L) 4.30 - 5.80 M/cumm [facility] MCV 93.4 81.3 - 96.4 fL [facility] MCH 32.0 27.1 - 33.3 pg [facility] MCHC 34.3 32.3 - 35.7 g/dL [facility] RDW CV 12.3 11.1 - 14.9 % [facility] RDW SD 41.7 35.7 - 48.1 fL [facility] NRBC abs 0.00 0.00 - 0.01 K/cumm [facility] Blood 10/23/2024 8:[address] ENGINEER 10/23/2024 8:[address] ENGINEER Shavon Lira [facility] LAB BLOOD ORDERABLES Lisa l Result Performing Organization Address [facility] Phone Number [facility] [address] [facility] [place] [address] * (ABNORMAL) aPTT (10/23/2024 8:[address] ENGINEER) Pathologist [facility] aPTT 26(L) 28 - 38 sec Comment: Interpretive Data Heparin therapeutic range: 66.0 - 100.0 seconds. Range based on correlation with therapeutic heparin activity range of 0.3 - 0.7 Units/mL. Current interpretive data was last revised on 2023. Blood 10/23/2024 8:[address] ENGINEER 10/23/2024 8:[address]INEER Shavon Lira [facility] LAB BLOOD ORDERABLES Lisa l Result Performing Organization Address [facility] de Phone Number [facility] [address] [facility] [place] [address] * Protime-INR (10/23/2024 8:[address] ENGINEER) PT 11.8 9.7 - 13.0 sec INR 1.09 0.90 - 1.20 [facility] Comment: Interpretive data Oral anticoagulant therapeutic ranges: Venous thromboembolism prophylaxis or treatment: 2.0-3.0 CARDIOLOGY Standard range: 2.0-3.0 High-intensity range: 2.5-3.5 Refer to indication-specific guidelines for appropriate target ranges for prosthetic heart valve replacement. Current interpretive data was last revised on 2019. Blood 10/23/2024 8:[address] ENGINEER 10/23/2024 8:[address]INEER Shavon Lira [facility] LAB BLOOD ORDERABLES Lisa l Result Performing Organization Address [facility] Phone Number [facility] [address] [place] [address] * (ABNORMAL) Lipid panel (10/23/2024 8:[address] ENGINEER) Pathologist [facility] Cholesterol 200(H) 30 - 199 mg/dL Comment: [...] on 2018. HDL 51 >=40 mg/dL [facility] Comment: Interpretive Data Ages [...] mg/dL ??High: ?>160 mg/dL Calculated using the Chase LDL-C estimating equation. This equation was implemented on 2024. Prior to this date LDL-C was estimated using the Friedewald equation. Literature References: 1. Expert Panel on Integrated Guidelines for Cardiovascular Health and Risk Reduction in Children and Adolescents. Pediatrics 2011;128:S213 2. NCEP Expert Panel. Circulation 2004;110:227 3. Chase Amanda et al. TD Cardiol. 2020 February 20;5(5):540-548. doi: 10.1001/jamacardio.2020.0013 Current Interpretive Data was last revised on 2024. Non-HDL Cholesterol 149 mg/dL [facility] Comment: Interpretive Data Ages [...] last revised on 2018. Chol/HDL ratio 4 [facility] Blood 10/23/2024 8:[address] ENGINEER 10/23/2024 9:[address] ENGINEER us Rufus Rivera MD LAB BLOOD ORDERABLES Final Result Performing Organization Address City/State/ZIP Co sc Phone Number [facility] [address] [place] [address] * (ABNORMAL) Comprehensive metabolic panel (10/23/2024 8:[address] ENGINEER) Sodium 137 135 - 145 mmol/L Potassium, pl 4.1 3.3 - 4.9 mmol/L [facility] Chloride 104 97 - 110 mmol/L [facility] CO2 21(L) 22 - 32 mmol/L [facility] Anion gap 12 2 - 15 mmol/L [facility] BUN 9 6 - 25 mg/dL [facility] Creatinine 0.60(L) 0.80 - 1.30 mg/dL [facility] Glucose 119 70 - 199 mg/dL [facility] Comment: Interpretive Data Fasting glucose >/= 126 [...] classification and Diagnosis of Diabetes Diabetes Care 202; 46: S19-S40. Current interpretive data was last revised 2022. Calcium 9.3 8.5 - 10.3 mg/dL [facility] Bilirubin, total 0.2 0.1 - 1.2 mg/dL [facility] Protein, pl 7.6 6.5 - 8.5 g/dL [facility] Albumin 3.8 3.5 - 5.0 g/dL [facility] Alk phos 154(H) 40 - 130 Units/L [facility] ALT 21 7 - 55 Units/L [facility] AST 33 10 - 50 Units/L [facility] Comment:Hemolyzed; result ma y be falsely elevated. Blood 10/23/2024 8:[address] ENGINEER 10/23/2024 8:[address] ENGINEER us Shavon Lira [facility] LAB BLOOD ORDERABLES Lisa l Result [facility] [address] [place] [address] * IR Follow Up Outpatient (10/15/2024 2:[address] ENGINEER) Anatomical Region Laterality Modality X-Ray Angiograph y 10/15/2024 1:[address] ENGINEER Impressions 10/15/2024 7:[address] ENGINEER Gastro-jejunostomy catheter was secured in place and patient was instructed to use the gastrostomy tube for venting and jejunostomy tube for feeding. Dictated by: Frantz Dang M.D. I have seen and evaluated the patient. I agree with the plan of care as documented in the resident / fellow's note. Electronically signed by: Zackary Mcdaniels M.D. Narrative 10/15/2024 7:[address] ENGINEER EXAMINATION: ??INTERVENTIONAL RADIOLOGY FOLLOW-UP VISIT REFERRAL: ??Dr. [...] note. Electronically signed by: Zackary Mcdaniels M.D. us Rush Suero MD IMG IR PROCEDURES Final Resul t * IR GJ-Tube Exchange (10/14/2024 2:[address] ENGINEER) Anatomical Region Laterality Modality Body N/A X-Ray Angiograph y 10/14/2024 2:[address] ENGINEER Impressions 10/14/2024 2:[address] ENGINEER Successful percutaneous 22-Samoan 45 cm balloon retention gastrojejunostomy catheter exchange. [...] David Patel PA-C Narrative 10/14/2024 2:[address] ENGINEER EXAMINATION: ??GASTROJEJUNOSTOMY TUBE EXCHANGE HISTORY/INDICATION: ??Dislodged gastrojejunostomy [...] was obtained. Prior to beginning the procedure, [place] Protocol was performed to confirm the patient's [...] was then removed over the wire. A 22-Samoan 45 cm gastrojejunostomy tube was placed with [...] was obtained. Prior to beginning the procedure, [place] Protocol was performed to confirm the patient's [...] was then removed over the wire. A 22-Samoan 45 cm gastrojejunostomy tube was placed with its tip in the proximal jejunum. Contrast injection confirmed appropriate positioning of the catheter. It was secured to the skin and a dressing applied. ESTIMATED BLOOD LOSS: Minimal. CONDITION: Stable DISCHARGED TO: Home. FINDINGS: Fluoroscopic spot image demonstrates the gastrojejunostomy catheter with its tip in the proximal jejunum. No complications are seen. IMPRESSION: Successful percutaneous 22-Samoan 45 cm balloon retention gastrojejunostomy catheter exchange. 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
--- OUTSIDE RECORDS SUMMARY | 2024-11-18 13:16 | XMS_ITS | Encounter Summary ---
Author Organization [facility] Healthcare Address [address] [place] [address] Care Team Providers Care Harvesting Supervisor Name Role Phone Minerva Wallis MD Primary Care Provider [phone] Param Webb MD Unavailable [phone] Encounter Details Date Type Department Care Team (Late st Contact Info) Description 11/28/2023 Telephone [facility] [address] [place] [address] Shavon Vera RN Social History Tobacco Use Types Packs/Day Years Used Date Smoking Tobacco: Never Smokeless Tobacco: Never Sex and Gender Information Value Date Recorded Sex Assigned at Not on file Legal Sex Male 4:[address] PH[address]GRAPHER Gender Identity Not on file Sexual Orientation Not on file documented as of this encounter Plan of Treatment Not on file documented as of this encounter Visit Diagnoses Not on filedocumented in this encounter Care Teams Harvesting Supervisor Relationship Specialty Start Date End Date Minerva Wallis MD [address] [place] [address] PCP - General Internal Medicine 07/13/17 Param Webb MD [address] [place] [address] Referring Physician Otolaryngology 07/24/19 documented as of this encounter
--- OUTSIDE RECORDS SUMMARY | 2024-11-18 13:16 | XMS_ITS | Encounter Summary ---
Author Organization [facility] Healthcare Address [address] [place] [address] Care Team Providers Care Vehicle Mechanic Name Role Phone Minerva Wallis MD Primary Care Provider [phone] Param Webb MD Unavailable [phone] Encounter Details Date Type Department Care Team (Late st Contact Info) Description 02/11/2020 Telephone [facility] [address] [place] [address] Gloria Jimenez RN Social History Tobacco Use Types Packs/Day Years Used Date Smoking Tobacco: Never Smokeless Tobacco: Never Sex and Gender Information Value Date Recorded Sex Assigned at Not on file Legal Sex Male 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
--- OUTSIDE RECORDS SUMMARY | 2024-11-18 13:16 | XMS_ITS | Clinical Summary ---
Author Organization [facility] Address [facility]. [place], [place] [address] [place] [address] Care Team Providers Care Correction Officer Penitentiary Name Role Phone Unavailable Primary Care Provider Unavailabl e Social History Tobacco Use Types Packs/Day Years Used Date Smoking Tobacco: Never Assessed Sex and Gender Information Value Date Recorded Sex Assigned at Not on file Legal Sex Male 8:11 PM CDT Gender Identity Not on file Sexual Orientation Not on file Plan of Treatment Health Maintenance Due Date Last Done Comments Colorectal Cancer Screening Colonoscopy (10 Years) 1970 Annual Physical 1973 Hepatitis C 1988 DTaP, Tdap and Td Vaccines ( 1 - Tdap) 1989 Hepatitis B Vaccines (1 of 3 - 19+ 3-dose series) 1989 Zoster Vaccines (1 of 2) 2020 COVID-19 Vaccine (2023-2 5 season) 2024 Influenza Adult (#1) 2024 Meningococcal B Vaccine Aged Out No l onger eligible based on patient's age to complete this topic Meningococcal Vaccine Aged Out No harmony helen eligible based on patient's age to complete this topic Pneumococcal Vaccine: Pediat rics (0 to 5 Years) and At-Risk Patients (6 to 64 Years) Aged Out No longer eligible b ased on patient's age to complete this topic RSV Immunizations Under 20 Months Aged Out No longer eligible based on patient's age to complete this topic Insurance [address] [place] [address] MEDICAID MEDICARE
--- OUTSIDE RECORDS SUMMARY | 2024-11-18 13:16 | XMS_ITS | Referral Summary ---
Author Organization [facility] Address [address] [place] [address] Care Team Providers Care Braid Cutter Name Role Phone Minerva Wallis MD Primary Care Provider [phone] Source Comments [facility],non-owned Affiliates and Associated Physician Practices is amultiple site organization consisting of ambulatory clinics and hospital sitesin [place], [place], [place] and [place]. This disclosure is being madepursuant to the Care Everywhere program and may not contain all information available regarding this patient. Last updated 18.[facility] [employer] Active Problems Problem Noted Date Diagnosed Date [...] Orientation Not on file Plan of Treatment Not on file Care Teams Braid Cutter Relationship Specialty Start Date End Date Minerva Wallis MD PCP - General 10/18/16
[2024-11-18 13:57] LABS: Basophils Absolute Auto 0.1 K/mm3 (0.0-0.1); Basophils Percent Auto 1.2 % (0.2-1.2); Eosinophils Absolute Auto 0.3 K/mm3 (0-0.3); Hematocrit 38.3 % (42.0-52.0); Hemoglobin 12.8 g/dL (14.0-18.0); Immature Granulocyte Absolute 0.02 K/mm3 (0.00-0.031); Immature Granulocyte Percent A 0.4 % (0-0.5); Lymphocytes Absolute Auto 1.95 K/mm3 (0.9-3.2); Mean Corpuscular HGB Conc 33.4 g/dl (32-36); Mean Corpuscular Volume 95.8 fl (80-100); Mean Platelet Volume 9.3 fl (7.4-10.4); Monocytes Absolute Auto 0.5 K/mm3 (0.1-0.6); Monocytes Percent Auto 11.1 % (2.6-8.5); Neutrophils Percent Auto 41.3 % (45.5-73.1); Platelet Count Result 198 k/mm3 (150-375); Red Cell Distribution Width 13.1 % (11.5-14.5); White Blood Count 4.9 K/mm3 (4.5-10.0)
[2024-11-18 14:16] LABS: Add Urine Microscopic? YES; Appearance Urine Turbid (Clear); Bacteria Urine 4+ /hpf; Bilirubin Urine Negative (Negative); Blood Urine 2+ (Negative); Color Urine Yellow (Yellow); Glucose Urine UA Negative (Negative); Ketones Urine Negative (Negative); Leukocyte Esterase Ur 3+ LEU/UL (Negative); Nitrate Urine Positive (Negative); Non Pathogenic Casts >20; Protein Urine 2+ mg/dL (Negative); RBC Urine 21-50 /hpf (0-2); Specific Grav Ur 1.013 (1.001-1.035); Squamous Epithelial Cell Urine None Seen /hpf (Few); Triple Phosphate Crystal Urine Present /hpf; WBC Urine >100 /hpf (0-3); pH Urine 8.5 (5.0-9.0)
[2024-11-18 14:21] LABS: Alanine Aminotransferase 12 U/L (6-50); Albumin Level 4.1 g/dL (3.5-5.1); Alkaline Phosphatase 84 U/L (38-126); Anion Gap 8 mmol/L (4-12); Aspartate Amino Transferase 27 U/L (17-59); Bilirubin,Total 0.4 mg/dL (0.2-1.3); Blood Urea Nitrogen 8 mg/dL (9-20); Calcium 9.2 mg/dL (8.4-10.2); Carbon Dioxide 27 mmol/L (22-30); Chloride 105 mmol/L (98-107); Cholesterol 218 mg/dL (0-200); Estimated Glomerular Filt Rate > 60; Glucose 110 mg/dL (65-110); HDL Direct 54 mg/dL; Potassium 3.5 mmol/L (3.4-5.0); Sodium 140 mmol/L (137-145); Triglycerides 54 mg/dL (<150); Uric Acid 3.4 mg/dL (3.5-8.5)
[2024-11-18 14:32] LABS: LDL Cholesterol Direct 128 mg/dL
[2024-11-18 14:51] LABS: Prostate Specific Antigen 0.2 ng/mL (< OR = 4.0)
== END 2024-11-18 12:46 | disposition home or self-care (01) ==
LOC: ANHLAB 12:47
PROVIDERS: PCP Internal Medicine; Visit Provider Internal Medicine
DX: Z12.5 Encounter for screening for malignant neoplasm of prostate (principal); E78.2 Mixed hyperlipidemia
CPT/HCPCS: 36415; 80053; 80061; 81001; 82607; 84153; 84443; 84550; 85025; G0103

== ENCOUNTER 2025-03-12 12:07 | Emergency (ER) | payer MEDICARE, MEDICAID, SELFPAY ==
[2025-03-12 12:09] VITALS: BP 98/88; PULSE 111; RESP 16; TEMP 36.4; O2SAT 95
--- NOTE | 2025-03-12 12:13 | ED.GENADULT ---
HPI - General Adult General Chief complaint: Recheck/Abnormal Lab/Rx Stated complaint: g-tube displacement Time Seen by Provider: 03/12/25 12:13 Source: family History of Present Illness HPI narrative: 54 YEARS OLD MENTALLY CHALLENGED PATIENT ACCIDENTALLY PULLED HIS FEEDING TUBE WHILE TAKING A SHOWER EARLY THIS MORNING. HIS MOM AT THE BEDSIDE IS TELLING ME THAT REPLACING TUBE NEEDS CERTAIN WHILE BECAUSE THE END OF IT IN HIS SMALL BOWEL AND USUALLY GOES TO [facility] TO REPLACE IT EVERY TIME HE HAVE TROUBLE WITH IT. Related Data Home Medications ?Medication ?Instructions ?Recorded ?Confirmed ?Last Taken ?Type ergocalciferol (vitamin D2) 1,250 50,000 unit PO [id number] 11/26/19 05/29/24 06/08/21 08:00 History mcg (50,000 unit) capsule (Vitamin D2) omeprazole 40 mg capsule,delayed 40 mg PO DAILY 11/26/19 05/29/24 06/10/21 08:00 History release polyethylene glycol 3350 17 gram 17 g PO WEEKLY 03/30/20 05/29/24 06/07/21 08:00 History oral powder packet (Miralax) sucralfate 1 gram tablet 1 g PO BID 03/30/20 05/29/24 06/10/21 08:00 History carvedilol 3.125 mg tablet 3.125 mg PO Q12H 02/29/24 06/03/24 06/03/24 06:00 History lamotrigine 25 mg tablet 75 mg PO TID 07/23/24 Unknown History Allergies Allergy/AdvReac Type Severity Reaction Status Date / Time adhesive tape Allergy Unknown SKIN Verified 03/12/25 12:13 BLISTERS Review of Systems Review of Systems: ROS unobtainable: Yes unobtainable due to mental status PMFSH Past Medical History Medical History Right hip pain Scoliosis Constipation Dysphagia Chronic ear infection Barretts esophagus Tourette syndrome Hypertension Seizure disorder Feeding by G-tube Gastrostomy tube in place Autism Suprapubic catheter Mental disability History of gastrostomy tube placement History of hypertension History of [place] de la Tourette's syndrome History of neurogenic bladder History of gastroesophageal reflux (GERD) Surgical History Surgical History History of surgical removal of skin lesion Benign lesion to the neck History of ear surgery 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 History of cholecystectomy Family History Family History Mother Family history of thyroid disease Hypertension COPD (chronic obstructive pulmonary disease) HTN (hypertension) with goal to be determined Father Congestive heart failure Other Family history of arthritis Social History Social History Smoking status: Never smoker Alcohol intake: never Substance use: never Substance use type: does not use Living arrangements: with family Gender identity (if verbalized by the patient): Male Spiritual care concerns: No Agree to blood products: Yes Exam Narrative: GENERAL APPEARANCE: WELL-DEVELOPED, WELL-NOURISHED SKIN: NORMAL COLOR HEAD: NORMOCEPHALIC, NONTRAUMATIC NECK: SUPPLE, NONTENDER CHEST AND RESPIRATORY: AIRWAY PATENT, NO RESPIRATORY DISTRESS, NO ACCESSORY MUSCLE USE HEART: REGULAR RATE/RHYTHM ABDOMEN: SOFT, NONTENDER, NO ORGANOMEGALY, QUIET BOWEL SOUNDS, FEEDING TUBE STOMA STILL OPENED, NO DISCHARGE, NO ERYTHEMA Course Consultations Consultation #1: DR MENDOZA HOSPITALIST WHO REQUESTED TO CONSULT OUR MIXER HELPER TO SEE IF HE CAN REPLACE THE TUBE OR NOT. Date: 03/12/25 Time: 13:21 Consultation #2: DR SABILLON REQUESTED TO TRANSFER PATIENT TO [facility] Date: 03/12/25 Time: 13:22 Consultation #3: DR MENDOZA, HOSPITALIST AT [facility] WHO ACCEPTED PATIENT TRANSFER Date: 03/12/25 Vital Signs Vital signs: Vital Signs Temperature 36.4 C 03/12/25 12:09 Pulse Rate 111 H 03/12/25 12:09 Respiratory Rate 16 03/12/25 12:09 Blood Pressure 98/88 L 03/12/25 12:09 Pulse Oximetry 95 03/12/25 12:09 Oxygen Delivery Room Air 03/12/25 12:09 Temperature 36.4 C 03/12/25 12:09 Pulse Rate 111 H 03/12/25 12:09 Respiratory Rate 16 03/12/25 12:16 Blood Pressure 98/88 L 03/12/25 12:09 Pulse Oximetry 95 03/12/25 12:09 Oxygen Delivery Room Air 03/12/25 12:09 Medical Decision Making MDM Narrative Medical decision making narrative: FEEDING TUBE REPLACEMENT TRANSFERRED TO [facility] FOR INTERVENTION RADIOLOGY. Vital Signs Vital Signs: Vital Signs Temperature 36.4 C 03/12/25 12:09 Pulse Rate 111 H 03/12/25 12:09 Respiratory Rate 16 03/12/25 12:09 Blood Pressure 98/88 L 03/12/25 12:09 Pulse Oximetry 95 03/12/25 12:09 Oxygen Delivery Room Air 03/12/25 12:09 Temperature 36.4 C 03/12/25 12:09 Pulse Rate 111 H 03/12/25 12:09 Respiratory Rate 16 03/12/25 12:16 Blood Pressure 98/88 L 03/12/25 12:09 Pulse Oximetry 95 03/12/25 12:09 Oxygen Delivery Room Air 03/12/25 12:09 Critical Care Time Critical Care Time Critical Care Time: Yes Total Critical Care Time: 30 Discharge Plan Discharge Clinical Impression: Encounter for feeding tube placement Patient Disposition: Acute Care Hospital Condition: Stable Patient Language: Albanian Prescriptions: No Action carvedilol 3.125 mg tablet 3.125 mg PO Q12H Rx Instructions: must administer with a meal/food Linzess 72 mcg capsule 72 mcg PO QAM Qty: 30 5RF omeprazole 40 mg capsule,delayed release(DR/EC) 40 mg PO DAILY ergocalciferol (vitamin D2) [Vitamin D2] 1,250 mcg (50,000 unit) Capsule 50,000 unit PO [id number] lamotrigine 25 mg tablet 75 mg PO TID polyethylene glycol 3350 [Miralax] 17 gram Powder In Packet 17 g PO WEEKLY sucralfate 1 gram Tablet 1 g PO BID Rx Instructions: BREAK IN HALF sennosides [senna] 8.8 mg/5 mL Syrup 8.8 mg feeding tube HS Qty: 240 0RF Follow-up/Referrals: Kadi,Minerva Harvey MD [Primary Care Provider] -
[2025-03-12 12:16] VITALS: RESP 16
--- OUTSIDE RECORDS SUMMARY | 2025-03-12 12:38 | XMS_ITS | Referral Summary ---
Author Organization [facility] Address [address] [place] [address] Care Team Providers Care Criminal Legal Assistant Name Role Phone Minerva Wallis MD Primary Care Provider [phone] Param Webb MD Unavailable [phone] Encounters Date Type Department Care Team Description 01/07/2025 11:05 AM CDT - 01/07/2025 11:59 PM CDT Hospital Encounter [facility] [address] [place] [address] Chandrika Richards RN Despins, Kara Lorraine, Silva Gan I., RT Gastrostomy tube dependent (HCC) Discharge Disposition: Discharge to home or self care 01/06/2025 Telephone [facility] [address] [place] [address] Chandrika Richards RN from Last 3 Months Allergies Active Allergy [...] 24 Active carvediloL (COREG) 3.125 mg tablet Take 1 tablet (3.125 mg total) by mouth 2 (two) times a day with meals 60 tablet 02/18/20 25 025 Active carvediloL (COREG) 3.125 mg tablet TAKE 1 TABLET BY MOUTH TWICE DAILY WITH MEALS 180 tablet 11/21/19 25 025 Discontinued Active Problems Problem Noted Date Diagnosed Date Gastrojejunostomy tube dislodgement 10/23/2024 Assessment & Plan (10/24/2024 12:19 PM CURRICULUM ASSISTANT): Tube dislodged at home -gauze placed over opening, no tract insertion -IR today for G-J tube replacement this afternoon Assessment & Plan (10/24/2024 2:00 AM CURRICULUM ASSISTANT): -IR consult for G-J tube replacement in AM -if not amenable to IR replacement, may need surgical consult vs. 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/20/2019 Developmental delay 08/20/2019 Tourette's disorder 02/05/2008 Intellectual disability 02/05/2008 Assessment & Plan (10/24/2024 12:22 PM CURRICULUM ASSISTANT): Patient's Mother in the room to help communicate Gastroesophageal reflux disease 02/05/2008 Constipation, chronic 02/05/2008 Assessment & Plan (10/24/2024 12:22 PM CURRICULUM ASSISTANT): Cont Linzess Resolved Problems Problem Noted Date Diagnosed Date Resolved Date Otorrhea of right ear 07/29/20192020 Immunizations Immunization Administration Dates Next Due Influenza, Quadrivalent, Veena [...] on file Legal Sex Male 4:02 AM CURRICULUM ASSISTANT Gender Identity Not on file Sexual Orientation Not on file Last Filed Vital Signs Vital Sign Reading Time Taken Comments Blood Pressure 134/73 01/07/2025 11:38 AM CDT Pulse 66 01/07/2025 11:38 AM CDT Temperature 36.8 C (98.3 F) 01/07/2025 11:38 AM CDT Respiratory Rate 16 01/07/2025 11:38 AM CDT Oxygen Saturation 96% 01/07/2025 11:38 AM CDT Inhaled Oxygen Concentration - - Weight 56.7 kg (125 lb) 11/15/2024 1:06 PM CURRICULUM ASSISTANT Height 162.6 cm (5' 4 ) 10/23/2024 5:40 PM CURRICULUM ASSISTANT Body Mass Index 21.46 10/23/2024 5:40 PM CURRICULUM ASSISTANT Plan of Treatment Not on file Procedures Procedure Name Priority Date/Time Associated Diagnosis Comments GJ-TUBE EXCHANGE Schedule Routine, Read Routine (OP Routine) 01/07/2025 12:23 PM CDT Gastrostomy tube dependent (HCC) from Last 3 Months Results * IR GJ-Tube Exchange (01/07/2025 12:23 PM CDT) Anatomical Region Laterality Modality Body N/A X-Ray Angiograph y 01/07/2025 2:17 PM CDT Impressions 01/07/2025 2:17 PM CDT Successful percutaneous 22-Niuean 45 cm gastrojejunostomy catheter exchange. PLAN: The catheter is ready for immediate feeding through the jejunal port. Please flush the catheter with 20 cc of water after every feed and every 8 hours. Do not use crushed pills through the jejunal lumen. Electronically signed by: Ramesh Germain PA-C Narrative 01/07/2025 2:17 PM CDT EXAMINATION: GASTROJEJUNOSTOMY TUBE EXCHANGE HISTORY/INDICATION: 54-year-old male with nutritional deficiency managed with a 22-Niuean gastrojejunostomy catheter. Patient presents for interval exchange. PROVIDER PRESENCE: Ramesh Germain PA-C, was present from the beginning to the end of the procedure. SEDATION: No sedation TECHNIQUE: Prior to beginning the procedure, [place] Protocol was performed to confirm the patient's [...] was then removed over the wire. A 22-Niuean 45 cm gastrojejunostomy tube was placed with its tip in the proximal jejunum. Contrast injection confirmed appropriate positioning of the catheter. A dressing was applied. ESTIMATED BLOOD LOSS: None CONDITION: Stable DISCHARGED TO: Recovery FINDINGS: Fluoroscopic spot image demonstrates the gastrojejunostomy catheter with its tip in the proximal jejunum. No complications are seen. Procedure Note Ramesh Germain PA - 01/07/2025 EXAMINATION: GASTROJEJUNOSTOMY TUBE EXCHANGE HISTORY/INDICATION: 54-year-old male with nutritional deficiency managed with a 22-Niuean gastrojejunostomy catheter. Patient presents for interval exchange. PROVIDER PRESENCE: Ramesh Germain PA-C, was present from the beginning to the end of the procedure. SEDATION: No sedation TECHNIQUE: Prior to beginning the procedure, [place] Protocol was performed to confirm the patient's [...] was then removed over the wire. A 22-Niuean 45 cm gastrojejunostomy tube was placed with its tip in the proximal jejunum. Contrast injection confirmed appropriate positioning of the catheter. A dressing was applied. ESTIMATED BLOOD LOSS: None CONDITION: Stable DISCHARGED TO: Recovery FINDINGS: Fluoroscopic spot image demonstrates the gastrojejunostomy catheter with its tip in the proximal jejunum. No complications are seen. IMPRESSION: Successful percutaneous 22-Niuean 45 cm gastrojejunostomy catheter exchange. PLAN: The catheter is ready for immediate feeding through the jejunal port. Please flush the catheter with 20 cc of water after every feed and every 8 hours. Do not use crushed pills through the jejunal lumen. Electronically signed by: Ramesh Germain PA-C David [facility] IM IR PROCEDURES Fin al Result from Last 3 Months Insurance MEDICARE IDPA Member Subscriber Plan / Payer (Ef fective 2022-Present) Name:EdgarTrace saavedra Relation to Subscriber:Self Name:Mague Trace Gomez Payer ID:[id number] Group ID:Not on file Type:[place]ICAID [place] Address: [place] [id number] MEDICARE IDPA Member Subscriber Plan / Payer ( fective 2019-Present) Name:Trace Bowser Relation to Subscriber:Self Name:Trace Bowser Payer ID:[id number] Group ID:Not on file Type:[place]ID [place] Address: [place] [id number] MEDICARE [facility] Advance Directives For more information, please contact: [phone] Documents on File Type Date Recorded Patient Waste Paper Hammermill Operator Expl anation ADVANCE DIRECTIVE 12/11/2013 12:00 AM ALMA ROSA R OF ROASTER SUPERVISOR FINANCIAL/MEDICAL * Full Code (Latest Code Status on File) Date Activated Date Inactivated Comments 11/15/2024 1:00 PM 11/16/2024 5:10 AM * Full Code Date Activated Date Inactivated Comments 10/23/2024 9:18 PM 10/24/2024 9:46 PM * Full Code Date Activated Date Inactivated Comments 01/10/2022 10:19 AM 01/10/2022 3:48 PM Care Teams Criminal Legal Assistant Relationship Specialty Start Date End Date Minerva Wallis MD [address] [place] [address] PCP - General Internal Medicine 07/13/17 [place] [address] Referring Physician Otolaryngology 07/24/19
--- OUTSIDE RECORDS SUMMARY | 2025-03-12 12:38 | XMS_ITS | Clinical Summary ---
Author Organization [facility] Address [address] [place] [address] Care Team Providers Care Fluid Jet Cutter Operator Name Role Phone Minerva Wallis MD Primary Care Provider [phone] Param Webb MD Unavailable [phone] Allergies Active Allergy Reactions Criticality Noted Date [...] 10/23/2024 Assessment & Plan (10/24/2024 12:19 PM DROP WIRE STRINGER): Tube dislodged at home -gauze placed over opening, no tract insertion -IR today for G-J tube replacement this afternoon Assessment & Plan (10/24/2024 2:00 AM DROP WIRE STRINGER): -IR consult for G-J tube replacement in AM -if not amenable to IR replacement, may need surgical consult vs. 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/20/2019 Developmental delay 08/20/2019 Tourette's disorder 02/05/2008 Intellectual disability 02/05/2008 Assessment & Plan (10/24/2024 12:22 PM DROP WIRE STRINGER): Patient's Mother in the room to help communicate Gastroesophageal reflux disease 02/05/2008 Constipation, chronic 02/05/2008 Assessment & Plan (10/24/2024 12:22 PM DROP WIRE STRINGER): Cont Linzess Resolved Problems Problem Noted Date Diagnosed Date Resolved Date Otorrhea of right ear 07/29/20192020 Encounters Date Type Department Care Team Description 01/07/2025 11:05 AM CDT - 01/07/2025 11:59 PM CDT Hospital Encounter [facility] [address] [place], [place] [address] Chandrika Richards RN Despins, Kara Lorraine, RN Frank, Meaghan I., RT Gastrostomy tube dependent (HCC) Discharge Disposition: Discharge to home or self care 01/06/2025 Telephone [facility] [address] [place], [place] [address] Chandrika Richards RN from Last 3 Months Immunizations Immunization Administration Dates Next Due Influenza, [...] EXCHANGE 10/24/2024 N/A GJ-TUBE EXCHANGE 11/15/2024 N/A GJ-TUBE EXCHANGE 01/07/2025 N/A Medical History Medical History Date Comments [...] on file Legal Sex Male 4:02 AM DROP WIRE STRINGER Gender Identity Not on file Sexual Orientation [...] 56.7 kg (125 lb) 11/15/2024 1:06 PM DROP WIRE STRINGER Height 162.6 cm (5' 4 ) 10/23/2024 5:40 PM DROP WIRE STRINGER Body Mass Index 21.46 10/23/2024 5:40 PM DROP WIRE STRINGER Plan of Treatment Health Maintenance Due Date Last Done Comments Colon Cancer Screening-Colonoscopy 1970 Depression Screening 1970 Hepatitis C Screening 1970 Prostate Cancer Screening-PSA 1970 DTaP/Tdap/Td Vaccine (1 - Tdap) 1981 Hepatitis B Screening 1988 Regular Well Visit/Exam 18-64 1988 Zoster Vaccine (1 of 2) 2020 Influenza Vaccine (Season Ended) 2025 08/18/20 21 Pneumococcal vaccine <65 Aged Out No longer [...] Impressions 01/07/2025 2:17 PM CDT Successful percutaneous 22-Sammarinese 45 cm gastrojejunostomy catheter exchange. PLAN: The catheter is ready for immediate feeding through the jejunal port. Please flush the catheter with 20 cc of water after every feed and every 8 hours. Do not use crushed pills through the jejunal lumen. Electronically signed by: TEDDY Espino 01/07/2025 2:17 PM CDT EXAMINATION: GASTROJEJUNOSTOMY TUBE EXCHANGE HISTORY/INDICATION: 54-year-old male with nutritional deficiency managed with a 22-Sammarinese gastrojejunostomy catheter. Patient presents for interval exchange. PROVIDER PRESENCE: Ramesh Germain PA-C, was present from the beginning to the end of the procedure. SEDATION: No sedation TECHNIQUE: Prior to beginning the procedure, [place] Protocol was performed to confirm the patient's [...] was then removed over the wire. A 22-Sammarinese 45 cm gastrojejunostomy tube was placed with [...] male with nutritional deficiency managed with a 22-Sammarinese gastrojejunostomy catheter. Patient presents for interval exchange. PROVIDER PRESENCE: Ramesh Germain PA-C, was present from the beginning to the end of the procedure. SEDATION: No sedation TECHNIQUE: Prior to beginning the procedure, [place] Protocol was performed to confirm the patient's [...] was then removed over the wire. A 22-Sammarinese 45 cm gastrojejunostomy tube was placed with its tip in the proximal jejunum. Contrast injection confirmed appropriate positioning of the catheter. A dressing was applied. ESTIMATED BLOOD LOSS: None CONDITION: Stable DISCHARGED TO: Recovery FINDINGS: Fluoroscopic spot image demonstrates the gastrojejunostomy catheter with its tip in the proximal jejunum. No complications are seen. IMPRESSION: Successful percutaneous 22-Sammarinese 45 cm gastrojejunostomy catheter exchange. PLAN: The catheter is ready for immediate feeding through the jejunal port. Please flush the catheter with 20 cc of water after every feed and every 8 hours. Do not use crushed pills through the jejunal lumen. Electronically signed by: Ramesh Germain PA-C David PHILLIPS [facility] [place] IR PROCEDURES Fin al Result from Last 3 Months Insurance MEDICARE [facility] MEDICARE IDPA MEDICARE IDPA Advance Directives For more information, please contact: [phone] Documents on File Type Date Recorded Patient Supply Chain Manager Expl anation ADVANCE DIRECTIVE 12/11/2013 12:00 AM ALMA ROSA R OF BIOTECHNOLOGIST FINANCIAL/MEDICAL * Full Code (Latest Code Status on File) Date Activated Date Inactivated Comments 11/15/2024 1:00 PM 11/16/2024 5:10 AM * Full Code Date Activated Date Inactivated Comments 10/23/2024 9:18 PM 10/24/2024 9:46 PM * Full Code Date Activated Date Inactivated Comments 01/10/2022 10:19 AM 01/10/2022 3:48 PM Care Teams Fluid Jet Cutter Operator Relationship Specialty Start Date End Date Minerva Wallis MD [address] [place] [address] PCP - General Internal Medicine 07/13/17 Param Webb MD [address] [place] [address] Referring Physician Otolaryngology 07/24/19
--- OUTSIDE RECORDS SUMMARY | 2025-03-12 12:38 | XMS_ITS | Clinical Summary ---
Author Organization [facility] Address [address] [place] [address] Care Team Providers Care Aircraft Engine Dismantler Name Role Phone Minerva Wallis MD Primary Care Provider [phone] Source Comments [facility],non-owned Affiliates and Associated Physician Practices is amultiple site organization consisting of ambulatory clinics and hospital sitesin [place], [place], [place] and [place]. This disclosure is being madepursuant to the Care Everywhere program and may not contain all information available regarding this patient. Last updated 18.[facility] [employer] Active Problems Problem Noted Date Diagnosed Date Complicated UTI (urinary tract infection) 2021 Social History Tobacco Use Types Packs/Day Years Used Date Smoking Tobacco: Never Smokeless Tobacco: Never Alcohol Use Standard Drinks/Week Comments No 0 (1 standard drink = 0.6 oz pur e alcohol) Sex and Gender Information Value Date Recorded Sex Assigned at Not on file Legal Sex Male 6:06 PM COMMERCIAL LENDING ASSISTANT Gender Identity Not on file Sexual [...] SCREENING 1970 LIPID TESTING 1970 MEDICARE AWV 12 MONTHS 1970 HIV SCREENING 1985 HEPATITIS C SCREENING 09/18/1988 DTAP/TDAP/TD VACCINES (1 - Tdap) 1989 HEPATITIS B VACCINE (1 of 3 - 19+ 3-dose series) 1989 PNEUMOCOCCAL VACCINE 50+ (1 of 1 - PCV) 2020 ZOSTER VACCINE (1 of 2) 2020 COVID-19 VACCINE (1 - 2023-2 5 season) 2024 DEPRESSION SCREENING 10/23/2024 INFLUENZA VACCINE (Season Ended) 2025 HIB VACCINE Aged Out No longer eligi ble based on patient's age to complete this topic HPV VACCINE Aged Out No longer eligi ble based on patient's age to complete this topic MENINGOCOCCAL (Group B) VACC INE SHARED DECISION-MAKING Aged Out No longer eligibl e based on patient's age to complete this topic MENINGOCOCCAL GROUPS A/C/Y/W VACCINE Aged Out No longer eligible b ased on patient's age to complete this topic Insurance MEDICARE MEDICAID - OUT OF STATE Care Teams Aircraft Engine Dismantler Relationship Specialty Start Date End Date Minerva Wallis MD PCP - General 10/18/16
--- OUTSIDE RECORDS SUMMARY | 2025-03-12 12:38 | XMS_ITS | Encounter Summary ---
Author Organization [facility] Address [address] [place] [address] Care Team Providers Care Medical Legal Investigator Name Role Phone Minerva Wallis MD Primary Care Provider [phone] Param Webb MD Unavailable [phone] Encounter Details Date Type Department Care Team (Late st Contact Info) Description 11/28/2023 Telephone [facility] [address] [place] [address] Shavon Vera RN Social History Tobacco Use Types Packs/Day Years Used Date Smoking Tobacco: Never Smokeless Tobacco: Never Sex and Gender Information Value Date Recorded Sex Assigned at Not on file Legal Sex Male 4:02 AM SAND TESTER Gender Identity Not on file Sexual Orientation Not on file documented as of this encounter Plan of Treatment Not on file documented as of this encounter Visit Diagnoses Not on filedocumented in this encounter Care Teams Medical Legal Investigator Relationship Specialty Start Date End Date Minerva Wallis MD [address] [place] [address] PCP - General Internal Medicine 07/13/17 Param Webb MD [address] [place] [address] Referring Physician Otolaryngology 07/24/19 documented as of this encounter
--- OUTSIDE RECORDS SUMMARY | 2025-03-12 12:38 | XMS_ITS | Encounter Summary ---
Author Organization [facility] Address [address] [place] [address] Care Team Providers Care Plant Propagator Name Role Phone Minerva Wallis MD Primary Care Provider [phone] Param Webb MD Unavailable [phone] Encounter Details Date Type Department Care Team (Late st Contact Info) Description 10/20/2022 Telephone [facility] [address] [facility] [place] [address] Marivel Toth RN Social History Tobacco Use Types Packs/Day Years Used Date Smoking Tobacco: Never Smokeless Tobacco: Never Sex and Gender Information Value Date Recorded Sex Assigned at Not on file Legal Sex Male 4:02 AM FIELD PLACEMENT DIRECTOR Gender Identity Not on file Sexual Orientation Not on file documented as of this encounter Plan of Treatment Not on file documented as of this encounter Visit Diagnoses Not on filedocumented in this encounter Care Teams Plant Propagator Relationship Specialty Start Date End Date Minerva Wallis MD [address] [place] [address] PCP - General Internal Medicine 07/13/17 Param Webb MD [address] [place] [address] Referring Physician Otolaryngology 07/24/19 documented as of this encounter
--- OUTSIDE RECORDS SUMMARY | 2025-03-12 12:38 | XMS_ITS | Encounter Summary ---
Author Organization [facility] Healthcare Address [address] [place] [address] Care Team Providers Care Triage Clinician Name Role Phone Minerva Wallis MD Primary Care Provider [phone] Param Webb MD Unavailable [phone] Encounter Details Date Type Department Care Team (Late st Contact Info) Description 02/11/2020 Telephone [facility] [address] [place] [address] Gloria Jimenez RN Social History Tobacco Use Types Packs/Day Years Used Date Smoking Tobacco: Never Smokeless Tobacco: Never Sex and Gender Information Value Date Recorded Sex Assigned at Not on file Legal Sex Male 4:02 AM WIRE INSERTER Gender Identity Not on file Sexual Orientation Not on file documented as of this encounter Plan of Treatment Not on file documented as of this encounter Visit Diagnoses Not on filedocumented in this encounter Care Teams Triage Clinician Relationship Specialty Start Date End Date Minerva Wallis MD [address] [place] [address] PCP - General Internal Medicine 07/13/17 Param Webb MD [address] [place] [address] Referring Physician Otolaryngology 07/24/19 documented as of this encounter
--- OUTSIDE RECORDS SUMMARY | 2025-03-12 12:38 | XMS_ITS | CONTINUITY OF CARE DOCUMENT ---
Author Name feroz redman Address Unknown Organization [facility] Address [address] [place] [address] Phone [phone] Care Team Providers Care Bank Representative Name Role Phone Edilia HITCHCOCK, Nito Unavailable [phone] ALEX NEELY Unavailable SHELIA SALCEDO MD Unavailable PROBLEMS Condition Status Date Provider Notes CONSTIPATION, CHRONIC active Angie Tyler GERD active Angie Stanley MENTAL RETARDATION active Angie Tyler DISORDER, TOURETTE active Angie Tyler EDEMA-5/08 NADEGE DOP NEG active ? Royal Navarrete RN ENCOUNTERS Date Type Provider Location Encounter Diagnosis - In-person encounter Office Visit Nito Yeboah MD [facility] - In-person encounter Office Visit Nito Yeboah MD [facility] EDEMA-5/08 NADEGE DOP NEG VITAL SIGNS Date Observation [...] pressure, systolic, right arm 134 m m[Hg] Dains Arsenio pulse rate 102 /min Danis Scalesd [...] TABLET active ONE TAB. TWICE DAILY Angie Stanley IRON SUPPLEMENT TABLET active QD Angie Tyler NEXIUM CAPSULE DELAYED RELEASE active 30 MG QD Angie Stanley REGLAN 10 MG ORAL TABLET completed ONE TAB. DAILY - Danis Cesar FOLIC ACID CAPS active 1 MG QD Angie Stanley SOCIAL HISTORY Date Observation Value Provider social [...] Payer name Policy type / Coverage type [employer]re[employer] red alliance party ID [facility] Medicaid 0 [id number] [place] [employer] Medicare [id number] TREATMENT PLAN Date Name Performer : H is updated medication list for this problem includes: Coreg 6.25 Mg Tabs (Carvedilol) ..... One tab. twice daily Pravachol 40 Mg Tabs (Pravastatin sodium) ..... One tab. daily & #13;BP today: 114/76 Prior BP: / () Orders: C omplete Echo ([id number]) Nito Yeboah MD Nito Yeboah MD Nito Yeboah MD : H is updated medication list for this problem includes: Coreg 6.25 Mg Tabs (Carvedilol) ..... One tab. twice daily BP today: 114/76 Prior BP: / () H olter Monitor Comments: SR with a amx HR of 115bpm and a min HR of 53bpm. Occasional PVCs. [facility] (10/17/2007) E chocardiogram: LV EF 52%. MIld LV diastolic dysfunction. Mild eliza-septal wall hypokinesis compatible with ischemia or infarction. Trace MR. Mild TR. Trace TR. RVSP 33mmHg. [facility] (10/02/2007) Nito Yeboah MD : O rders: E KG ([id number]) Nito Yeboah MD leg swollen: H is updated medication list for this problem includes: Coreg 6.25 Mg Tabs (Carvedilol) ..... One tab. twice daily d iff to assess Nito Yeboah MD leg swollen:check venous doppler . r/o dvt. Nito Yeboah MD leg swollen Nito Yeboah MD leg swollen: T he following medications [...]
--- NOTE | 2025-03-12 14:45 | PC.NURSE ---
[id number] Spoke with Cely from [facility] transfer center, all questions answered. Cely states they will call back when they have a bed assignment.
[2025-03-12] MEDS: SODIUM CHLORIDE 0.9% IV 1,000 ML 100 ML IV CONT (14:50)
[2025-03-12 18:45] VITALS: BP 121/88; PULSE 89; RESP 16; TEMP 36.4; O2SAT 98
[2025-03-12 19:36] VITALS: BP 118/72; PULSE 75; RESP 19; O2SAT 98
[2025-03-12 21:12] VITALS: BP 122/89; PULSE 100; RESP 16; O2SAT 96
== END 2025-03-12 21:10 | disposition short-term general hospital (02) ==
PROVIDERS: Emergency Provider Emergency Medicine; PCP Internal Medicine
DX: Z43.1 Encounter for attention to gastrostomy (principal); I10 Essential (primary) hypertension; G40.909 Epilepsy, unspecified, not intractable, without status epilepticus; N31.9 Neuromuscular dysfunction of bladder, unspecified; K21.9 Gastro-esophageal reflux disease without esophagitis; M41.9 Scoliosis, unspecified; F84.0 Autistic disorder; F95.2 Tourette's disorder; Z90.49 Acquired absence of other specified parts of digestive tract; Z79.899 Other long term (current) drug therapy
CPT/HCPCS: 96360; 96361; 99285; J7030

== ENCOUNTER 2025-04-02 14:25 | Outpatient (CLI) | payer MEDICARE, MEDICAID, SELFPAY ==
--- NOTE | ~2025-04-02 | XR_ITS ---
XR hip RT min 2V 04/02/2025 14:55 Indication: Right hip pain Procedure: 2 views right hip Comparison: 08/25/2017 Findings: There is anatomic alignment. No joint space narrowing. No fracture or traumatic malalignmen t. No soft tissue abnormality. No foreign bodies. Impression: 1: No significant bone or joint abnormality. Reviewed, dictated and finalized at location B. Impression: 1: No significant bone or joint abnormality.
--- NOTE | ~2025-04-02 | XR_ITS ---
XR hip LT min 2V 04/02/2025 14:55 Indication: Hip pain Procedure: 2 views left hip Comparison: 08/25/2017 Findings: There is anatomic alignment. No fracture, subluxation or dislocation. No joint space narrow ing. Impression: 1: No significant abnormality of the left hip. Reviewed, dictated and finalized at location B. Impression: 1: No significant abnormality of the left hip.
--- OUTSIDE RECORDS SUMMARY | 2025-04-02 17:12 | XMS_ITS | Encounter Summary ---
Author Organization [facility] Healthcare Address [address] [place] [address] Care Team Providers Care Import Export Agent Name Role Phone Minerva Wallis MD Primary Care Provider [phone] Param Webb MD Unavailable [phone] Encounter Details Date Type Department Care Team (Late st Contact Info) Description 10/20/2022 Telephone [facility] [address] [place] [address] Marivel Toth RN Social History Tobacco Use Types Packs/Day Years Used Date Smoking Tobacco: Never Smokeless Tobacco: Never Sex and Gender Information Value Date Recorded Sex Assigned at Not on file Legal Sex 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 Gender Identity Not on file Sexual Orientation Not on file documented as of this encounter Plan of Treatment Not on file documented as of this encounter Visit Diagnoses Not on filedocumented in this encounter Additional Health Concerns Infection Onset Date Last Indicated Resolved Time COVID: Suspected 03/12/2025 03/13/2025 03/13/2025 3:32 AM CDT documented as of this encounter Care Teams Import Export Agent Relationship Specialty Start Date End Date Minerva Wallis MD [address] [place] [address] PCP - General Internal Medicine 07/13/17 Param Webb MD [address] [place] [address] Referring Physician Otolaryngology 07/24/19 documented as of this encounter
--- OUTSIDE RECORDS SUMMARY | 2025-04-02 17:12 | XMS_ITS | Clinical Summary ---
Author Organization [facility] Address [address] [place] [address] Care Team Providers Care Senior Front End Web Developer Name Role Phone Minerva Wallis MD Primary Care Provider [phone] Param Webb MD Unavailable [phone] Allergies Active Allergy Reactions Criticality Noted Date [...] (two) times a day 10/08/20 19 Active ergocalcifero l (VITAMIN D) 50,000 unit capsule Take 1 capsule (50,000 Units total) by mouth once a week 11/22/19 24 Active loratadine (CLARITIN) 10 mg tablet Take 1 tablet (10 mg total) by mouth daily 11/29/[address] (PROTONIX) 40 mg EC tablet Take 1 tablet (40 mg total) by mouth daily 11/27/19 24 Active cyanocobalami n (vitamin B-12) 100 mcg tablet Take 1 tablet (100 mcg total) by mouth every [address] (NexIUM) 20 mg capsule Take 1 capsule (20 mg total) by mouth daily before breakfast Active promethazine (PHENERGAN) 1.25 mg/mL syrup Take 5 mL (6.25 mg total) by mouth 2 (two) times a day as needed for nausea or vomiting 03/29/20 24 Active carvediloL (COREG) 3.125 mg tablet TAKE 1 TABLET BY MOUTH TWICE DAILY WITH MEALS 60 tablet 03/18/20 25 Active Linzess 72 mcg capsule Take 1 capsule (72 mcg total) by mouth daily 02/29/20 24 025 Discontinued(T herapy completed) carvediloL (COREG) 3.125 mg tablet Take 1 tablet (3.125 mg total) by mouth 2 (two) times a day with meals 60 tablet 02/18/20 25 025 Discontinued amoxicillin-c lavulanate (AUGMENTIN) 875-125 mg per tabletIndicat ions:Pneumoni a, Aspiration Take 1 tablet by mouth 2 (two) times a day for 4 days 8 tablet 03/13/20 25 025 azithromycin (ZITHROMAX) 250 mg tabletIndicat ions:Pneumoni a, Aspiration Take 2 tabs (500 mg) by mouth today, than 1 tab (250 mg) daily for 4 days. 6 tablet 03/13/20 25 025 Active Problems Problem Noted Date Diagnosed Date High anion gap metabolic acidosis 03/13/2025 Assessment & Plan (03/13/2025 1:39 PM CDT): -CO2 20, AG 17 -suspect starvation ketoacidosis -repeat labs similar, but no real baseline labs, he is clinically improving -Recommend follow up with his primary Assessment & Plan (03/13/2025 2:32 AM CDT): -CO2 20, AG 17 -suspect starvation ketoacidosis -LR at 125/hr At high risk for aspiration 03/13/2025 Dislodged gastrostomy tube 03/12/2025 Assessment & Plan (03/13/2025 1:26 PM CDT): -Spoke with outpatient GI, IR, and patient's Mom and decided that even with his high risk of aspiration, leaving the G-tube out for a small time would help heal the very large track there is currently and readdress putting another one in in about a month to hopefully prevent it from falling out so frequently. Mom feels that he is eating and drinking adequate amount at home and he has not used the G-tube in 5 months prior to coming in. Educated Mom about the continued risk of aspiration and furthering infection, she acknowledged understanding, but feels buttermaker helper, it would be better to let the track heal for the opportunity the tube will stay in if the track is new or smaller. IR order placed at discharge and they will follow up with the patient around that time. Assessment & Plan (03/13/2025 2:34 AM CDT): -discuss with IR in AM re: replacing tube Pneumonia involving right lung 03/12/2025 Assessment & Plan (03/13/2025 1:26 PM CDT): -suspect aspiration -may explain his decreased appetite recently -ceftriaxone 2g, azithromycin 500 mg IV q24 x 1 dose, transition to Augmentin/Azithro at discharge -s/p gentle IVFs -RPP negative Assessment & Plan (03/13/2025 2:35 AM CDT): -suspect aspiration -may explain his decreased appetite recently -start ceftriaxone 2g, azithromycin 500 mg IV q24 -gentle IVFs overnight -check RPP -if spikes fever or develops S/Sx sepsis, check blood cultures, lactate and expand coverage with IV vanc and/or anti-pseudomonal coverage Gastrojejunostomy tube dislodgement 10/23/2024 Assessment & Plan (10/24/2024 12:19 PM SALES PROMOTION MANAGER): Tube dislodged at home -gauze placed over opening, no tract insertion -IR today for G-J tube replacement this afternoon Assessment & Plan (10/24/2024 2:00 AM SALES PROMOTION MANAGER): -IR consult for G-J tube replacement in AM -if not amenable to IR replacement, may need surgical consult vs. 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/20/2019 Developmental delay 08/20/2019 Tourette's disorder 02/05/2008 Intellectual disability 02/05/2008 Assessment & Plan (10/24/2024 12:22 PM SALES PROMOTION MANAGER): Patient's Mother in the room to help communicate Gastroesophageal reflux disease 02/05/2008 Constipation, chronic 02/05/2008 Assessment & Plan (03/13/2025 1:26 PM CDT): -PRN miralax Assessment & Plan (03/13/2025 2:34 AM CDT): -PRN miralax Assessment & Plan (10/24/2024 12:22 PM SALES PROMOTION MANAGER): Cont Linzess Resolved Problems Problem Noted Date Diagnosed Date Resolved Date Otorrhea of right ear 07/29/20192020 Encounters Date Type Department Care Team Description 03/12/2025 10:04 PM CDT - 03/13/2025 4:50 PM CDT Hospital Encounter [facility] [address] [place] [address] Booker Arevalo MD Kalvala, MD Nicole Queen, Rufus Sotelo MD Dislodged gastrostomy tube (Primary Dx); At high risk for aspiration Discharge Disposition: Discharge to home or self care 01/07/2025 11:05 AM CDT - 01/07/2025 11:59 PM CDT Hospital Encounter [facility] [address] [place] [address] Chandrika Richards RN Despins, Sophie Morton, Silva Gan I., RT Gastrostomy tube dependent (HCC) Discharge Disposition: Discharge to home or self care 01/06/2025 Telephone [facility] [address] [place] [address] Chandrika Richards RN from Last 3 Months [...] making you feel afraid or unsafe? Denies 03/13/2025 Sex and Gender Information Value Date Recorded Sex Assigned at Not on file Legal Sex Male 4:02 AM SALES PROMOTION MANAGER Gender Identity Not on file Sexual Orientation Not on file Obstetrics History Last Filed Vital Signs Vital Sign Reading Time Taken Comments Blood Pressure 121/86 03/13/2025 3:45 PM CDT Pulse 81 03/13/2025 3:45 PM CDT Temperature 37.1 C (98.8 F) 03/13/2025 3:45 PM CDT Respiratory Rate 18 03/13/2025 3:45 PM CDT Oxygen Saturation 97% 03/13/2025 3:45 PM CDT Inhaled Oxygen Concentration - - Weight 54.4 kg (119 lb 14.4 oz) 025 12:15 AM CDT Height 162.6 cm (5' 4) 03/13/2025 12:1 5 AM CDT Body Mass Index 20.58 03/13/2025 12:15 AM CDT Plan of Treatment Health Maintenance Due Date Last Done Comments Colon Cancer Screening-Colonoscopy 1970 Depression Screening 1970 Hepatitis C Screening 1970 Prostate Cancer Screening-PSA 1970 DTaP/Tdap/Td Vaccine (1 - Tdap) 1981 Hepatitis B Screening 1988 Regular Well Visit/Exam 18-64 1988 Zoster Vaccine (1 of 2) 2020 Influenza Vaccine (Season Ended) 2025 08/18/20 21 Pneumococcal vaccine <65 Aged Out 05/18/2017 No longer eligible based on patient's age to complete this topic Procedures Procedure Name Priority Date/Time Associated Diagnosis Comments EGFR Timed 03/13/2025 1:09 PM CDT BASIC METABOLIC PANEL Timed 03/13/2025 1:09 PM CDT B CHECK SAMPLE STAT 03/13/2025 5:59 AM CDT EGFR Routine 03/13/2025 12:00 AM CDT DIFFERENTIAL AUTO Routine 03/13/2025 12: 00 AM CDT PHOSPHORUS Routine 03/13/2025 12:00 AM CDT MAGNESIUM Routine 03/13/2025 12:00 AM CDT HEPATIC FUNCTION PANEL Routine 03/13/2025 12:00 AM CDT BASIC METABOLIC PANEL Routine 03/13/2025 12:00 AM CDT APTT Routine 03/13/2025 12:00 AM CDT PROTIME-INR Routine 03/13/2025 12:00 AM CDT TYPE AND SCREEN Timed 03/13/2025 12:00 AM CDT CBC WITH AUTO DIFFERENTIAL Routine 03/13/2025 12:00 AM CDT RESPIRATORY PATHOGEN PANEL Routine 03/13/2025 12:00 AM CDT XR CHEST 1 VIEW ED Urgent/IP Urgent 03/12/2025 10:57 PM CDT GJ-TUBE EXCHANGE Schedule Routine, Read Routine (OP Routine) 01/07/2025 12:23 PM CDT Gastrostomy tube dependent (HCC) from Last 3 Months Results * eGFR (03/13/2025 1:09 PM CDT) eGFR >90 >=60 mL/min/1. 73 m2 Comment: Interpretive Data Reference Interval Normal >/= 90 mL/min/1.73m2 Mildly decreased* 60 - 89 mL/min/1.73m2 Mildly to moderately decreased 45 - 59 mL/min/1.73m2 Moderately to severely decreased 30 - 44 mL/min/1.73m2 Severely decreased 15 - 29 mL/min/1.73m2 Kidney Failure < 15 mL/min/1.73m2 *Relative to young adult level Estimated glomerular filtration rate is determined by the 2020 CKD-EPI equation recommended by the National Kidney Foundation (A Unifying Approach to GFR Estimation: Recommendations of the NKF-ASK Task Force on Reassessing the Inclusion of Race in Diagnosing Kidney Disease, JASN 202). The CKD-EPI equation should not be used for patients with unstable renal function and has not been validated in children and those over 70. Current interpretive data was last reviewed 2021. Blood 03/13/2025 1:09 PM CDT 03/13/2025 1:11 PM CDT Shavon Berrydeandral INSTRUMENT MAINTENANCE SUPERVISOR LAB BLOOD ORDERABLES Fin al Result Performing Organization Address City/[facility]/ZIP Co de Phone Number LAWANDA MENDEZ [address] [employer] [place] [address] * (ABNORMAL) Basic metabolic panel (03/13/2025 1:09 PM CDT) Sodium 138 135 - 145 mmol/L Potassium, pl 3.2(L) 3.3 - 4.9 mmol/L [facility] Chloride 102 97 - 110 mmol/L [facility] CO2 19(L) 22 - 32 mmol/L [facility] Anion gap 17(H) 2 - 15 mmol/L [facility] BUN 7 6 - 25 mg/dL [facility] Creatinine 0.70(L) 0.80 - 1.30 mg/dL [facility] Glucose 128 70 - 199 mg/dL [facility] Comment: Interpretive Data Fasting glucose >/= 126 mg/dl is diagnostic for diabetes. Fasting is defined as no caloric intake [...] interpretive data was last revised 2022. Calcium 9.0 8.5 - 10.3 mg/dL [facility] Blood 03/13/2025 1:09 PM CDT 03/13/2025 1:11 PM CDT Shavon Berrydeandral INSTRUMENT MAINTENANCE SUPERVISOR LAB BLOOD ORDERABLES Fin al Result Performing Organization Address [facility]/ZIP Co de Phone Number LAWANDA ORTIZCH [address] [employer] [place] [address] * Check Sample (03/13/2025 5:59 AM CDT) ABO Rh A Positive [facility] HCLL OTHER 03/13/2025 5:59 AM CDT 03/13/2025 6:01 AM CDT us Booker Arevalo MD LAB BLOOD ORDERABLES F inal Result Performing Organization Address City/[facility]/ZIP Co de Phone Number [facility] [address] [employer] [facility] [place], [place] [id number] * eGFR (03/13/2025 12:00 AM CDT) Pathologist [facility] [place] eGFR >90 >=60 mL/min/1. 73 m2 Comment: Interpretive Data Reference Interval Normal >/= 90 mL/min/1.73m2 Mildly decreased* 60 - 89 mL/min/1.73m2 Mildly to moderately decreased 45 - 59 mL/min/1.73m2 Moderately to severely decreased 30 - 44 mL/min/1.73m2 Severely decreased 15 - 29 mL/min/1.73m2 Kidney Failure < 15 mL/min/1.73m2 *Relative to young adult level Estimated glomerular [...] interpretive data was last reviewed 2021. Blood 03/13/2025 03/13/2025 12: 04 AM CDT us Rufus Rivera MD LAB BLOOD ORDERABLES Final Result Performing Organization Address City/[facility]/ZIP Co de Phone Number LAWANDA [facility] [address] [employer]. Department [employer] [place], [place] [id number] * (ABNORMAL) Differential, auto (03/13/2025 12:00 AM CDT) Pathologist [facility] Neutrophil abs 3.60 1.50 - 6.50 K/cumm Imm gran abs 0.28(H) 0.00 - 0.10 K/cumm [facility] Lymphocyte abs 1.75 0.80 - 3.30 K/cumm [facility] Monocyte abs 0.81(H) 0.20 - 0.80 K/cumm [facility] Eosinophil abs 0.20 0.00 - 0.50 K/cumm [facility] Basophil abs 0.10 0.00 - 0.10 K/cumm [facility] Neutrophil pct 53.3 % [facility] Comment: Interpretive Data Percent cell count reference ranges are not reported, since discordance with absolute values may lead to misinterpretation of CBC data. Current Interpretive Data was last revised on 2018. Imm gran pct 4.2 % [facility] Comment: Interpretive Data Percent cell count reference ranges are not reported, since discordance with absolute values may lead to misinterpretation of CBC data. Current Interpretive Data was last revised on 2018. Lymphocyte pct 26.0 % [facility] Comment: Interpretive Data Percent cell count reference ranges are not reported, since discordance with absolute values may lead to misinterpretation of CBC data. Current Interpretive Data was last revised on 2018. Monocyte pct 12.0 % [facility] Comment: Interpretive Data Percent cell count reference ranges are not reported, since discordance with absolute values may lead to misinterpretation of CBC data. Current Interpretive Data was last revised on 2018. Eosinophil pct 3.0 % [facility] Comment: Interpretive Data Percent cell count reference ranges are not reported, since discordance with absolute values may lead to misinterpretation of CBC data. Current Interpretive Data was last revised on 2018. Basophil pct 1.5 % [facility] Comment: Interpretive Data Percent cell count reference ranges are not reported, since discordance with absolute values may lead to misinterpretation of CBC data. Current Interpretive Data was last revised on 2018. Blood 03/13/2025 03/13/2025 12: 04 AM CDT Rufus Rivera MD LAB BLOOD ORDERABLES Final Result [facility] [address] [facility] Department [place] [address] * Respiratory pathogen panel Nasopharyngeal (03/13/2025 12:00 AM CDT) Influenza A RNA Not Detected Not Detected [facility] Comment:Testing performed by : [facility], [address] [place] [address]., [id number] Influenza B RNA Not Detected Not Detected [facility] Comment:Testing performed by : [facility], [address] [place] [address]., [address] RSV RNA Not Detected Not Detected [facility] Comment:Testing performed by : [facility], [address] [place] [address]., [id number] COVID-19 RNA Not Detected Not Detected [facility] Comment:Testing performed by : [facility], [address] [place] [address]., [address] Coronavirus 229E RNA Not Detected Not Detected [facility] Comment:Testing performed by : [facility], [address] [place] [address]., [address] Coronavirus HKU1 RNA Not Detected Not Detected [facility] Comment:Testing performed by : [facility], [address] [place] [address]., [address] Coronavirus NL63 RNA Not Detected Not Detected [facility] Comment:Testing performed by : [facility], [address] [place] [address]., [address] Coronavirus OC43 RNA Not Detected Not Detected [facility] Comment:Testing performed by : [facility], [address] [place] [address]., [address] Adenovirus DNA Not Detected Not Detected [facility] Comment:Testing performed by : [facility], [address] [place] [address]., [address] Metapneumovirus RNA Not Detected Not Detected [facility] Comment:Testing performed by : [facility], [address] [place] [address]., [address] Rhinovirus/Enterov irus RNA Not Detected Not Detected [facility] Comment:Testing performed by : [facility], [address] [place] [address]., [address] Parainfluenza 1 RNA Not Detected Not Detected [facility] Comment:Testing performed by : [facility], [address] [place] [address]., [address] Parainfluenza 2 RNA Not Detected Not Detected [facility] Comment:Testing performed by : [facility], [address] [place] [address]., [address] Parainfluenza 3 RNA Not Detected Not Detected [facility] Comment:Testing performed by : [facility], [address] [place] [address]., [address] Parainfluenza 4 RNA Not Detected Not Detected [facility] Comment:Testing performed by : [facility], [address] [place] [address]., [address] B. pertussis DNA Not Detected Not Detected [facility] Comment:Testing performed by : [facility], [address] [place] [address]., [address] B. parapertussis DNA Not Detected Not Detected [facility] Comment:Testing performed by : [facility], [address] [place] [address]., [address] C. pneumoniae DNA Not Detected Not Detected [facility] Comment:Testing performed by : [facility], [address] [place] [address]., [address] M. pneumoniae DNA Not Detected Not Detected [facility] Comment: Interpretive Data The [employer] FilmArray Respiratory Panel (RP2.1) assay is a multiplexed real-time PCR based nucleic acid test capable of simultaneous qualitative detection and identification of multiple respiratory viral and bacterial nucleic acids, including SARS Coronavirus 2 (the causative agent of COVID-19). The following bacteria, viruses and virus subtypes can be identified using the FilmArray RP2.1 assay: Bordetella pertussis, Bordetella parapertussis, Chlamydia pneumoniae, Mycoplasma pneumoniae, Adenovirus, SARS Coronavirus 2, seasonal coronaviruses (Coronavirus HKU1, Coronavirus NL63, Coronavirus 229E, and Coronavirus OC43), Influenza A, Influenza A subtype H1, Influenza A subtype H3, Influenza A subtype 2009 H1, Influenza B, Metapneumovirus, Parainfluenza 1, Parainfluenza 2, Parainfluenza 3, Parainfluenza 4, RSV, Rhinovirus/Enterovirus. Due to the genetic similarity between human Rhinovirus and Enterovirus, the FilmArray RP2.1 assay cannot reliably differentiate them. Coronavirus OC43 may cross-react with some isolates of Coronavirus HKU1. A dual positive result may be due to cross-reactivity or may indicate a co- infection. The detection and identification of specific viral and bacterial nucleic acids from individuals exhibiting signs and symptoms of a respiratory infection aids in the diagnosis of respiratory infection if used in conjunction with other clinical and epidemiological information. The results of this test should not be used as the sole basis for diagnosis, treatment, or other management decisions. Negative results in the setting of a respiratory illness may be due to infection with pathogens that are not detected by this test. Positive results do not rule out infection/co-infection with other organisms. The agent(s) detected by the FilmArray RP2.1 may not be the definite cause of disease. Additional testing (lab, imaging, etc.) may be necessary when evaluating a patient with possible respiratory tract infection. The FilmArray RP2.1 assay has FDA clearance for testing of INSTRUMENT MAINTENANCE SUPERVISOR swabs. The performance characteristics of this assay have been determined by [facility]. Current interpretive data was last revised on 2021. Testing performed by: [facility], [address] [place] [address], [place]., [address] Nasopharyngeal 03/13/2025 03/13/2025 2:38 AM CDT Narrative LAWANDA MENDEZ - 03/13/2025 3:31 AM CDT Is the Patient experiencing symptoms consistent with COVID?->Yes Surveillance testing for transplant patient?->No us Rufus Rivera MD LAB MICROBIOLOGY - GENERAL ORDERABLES Final Result LAWANDA LEIGHCH [address] [facility] [place] [address] MBC * (ABNORMAL) CBC with auto differential (03/13/2025 12:00 AM CDT) [facility] WBC 6.74 3.80 - 9.90 K/cumm Hgb 12.4(L) 13.0 - 17.5 g/dL [facility] Hct 36.3(L) 38.9 - 50.3 % [facility] Plt 245 150 - 400 K/cumm [facility] MPV 8.4(L) 9.1 - 12.3 fL [facility] RBC 3.87(L) 4.30 - 5.80 M/cumm [facility] MCV 93.8 81.3 - 96.4 fL [facility] MCH 32.0 27.1 - 33.3 pg [facility] MCHC 34.2 32.3 - 35.7 g/dL [facility] RDW CV 13.0 11.1 - 14.9 % [facility] RDW SD 44.2 35.7 - 48.1 fL [facility] NRBC abs 0.00 0.00 - 0.01 K/cumm [facility] Blood 03/13/2025 03/13/2025 12: 04 AM CDT Rufus Rivera MD LAB BLOOD ORDERABLES Final Result Performing Organization Address City/State/RUST Co sc Phone Number LAWANDA LEIGHWCH [address] [facility] [place] [address] * aPTT (03/13/2025 12:00 AM CDT) [facility] aPTT 34 28 - 38 sec Comment: Interpretive Data Heparin therapeutic range: 66.0 - 100.0 seconds. Range based on correlation with therapeutic heparin activity range of 0.3 - 0.7 Units/mL. Current interpretive data was last revised on 2023. Blood 03/13/2025 03/13/2025 12: 04 AM CDT Rufus Rivera MD LAB BLOOD ORDERABLES Final Result Performing Organization Address [facility] de Phone Number [facility] [address] [facility]. [facility] [place] [address] * Protime-INR (03/13/2025 12:00 AM CDT) PT 12.4 9.7 - 13.0 sec INR 1.14 0.90 - 1.20 LAWANDA MENDEZ Comment: Interpretive data Oral anticoagulant therapeutic ranges: Venous thromboembolism prophylaxis or treatment: 2.0-3.0 CARDIOLOGY Standard range: 2.0-3.0 High-intensity range: 2.5-3.5 Refer to indication-specific guidelines for appropriate target ranges for prosthetic heart valve replacement. Current interpretive data was last revised on 2019. Blood 03/13/2025 03/13/2025 12: 04 AM CDT Rufus Rivera MD LAB BLOOD ORDERABLES Final Result Performing Organization Address [facility] de Phone Number LAWANDA LEIGHCH [address] [facility]. [facility] [place] [address] * Type and screen (03/13/2025 12:00 AM CDT) Kim, indirect Negative LAWANDA MENDEZ ABO Rh A Positive LAWANDA MENDEZ Blood 03/13/2025 03/13/2025 12: 04 AM CDT Narrative LAWANDA MENDEZ - 03/13/2025 1:28 AM CDT Has the patient had Daratumumab or Isatuximab in the past 6 months?->Unknown Rufus Rivera MD LAB BLOOD BANK TEST ORDERAB LES Final Result Performing Organization Address [facility]/RUST Co de Phone Number LAWANDA LEIGHCH [address] [facility]. [facility] [place] [address] * Phosphorus (03/13/2025 12:00 AM CDT) Phosphorus, pl 3.6 2.3 - 4.5 mg/dL Blood 03/13/2025 03/13/2025 12: 04 AM CDT Rufus Rivera MD LAB BLOOD ORDERABLES Final Result [facility] [address] [facility] [place] [address] * Magnesium (03/13/2025 12:00 AM CDT) Magnesium 1.8 1.4 - 2.5 mg/dL Comment: Reference Data. Reference values for Labor and Delivery patients: < or = 0.7 mg/dL to > or = 7.3 mg/dL Current reference data last reviewd on 07/22/2015. Blood 03/13/2025 03/13/2025 12: 04 AM CDT Rufus Rivera MD LAB BLOOD ORDERABLES Final Result Performing Organization Address City/[facility]/ZIP Co de Phone Number [facility] [address] [facility] [place] [address] * Hepatic function panel (03/13/2025 12:00 AM CDT) Bilirubin, total 0.5 0.1 - 1.2 mg/dL Bilirubin, direct <0.2 0.1 - 0.3 mg/dL [facility] Protein, pl 7.2 6.5 - 8.5 g/dL [facility] Albumin 3.6 3.5 - 5.0 g/dL [facility] Alk phos 130 40 - 130 Units/L [facility] ALT 12 7 - 55 Units/L [facility] AST 25 10 - 50 Units/L [facility] Blood 03/13/2025 03/13/2025 12: 04 AM CDT Rufus Rivera MD LAB BLOOD ORDERABLES Final Result LAWANDA MENDEZ [address] [address] [address] * (ABNORMAL) Basic metabolic panel (03/13/2025 12:00 AM CDT) Sodium 140 135 - 145 mmol/L Potassium, pl 3.5 3.3 - 4.9 mmol/L [facility] Chloride 103 97 - 110 mmol/L [facility] CO2 20(L) 22 - 32 mmol/L [facility] Anion gap 17(H) 2 - 15 mmol/L [facility] BUN 7 6 - 25 mg/dL [facility] Creatinine 0.70(L) 0.80 - 1.30 mg/dL [facility] Glucose 86 70 - 199 mg/dL [facility] Comment: Interpretive Data Fasting glucose >/= 126 mg/dl is diagnostic for diabetes. Fasting is defined as no caloric intake [...] 2022. Calcium 9.3 8.5 - 10.3 mg/dL [facility] Blood 03/13/2025 03/13/2025 12: 04 AM CDT Rufus Rivera MD LAB BLOOD ORDERABLES Final Result LAWANDA MENDEZ [address] [place] [address] * XR Chest 1 View (03/12/2025 10:57 PM CDT) Anatomical Region Laterality Modality Body, Chest N/A Computed Radiogr aphy 03/13/2025 6:23 AM CDT Impressions 03/13/2025 6:23 AM CDT Comparison is made to a prior study dated 05/26/2015. Costophrenic angle is excluded. New multifocal airspace opacities are present within the right lung. Although aspiration/pneumonia is a possible explanation, recommend follow-up after treatment to document resolution. There is no pleural effusion or pneumothorax. Normal heart size. Electronically signed by: Pascual Meek M.D. Narrative 03/13/2025 6:23 AM CDT EXAMINATION: 1 view chest radiograph Procedure Note Pascual Meek MD - 03/13/2025 EXAMINATION: 1 view chest radiograph IMPRESSION: Comparison is made to a prior study dated 05/26/2015. Costophrenic angle is excluded. New multifocal airspace opacities are present within the right lung. Although aspiration/pneumonia is a possible explanation, recommend follow-up after treatment to document resolution. There is no pleural effusion or pneumothorax. Normal heart size. Electronically signed by: Pascual Meek M.D. Rufus Rivera MD IMG XR PROCEDURES Final Res ult * IR GJ-Tube Exchange (01/07/2025 12:23 PM CDT) Anatomical Region Laterality Modality Body N/A X-Ray Angiograph y 01/07/2025 2:17 PM CDT Impressions 01/07/2025 2:17 PM CDT Successful percutaneous 22-[place] Islander 45 cm gastrojejunostomy catheter exchange. PLAN: The [...] male with nutritional deficiency managed with a 22-[place]er gastrojejunostomy catheter. Patient presents for interval exchange. PROVIDER PRESENCE: Ramesh Germain PA-C, was present from the beginning to the end of the procedure. SEDATION: No sedation TECHNIQUE: Prior to beginning the procedure, [place] Protocol was performed to confirm the patient's [...] was then removed over the wire. A 22-[place] Islander 45 cm gastrojejunostomy tube was placed with [...] male with nutritional deficiency managed with a 22-[place]er gastrojejunostomy catheter. Patient presents for interval exchange. PROVIDER PRESENCE: Ramesh Germain PA-C, was present from the beginning to the end of the procedure. SEDATION: No sedation TECHNIQUE: Prior to beginning the procedure, [place] Protocol was performed to confirm the patient's [...] was then removed over the wire. A 22-[place] Islander 45 cm gastrojejunostomy tube was placed with its tip in the proximal jejunum. Contrast injection confirmed appropriate positioning of the catheter. A dressing was applied. ESTIMATED BLOOD LOSS: None CONDITION: Stable DISCHARGED TO: Recovery FINDINGS: Fluoroscopic spot image demonstrates the gastrojejunostomy catheter with its tip in the proximal jejunum. No complications are seen. IMPRESSION: Successful percutaneous 22-[place] Islander 45 cm gastrojejunostomy catheter exchange. PLAN: The catheter is ready for immediate feeding through the jejunal port. Please flush the catheter with 20 cc of water after every feed and every 8 hours. Do not use crushed pills through the jejunal lumen. Electronically signed by: Ramesh Germain PA-C David PHILLIPS IMG IR PROCEDURES Fin al Result from Last 3 Months Insurance MEDICARE [facility] MEDICARE [place] MEDICARE IDPA Advance Directives For more information, please contact: [phone] Documents on File Type Date Recorded Patient General Teller Expl anation ADVANCE DIRECTIVE 12/11/2013 12:00 AM ALMA ROSA R OF RESPIRATORY SERVICES MANAGER FINANCIAL/MEDICAL * Full Code (Latest Code Status on File) Date Activated Date Inactivated Comments 03/12/2025 10:34 PM 03/13/2025 9:42 PM * Full Code Date Activated Date Inactivated Comments 11/15/2024 1:00 PM 11/16/2024 5:10 AM * Full Code Date Activated Date Inactivated Comments 10/23/2024 9:18 PM 10/24/2024 9:46 PM * Full Code Date Activated Date Inactivated Comments 01/10/2022 10:19 AM 01/10/2022 3:48 PM Care Teams Senior Front End Web Developer Relationship Specialty Start Date End Date Minerva Wallis MD [address] [place] [address] PCP - General Internal Medicine 07/13/17 Param Webb MD [address] [place] [address] Referring Physician Otolaryngology 07/24/19
--- OUTSIDE RECORDS SUMMARY | 2025-04-02 17:12 | XMS_ITS | CONTINUITY OF CARE DOCUMENT ---
Author Name feroz redman Address Unknown Organization [facility] Address [address] [address] [facility] [address] [place] [address] Phone [phone] Care Team Providers Care Marketing Agent Name Role Phone Edilia HITCHCOCK, Nito Unavailable ALEX NEELY Unavailable [phone] SHELIA SALCEDO MD Unavailable [phone] PROBLEMS Condition Status Date Provider Notes CONSTIPATION, CHRONIC active Angie Lakota GERD active Angie Lakota MENTAL RETARDATION active Angie Lakota DISORDER, TOURETTE active Angie Tyler EDEMA-5/08 NADEGE DOP NEG active ? Royal Navarrete RN ENCOUNTERS Date Type Provider Location Encounter Diagnosis - In-person encounter Office Visit Nito Yeboah MD [facility] - In-person encounter Office Visit Nito Yeboah MD [facility] EDEMA-5/08 NADEGE DOP NEG VITAL SIGNS [...] DELAYED RELEASE active 30 MG QD Angie Lakota REGLAN 10 MG ORAL TABLET completed ONE [...] Policy type / Coverage type Bereket red green party ID [facility] Medicaid 0 [id number] [place] MED[place] Medicare [id number] TREATMENT PLAN Date Name Performer : H is updated medication list for this problem includes: Coreg 6.25 Mg Tabs (Carvedilol) ..... One tab. twice daily Pravachol 40 Mg Tabs (Pravastatin sodium) ..... One tab. daily & #13;BP today: 114/76 Prior BP: / () Orders: C omplete Echo (CPT-52126) Nito Yeboah MD Nito Yeboah MD Nito Yeboah MD : H is updated medication list for this problem includes: Coreg 6.25 Mg Tabs (Carvedilol) ..... One tab. twice daily BP today: 114/76 Prior BP: / () H olter Monitor Comments: SR with a amx HR of 115bpm and a min HR of 53bpm. Occasional PVCs. [facility] (10/17/2007) E chocardiogram: LV EF 52%. MIld LV diastolic dysfunction. Mild eliza-septal wall hypokinesis compatible with ischemia or infarction. Trace MR. Mild TR. Trace TR. RVSP 33mmHg. [facility] (10/02/2007) Nito Yeboah MD : O rders: E KG (CPT-63052) Nito Yeboah MD leg swollen: H is [...]
--- OUTSIDE RECORDS SUMMARY | 2025-04-02 17:12 | XMS_ITS | Referral Summary ---
Author Organization [facility] Address [address] [place] [address] Care Team Providers Care Stationary Fireman Name Role Phone Minerva Wallis MD Primary Care Provider [phone] Param Webb MD Unavailable [phone] Encounters Date Type Department Care Team Description 03/12/2025 10:04 PM CDT - 03/13/2025 4:50 PM CDT Hospital Encounter [facility] [address] [place] [address] Booker Arevalo MD Kalvala, MD Nicole Queen, Rufus Sotelo MD Dislodged gastrostomy tube (Primary Dx); At high risk for aspiration Discharge Disposition: Discharge to home or self care 01/07/2025 11:05 AM CDT - 01/07/2025 11:59 PM CDT Hospital Encounter [facility] [address] [place] [address] Chandrika Richards RN Despins, Kara Lorraine, Silva Gan I., RT Gastrostomy tube dependent (HCC) Discharge Disposition: Discharge to home or self care 01/06/2025 Telephone [facility] [address] [place] [address] Chandrika Richards, SERGEY from Last 3 Months Allergies Active Allergy [...] furthering infection, she acknowledged understanding, but feels correction, it would be better to let the [...] 10/23/2024 Assessment & Plan (10/24/2024 12:19 PM MANAGING BROKER): Tube dislodged at home -gauze placed over opening, no tract insertion -IR today for G-J tube replacement this afternoon Assessment & Plan (10/24/2024 2:00 AM MANAGING BROKER): -IR consult for G-J tube replacement in AM -if not amenable to IR replacement, may need surgical consult vs. 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/20/2019 Developmental delay 08/20/2019 Tourette's disorder 02/05/2008 Intellectual disability 02/05/2008 Assessment & Plan (10/24/2024 12:22 PM MANAGING BROKER): Patient's Mother in the room to help communicate Gastroesophageal reflux disease 02/05/2008 Constipation, chronic 02/05/2008 Assessment & Plan (03/13/2025 1:26 PM CDT): -PRN miralax Assessment & Plan (03/13/2025 2:34 AM CDT): -PRN miralax Assessment & Plan (10/24/2024 12:22 PM MANAGING BROKER): Cont Linzess Resolved Problems Problem Noted Date [...] on file Legal Sex Male 4:02 AM MANAGING BROKER Gender Identity Not on file Sexual Orientation [...] 03/13/2025 12:15 AM CDT Plan of Treatment Not on file Procedures [...] 1:09 PM CDT 03/13/2025 1:11 PM CDT us Shavon Leticia Bunfill LEAD HANDLER LAB BLOOD ORDERABLES Fin al Result [facility] [address] [facility]. [place] [address] * (ABNORMAL) Basic metabolic panel (03/13/2025 1:09 [...] BJWCH Glucose 128 70 - 199 mg/dL [facility] Comment: Interpretive Data Fasting glucose >/= 126 [...] Calcium 9.0 8.5 - 10.3 mg/dL [facility]ER WCH Blood 03/13/2025 1:09 PM CDT 03/13/2025 1:11 PM CDT us Shavno Castro NP LAB BLOOD ORDERABLES Fin al Result Performing Organization Address City/[facility]/ZIP Co de Phone Number LAWANDA ORTIZCH [address] [employer] [facility] [place] [address] * Check Sample (03/13/2025 5:59 AM CDT) ABO Rh A Positive LAWANDA BJWCH HCLL OTHER 03/13/2025 5:5 9 AM CDT 03/13/2025 6:01 AM CDT us Booker Arevalo MD LAB BLOOD ORDERABLES F inal Result Performing Organization Address [facility] de Phone Number LAWANDA LEIGHWCH [address] [employer] [facility] [place] [address] * eGFR (03/13/2025 12:00 AM CDT) eGFR >90 >=60 mL/min/1. 73 m2 [...] LAB BLOOD ORDERABLES Final Result LAWANDA MENDEZ [address] [place] [address] * (ABNORMAL) Differential, auto (03/13/2025 12:00 AM CDT) Neutrophil abs 3.60 1.50 - 6.50 K/cumm Imm gran abs 0.28(H) 0.00 - 0.10 K/cumm CERNER BJW[facility] Lymphocyte abs 1.75 0.80 - 3.30 K/cumm [facility]ER BJW[facility] Monocyte abs 0.81(H) 0.20 - 0.80 K/cumm [facility]ER [facility] Eosinophil abs 0.20 0.00 - 0.50 K/cumm [facility] Basophil abs 0.10 0.00 - 0.10 K/cumm [facility] Neutrophil pct 53.3 % LAWANDA MENDEZ Comment: Interpretive Data Percent cell count reference ranges are not reported, since discordance with absolute values may lead to misinterpretation of CBC data. Current Interpretive Data was last revised on 2018. Imm gran pct 4.2 % LAWANDA MENDEZ Comment: Interpretive Data Percent cell count reference ranges are not reported, since discordance with absolute values may lead to misinterpretation of CBC data. Current Interpretive Data was last revised on 2018. Lymphocyte pct 26.0 % LAWANDA MENDEZ Comment: Interpretive Data Percent cell count reference ranges are not reported, since discordance with absolute values may lead to misinterpretation of CBC data. Current Interpretive Data was last revised on 2018. Monocyte pct 12.0 % LAWANDA MENDEZ Comment: Interpretive Data Percent cell count reference ranges are not reported, since discordance with absolute values may lead to misinterpretation of CBC data. Current Interpretive Data was last revised on 2018. Eosinophil pct 3.0 % LAWANDA MENDEZ Comment: Interpretive Data Percent cell count reference ranges are not reported, since discordance with absolute values may lead to misinterpretation of CBC data. Current Interpretive Data was last revised on 2018. Basophil pct 1.5 % CERLARS MENDEZ Comment: Interpretive Data Percent cell count reference ranges are not reported, since discordance with absolute values may lead to misinterpretation of CBC data. Current Interpretive Data was last revised on 2018. Blood 03/13/2025 03/13/2025 12: 04 AM CDT Rufus Rivera MD LAB BLOOD ORDERABLES Final Result LAWANDA MENDEZ [address] [facility] [place] [address] * Respiratory pathogen panel Nasopharyngeal (03/13/2025 12:00 AM CDT) Influenza A RNA Not Detected Not Detected MBC Comment:Testing performed by : [facility], [address] [place] [address]., [address] Influenza B RNA Not Detected Not Detected LAWANDA MENDEZ Comment:Testing performed by : [facility], [address] [place] [address]., [address] RSV RNA Not Detected Not Detected LAWANDA MENDEZ Comment:Testing performed by : [facility], [address] [place] [address]., [address] COVID-19 RNA Not Detected Not Detected LAWANDA BJMadelineCH Comment:Testing performed by : [facility], [address] [place] [address]., [address] Coronavirus 229E RNA Not Detected Not Detected CERLARS BJMATT Comment:Testing performed by : [facility], [address] [place] [address]., [address] Coronavirus HKU1 RNA Not Detected Not Detected LAWANDA MENDEZ Comment:Testing performed by : [facility], [address] [place] [address]., [address] Coronavirus NL63 RNA Not Detected Not Detected LAWANDA BJWCH Comment:Testing performed by : [facility], [address] [place] [address]., [address] Coronavirus OC43 RNA Not Detected Not Detected CERNER BJWCH Comment:Testing performed by : [facility], [address] [place] [address]., [address] Adenovirus DNA Not Detected Not Detected CERNER BJWCH Comment:Testing performed by : [facility], [address] [place] [address]., [address] Metapneumovirus RNA Not Detected Not Detected CERNER BJWCH Comment:Testing performed by : [facility], [address] [place] [address]., [address] Rhinovirus/Enterov irus RNA Not Detected Not Detected CERNER BJWCH Comment:Testing performed by : [facility], [address] [place] [address]., [address] Parainfluenza 1 RNA Not Detected Not Detected CERNER BJWCH Comment:Testing performed by : [facility], [address] [place] [address]., [address] Parainfluenza 2 RNA Not Detected Not Detected CERNER BJWCH Comment:Testing performed by : [facility], [address] [place] [address]., [address] Parainfluenza 3 RNA Not Detected Not Detected CERNER BJWCH Comment:Testing performed by : [facility], [address] [place] [address]., [address] Parainfluenza 4 RNA Not Detected Not Detected CERNER BJWCH Comment:Testing performed by : [facility], [address] [place] [address]., [address] B. pertussis DNA Not Detected Not Detected CERNER BJWCH Comment:Testing performed by : [facility], [address] [place] [address]., [address] B. parapertussis DNA Not Detected Not Detected CERNER BJWCH Comment:Testing performed by : [facility], [address] [place] [address]., [address] C. pneumoniae DNA Not Detected Not Detected CERNER BJWCH Comment:Testing performed by : [facility], [address] [place] [address]., [address] M. pneumoniae DNA Not Detected Not Detected CERNER BJWCH Comment: Interpretive Data The WebAction FilmArray Respiratory Panel (RP2.1) assay is a [...] assay has FDA clearance for testing of LEAD HANDLER swabs. The performance characteristics of this assay have been determined by [facility]. Current interpretive data was last revised on 2021. Testing performed by: [facility], [facility], [place]., [address] Nasopharyngeal 03/13/2025 03/13/2025 2:38 AM CDT Narrative LAWANDA ORTIZCH - 03/13/2025 3:31 AM CDT Is the Patient experiencing symptoms consistent with COVID?->Yes Surveillance testing for transplant patient?->No Rufus Rivera MD LAB MICROBIOLOGY - GENERAL ORDERABLES Final Result Performing Organization Address [facility]/ZIP Co de Phone Number LAWANDA MENDEZ [address] [employer] [address] [place], [place] [id number] MBC * (ABNORMAL) CBC with auto differential (03/13/2025 12:00 AM CDT) Pathologist [facility] WBC 6.74 3.80 - 9.90 K/cumm Hgb 12.4(L) 13.0 - 17.5 g/dL [facility] Hct 36.3(L) 38.9 - 50.3 % [facility] Plt 245 150 - 400 K/cumm [facility] MPV 8.4(L) 9.1 - 12.3 fL [facility] RBC 3.87(L) 4.30 - 5.80 M/cumm [facility] MCV 93.8 81.3 - 96.4 fL [facility] MCH 32.0 27.1 - 33.3 pg [facility] MCHC 34.2 32.3 - 35.7 g/dL [facility] RDW CV 13.0 11.1 - 14.9 % [facility] RDW SD 44.2 35.7 - 48.1 fL [facility] NRBC abs 0.00 0.00 - 0.01 K/cumm [facility] Blood 03/13/2025 03/13/2025 12: 04 AM CDT Rufus Rivera MD LAB BLOOD ORDERABLES Final Result Performing Organization Address [facility]/ZIP Co de Phone Number LAWANDA MENDEZ [address] [employer] [address] [place] [place], [place] [id number] * aPTT (03/13/2025 12:00 AM CDT) aPTT 34 28 - 38 sec Comment: Interpretive Data Heparin therapeutic range: 66.0 - 100.0 seconds. Range based on correlation with therapeutic heparin activity range of 0.3 - 0.7 Units/mL. Current interpretive data was last revised on 2023. Blood 03/13/2025 03/13/2025 12: 04 AM CDT Rufus Rivera MD LAB BLOOD ORDERABLES Final Result Performing Organization Address [facility] Co de Phone Number LAWANDA LEIGHCH [address] [employer] [place] [address] * Protime-INR (03/13/2025 12:00 AM CDT) PT [...] BLOOD ORDERABLES Final Result Performing Organization Address [facility]/ZIP Co de Phone Number LAURALARS LEIGHWCH [address] [employer] [place] [address] * Type and screen (03/13/2025 12:00 AM CDT) Kim, indirect Negative LAWANDA MENDEZ ABO Rh A Positive LAWANDA MENDEZ Blood 03/13/2025 03/13/2025 12: 04 AM CDT Narrative LAWANDA ORTIZCH - 03/13/2025 1:28 AM CDT Has the patient had Daratumumab or Isatuximab in the past 6 months?->Unknown Rufus Rivera MD LAB BLOOD BANK TEST ORDERAB LES Final Result Performing Organization Address [facility] Co de Phone Number [facility] [address] [facility]. [facility] [place] [address] * Phosphorus (03/13/2025 12:00 AM CDT) Phosphorus, pl 3.6 2.3 - 4.5 mg/dL Blood 03/13/2025 03/13/2025 12: 04 AM CDT Rufus Rivera MD LAB BLOOD ORDERABLES Final Result Performing Organization Address [facility] de Phone Number [facility] [address] [facility]. [facility] [place] [address] * Magnesium (03/13/2025 12:00 AM CDT) Magnesium 1.8 1.4 - 2.5 mg/dL Comment: Reference Data. Reference values for Labor and Delivery patients: < or = 0.7 mg/dL to > or = 7.3 mg/dL Current reference data last reviewd on 07/22/2015. Blood 03/13/2025 03/13/2025 12: 04 AM CDT Rufus Rivera MD LAB BLOOD ORDERABLES Final Result Performing Organization Address [facility] Co de Phone Number [facility] [address] [facility]. [facility] [place] [address] * Hepatic function panel (03/13/2025 12:00 AM CDT) Bilirubin, total 0.5 0.1 - 1.2 mg/dL Bilirubin, direct <0.2 0.1 - 0.3 mg/dL LAWANDA MENDEZ Protein, pl 7.2 6.5 - 8.5 g/dL [facility] Albumin 3.6 3.5 - 5.0 g/dL [facility] Alk phos 130 40 - 130 Units/L [facility] ALT 12 7 - 55 Units/L [facility] AST 25 10 - 50 Units/L [facility] Blood 03/13/2025 03/13/2025 12: 04 AM CDT Rufus Rivera MD LAB BLOOD ORDERABLES Final Result LAWANDA ORTIZ [address] [facility] Department [place] [address] * (ABNORMAL) Basic metabolic panel (03/13/2025 12:00 AM CDT) Sodium 140 135 - 145 mmol/L Potassium, pl 3.5 3.3 - 4.9 mmol/L [facility] Chloride 103 97 - 110 mmol/L [facility] CO2 20(L) 22 - 32 mmol/L [facility] Anion gap 17(H) 2 - 15 mmol/L [facility] BUN 7 6 - 25 mg/dL [facility] Creatinine 0.70(L) 0.80 - 1.30 mg/dL [facility] Glucose 86 70 - 199 mg/dL [facility] Comment: [...] 9.3 8.5 - 10.3 mg/dL [facility] Blood 03/13/2025 03/13/2025 12: 04 AM CDT us Rufus Rivera MD LAB BLOOD ORDERABLES Final Result LAWANDA BJWCH [address] [facility]. [place] [address] * XR Chest 1 View (03/12/2025 10:57 [...] size. Electronically signed by: Pascual Meek M.D. us Rufus Rivera MD IMG XR PROCEDURES Final Res ult * IR GJ-Tube Exchange (01/07/2025 12:23 PM CDT) Anatomical Region Laterality Modality Body N/A X-Ray Angiograph y 01/07/2025 2:17 PM CDT Impressions 01/07/2025 2:17 PM CDT Successful percutaneous 22-Indonesian 45 cm gastrojejunostomy catheter exchange. PLAN: The [...] male with nutritional deficiency managed with a 22-Indonesian gastrojejunostomy catheter. Patient presents for interval exchange. PROVIDER PRESENCE: Ramesh Germain PA-C, was present from the beginning to the end of the procedure. SEDATION: No sedation TECHNIQUE: Prior to beginning the procedure, [place] Protocol was performed to confirm the patient's [...] was then removed over the wire. A 22-Indonesian 45 cm gastrojejunostomy tube was placed with [...] male with nutritional deficiency managed with a 22-Indonesian gastrojejunostomy catheter. Patient presents for interval exchange. PROVIDER PRESENCE: Ramesh Germain PA-C, was present from the beginning to the end of the procedure. SEDATION: No sedation TECHNIQUE: Prior to beginning the procedure, [place] Protocol was performed to confirm the patient's [...] was then removed over the wire. A 22-Indonesian 45 cm gastrojejunostomy tube was placed with its tip in the proximal jejunum. Contrast injection confirmed appropriate positioning of the catheter. A dressing was applied. ESTIMATED BLOOD LOSS: None CONDITION: Stable DISCHARGED TO: Recovery FINDINGS: Fluoroscopic spot image demonstrates the gastrojejunostomy catheter with its tip in the proximal jejunum. No complications are seen. IMPRESSION: Successful percutaneous 22-Indonesian 45 cm gastrojejunostomy catheter exchange. PLAN: The catheter is ready for immediate feeding through the jejunal port. Please flush the catheter with 20 cc of water after every feed and every 8 hours. Do not use crushed pills through the jejunal lumen. Electronically signed by: Ramesh Germain PA-C David PHILLIPS IMG IR PROCEDURES Fin al Result from Last 3 Months Insurance MEDICARE [facility] MEDICARE IDFL MEDICARE IDPA Advance Directives For more information, please contact: [phone] Documents on File Type Date Recorded Patient Vat Overhauler Expl anation ADVANCE DIRECTIVE 12/11/2013 12:00 AM ALMA ROSA R OF INVENTORY CONTROL/SHIPPING RECEIVING FINANCIAL/MEDICAL * Full Code (Latest Code Status [...] 10:19 AM 01/10/2022 3:48 PM Care Teams Stationary Fireman Relationship Specialty Start Date End Date Minerva Wallis MD [address] [facility] [place] [address] PCP - General Internal Medicine 07/13/17 [place] [address] Referring Physician Otolaryngology 07/24/19
--- OUTSIDE RECORDS SUMMARY | 2025-04-02 17:12 | XMS_ITS | Encounter Summary ---
Author Organization [facility] Healthcare Address [address] [place] [address] Care Team Providers Care Radiology Ct Technologist Name Role Phone Minerva Wallis MD Primary Care Provider [phone] Param Webb MD Unavailable [phone] Encounter Details Date Type Department Care Team (Late st Contact Info) Description 11/28/2023 Telephone [facility] Imaging [address] [place] [address] Shavon Vera RN Social History Tobacco Use Types Packs/Day Years Used Date Smoking Tobacco: Never Smokeless Tobacco: Never Sex and Gender Information Value Date Recorded Sex Assigned at Not on file Legal Sex Male 4: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 DRAMATIC 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 Gender Identity Not on file Sexual Orientation Not on file documented as of this encounter Plan of Treatment Not on file documented as of this encounter Visit Diagnoses Not on filedocumented in this encounter Additional Health Concerns Infection Onset Date Last Indicated Resolved Time COVID: Suspected 03/12/2025 03/13/2025 03/13/2025 3:32 AM CDT documented as of this encounter Care Teams Radiology Ct Technologist Relationship Specialty Start Date End Date Minerva Wallis MD [address] [place] [address] PCP - General Internal Medicine 07/13/17 Param Webb MD [address] [place] [address] Referring Physician Otolaryngology 07/24/19 documented as of this encounter
--- OUTSIDE RECORDS SUMMARY | 2025-04-02 17:12 | XMS_ITS | Clinical Summary ---
Author Organization [facility] Address [address] [place] [address] Care Team Providers Care Silk Presser Name Role Phone Minerva Wallis MD Primary Care Provider [phone] Source Comments [facility],non-owned Affiliates and Associated Physician Practices is amultiple site organization consisting of ambulatory clinics and hospital sitesin [place], [place], [place] and [place]. This disclosure is being madepursuant to the Care Everywhere program and may not contain all information available regarding this patient. 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
--- OUTSIDE RECORDS SUMMARY | 2025-04-02 17:12 | XMS_ITS | Encounter Summary ---
Author Organization [facility] Healthcare Address [address] [place] [address] Care Team Providers Care Product Accountant Name Role Phone Minerva Wallis MD Primary Care Provider [phone] Param Webb MD Unavailable [phone] Encounter Details Date Type Department Care Team (Late st Contact Info) Description 02/11/2020 Telephone [facility] Imaging [address] [place] [address] Gloria Jimenez RN Social History Tobacco Use Types Packs/Day Years Used Date Smoking Tobacco: Never Smokeless Tobacco: Never Sex and Gender Information Value Date Recorded Sex Assigned at Not on file Legal Sex Male 4:02 AM SENIOR ADVOCATE Gender Identity Not on file Sexual Orientation Not on file documented as of this encounter Plan of Treatment Not on file documented as of this encounter Visit Diagnoses Not on filedocumented in this encounter Additional Health Concerns Infection Onset Date Last Indicated Resolved Time COVID: Suspected 03/12/2025 03/13/2025 03/13/2025 3:32 AM CDT documented as of this encounter Care Teams Product Accountant Relationship Specialty Start Date End Date Minerva Wallis MD [address] [place] [address] PCP - General Internal Medicine 07/13/17 Param Webb MD [address] [place] [address] Referring Physician Otolaryngology 10/2/19 documented as of this encounter
== END 2025-04-02 14:26 | disposition home or self-care (01) ==
PROVIDERS: PCP Internal Medicine; Visit Provider Internal Medicine
DX: M25.551 Pain in right hip (principal); M25.552 Pain in left hip
CPT/HCPCS: 73502

== ENCOUNTER 2025-05-30 01:38 | Day surgery (SDC) | payer MEDICARE, MEDICAID, SELFPAY ==
[2025-05-23 14:28] VITALS: BMI 20.7
--- NOTE | 2025-05-23 14:37 | PC.NURSE ---
Report to the Outpatient Waiting Room, entrance under the green pavilion located off [facility], at time _0915_ on date _[id number]_. Planned Procedure Time: _1115_.? Time changes happen often and if your time is changed the preop area will call you the afternoon before. - You and your visitor will be asked to self-screen and do not enter if you have any COVID symptoms. Please call surgeon if you need to reschedule. - A mask is optional within the hospital at this time. Patients may have clear liquids (water, carbonated beverages, clear teas, apple juice) until 3 hours prior to surgery with a maximum of 20 ounces. - No food from midnight until time of surgery and no smoking, or chewing tobacco (or any form of nicotine). No chewing gum, candy or mints. Take only the following medications with a SIP of water on the morning of surgery: ___Carvidilol and Lamotrigine.____ DO NOT STOP ANY OF YOUR OTHER PRESCRIPTION MEDICATIONS PRIOR TO SURGERY EXCEPT THE FOLLOWING Hold all vitamins and supplements for 3 days per anesthesiologist. Medications to discontinue per physician Date to take last dose Please no make-up, nail macedonian, hairspray, perfume, deodorant, or body powder the day of surgery.? No jewelry (including any body piercings) or valuables the day of surgery, leave them at home.? Please take a shower or bath the night before, or the morning of, surgery with an antibacterial soap.? Wear comfortable, loose fitting clothing.? - Jewelry must be removed prior to entering the operating room.? Rings and piercings that are not removed may be cut off. - The hospital will not accept responsibility for valuables.? - Please leave all valuables, including medications, at home the day of surgery. If you are going home after surgery, a licensed medical driver must drive you home.? - NO public transportation without another adult if you receive anesthesia. - We recommend that an adult stay with you for 24 hours following discharge. - We also recommend that you do not drive, make important decision, drink alcoholic beverages, or take any drugs that were not prescribed by your health care provider for at least 24 hours after your discharge time. Follow any additional instructions given to you from your surgeon. Telephone instructions given to __Rosyra/Mother___and asked if any additional questions and then verbalized understanding. Patient advised to call surgeon office or pre surgery nurse liaison [phone] if any additional questions.
--- NOTE | 2025-05-25 08:55 | PM.IMHP ---
H&P: HPI History of Present Illness Date/Time: 05/25/25 08:55 Chief Complaint: neurogenic bladder Narrative: yearly survalence cysto due to indwelling catheter Review of Systems Review of Systems: All systems reviewed & are unremarkable except as noted in HPI and below PMFSH Past Medical History Medical History Right hip pain Scoliosis Constipation Dysphagia Chronic ear infection Barretts esophagus Tourette syndrome Hypertension Seizure disorder Feeding by G-tube Gastrostomy tube in place Autism Suprapubic catheter Mental disability History of gastrostomy tube placement History of hypertension History of Austin de la Tourette's syndrome History of neurogenic bladder History of gastroesophageal reflux (GERD) Surgical History Surgical History History of surgical removal of skin lesion Benign lesion to the neck History of ear surgery 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 History of cholecystectomy Family History Family History Mother Family history of thyroid disease Hypertension COPD (chronic obstructive pulmonary disease) HTN (hypertension) with goal to be determined Father Congestive heart failure Other Family history of arthritis Social History Social History Smoking status: Never smoker Alcohol intake: never Substance use: never Substance use type: does not use Living arrangements: with family Gender identity (if verbalized by the patient): Male Spiritual care concerns: No Agree to blood products: Yes Meds Home Medications and Allergies Home Medications ?Medication ?Instructions ?Recorded ?Confirmed ?Type ergocalciferol (vitamin D2) 1,250 50,000 unit PO [id number] 11/26/19 05/23/25 History mcg (50,000 unit) capsule (Vitamin D2) omeprazole 40 mg capsule,delayed 40 mg PO DAILY 11/26/19 05/23/25 History release polyethylene glycol 3350 17 gram 17 g PO WEEKLY 03/30/20 05/23/25 History oral powder packet (Miralax) sucralfate 1 gram tablet 1 g PO BID 03/30/20 05/23/25 History sennosides 8.8 mg/5 mL oral syrup 8.8 mg (5 mL) feeding tube HS #240 06/15/21 05/23/25 Rx (senna) mL carvedilol 3.125 mg tablet 3.125 mg PO Q12H 02/29/24 05/23/25 History linaclotide 72 mcg capsule 72 mcg PO QAM #30 caps 02/29/24 05/23/25 Rx (Linzess) lamotrigine 25 mg tablet 75 mg PO TID 07/23/24 05/23/25 History melatonin 10 mg sublingual tablet 20 mg sublingual HS 05/23/25 05/23/25 History Allergies Allergy/AdvReac Type Severity Reaction Status Date / Time adhesive tape Allergy Unknown SKIN Verified 05/23/25 14:25 BLISTERS Exam Narrative: NAD Assessment and Plan Assessment and plan (1) Chronic suprapubic catheter: Code(s): Z93.59 - Other cystostomy status Status: Acute Assessment and Plan: cystoscopy (2) 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, not elsewhere classified Status: Acute
--- OUTSIDE RECORDS SUMMARY | 2025-05-30 01:43 | XMS_ITS | Clinical Summary ---
Author Organization [facility] Address [address] [place] [id number] Care Team Providers Care Narrative Writer Name Role Phone Unavailable Primary Care Provider [...] of 3 - 19+ 3-dose series) 1989 Pneumococcal Vaccine: 50+ Ye ars (1 of 1 - PCV) 2020 Zoster Vaccines (1 of 2) 2020 COVID-19 Vaccine ( - 2023-2 5 season) 2024 Meningococcal B Vaccine Aged Out No l onger eligible based on patient's age to complete this topic Meningococcal Vaccine Aged Out No harmony helen eligible based on patient's age to complete this topic RSV Immunizations Under 20 Months Aged Out No longer eligible based on patient's age to complete this topic Insurance MEDICAID MEDICARE
--- OUTSIDE RECORDS SUMMARY | 2025-05-30 01:43 | XMS_ITS | Clinical Summary ---
Author Organization [facility] Address [address] [place] [address] Care Team Providers Care Shell Mold Bonder Name Role Phone Minerva Wallis MD Primary Care Provider [phone] Param Webb MD Unavailable [phone] Allergies Active Allergy Reactions Criticality Noted Date [...] tablet (40 mg total) by mouth daily 02/05/20 24 Active cyanocobalamin (vitamin B-12) 100 mcg [...] MOUTH TWICE DAILY WITH MEALS 60 tablet 10 05/26/20 25 Active carvediloL (COREG) 3.125 mg tablet TAKE 1 TABLET BY MOUTH TWICE DAILY WITH MEALS 60 tablet 04/17/20 25 025 Discontinued Active Problems Problem Noted Date Diagnosed Date Asymptomatic left ventricular dysfunction 2024 High anion gap metabolic acidosis 03/13/2025 Assessment [...] furthering infection, she acknowledged understanding, but feels mcc, it would be better to let the [...] 10/23/2024 Assessment & Plan (10/24/2024 12:19 PM SENIOR INDUSTRIAL ENGINEER): Tube dislodged at home -gauze placed over opening, no tract insertion -IR today for G-J tube replacement this afternoon Assessment & Plan (10/24/2024 2:00 AM SENIOR INDUSTRIAL ENGINEER): -IR consult for G-J tube replacement in AM -if not amenable to IR replacement, may need surgical consult vs. 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/20/2019 Developmental delay 08/20/2019 Tourette's disorder 02/05/2008 Intellectual disability 02/05/2008 Assessment & Plan (10/24/2024 12:22 PM SENIOR INDUSTRIAL ENGINEER): Patient's Mother in the room to help communicate Gastroesophageal reflux disease 02/05/2008 Constipation, chronic 02/05/2008 Assessment & Plan (03/13/2025 1:26 PM CDT): -PRN miralax Assessment & Plan (03/13/2025 2:34 AM CDT): -PRN miralax Assessment & Plan (10/24/2024 12:22 PM SENIOR INDUSTRIAL ENGINEER): Cont Linzess Resolved Problems Problem Noted Date Diagnosed Date Resolved Date Otorrhea of right ear 07/29/20192020 Encounters Date Type Department Care Team Description 05/28/2025 11:30 AM CDT Office Visit [facility] Otolaryngology [address] [place] [address] Param Webb MD 05/19/2025 9:45 AM CDT Office Visit [facility] Cardiology at [address] [place] [address] Hunter Hui MD Asymptomatic left ventricular dysfunction (Primary Dx); Palpitations 03/12/2025 10:04 PM CDT - 03/13/2025 4:50 PM CDT Hospital Encounter [facility] [address] [address] [facility] [place] [address] Booker Arevalo MD Kalvala, MD Nicole Queen, Rufus Sotelo MD Dislodged gastrostomy tube (Primary Dx); At high risk for aspiration Discharge Disposition: Discharge to home or self care from Last 3 Months Immunizations Immunization Administration [...] Ear problems HL (hearing loss) Tourette disorder Allergies Family History Medical History Relation Name Comments [...] file Legal Sex Male 4:02 AM SENIOR INDUSTRIAL ENGINEER Gender Identity Not on file Sexual Orientation Not on file Obstetrics History Last Filed Vital Signs Vital Sign Reading Time Taken Comments Blood Pressure 102/68 05/19/2025 9:16 AM CDT Pulse 68 05/19/2025 9:16 AM CDT Temperature 37.1 C (98.8 F) 03/13/2025 3:45 PM CDT Respiratory Rate 18 05/28/2025 11:27 AM CDT Oxygen Saturation 98% 05/19/2025 9:16 AM CDT Inhaled Oxygen Concentration - - Weight 51.3 kg (113 lb) 05/28/2025 11:27 AM CDT Height 157.5 cm (5' 2) 05/28/2025 11:27 AM CDT Body Mass Index 20.67 05/28/2025 11:27 AM CDT Plan of Treatment Health Maintenance Due Date Last Done Comments Colon Cancer Screening-Colonoscopy 1970 Depression Screening 1970 Hepatitis C Screening 1970 Prostate Cancer Screening-PSA 1970 DTaP/Tdap/Td Vaccine (1 - Tdap) 1981 Hepatitis B Screening 1988 Regular Well Visit/Exam 18-64 1988 Zoster Vaccine (1 of 2) 2020 Influenza Vaccine (#1) 2025 08/18/2021 Pneumococcal vaccine <65 Aged Out 05/18/2017 No [...] ED Urgent/IP Urgent 03/12/2025 10:57 PM CDT from Last 3 Months Results * eGFR (03/13/2025 1:09 PM CDT) [facility] eGFR >90 >=60 mL/min/1. 73 m2 Comment: [...] CDT 03/13/2025 1:11 PM CDT us Shavon Kelly Bunbassam BARREL CAP SETTER LAB BLOOD ORDERABLES Fin al Result [facility] [address] [facility]. [place] [address] * (ABNORMAL) Basic metabolic panel (03/13/2025 1:09 PM CDT) [facility] Sodium 138 135 - 145 mmol/L Potassium, pl 3.2(L) 3.3 - 4.9 mmol/L [facility] Chloride 102 97 - 110 mmol/L [facility] CO2 19(L) 22 - 32 mmol/L [facility] Anion gap 17(H) 2 - 15 mmol/L [facility] BUN 7 6 - 25 mg/dL [facility] Creatinine 0.70(L) 0.80 - 1.30 mg/dL [facility] Glucose 128 70 - 199 mg/dL [facility] Comment: Interpretive Data Fasting glucose >/= 126 [...] Calcium 9.0 8.5 - 10.3 mg/dL CERNER REESEW Blood 03/13/2025 1:09 PM CDT 03/13/2025 1:11 PM CDT us Shavon Castro NP LAB BLOOD ORDERABLES Fin al Result Performing Organization Address [facility]/ZIP Co de Phone Number [facility]DA [facility] [address] [employer] [place], [place] [id number] * Check Sample (03/13/2025 5:59 AM CDT) ABO Rh A Positive CERLARS BJW HCLL OTHER 03/13/2025 5:59 AM CDT 03/13/2025 6:01 AM CDT us Booker Arevalo MD LAB BLOOD ORDERABLES F inal Result Performing Organization Address [facility] Co de Phone Number [facility] [address] [place] [address] * eGFR (03/13/2025 12:00 AM CDT) eGFR [...] Rivera MD LAB BLOOD ORDERABLES Final Result [facility] [address] [facility]. [place] [address] * (ABNORMAL) Differential, auto (03/13/2025 12:00 AM [...] K/cumm CERNER BJWCH Neutrophil pct 53.3 % CERNER BJWCH Comment: Interpretive Data Percent cell count reference ranges are not reported, since discordance with absolute values may lead to misinterpretation of CBC data. Current Interpretive Data was last revised on 2018. Imm gran pct 4.2 % CERNER BJWCH Comment: Interpretive Data Percent cell count reference ranges are not reported, since discordance with absolute values may lead to misinterpretation of CBC data. Current Interpretive Data was last revised on 2018. Lymphocyte pct 26.0 % CERNER BJWCH Comment: Interpretive Data Percent cell count reference [...] revised on 2018. Basophil pct 1.5 % LAWANDA MENDEZ Comment: Interpretive Data Percent cell count reference ranges are not reported, since discordance with absolute values may lead to misinterpretation of CBC data. Current Interpretive Data was last revised on 2018. Blood 03/13/2025 03/13/2025 12: 04 AM CDT us Rufus Rivera MD LAB BLOOD ORDERABLES Final Result [facility] [address] [facility]. [place] [address] * Respiratory pathogen panel Nasopharyngeal (03/13/2025 12:00 AM CDT) Influenza A RNA Not Detected Not Detected MBC Comment:Testing performed by : [facility], [address] [place] [address]., [address] Influenza B RNA Not Detected Not Detected LAWANDA MENDEZ Comment:Testing performed by : [facility], [address] [place] [address]., [address] RSV RNA Not Detected Not Detected LAWANDA MENDEZ Comment:Testing performed by : [facility], [address] [place] [address]., [address] COVID-19 RNA Not Detected Not Detected LAWANDA MENDEZ Comment:Testing performed by : [facility], [address] [place] [address]., [address] Coronavirus 229E RNA Not Detected Not Detected CERNER BJWCH Comment:Testing performed by : [facility], [address] [place] [address]., [address] Coronavirus HKU1 RNA Not Detected Not Detected CERNER BJWCH Comment:Testing performed by : [facility], [address] [place] [address]., [address] Coronavirus NL63 RNA Not Detected Not Detected CERNER BJWCH Comment:Testing performed by : [facility], [address] [place] [address]., [address] Coronavirus OC43 RNA Not Detected Not Detected CERNER BJWCH Comment:Testing performed by : [facility], [address] [place] [address]., [address] Adenovirus DNA Not Detected Not Detected CERNER BJWCH Comment:Testing performed by : [facility], [address] [place] [address]., [address] Metapneumovirus RNA Not Detected Not Detected CERNER BJWCH Comment:Testing performed by : [facility], [address] [place] [address]., [address] Rhinovirus/Enterov irus RNA Not Detected Not Detected CERNER BJWCH Comment:Testing performed by : [facility], [address] [place] [address]., [address] Parainfluenza 1 RNA Not Detected Not Detected CERNER BJWCH Comment:Testing performed by : [facility], [address] [place] [address]., [address] Parainfluenza 2 RNA Not Detected Not Detected CERNER BJWCH Comment:Testing performed by : [facility], [address] [place] [address]., [address] Parainfluenza 3 RNA Not Detected Not Detected CERNER BJWCH Comment:Testing performed by : [facility], [address] [place] [address]., [address] Parainfluenza 4 RNA Not Detected Not Detected CERNER BJWCH Comment:Testing performed by : [facility], [address] [place] [address], [place]., [address] B. pertussis DNA Not Detected Not Detected [facility] Comment:Testing performed by : [facility], [address] [place] [address]., [address] B. parapertussis DNA Not Detected Not Detected [facility] Comment:Testing performed by : [facility], [address] [place] [address]., [address] C. pneumoniae DNA Not Detected Not Detected [facility] Comment:Testing performed by : [facility], [address] [place] [address]., [address] M. pneumoniae DNA Not Detected Not Detected [facility] Comment: Interpretive Data The Square FilmArray Respiratory Panel (RP2.1) assay is a [...] assay has FDA clearance for testing of BARREL CAP SETTER swabs. The performance characteristics of this assay have been determined by [facility]. Current interpretive data was last revised on 2021. Testing performed by: [facility], [facility], [place]., [address] Nasopharyngeal 03/13/2025 03/13/2025 2:38 AM CDT Narrative [facility] - 03/13/2025 3:31 AM CDT Is the Patient experiencing symptoms consistent with COVID?->Yes Surveillance testing for transplant patient?->No Rufus Rivera MD LAB MICROBIOLOGY - GENERAL ORDERABLES Final Result [facility] [address] [facility]. [place] [address] [facility] * (ABNORMAL) CBC with auto differential (03/13/2025 12:00 AM CDT) WBC 6.74 3.80 - 9.90 K/cumm Hgb 12.4(L) 13.0 - 17.5 g/dL [facility] Hct 36.3(L) 38.9 - 50.3 % [facility] Plt 245 150 - 400 K/cumm [facility] MPV 8.4(L) 9.1 - 12.3 fL [facility] RBC 3.87(L) 4.30 - 5.80 M/cumm [facility] MCV 93.8 81.3 - 96.4 fL [facility] MCH 32.0 27.1 - 33.3 pg [facility] MCHC 34.2 32.3 - 35.7 g/dL [facility] RDW CV 13.0 11.1 - 14.9 % [facility] RDW SD 44.2 35.7 - 48.1 fL [facility] NRBC abs 0.00 0.00 - 0.01 K/cumm [facility] Blood 03/13/2025 03/13/2025 12: 04 AM CDT Rufus Rivera MD LAB BLOOD ORDERABLES Final Result Performing Organization Address [facility] de Phone Number [facility] [address] [place] [address] * aPTT (03/13/2025 12:00 AM CDT) aPTT 34 28 - 38 sec Comment: Interpretive Data Heparin therapeutic range: 66.0 - 100.0 seconds. Range based on correlation with therapeutic heparin activity range of 0.3 - 0.7 Units/mL. Current interpretive data was last revised on 2023. Blood 03/13/2025 03/13/2025 12: 04 AM CDT Rufus Rivera MD LAB BLOOD ORDERABLES Final Result Performing Organization Address [facility] Phone Number [facility] [address] [place] [address] * Protime-INR (03/13/2025 12:00 AM CDT) PT 12.4 9.7 - 13.0 sec INR 1.14 0.90 - 1.20 [facility] Comment: Interpretive data Oral anticoagulant therapeutic ranges: Venous thromboembolism prophylaxis or treatment: 2.0-3.0 CARDIOLOGY Standard range: 2.0-3.0 High-intensity range: 2.5-3.5 Refer to indication-specific guidelines for appropriate target ranges for prosthetic heart valve replacement. Current interpretive data was last revised on 2019. Blood 03/13/2025 03/13/2025 12: 04 AM CDT Rufus Rivera MD LAB BLOOD ORDERABLES Final Result Performing Organization Address [facility] Phone Number [facility] [address] [address] [facility] [place] [address] * Type and screen (03/13/2025 12:00 AM CDT) Kim, indirect Negative LAWANDA ORTIZCH ABO Rh A Positive CERLARS MENDEZ Blood 03/13/2025 03/13/2025 12: 04 AM CDT Narrative LAWANDA MENDEZ - 03/13/2025 1:28 AM CDT Has the patient had Daratumumab or Isatuximab in the past 6 months?->Unknown Rufus Rivera MD LAB BLOOD BANK TEST ORDERAB LES Final Result Performing Organization Address [facility] Phone Number LAWANDA [facility] [address] [facility] [place] [address] * Phosphorus (03/13/2025 12:00 AM CDT) Phosphorus, pl 3.6 2.3 - 4.5 mg/dL Blood 03/13/2025 03/13/2025 12: 04 AM CDT Rufus Rivera MD LAB BLOOD ORDERABLES Final Result Performing Organization Address [facility] de Phone Number LAWANDA LEIGHWCH [address] [facility] CenterBilldesk[facility] [place] [address] * Magnesium (03/13/2025 12:00 AM CDT) Magnesium 1.8 1.4 - 2.5 mg/dL Comment: Reference Data. Reference values for Labor and Delivery patients: < or = 0.7 mg/dL to > or = 7.3 mg/dL Current reference data last reviewd on 07/22/2015. Blood 03/13/2025 03/13/2025 12: 04 AM CDT Rufus Rivera MD LAB BLOOD ORDERABLES Final Result LAWANDA MENDEZ [address] [facility] [place] [address] * Hepatic function panel (03/13/2025 12:00 AM [...] LAB BLOOD ORDERABLES Final Result LAWANDA MENDEZ [address] [facility] [place] [address] * (ABNORMAL) Basic metabolic panel (03/13/2025 12:00 [...] 2022. Calcium 9.3 8.5 - 10.3 mg/dL LAWANDA MENDEZ Blood 03/13/2025 03/13/2025 12: 04 AM CDT Rufus Rivera MD LAB BLOOD ORDERABLES Final Result LAWANDA ORTIZCH [address] [facility]. 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
--- OUTSIDE RECORDS SUMMARY | 2025-05-30 01:43 | XMS_ITS | Encounter Summary ---
Author Organization [facility] Healthcare Address [address] [place] [address] Care Team Providers Care Stock Clerk Self Service Store Name Role Phone Minerva Wallis MD Primary Care Provider [phone] Param Webb MD Unavailable [phone] Encounter Details Date Type Department Care Team (Late st Contact Info) Description 11/28/2023 Telephone [facility] Imaging [address] [place] [address] Shavon Vera RN Social History Tobacco Use Types Packs/Day Years Used Date Smoking Tobacco: Never Smokeless Tobacco: Never Sex and Gender Information Value Date Recorded Sex Assigned at Not on file Legal Sex Male 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 Gender Identity Not on file Sexual Orientation Not on file documented as of this encounter Plan of Treatment Not on file documented as of this encounter Visit Diagnoses Not on filedocumented in this encounter Additional Health Concerns Infection Onset Date Last Indicated Resolved Time COVID: Suspected 03/12/2025 03/13/2025 03/13/2025 3:32 AM CDT documented as of this encounter Care Teams Stock Clerk Self Service Store Relationship Specialty Start Date End Date Minerva Wallis MD [address] [place] [address] PCP - General Internal Medicine 07/13/17 Param Webb MD [address] [place] [address] Referring Physician Otolaryngology 07/24/19 documented as of this encounter
--- OUTSIDE RECORDS SUMMARY | 2025-05-30 01:43 | XMS_ITS | Clinical Summary ---
Author Organization [facility] Address [address] [facility] [place] [place] [address] Care Team Providers Care Hob Grinder Name Role Phone Minerva Wallis MD Primary Care Provider [phone] Source Comments [facility],non-owned Affiliates and Associated Physician Practices is amultiple site organization consisting of ambulatory clinics and hospital sitesin [place], [place], [place] and [place]. This disclosure is being madepursuant to the Care Everywhere program and may not contain all information available regarding this patient. Last updated 18.[facility] Active Problems Problem Noted Date Diagnosed Date Complicated UTI (urinary tract infection) 2021 Social History Tobacco Use Types Packs/Day Years Used Date Smoking Tobacco: Never Smokeless Tobacco: Never Alcohol Use Standard Drinks/Week Comments No 0 (1 standard drink = 0.6 oz pur e alcohol) Sex and Gender Information Value Date Recorded Sex Assigned at Not on file Legal Sex Male 6:[address] COMMISSIONER Gender Identity Not on file Sexual Orientation [...] season) 2024 DEPRESSION SCREENING 10/23/2024 INFLUENZA VACCINE (#1) 2025 HIB VACCINE Aged Out No longer [...] MEDICAID - OUT OF STATE Care Teams Hob Grinder Relationship Specialty Start Date End Date Minerva Wallis MD PCP - General 10/18/16
--- OUTSIDE RECORDS SUMMARY | 2025-05-30 01:43 | XMS_ITS | Encounter Summary ---
Author Organization [facility] Healthcare Address [address] [place] [address] Care Team Providers Care Adhesive Bonding Machine Operator Name Role Phone Minerva Wallis MD Primary Care Provider [phone] Param Webb MD Unavailable [phone] Encounter Details Date Type Department Care Team (Late st Contact Info) Description 10/20/2022 Telephone [facility] Imaging [address] [place] [address] Marivel Toth RN Social History Tobacco Use Types Packs/Day Years Used Date Smoking Tobacco: Never Smokeless Tobacco: Never Sex and Gender Information Value Date Recorded Sex Assigned at Not on file 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 Gender Identity Not on file Sexual Orientation Not on file documented as of this encounter Plan of Treatment Not on file documented as of this encounter Visit Diagnoses Not on filedocumented in this encounter Additional Health Concerns Infection Onset Date Last Indicated Resolved Time COVID: Suspected 03/12/2025 03/13/2025 03/13/2025 3:32 AM CDT documented as of this encounter Care Teams Adhesive Bonding Machine Operator Relationship Specialty Start Date End Date Minerva Wallis MD [address] [place] [address] PCP - General Internal Medicine 07/13/17 Param Webb MD [address] [place] [address] Referring Physician Otolaryngology 07/24/19 documented as of this encounter
--- OUTSIDE RECORDS SUMMARY | 2025-05-30 01:43 | XMS_ITS | Encounter Summary ---
Author Organization 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 Gender Identity Not on file Sexual Orientation Not on file documented as of this encounter Plan of Treatment Not on file documented as of this encounter Visit Diagnoses Not on filedocumented in this encounter Additional Health Concerns Infection Onset Date Last Indicated Resolved Time COVID: Suspected 03/12/2025 03/13/2025 03/13/2025 3:32 AM CDT documented as of this encounter Care Teams Food Services Director Relationship Specialty Start Date End Date Minerva Wallis MD [address] [place] [address] PCP - General Internal Medicine 07/13/17 Param Webb MD [address] [place] [address] Referring Physician Otolaryngology 10/2/19 documented as of this encounter
--- NOTE | 2025-05-30 07:16 | WPDHPUPDATE1 ---
History and Physical Update Update Date/Time: 05/30/25 07:16 History and Physical has been reviewed, including an updated exam of the patient. There are NO changes in the patient's condition. Risks, benefits, and alternatives have been discussed and questions answered. Patient agrees to proceed with procedure.
--- NOTE | 2025-05-30 07:27 | P.PNAN_ITS ---
Anes - Initial Pre Proc Eval Procedure: Operation Date: 05/30/25 11:15 Proposed Procedures p Cystoscopy - Burke Alves MD Date/Time: 05/30/25 07:27 Surgeon: Burke Alves MD Pre Op Diagnosis: flaccid neuropathic bladder Patient Data Age: 54 Gender: M Height: 1.57 m Weight: 51.4 kg Allergies Allergy/AdvReac Type Severity Reaction Status Date / Time adhesive tape Allergy Unknown SKIN Verified 05/23/25 14:25 BLISTERS Home Medications ?Medication ?Instructions ?Recorded ?Confirmed ?Type ergocalciferol (vitamin D2) 1,250 50,000 unit PO [id number] 11/26/19 05/23/25 History mcg (50,000 unit) capsule (Vitamin D2) omeprazole 40 mg capsule,delayed 40 mg PO DAILY 11/26/19 05/23/25 History release polyethylene glycol 3350 17 gram 17 g PO WEEKLY 03/30/20 05/23/25 History oral powder packet (Miralax) sucralfate 1 gram tablet 1 g PO BID 03/30/20 05/23/25 History sennosides 8.8 mg/5 mL oral syrup 8.8 mg (5 mL) feeding tube HS #240 06/15/21 05/23/25 Rx (senna) mL carvedilol 3.125 mg tablet 3.125 mg PO Q12H 02/29/24 05/23/25 History linaclotide 72 mcg capsule 72 mcg PO QAM #30 caps 02/29/24 05/23/25 Rx (Linzess) lamotrigine 25 mg tablet 75 mg PO TID 07/23/24 05/23/25 History melatonin 10 mg sublingual tablet 20 mg sublingual HS 05/23/25 05/23/25 History Patient hx anesthesia problems: none Family hx anesthesia problems: none Results Review: All pre-operative results and documents have been reviewed as part of the pre- operative evaluation. [facility] Past Medical History Medical History Right hip pain Scoliosis Constipation Dysphagia Chronic ear infection Barretts esophagus Tourette syndrome Hypertension Seizure disorder Feeding by G-tube Gastrostomy tube in place Autism Suprapubic catheter Mental disability History of gastrostomy tube placement History of hypertension History of [place] de la Tourette's syndrome History of neurogenic bladder History of gastroesophageal reflux (GERD) Surgical History Surgical History History of surgical removal of skin lesion Benign lesion to the neck History of ear surgery 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 History of cholecystectomy Family History Family History Mother Family history of thyroid disease Hypertension COPD (chronic obstructive pulmonary disease) HTN (hypertension) with goal to be determined Father Congestive heart failure Other Family history of arthritis Social History Social History Smoking status: Never smoker Alcohol intake: never Substance use: never Substance use type: does not use Living arrangements: with family Gender identity (if verbalized by the patient): Male Spiritual care concerns: No Agree to blood products: Yes Anes - Eval Final PreProcedure Day of Procedure 05/30/25 07:27 Patient weight: normal Heart: regular rate and rhythm Lungs: clear to auscultation and normal air movement Airway: Mallampati scale class II Neurological: alert and oriented Last oral intake: >/= 8 hours ASA classification: III Emergent: no Anesthetic plan: proceed Anesthesia type and monitoring: general GIVS and standard monitoring Results Review: All pre-operative results and documents have been reviewed as part of the pre- operative evaluation. Informed Consent: The patient's anesthetic plan and its attendant risks and benefits were discussed with the patient/family/POA. Questions were solicited and answers provided to the satisfaction of the patient/family/POA.
[2025-05-30] MEDS: LACTATED RINGERS 1,000 ML 30 ML IV CONT (09:00)
[2025-05-30 09:15] VITALS: BP 116/82; PULSE 86; RESP 16; TEMP 36.5; O2SAT 99
[2025-05-30] MEDS: ceFAZolin 2 GM in SODIUM CHLORIDE 0.9% IV 50 ML 100 ML IVPB (11:19)
[2025-05-30 11:41] VITALS: BP 101/57; PULSE 65; RESP 16; O2SAT 99
--- NOTE | 2025-05-30 11:42 | W.PM.PROC2 ---
Procedure Note - Detailed Date of Procedure 05/30/25 Pre-op Diagnosis flaccid neuropathic bladder Post-op Diagnosis Same Procedure Performed Flexible cystoscopy Surgeon Burke Alves MD Anesthesia MAC Findings No bladder tumors Description of Procedure He was correctly identified. Informed consent obtained. From the operating room. He was given monitored anesthesia care. Suprapubic site was prepped. Chronic indwelling suprapubic catheter was removed. I performed flexible cystoscopy through the suprapubic tract. He had a small capacity bladder. There was no tumors. There is no redness. There is no abnormal red patches. I could not locate ureteral orifices. Overall the cystoscopy was normal. There was no need for a biopsy. I placed a new suprapubic catheter gravity drainage. He was awakened transferred to PACU in stable condition. Estimated Blood Loss 0 Drains Yes (Suprapubic tube) Pathology None sent Complications No immediate complications Disposition PACU
[2025-05-30 12:10] VITALS: BP 109/70; PULSE 62; RESP 17; O2SAT 99
[2025-05-30 12:40] VITALS: BP 110/70; PULSE 64; RESP 16
== END 2025-05-30 12:55 | disposition home or self-care (01) ==
PROVIDERS: PCP Internal Medicine; Visit Provider Urology
PROC: 0TJB8ZZ Inspection of Bladder, Via Natural or Artificial Opening Endoscopic (ICD-10-PCS; CPT 52000; principal; 2025-05-30 11:15)
DX: N31.2 Flaccid neuropathic bladder, not elsewhere classified (principal); N32.89 Other specified disorders of bladder; I10 Essential (primary) hypertension; K21.9 Gastro-esophageal reflux disease without esophagitis; F95.2 Tourette's disorder; M41.9 Scoliosis, unspecified; G40.909 Epilepsy, unspecified, not intractable, without status epilepticus; Z93.1 Gastrostomy status; Z93.59 Other cystostomy status; Z98.890 Other specified postprocedural states; Z90.49 Acquired absence of other specified parts of digestive tract; Z87.19 Personal history of other diseases of the digestive system; Z82.49 Family history of ischemic heart disease and other diseases of the circulatory system
CPT/HCPCS: 52000; J0690; C2627; J2003; J2704; J7030; J7120